=== PATIENT | male | born 1955 | race Caucasian/White ===

== ENCOUNTER → 2018-10-14 10:43 | Outpatient (CLI) | payer MEDICAID, SELFPAY ==
--- NOTE | 2018-10-14 10:51 | US_ITS ---
. US soft tissue head and neck Ordering Physician: Pascual Flores MD Patient Age: 63 years: Male HISTORY: ITS.REASON: neck mass TECHNIQUE: Ultrasound survey of the entire neck. (Negative Thyroid ultrasound was performed yesterday at [facility] but this additional mass at the left supraclavicular region was incidentally noted]) COMPARISON :None FINDINGS (Negative Thyroid ultrasound was performed yesterday at [facility] but this additional mass at the left supraclavicular region was incidentally noted]) Thus the patient returns today for ultrasound survey of the neck. These images reveal large mass at the left left supraclavicular region.. Overall it measures up to 4.9 cm sagittal to 4.8 cm transverse x 2.5 cm AP. Slightly heterogeneous echogenicity intense to be slightly more hyperechoic than hypoechoic and solid regions. It does demonstrate some scattered cystic areas throughout some of the larger cystic areas measuring up to 1.4 cm x 0.[address] neck with contrast to further evaluate in follow-up. Suggest CXR 2 view. Given the supraclavicular might consider CT chest as well particularly if the patient is smoker A since this was a ultrasound of the entire neck other regions were surveyed. The parotid glands appear fairly normal size bilaterally: Right parotid gland measuring 3 cm x 2.7 x 1.4 cm. Left parotid gland measuring up to 2.9 cm x 2.3 cm x 1.55 cm. There is a 1.1 cm x 0.6 cm cyst off the inferior margin of the left parotid gland incidentally noted Submandibular glands appear normal bilaterally. Right submandibular gland measuring 3.25 cm maximally x 3 cm x 1.2 cm AP. IMPRESSION: Left submandibular gland 3.3 cm length x 1 cm AP IMPRESSION......... 1. Large mass left supraclavicular region. This measures up to 4.9 x 4.8 x 2.5 cm. Somewhat heterogeneous echogenicity with some scattered cystic areas within it 2. Thyroid gland scan yesterday at the [facility], and was negative/per MW 3. The submandibular glands and parotid glands were surveyed today with no prominent additional findings. Only note a small cyst measuring 1.1 x 0.6 cm extending off the lower pole of the left parotid gland.
[2018-10-14 13:38] LABS: Free T4 (Free Thyroxine) 0.85 ng/dl (0.76-1.46); Thyroid Stimulating Hormone 1.91 uIU/ml (0.358-3.740)
[2018-10-15 18:11] LABS: Thyroid Peroxidase Antibodies 9 IU/mL (0-34)
[2018-10-17 10:52] LABS: Thyroid Stimulating Immunoglob <0.10 IU/L (0.00-0.55)
== END ==
PROVIDERS: PCP Family Medicine; Visit Provider Otolaryngology
DX: E01.0 Iodine-deficiency related diffuse (endemic) goiter (principal); R22.1 Localized swelling, mass and lump, neck
CPT/HCPCS: 36415; 76536; 84439; 84443; 84445; 86376

== ENCOUNTER → 2018-11-09 09:17 | Outpatient (CLI) | payer MEDICAID, SELFPAY ==
[2018-11-09 11:35] LABS: Alanine Aminotransferase 37 U/L (12-78); Albumin Level 3.7 gm/dL (3.4-5.0); Albumin/Globulin Ratio 1.3 (1.1-1.8); Alkaline Phosphatase 71 U/L (46-116); Anion Gap 16.4 mEq/L (5-15); Aspartate Amino Transferase 27 U/L (15-37); Bilirubin,Total 0.4 mg/dL (0.2-1.0); Blood Urea Nitrogen 18 mg/dL (7-18); Calcium 8.6 mg/dL (8.5-10.1); Carbon Dioxide 23 mmol/L (21.0-32.0); Chloride 105 mmol/L (98-107); Creatinine,Serum 0.88 mg/dL (0.70-1.30); Estimated Glomerular Filt Rate 88 ml/min (>60); GFR (African American) 106 ML/MIN (>60); Globulin 2.9 gm/dl (1.3-3.2); Glucose 103 mg/dL (74-106); Potassium 4.4 mmoL/L (3.5-5.1); Sodium 140 mmol/L (136-145); Total Protein,Serum 6.6 gm/dL (6.4-8.2)
== END ==
PROVIDERS: Visit Provider Otolaryngology
DX: R22.1 Localized swelling, mass and lump, neck (principal)
CPT/HCPCS: 36415; 80053

== ENCOUNTER → 2018-11-10 12:23 | Outpatient (CLI) | payer MEDICAID, SELFPAY ==
--- NOTE | 2018-11-10 12:26 | CT_ITS ---
CT soft tissue neck wo/w con INDICATION: ITS.REASON: neck mass ORDERING PHYSICIAN: Pascual Flores MD PATIENT AGE: 63 years COMPARISON: None TECHNIQUE: Axial images are obtained without contrast. Sagittal and coronal reformatted images are reviewed as well. All CT scans at the facility use one or more dose reduction, viz: automated exposure control, ma/kV adjustment per patient size (including targeted exams where dose is matched to indication, i.e. head), or iterative reconstruction technique. FINDINGS: There are scattered small nodes in the neck. The nasopharynx has an unremarkable appearance. Small nodes are present in the neck on both sides. There is an asymmetric soft tissue density in the left supraclavicular region medially measuring 3.2 x 1.6 cm. There is a 1.7 x 1.3 cm nodule along the inferior aspect of the left parotid gland and could be related to an exophytic parotid nodule or a periparotid lymph node. There is a small lymph node just medial to this region measuring 10 x 8 mm. No abscess. The submandibular glands have an unremarkable appearance. The thyroid gland has an unremarkable appearance. There are small nodes in the mediastinum measuring up to 1.4 cm. There is degenerative disc disease at C4-C5 and C5-C6. IMPRESSION: 1. Mild cervical adenopathy. The largest luis area is in the left supraclavicular region medially at 3 x 1.6 cm. 2. Exophytic parotid nodule versus inferior periparotid lymph node on the left
== END ==
PROVIDERS: PCP Family Medicine; Visit Provider Otolaryngology
DX: R22.1 Localized swelling, mass and lump, neck (principal)
CPT/HCPCS: 70492; Q9967

== ENCOUNTER → 2018-12-01 09:14 | Outpatient (CLI) | payer MEDICAID, SELFPAY ==
--- NOTE | 2018-12-01 09:17 | US_ITS ---
US FNA Other HISTORY: Left supraclavicular adenopathy ORDERING PHYSICIAN: Pascual Flores MD PATIENT AGE: 63 years COMPARISON: 11/10/2018, 10/14/2018 TECHNIQUE: Following obtaining informed consent, using aseptic technique and local anesthesia with buffered lidocaine, fine-needle aspiration was performed of the nodule of interest in the left supraclavicular region using sonographic guidance. 3 passes were made into the nodule with a 25-gauge needle. 2 passes were also made with a 21-gauge needle. Specimen was given to cytology. The patient tolerated the procedure well without evidence of immediate complications and left the ultrasound suite in stable condition. CYTOLOGY:Malignant IMPRESSION: Successful sonographic guided fine needle aspiration of left supraclavicular lymph nodes showing malignant cytology
== END ==
PROVIDERS: PCP Family Medicine; Visit Provider Otolaryngology
DX: R22.32 Localized swelling, mass and lump, left upper limb (principal)
CPT/HCPCS: 10005; 76942

== ENCOUNTER → 2018-12-08 15:50 | Outpatient (CLI) | payer MEDICAID, SELFPAY ==
[2018-12-08 16:08] LABS: Basophils % 0.5 % (0.1-2.0); Eosinophils # 0.1 K/mm3 (0.0-0.4); Eosinophils % 1.4 % (0.1-12.0); Hematocrit 33.9 % (42.0-52.0); Hemoglobin 11.9 g/dL (14.1-18.0); Lymphocytes # 1.4 K/mm3 (0.7-4.5); Mean Corpuscular HGB Conc 35.1 g/dL (31.8-35.4); Mean Corpuscular Hemoglobin 30.9 pg (27.0-31.2); Mean Corpuscular Volume 88.1 fl (80-94); Mean Platelet Volume 7.2 fl (7.4-10.4); Monocytes # 0.3 K/mm3 (0.1-1.0); Monocytes % 6.3 % (1.7-9.3); Neutrophils # 3.5 K/mm3 (1.8-7.8); Neutrophils % 65.8 % (37.0-80.0); Platelet Count 200 K/mm3 (142-424); Red Blood Count 3.84 M/mm3 (4.60-6.20); Red Cell Distribution Width 13.6 % (11.5-17.5); White Blood Count 5.4 K/mm3 (4.8-10.8)
[2018-12-08 16:58] LABS: Anion Gap 12.1 mEq/L (5-15); Blood Urea Nitrogen 15 mg/dL (7-18); Calcium 8.5 mg/dL (8.5-10.1); Carbon Dioxide 26 mmol/L (21.0-32.0); Chloride 106 mmol/L (98-107); Creatinine,Serum 0.83 mg/dL (0.70-1.30); Estimated Glomerular Filt Rate 94 ml/min (>60); GFR (African American) 114 ML/MIN (>60); Glucose 89 mg/dL (74-106); Potassium 4.1 mmoL/L (3.5-5.1); Sodium 140 mmol/L (136-145)
== END ==
PROVIDERS: Visit Provider Otolaryngology
DX: R22.1 Localized swelling, mass and lump, neck (principal)
CPT/HCPCS: 36415; 80048; 85025; 93005

== ENCOUNTER 2018-12-22 06:46 | Day surgery (SDC) | payer MEDICAID, SELFPAY ==
[2018-12-21 10:04] VITALS: BMI 27.1
[2018-12-22] VITALS (9 sets, daily range): BP systolic 126–141; BP diastolic 65–90; PULSE 67–88; RESP 16–20; TEMP 36.2–37.1; O2SAT 94–98
--- NOTE | 2018-12-22 07:37 | P.PN_ITS ---
[facility] Anesthesia Checklist - Patient Identification Patient Identification: Arm Band - Structural Data Admitted From: Home Planned Operative Procedure/s: cervical node biopsy left neck Consent for Planned Operative Procedure(s) Verified: Yes Verified Documents: Surgical Consent, History and Physical - NPO Status Verified Time NPO: 00:00 - Additional verifications Anesthesia Reactions: No - Airway Assessment C-Spine Mobility Assessed: Yes (mp2) TMJ Mobility Assessed: Yes Dentition: Good Dentition - Neurological Assessment Level of Consciousness: Awake, Alert - Anesthesia Plan Anesthesia Risk discussed: Yes Anesthesia Plan: Verified ASA Class: II Anesthesia Type: General [facility] History I have reviewed the patient's past medical history: Yes Medical History: Reports:: Gastroesophageal Reflux Disease(GERD) Denies:: Cancer, Diabetes Mellitus Type 1, Diabetes Mellitus Type 2, MRSA, Seizures *Have you ever received a pneumonia vaccine?: No *Have you received a flu vaccine this season?: No Other Medical History: Denies: Blood Transfusion Reaction Laterality Cases: Bilateral: Tonsillectomy Other Surgeries: Yes: Colonoscopy Amputation: No Fractures: No - *Social History Educational Level: Completed High School Smoking Status: Former smoker Tobacco Type: cigarettes Alcohol Intake: never Alcohol Intake Frequency:: a few times a month *Occupational Status:: employed Housing: house Household Members: spouse *Travel in the last 8 weeks: Inside the [place] - Psychiatric History Expresses thoughts of harming self/others: None Suicide Plan Description: No Plan Family Hx:: Cancer
--- NOTE | 2018-12-22 10:31 | P.PN_ITS ---
[facility] Anesthesia Record Part I Intake, IV Amount: 1,200 Estimated blood loss (mL): 10 Urine output (mL): 0 Blood Pressure: 140/79 SaO2: 97 Pulse Rate: 75 Respiratory Rate: 16 Temperature: 97.1 F Patient is:: Drowsy, Stable Stable to PACU at:: 10:25
--- NOTE | 2018-12-22 10:31 | P.PN_ITS ---
[facility] Anesthesia Record Part II Discharge Time: 10:55 Destination: [facility] PACU nurse assessment reviewed?: Yes Patient Condition:: Good Anesthesia Complications:: None Swallowing reflex intact?: Yes Cyanosis?: No
--- NOTE | 2018-12-22 10:31 | HMH.ANESII ---
[facility] Anesthesia Record Part II Discharge Time: 10:55 Destination: [facility] PAC[facility] nurse assessment reviewed?: Yes Patient Condition:: Good Anesthesia Complications:: None Swallowing reflex intact?: Yes Cyanosis?: No
--- NOTE | 2018-12-22 10:46 | PC.NURSE ---
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
--- NOTE | 2018-12-22 11:03 | PC.NURSE ---
1053-detailed report called to NIKI Domingo 1055-pt transported to post op via stretcher w/aleksey rails up and left in care of NIKI Domingo with bed locked in lowest position. VSS. PT stable.
--- NOTE | 2018-12-22 12:09 | P.OP_ITS ---
Date of procedure: 12/22/18 Pre-op Diagnosis:: Left deep cervical and posterior triangle level 2 lymphadenopathy Post-op Diagnosis:: same Procedure performed:: Excision of left deep cervical level 2 and posterior triangle cervical nodes Surgeon:: Pascual Flores MD HEALTHCARE CONSULTING MANAGER:: Anibal Arelalno Anesthesia: GETA Estimated blood loss (mL): 6 Operative findings:: same Operative note:: With the patient under general anesthesia, properly positioned, the left neck was prepped and draped. An upper cervical node incision was marked out over level 2 of the upper neck, and skin and subcutaneous tissue and platysma were incised. Flaps were elevated, the anterior border of the sternomastoid muscle was identified and then the sternomastoid muscle was fully mobilized in its superior position. The external jugular vein was doubly ligated and divided, the spinal accessory nerves were identified and preserved. Dissection was commenced anteriorly in the common carotid artery and the internal jugular vein were identified. There were multiple nodes in that area and all of those nodes were mobilized excised and submitted. As well there were nodes in the posterior triangle, level 2 and those nodes were mobilized and submitted. Leading for all the procedure was less than 10 cc and stopped with bipolar cautery. Surgicel snow was placed in the depth of the dissection anteriorly and posteriorly. And the neck was closed in the usual fashion with 2-0 Vicryl on the platysma and subcutaneous layer and Dermabond on the skin. No drains were inserted. Dr. Pascual Flores. Condition: stable Disposition: PACU Complications:: none
== END 2018-12-22 11:40 | disposition home or self-care (01) ==
PROVIDERS: PCP Family Medicine; Visit Provider Otolaryngology
PROC: (CPT 38510; principal; 2018-12-22 08:15)
DX: R59.1 Generalized enlarged lymph nodes (principal)
CPT/HCPCS: 38510; 96374; J2405; J2710

== ENCOUNTER → 2019-01-13 07:24 | Outpatient (CLI) | payer MEDICAID, SELFPAY ==
[2019-01-13 08:14] LABS: Blood Urea Nitrogen 22 mg/dL (7-18); Creatinine,Serum 0.89 mg/dL (0.70-1.30); Estimated Glomerular Filt Rate 87 ml/min (>60); GFR (African American) 105 ML/MIN (>60)
--- NOTE | 2019-01-13 14:15 | CT_ITS ---
CT chest w con HISTORY: ITS.REASON: LYMPHOMA ORDERING PHYSICIAN: Gricelda Cox MD PATIENT AGE: 63 years COMPARISON: None Technique: Contrast Used:75ml Optiray 350 Axial images were obtained. Sagittal, and coronal reformatted images are also generated and reviewed. All CT scans at the facility use one or more dose reduction, viz: automated exposure control, ma/kV adjustment per patient size (including targeted exams where dose is matched to indication, i.e. head), or iterative reconstruction technique. FINDINGS: The small cluster of nodes in the left supraclavicular region medially is once again noted measuring approximately 2.3 x 1.1 cm. Other smaller supraclavicular nodes are present. There are bilateral axillary nodes present. The larger of these nodes do contain prominent fatty central hilum. There are small nodes without fatty central azael measuring up to 1.6 x 1.4 cm in the right axilla. There are small mediastinal lymph nodes are also present. Right anterior paratracheal node is present measuring 1.4 cm not significantly changed. Right lateral paratracheal lymph node 1.6 x 1 cm unchanged. Small anterior aortopulmonic window on the left is present at 1.5 x 1 cm unchanged. No hilar adenopathy. There are some scattered fibrotic changes in the lungs. A calcified node is present in the right lung base posteriorly. Noncalcified fissural nodule present on the right superiorly 5 mm. There is noncalcified nodule in the left lung base at 6 millimeters. Calcified nodule left lower lobe posteriorly. No lobar consolidation or collapse no effusions. IMPRESSION: 1. No change in the supraclavicular nodes on the left. There are small bilateral axillary lymph nodes and small mediastinal nodes. These are described above. The mediastinal nodes are not significantly changed. The axillary nodes were not previously imaged. 2. 6 mm noncalcified nodule left lower lobe. Consider 6 month follow-up.
--- NOTE | 2019-01-13 14:15 | CT_ITS ---
CT abdomen pelvis w con CLINICAL INDICATION: ITS.REASON: LYMPHOMA ORDERING PHYSICIAN: Gricelda Cox MD PATIENT AGE: 63 years COMPARISON: None TECHNIQUE: Contrast Used:75ml Optiray 350 Oral Contrast: 450ml Redicat Axial images obtained with sagittal and coronal reformats. All CT scans at the facility use one or more dose reduction, viz: automated exposure control, ma/kV adjustment per patient size (including targeted exams where dose is matched to indication, i.e. head), or iterative reconstruction technique. FINDINGS: The liver, gallbladder, adrenal glands, and pancreas have an unremarkable appearance. There is mild splenomegaly at 13 x 9 x 13 cm. There are scattered small mesenteric and retroperitoneal lymph nodes. There is a chain of mildly prominent retroperitoneal lymph nodes in the left periaortic region. These measure up to 2 x 1.1 cm. No evidence of aortic aneurysm. There is mild prominence of the proximal left common iliac artery at 1.5 cm. There are some small lymph nodes present in the left external iliac chain. Small nodes are also present in the inguinal regions bilaterally measuring up to 1.2 x 1 cm. The prostate is mildly enlarged at 4.4 cm. Within the central aspect of the prostate there is a more dense area which measures 2.5 cm with some calcification. Along the posterior and right aspect of the urinary bladder there is a 3.8 x 2.7 cm soft tissue density. This is contiguous with the urinary bladder and could represent a bladder diverticulum. No intestinal structure free air. Unremarkable appendix. There is diverticulosis of the sigmoid colon with no evidence of diverticulitis. There are degenerative changes of the lumbar spine. IMPRESSION: 1. Scattered small peritoneal and retroperitoneal lymph nodes with small nodes also present in the inguinal region and left iliac area. 2. 3.8 cm soft tissue density in the right pelvic area which may represent a urinary bladder diverticulum. 3. Mildly enlarged prostate with a central zone of increased density. Correlation with physical exam and PSA suggested. 4. Colonic diverticulosis
== END ==
PROVIDERS: Visit Provider Internal Medicine Medical Oncology
DX: C82.01 Follicular lymphoma grade I, lymph nodes of head, face, and neck (principal)
CPT/HCPCS: 36415; 71260; 74177; 82565; 84520; Q9967

== ENCOUNTER → 2019-01-19 15:12 | Outpatient (CLI) | payer MEDICAID, SELFPAY ==
[2019-01-19 18:21] LABS: Prostate Specific Ag Screen 0.8 ng/mL (0.0-4.0)
== END ==
PROVIDERS: Visit Provider Internal Medicine Medical Oncology
DX: Z12.5 Encounter for screening for malignant neoplasm of prostate (principal); C82.01 Follicular lymphoma grade I, lymph nodes of head, face, and neck
CPT/HCPCS: 36415; G0103

== ENCOUNTER → 2019-02-23 11:12 | Outpatient (CLI) | payer MEDICAID, SELFPAY ==
[2019-02-23 11:48] LABS: Basophils % 0.2 % (0.1-2.0); Eosinophils # 0.1 K/mm3 (0.0-0.4); Eosinophils % 2.4 % (0.1-12.0); Hemoglobin 12.4 g/dL (14.1-18.0); Lymphocytes # 1.1 K/mm3 (0.7-4.5); Lymphocytes % 24.2 % (10-50); Mean Corpuscular HGB Conc 32.6 g/dL (31.8-35.4); Mean Corpuscular Hemoglobin 29.9 pg (27.0-31.2); Mean Corpuscular Volume 91.8 fl (80-94); Mean Platelet Volume 6.4 fl (7.4-10.4); Monocytes # 0.3 K/mm3 (0.1-1.0); Monocytes % 5.4 % (1.7-9.3); Neutrophils # 3.2 K/mm3 (1.8-7.8); Neutrophils % 67.7 % (37.0-80.0); Platelet Count 177 K/mm3 (142-424); Red Blood Count 4.13 M/mm3 (4.60-6.20); White Blood Count 4.7 K/mm3 (4.8-10.8)
[2019-02-23 12:44] LABS: Alanine Aminotransferase 29 U/L (12-78); Albumin Level 3.5 gm/dL (3.4-5.0); Albumin/Globulin Ratio 1.1 (1.1-1.8); Alkaline Phosphatase 80 U/L (46-116); Anion Gap 12.6 mEq/L (5-15); Aspartate Amino Transferase 18 U/L (15-37); Bilirubin,Total 0.5 mg/dL (0.2-1.0); Blood Urea Nitrogen 19 mg/dL (7-18); Calcium 8.8 mg/dL (8.5-10.1); Carbon Dioxide 27 mmol/L (21.0-32.0); Chloride 106 mmol/L (98-107); Creatinine,Serum 0.87 mg/dL (0.70-1.30); Estimated Glomerular Filt Rate 89 ml/min (>60); GFR (African American) 108 ML/MIN (>60); Globulin 3.2 gm/dl (1.3-3.2); Glucose 96 mg/dL (74-106); Potassium 4.6 mmoL/L (3.5-5.1); Sodium 141 mmol/L (136-145); Total Protein,Serum 6.7 gm/dL (6.4-8.2)
== END ==
PROVIDERS: Visit Provider Internal Medicine Hematology & Oncology
DX: C82.01 Follicular lymphoma grade I, lymph nodes of head, face, and neck
CPT/HCPCS: 36415; 80053; 85025

== ENCOUNTER 2019-03-07 08:44 | Outpatient (CLI) | payer MEDICAID, SELFPAY ==
[2019-03-07] VITALS (9 sets, daily range): BP systolic 109–130; BP diastolic 60–81; PULSE 64–84; RESP 20; TEMP 36.6; O2SAT 96–98
== END 2019-03-07 13:36 | disposition home or self-care (01) ==
LOC: INF 08:44
PROVIDERS: Visit Provider Internal Medicine Medical Oncology
DX: Z51.11 Encounter for antineoplastic chemotherapy (principal); C82.41 Follicular lymphoma grade IIIb, lymph nodes of head, face, and neck
CPT/HCPCS: 96413; 96415; J9312

== ENCOUNTER 2019-03-15 08:50 | Outpatient (CLI) | payer MEDICAID, SELFPAY ==
[2019-03-15] VITALS (7 sets, daily range): BP systolic 100–122; BP diastolic 64–76; PULSE 70–76; RESP 18; TEMP 36.6; O2SAT 97–98; BMI 25.9
[2019-03-15 09:20] LABS: Basophils % 0.5 % (0.1-2.0); Eosinophils # 0.1 K/mm3 (0.0-0.4); Eosinophils % 2.6 % (0.1-12.0); Hematocrit 40.2 % (42.0-52.0); Hemoglobin 13.4 g/dL (14.1-18.0); Lymphocytes # 0.9 K/mm3 (0.7-4.5); Lymphocytes % 16.7 % (10-50); Mean Corpuscular HGB Conc 33.3 g/dL (31.8-35.4); Mean Corpuscular Hemoglobin 29.8 pg (27.0-31.2); Mean Corpuscular Volume 89.5 fl (80-94); Mean Platelet Volume 6.4 fl (7.4-10.4); Monocytes # 0.4 K/mm3 (0.1-1.0); Monocytes % 6.7 % (1.7-9.3); Neutrophils # 4.1 K/mm3 (1.8-7.8); Neutrophils % 73.5 % (37.0-80.0); Platelet Count 217 K/mm3 (142-424); White Blood Count 5.6 K/mm3 (4.8-10.8)
[2019-03-15 09:32] LABS: Alanine Aminotransferase 31 U/L (12-78); Albumin Level 3.6 gm/dL (3.4-5.0); Albumin/Globulin Ratio 1.1 (1.1-1.8); Alkaline Phosphatase 82 U/L (46-116); Anion Gap 15.1 mEq/L (5-15); Aspartate Amino Transferase 21 U/L (15-37); Bilirubin,Total 0.6 mg/dL (0.2-1.0); Blood Urea Nitrogen 19 mg/dL (7-18); Calcium 9.2 mg/dL (8.5-10.1); Carbon Dioxide 24 mmol/L (21.0-32.0); Chloride 103 mmol/L (98-107); Creatinine Clearance Estimated 91 mL/min (50-200); Creatinine,Serum 0.95 mg/dL (0.70-1.30); Estimated Glomerular Filt Rate 80 ml/min (>60); GFR (African American) 97 ML/MIN (>60); Globulin 3.4 gm/dl (1.3-3.2); Glucose 137 mg/dL (74-106); Potassium 4.1 mmoL/L (3.5-5.1); Sodium 138 mmol/L (136-145)
== END 2019-03-15 12:55 | disposition home or self-care (01) ==
LOC: INF 08:50
PROVIDERS: Visit Provider Internal Medicine Medical Oncology
DX: Z51.11 Encounter for antineoplastic chemotherapy (principal); C82.01 Follicular lymphoma grade I, lymph nodes of head, face, and neck
CPT/HCPCS: 80053; 85025; 96413; 96415; J9312

== ENCOUNTER 2019-03-22 08:28 | Outpatient (CLI) | payer MEDICAID, SELFPAY ==
[2019-03-22 08:30] VITALS: BMI 25.9
[2019-03-22 09:01] LABS: Basophils % 0.2 % (0.1-2.0); Eosinophils # 0.1 K/mm3 (0.0-0.4); Eosinophils % 1.2 % (0.1-12.0); Hematocrit 39.2 % (42.0-52.0); Lymphocytes % 9.6 % (10-50); Mean Corpuscular HGB Conc 33.2 g/dL (31.8-35.4); Mean Corpuscular Hemoglobin 30.5 pg (27.0-31.2); Mean Corpuscular Volume 91.9 fl (80-94); Mean Platelet Volume 6.2 fl (7.4-10.4); Monocytes # 0.7 K/mm3 (0.1-1.0); Monocytes % 6.6 % (1.7-9.3); Neutrophils # 8.3 K/mm3 (1.8-7.8); Neutrophils % 82.5 % (37.0-80.0); Platelet Count 207 K/mm3 (142-424); Red Blood Count 4.26 M/mm3 (4.60-6.20); Red Cell Distribution Width 14.2 % (11.5-17.5); White Blood Count 10.1 K/mm3 (4.8-10.8)
[2019-03-22 09:10] LABS: Alanine Aminotransferase 25 U/L (12-78); Albumin Level 3.5 gm/dL (3.4-5.0); Albumin/Globulin Ratio 0.9 (1.1-1.8); Alkaline Phosphatase 75 U/L (46-116); Anion Gap 14.3 mEq/L (5-15); Aspartate Amino Transferase 18 U/L (15-37); Blood Urea Nitrogen 14 mg/dL (7-18); Calcium 8.7 mg/dL (8.5-10.1); Carbon Dioxide 26 mmol/L (21.0-32.0); Chloride 98 mmol/L (98-107); Creatinine Clearance Estimated 91 mL/min (50-200); Creatinine,Serum 0.86 mg/dL (0.70-1.30); Estimated Glomerular Filt Rate 90 ml/min (>60); GFR (African American) 109 ML/MIN (>60); Globulin 3.9 gm/dl (1.3-3.2); Glucose 122 mg/dL (74-106); Magnesium 1.9 mg/dL (1.4-2.2); Phosphorous 2.2 mg/dL (2.4-4.9); Potassium 4.3 mmoL/L (3.5-5.1); Sodium 134 mmol/L (136-145); Total Protein,Serum 7.4 gm/dL (6.4-8.2)
[2019-03-22 10:21] VITALS: BP 115/67; PULSE 86; RESP 18; TEMP 37.1; O2SAT 100
[2019-03-22 10:51] VITALS: BP 119/66; PULSE 92; RESP 18; O2SAT 99
[2019-03-22 11:21] VITALS: BP 108/63; PULSE 80; RESP 18; O2SAT 99
[2019-03-22 11:51] VITALS: BP 110/69; PULSE 80; RESP 18; O2SAT 98
[2019-03-22 12:20] VITALS: BP 127/70; PULSE 84; RESP 18; O2SAT 99
== END 2019-03-22 12:20 | disposition home or self-care (01) ==
LOC: INF 08:28
PROVIDERS: Visit Provider Internal Medicine Medical Oncology
DX: Z51.11 Encounter for antineoplastic chemotherapy (principal); C82.01 Follicular lymphoma grade I, lymph nodes of head, face, and neck
CPT/HCPCS: 80053; 83735; 84100; 85025; 96413; 96415; J9312

== ENCOUNTER 2019-03-30 09:14 | Outpatient (CLI) | payer MEDICAID, SELFPAY ==
[2019-03-30 09:18] VITALS: BMI 26.5
[2019-03-30 09:34] LABS: Basophils % 0.4 % (0.1-2.0); Eosinophils # 0.2 K/mm3 (0.0-0.4); Eosinophils % 2.4 % (0.1-12.0); Hematocrit 38.9 % (42.0-52.0); Hemoglobin 12.8 g/dL (14.1-18.0); Lymphocytes # 1.4 K/mm3 (0.7-4.5); Lymphocytes % 21.4 % (10-50); Mean Corpuscular HGB Conc 32.8 g/dL (31.8-35.4); Mean Corpuscular Hemoglobin 29.6 pg (27.0-31.2); Mean Corpuscular Volume 90.1 fl (80-94); Mean Platelet Volume 6.2 fl (7.4-10.4); Monocytes # 0.4 K/mm3 (0.1-1.0); Monocytes % 6.2 % (1.7-9.3); Neutrophils # 4.6 K/mm3 (1.8-7.8); Neutrophils % 69.6 % (37.0-80.0); Platelet Count 285 K/mm3 (142-424); Red Blood Count 4.32 M/mm3 (4.60-6.20); Red Cell Distribution Width 13.8 % (11.5-17.5); White Blood Count 6.6 K/mm3 (4.8-10.8)
[2019-03-30 09:46] LABS: Alanine Aminotransferase 18 U/L (12-78); Albumin Level 3.4 gm/dL (3.4-5.0); Alkaline Phosphatase 73 U/L (46-116); Anion Gap 14.2 mEq/L (5-15); Aspartate Amino Transferase 14 U/L (15-37); Bilirubin,Total 0.4 mg/dL (0.2-1.0); Blood Urea Nitrogen 19 mg/dL (7-18); Calcium 8.9 mg/dL (8.5-10.1); Carbon Dioxide 25 mmol/L (21.0-32.0); Chloride 101 mmol/L (98-107); Creatinine Clearance Estimated 94 mL/min (50-200); Creatinine,Serum 0.85 mg/dL (0.70-1.30); Estimated Glomerular Filt Rate 91 ml/min (>60); GFR (African American) 111 ML/MIN (>60); Globulin 3.3 gm/dl (1.3-3.2); Glucose 134 mg/dL (74-106); Potassium 4.2 mmoL/L (3.5-5.1); Sodium 136 mmol/L (136-145); Total Protein,Serum 6.7 gm/dL (6.4-8.2)
== END 2019-03-30 10:25 | disposition home or self-care (01) ==
LOC: INF 09:14
PROVIDERS: Visit Provider Internal Medicine Medical Oncology
DX: C82.01 Follicular lymphoma grade I, lymph nodes of head, face, and neck (principal)
CPT/HCPCS: 80053; 85025

== ENCOUNTER → 2019-04-10 10:32 | Outpatient (CLI) | payer MEDICAID, SELFPAY ==
[2019-04-10 14:54] LABS: Alanine Aminotransferase 24 U/L (12-78); Alkaline Phosphatase 74 U/L (46-116); Aspartate Amino Transferase 13 U/L (15-37); Bilirubin,Total 0.5 mg/dL (0.2-1.0); Blood Urea Nitrogen 20 mg/dL (7-18); Calcium 9.1 mg/dL (8.5-10.1); Chloride 104 mmol/L (98-107); Creatinine,Serum 0.82 mg/dL (0.70-1.30); Estimated Glomerular Filt Rate 95 ml/min (>60); GFR (African American) 115 ML/MIN (>60); Glucose 103 mg/dL (74-106); Potassium 4.5 mmoL/L (3.5-5.1); Sodium 140 mmol/L (136-145); Total Protein,Serum 6.5 gm/dL (6.4-8.2)
[2019-04-10 14:59] LABS: Albumin Level 3.6 gm/dL (3.4-5.0); Albumin/Globulin Ratio 1.2 (1.1-1.8); Anion Gap 17.5 mEq/L (5-15); Carbon Dioxide 23 mmol/L (21.0-32.0); Globulin 2.9 gm/dl (1.3-3.2)
== END ==
PROVIDERS: Visit Provider Internal Medicine Medical Oncology
DX: C82.01 Follicular lymphoma grade I, lymph nodes of head, face, and neck (principal)
CPT/HCPCS: 36415; 80053

== ENCOUNTER → 2019-04-11 08:43 | Outpatient (CLI) | payer MEDICAID, SELFPAY ==
--- NOTE | 2019-04-11 08:48 | CT_ITS ---
PROCEDURE: CT CHEST W CON CLINICAL HISTORY: FOLLICULAR LYMPHOMA COMPARISON: CHESTW CT chest w con from 01/13/2019 TECHNIQUE: 75 cc intravenous contrast. Axial images obtained with sagittal and coronal reformats. All CT scans at the facility use one or more dose reduction, viz: automated exposure control, ma/kV adjustment per patient size (including targeted exams where dose is matched to indication, i.e. head), or iterative reconstruction technique. FINDINGS: Airway structures are patent without pleural effusion or pneumothorax. There are benign calcified granulomas in the posterior lower lobes bilaterally. The remainder of the lung watters are clear. There are a few small noncalcified mediastinal lymph nodes and a pretracheal lymph node shows maximal short axis diameter of 6.6 millimeters. There are some stable benign subcarinal calcified lymph nodes. Mediastinal structures and hilar areas are unremarkable. There are some thoracic aortic stable calcified plaques. IMPRESSION: No significant change or acute process. Small nonspecific noncalcified mediastinal lymph nodes. Dictated by: Bam Rodriguez 04/11/2019 10:17 Electronically signed by Bam Rodriguez in [place] 04/11/2019 10:17
--- NOTE | 2019-04-11 08:48 | CT_ITS ---
PROCEDURE: CT ABDOMEN PELVIS W CON CLINICAL HISTORY: FOLLICULAR LYMPHOMA COMPARISON: [facility] CT abdomen pelvis w con from 01/13/2019 TECHNIQUE: 75 cc of intravenous contrast was Axial images obtained with sagittal and coronal reformats. All CT scans at the facility use one or more dose reduction, viz: automated exposure control, ma/kV adjustment per patient size (including targeted exams where dose is matched to indication, i.e. head), or iterative reconstruction technique. FINDINGS: Utilized. Liver, gallbladder and pancreas are normal. Spleen is normal with maximal length of 11.8 centimeters. Adrenal glands and kidneys are normal. There are aortic calcified plaques without dilatation. Short axis diameter of a left retroperitoneal lymph node is 6.5 millimeters and on the prior study was 7.3 millimeters. Also the small bilateral common iliac lymph nodes are even smaller on today's study and the inguinal lymph nodes bilaterally are somewhat smaller. There are sigmoid diverticula without inflammatory changes. There is a stable left posterior lateral urinary bladder diverticulum. The remainder of the pelvic structures are stable. There is incomplete fluid distention of the stomach for adequate evaluation. GI tract is otherwise unremarkable with normal appendix. There is no acute osseous process. There is moderate thecal sac attenuation at L3-4 and L4-5 related to facet hypertrophy. IMPRESSION: As discussed above smaller lymph nodes in the abdomen pelvis and inguinal area. Stable urinary bladder diverticulum. Uncomplicated sigmoid diverticulosis. L3-4 and L4-5 acquired moderate central canal stenosis. Dictated by: Bam Rodriguez 04/11/2019 10:25 Electronically signed by Bam Rodriguez in [place] 04/11/2019 10:25
== END ==
PROVIDERS: PCP Family Medicine; Visit Provider Internal Medicine Medical Oncology
DX: C82.11 Follicular lymphoma grade II, lymph nodes of head, face, and neck (principal); C82.41 Follicular lymphoma grade IIIb, lymph nodes of head, face, and neck; C85.10 Unspecified B-cell lymphoma, unspecified site
CPT/HCPCS: 71260; 74177; Q9967

== ENCOUNTER → 2019-07-27 10:00 | Outpatient (CLI) | payer OTHER, SELFPAY ==
--- NOTE | 2019-07-27 10:12 | CT_ITS ---
PROCEDURE: CT CHEST W CON CLINCAL INDICATION: LYMPHOMA COMPARISON: FNAOTHER US FNA Other from 12/01/2018 CT CHEST W CON from 04/11/2019 CT ABDOMEN PELVIS W CON from 07/27/2019 TECHNIQUE: IV Contrast: 75ml Optiray 350 Axial images obtained with sagittal and coronal reformats. All CT scans at the facility use one or more dose reduction, viz: automated exposure control, ma/kV adjustment per patient size (including targeted exams where dose is matched to indication, i.e. head), or iterative reconstruction technique. FINDINGS: There are scattered small axillary and mediastinal nodes as before not significantly changed. Calcified mediastinal and hilar nodes are also present. Normal heart size. There are scattered small nodular opacities in the right apex with some right apical pleural thickening with also some mild fibrotic change in the left apex. There is evidence of old granulomatous disease with scattered granulomas. Calcified granuloma is present in the right lower lobe. No suspicious pulmonary nodules are apparent. There is a stable 6 mm opacity in the extreme left lung base. No acute bony anomalies. IMPRESSION: Stable CT appearance of the chest. No change with no acute finding. Dictated by: Daniel Barillas MD 07/28/2019 08:33 Electronically signed by Daniel Barillas MD in [place] 07/28/2019 08:33
--- NOTE | 2019-07-27 10:12 | CT_ITS ---
PROCEDURE: CT ABDOMEN PELVIS W CON CLINICAL INDICATION: LYMPHOMA Follow-up lymphoma COMPARISON: [id number] CT soft tissue neck wo/w con from 11/10/2018 FNAOTHER US FNA Other from 12/01/[id number] abdomen pelvis w con from 01/13/2019 CT ABDOMEN PELVIS W CON from 04/11/2019 TECHNIQUE: IV Contrast: 75ML OPTIRAY 350 Oral Contrast 450ml Redicat Axial images obtained with sagittal and coronal reformats. All CT scans at the facility use one or more dose reduction, viz: automated exposure control, ma/kV adjustment per patient size (including targeted exams where dose is matched to indication, i.e. head), or iterative reconstruction technique. FINDINGS: LOWER THORAX: No acute finding ABDOMEN & PELVIS: The liver, spleen, pancreas, adrenal glands, and kidneys are unremarkable. No abdominal or pelvic mass or adenopathy. Unremarkable appendix. There is some minimal haziness of the peritoneal fat centrally nonspecific. There is diverticulosis of the sigmoid colon. No evidence of diverticulitis. The a diverticulum is present involving the posterior aspect of the urinary bladder on the right. There are mild degenerative changes in the lumbar spine. There are small retroperitoneal lymph nodes on the left which may be slightly smaller. Small inguinal lymph nodes are also noted unchanged. No enlarged nodes are evident. IMPRESSION: Overall stable CT appearance of the abdomen and pelvis. There are few small retroperitoneal and inguinal lymph nodes. The retroperitoneal nodes may be slightly smaller compared to the previous exam. No bulky adenopathy evident. Dictated by: Daniel Barillas MD 07/28/2019 08:42 Electronically signed by Daniel Barillas MD in [place] 07/28/2019 08:42
[2019-07-27 10:22] LABS: Blood Urea Nitrogen 19 mg/dL (7-18); Creatinine,Serum 1.02 mg/dL (0.70-1.30); Estimated Glomerular Filt Rate 74 ml/min (>60); GFR (African American) 90 ML/MIN (>60)
== END ==
PROVIDERS: PCP Family Medicine; Visit Provider Internal Medicine Medical Oncology
DX: C82.01 Follicular lymphoma grade I, lymph nodes of head, face, and neck (principal)
CPT/HCPCS: 36415; 71260; 74177; 82565; 84520; Q9967

== ENCOUNTER → 2020-01-06 16:29 | Outpatient (CLI) | payer OTHER, SELFPAY ==
[2020-01-09 09:42] LABS: Covid-19 Nasal PCR Sendout UK NOT DETECTED
== END ==
PROVIDERS: PCP Family Medicine; Visit Provider Family Medicine
DX: Z03.818 Encounter for observation for suspected exposure to other biological agents ruled out (principal)
CPT/HCPCS: U0003

== ENCOUNTER → 2020-01-22 08:30 | Outpatient (CLI) | payer OTHER, SELFPAY ==
[2020-01-22 09:25] LABS: Blood Urea Nitrogen 16 mg/dl (9-20); Estimated Glomerular Filt Rate 85 ml/min (>60); GFR (African American) 103 ML/MIN (>60)
== END ==
PROVIDERS: Visit Provider Internal Medicine Medical Oncology
DX: Z01.818 Encounter for other preprocedural examination (principal)
CPT/HCPCS: 36415; 82565; 84520

== ENCOUNTER → 2020-01-23 09:40 | Outpatient (CLI) | payer OTHER, SELFPAY ==
--- NOTE | 2020-01-23 | CT_ITS ---
PROCEDURE: CT ABDOMEN PELVIS W CON CLINICAL INDICATION: Follow-up lymphoma COMPARISON: CT ABDOMEN PELVIS W CON from 07/27/2019 TECHNIQUE: IV Contrast: 75ML OPTIRAY 350 Oral Contrast None Axial images obtained with sagittal and coronal reformats. All CT scans at the facility use one or more dose reduction, viz: automated exposure control, ma/kV adjustment per patient size (including targeted exams where dose is matched to indication, i.e. head), or iterative reconstruction technique. FINDINGS: The liver, gallbladder, spleen, adrenal glands, pancreas, have an unremarkable appearance. There is mild nonspecific thickening of the distal esophagus. Nonobstructing stone is present in the mid pole of the right kidney at 1-2 mm. No ureteral calculi. No hydronephrosis. Unremarkable appendix. Colonic diverticulosis without diverticulitis. There is a right posterior bladder diverticulum. Coarse calcification involves the prostate which is slightly enlarged at 4.2 cm. No peritoneal or retroperitoneal adenopathy. There are few scattered small retroperitoneal lymph nodes as before. No bulky adenopathy apparent. Small shotty inguinal lymph nodes also noted not significantly changed. There is mild haziness of the central mesenteric fat nonspecific. Mild degenerative changes are present in the spine and hips. Subchondral cystic changes are present at the symphysis pubis and in the hips. IMPRESSION: Overall stable CT appearance the abdomen and pelvis. No CT evidence of recurrence lymphoma Dictated by: Daniel Barillas MD 01/24/2020 08:45 Electronically signed by Daniel Barillas MD in [place] 01/24/2020 08:45
--- NOTE | 2020-01-23 | CT_ITS ---
PROCEDURE: CT CHEST W CON CLINCAL INDICATION: LYMPHOMA Follow-up lymphoma COMPARISON: CHESTW CT chest w con from 01/13/2019 CT CHEST W CON from 07/27/2019 CT ABDOMEN PELVIS W CON from 01/23/2020 TECHNIQUE: IV Contrast: 75ml Optiray 350 Axial images obtained with sagittal and coronal reformats. All CT scans at the facility use one or more dose reduction, viz: automated exposure control, ma/kV adjustment per patient size (including targeted exams where dose is matched to indication, i.e. head), or iterative reconstruction technique. FINDINGS: HEART AND MEDIASTINAL STRUCTURES: Unremarkable. LUNGS AND PLEURAL SPACES: Changes of COPD. There are fibronodular changes in the lung apices which appear stable. Stable 6 mm nodular opacity in left lung base. No new nodules. No effusions or infiltrates. BONY STRUCTURES: No acute finding. There is a sclerotic focus involving the left 6th rib laterally which is stable UPPER ABDOMEN: Unremarkable. ADDITIONAL FINDINGS: Scattered small mediastinal and axillary lymph nodes are present as before. No enlarged lymph nodes. Calcified nodes are present in the subcarinal region. IMPRESSION: Stable CT appearance of the chest. No CT evidence of recurrence lymphoma Dictated by: Daniel Barillas MD 01/24/2020 08:51 Electronically signed by Daniel Barillas MD in [place] 01/24/2020 08:51
== END ==
PROVIDERS: PCP Family Medicine; Visit Provider Internal Medicine Medical Oncology
DX: C77.9 Secondary and unspecified malignant neoplasm of lymph node, unspecified (principal)
CPT/HCPCS: 71260; 74177

== ENCOUNTER → 2020-02-05 11:16 | Outpatient (CLI) | payer OTHER, SELFPAY ==
--- NOTE | 2020-02-05 12:10 | CT_ITS ---
PROCEDURE: CT SOFT TISSUE NECK WO/W CON Standard protocol CT imaging of the soft tissue neck was performed without and with intravenous contrast. 75 mL Optiray 350 IV contrast was utilized. CLINICAL INDICATION: LYMPHOMA Follow-up on chemotherapy. COMPARISON: NECKWW CT soft tissue neck wo/w con from 11/10/2018 FINDINGS: Nasopharynx, oropharynx and hypopharynx: Appear normal. Larynx: The epiglottis and larynx appear normal. Retropharyngeal space: Unremarkable. Sub mandibular/parotid glands: Unremarkable. Thyroid: Not enlarged or demonstrate calcified nodules Lymph nodes: Small non pathological lymph nodes are again seen in the spaces of the neck, bilaterally. No cervical lymphadenopathy is demonstrated. No left supraclavicular worrisome pathology is evident. Trachea: In midline. Patent. Bulky subcarinal and left hilar calcified lymph nodes are seen from old granulomatous disease. Lungs: There is biapical pleural thickening/parenchymal scarring. Mild emphysematous changes of the lungs. Bones and joints: Straightening of normal cervical lordosis. Moderate degenerative disc/endplate disease changes are seen at C4-C5, C5-C6 and C6-C7 levels with disc space narrowing, endplate sclerosis and with anterior bridging osteophytes. IMPRESSION: No cervical lymphadenopathy or enhancing worrisome supraclavicular pathology demonstrated. Multilevel moderate degenerative cervical spondylosis, as described. Dictated by: Teagan Melgar 02/05/2020 13:17 Electronically signed by Teagan Melgar in [facility] 02/05/2020 13:17
[2020-02-05 12:14] LABS: Blood Urea Nitrogen 21 mg/dl (9-20); Estimated Glomerular Filt Rate 85 ml/min (>60); GFR (African American) 103 ML/MIN (>60)
== END ==
PROVIDERS: Visit Provider Internal Medicine Medical Oncology
DX: C82.11 Follicular lymphoma grade II, lymph nodes of head, face, and neck (principal)
CPT/HCPCS: 36415; 70492; 82565; 84520; Q9967

== ENCOUNTER → 2020-05-31 14:52 | Outpatient (CLI) | payer OTHER, SELFPAY ==
--- NOTE | 2020-05-31 15:11 | US_ITS ---
PROCEDURE: US CHEST CLINICAL INDICATION: R/O LYMPHOMA,LT POSTERIOR MASS COMPARISON: CT CT CHEST W CON from 07/27/[address] SOFT TISSUE NECK WO/W CON from 02/05/2020 FINDINGS: The left lateral back there is a palpable abnormality. Ultrasound performed of this region shows a homogeneous lentiform area I so echogenicity measuring 4 cm longitudinal, 4 cm transverse, and 1 cm in thickness. This may represent a lipoma and may be confirmed with CT. No fluid collections evident. IMPRESSION: Soft tissue mass in the left lateral back may represent a lipoma. CT may confirm. Dictated by: Daniel Barillas MD 05/31/2020 16:58 Daniel Barillas MD in [facility] 05/31/2020 16:58
== END ==
PROVIDERS: PCP Family Medicine; Visit Provider Internal Medicine Medical Oncology
DX: C81.01 Nodular lymphocyte predominant Hodgkin lymphoma, lymph nodes of head, face, and neck (principal)
CPT/HCPCS: 76604

== ENCOUNTER → 2020-06-11 08:47 | Outpatient (CLI) | payer OTHER, SELFPAY ==
[2020-06-11 09:27] LABS: Basophils % 0.4 % (0.1-2.0); Eosinophils # 0.2 K/mm3 (0.0-0.4); Eosinophils % 3.2 % (0.1-12.0); Hemoglobin 14.3 g/dL (14.1-18.0); Lymphocytes # 1.1 K/mm3 (0.7-4.5); Lymphocytes % 23.2 % (10-50); Mean Corpuscular Hemoglobin 31.9 pg (27.0-31.2); Mean Corpuscular Volume 93.8 fl (80-94); Mean Platelet Volume 7.7 fl (7.4-10.4); Monocytes # 0.4 K/mm3 (0.1-1.0); Monocytes % 7.1 % (1.7-9.3); Neutrophils # 3.2 K/mm3 (1.8-7.8); Neutrophils % 66.2 % (37.0-80.0); Platelet Count 178 K/mm3 (142-424); Red Blood Count 4.48 M/mm3 (4.60-6.20); Red Cell Distribution Width 13.5 % (11.5-17.5); White Blood Count 4.9 K/mm3 (4.8-10.8)
[2020-06-11 10:44] LABS: Chloride 105 mmol/L (98-107); Potassium 4.4 mmoL/L (3.5-5.1); Sodium 138 mmol/L (136-145)
[2020-06-11 10:46] LABS: Alanine Aminotransferase 21 U/L (12-78); Aspartate Amino Transferase 28 U/L (17-59); Blood Urea Nitrogen 18 mg/dl (9-20); Estimated Glomerular Filt Rate 85 ml/min (>60); GFR (African American) 103 ML/MIN (>60)
[2020-06-11 10:47] LABS: Albumin Level 3.9 g/dl (3.5-5.0); Albumin/Globulin Ratio 1.5 (1.1-1.8); Alkaline Phosphatase 70 U/L (38-126); Anion Gap 11.4 mEq/L (5-15); Bilirubin,Total 0.6 mg/dl (0.2-1.3); Calcium 8.9 mg/dl (8.4-10.2); Carbon Dioxide 26 mmol/L (22.0-30.0); Globulin 2.6 g/dL (1.3-3.2); Glucose 101 mg/dl (74-100); Total Protein,Serum 6.5 g/dl (6.3-8.2)
== END ==
PROVIDERS: Visit Provider Internal Medicine Medical Oncology
DX: C85.90 Non-Hodgkin lymphoma, unspecified, unspecified site (principal); C81.01 Nodular lymphocyte predominant Hodgkin lymphoma, lymph nodes of head, face, and neck
CPT/HCPCS: 36415; 80053; 85025

== ENCOUNTER → 2020-06-13 08:39 | Outpatient (CLI) | payer OTHER, SELFPAY ==
--- NOTE | 2020-06-13 08:42 | CT_ITS ---
PROCEDURE: CT ABDOMEN PELVIS W CON CLINICAL INDICATION: [place] COMPARISON: CT CT ABDOMEN PELVIS W CON from 01/23/2020 TECHNIQUE: IV Contrast: 75ML Isovue 370 Oral Contrast None Axial images obtained with sagittal and coronal reformats. All CT scans at the facility use one or more dose reduction, viz: automated exposure control, ma/kV adjustment per patient size (including targeted exams where dose is matched to indication, i.e. head), or iterative reconstruction technique. FINDINGS: The liver, gallbladder, spleen, adrenal glands, pancreas, have an unremarkable appearance. There is a nonobstructing 2 mm stone in the mid polar region of the right kidney. No obstructing ureteral calculi. Unremarkable appearing appendix. No intestinal obstruction or free air. There is mild haziness of the central mesenteric fat which is not significantly changed. Small left-sided retroperitoneal lymph nodes are present and are unchanged. No dominant adenopathy. There is a right bladder diverticulum and there is mild nonspecific thickening of the urinary bladder. The prostate is prominent at 4.5 cm with central calcification. There are few small inguinal lymph nodes. Degenerative changes are present in the lumbar spine. Mild osteoarthritis also noted of the hips. IMPRESSION: 1. Overall no significant change with no acute finding with no evidence of recurrence lymphoma. 2. Other nonacute findings as described above. Dictated by: Daniel Bairllas MD 06/15/2020 09:16 Daniel Barillas MD in [facility] 06/15/2020 09:16
--- NOTE | 2020-06-13 08:42 | CT_ITS ---
PROCEDURE: CT CHEST W CON CLINCAL INDICATION: Lymphoma f/u follow-up lymphoma COMPARISON: CT CT CHEST W CON from 01/23/[address] SOFT TISSUE NECK WO/W CON from 02/05/2020 TECHNIQUE: IV Contrast: 75ml Isovue 370 Axial images obtained with sagittal and coronal reformats. All CT scans at the facility use one or more dose reduction, viz: automated exposure control, ma/kV adjustment per patient size (including targeted exams where dose is matched to indication, i.e. head), or iterative reconstruction technique. FINDINGS: HEART AND MEDIASTINAL STRUCTURES: There are small mediastinal lymph nodes present the largest of which is in the precarinal region measuring approximately 1.9 by 1 cm not significantly changed. Calcified subcarinal nodes are noted. LUNGS AND PLEURAL SPACES: There are scattered subsegmental multiple areas of infiltrate which are mostly peripheral. These are present in both upper and lower lobes. The largest area of infiltrate is in the right lower lobe. These have developed since the previous exam. Some of these infiltrates have a somewhat ground-glass attenuation. Covid19 pneumonitis is considered. No suspicious pulmonary nodules are identified although nodule could be obscured by the multiple areas of infiltrate. No effusions. Bony structures: There is an area of bony sclerosis involving the left 6th rib laterally. This is not significantly changed. There are small axillary lymph nodes present which are not significantly changed. Mild gynecomastia noted. IMPRESSION: 1. Mildly prominent mediastinal lymph nodes which are not significantly changed. 2. Small axillary nodes not significantly changed. 3. Numerous subsegmental areas of infiltrate some of which have ground-glass attenuation. These findings may be seen with Covid19 pneumonitis. Please correlate with clinical findings. Dictated by: Daniel Barillas MD 06/15/2020 09:11 Daniel Barillas MD in [facility] 06/15/2020 09:11
== END ==
PROVIDERS: PCP Family Medicine; Visit Provider Internal Medicine Medical Oncology
DX: C81.01 Nodular lymphocyte predominant Hodgkin lymphoma, lymph nodes of head, face, and neck (principal)
CPT/HCPCS: 71260; 74177; Q9967

== ENCOUNTER → 2020-06-20 14:16 | Outpatient (CLI) | payer OTHER, SELFPAY ==
--- NOTE | 2020-06-20 14:54 | CT_ITS ---
PROCEDURE: REPEAT VIEW CT CLINICAL HISTORY: Repeat exam for possible lipoma COMPARISON: CT CT CHEST W CON from 01/23/[address] CHEST W CON from 06/13/2020 TECHNIQUE: Axial images obtained with sagittal and coronal reformats. All CT scans at the facility use one or more dose reduction, viz: automated exposure control, ma/kV adjustment per patient size (including targeted exams where dose is matched to indication, i.e. head), or iterative reconstruction technique. FINDINGS: The patient was asked to return as it was uncertain if the previous area of concern was covered on the exam. A BB was placed on the area of concern and the exam was performed without contrast. The palpable area of concern does represent a benign-appearing lipoma. This measures approximately 6 x 6 by 1.5 cm. There is persistent bilateral patchy areas of opacification. Some areas are slightly improved while other areas are slightly more prominent. There is a nonobstructing 2 mm stone in the mid polar region of the right kidney. Compared to the previous exam. IMPRESSION: 1. Palpable abnormality in the left posterior chest corresponds to a benign-appearing lipoma 2. Persistent peripheral patchy areas of pneumonia with mixed response Dictated by: Daniel Barillas MD 06/20/2020 15:11 Daniel Barillas MD in [facility] 06/20/2020 15:11
[2020-06-22 12:53] LABS: Covid-19 Nasal PCR Sendout Lex Positive
== END ==
PROVIDERS: PCP Family Medicine; Visit Provider Internal Medicine Medical Oncology
DX: Z20.828 Contact with and (suspected) exposure to other viral communicable diseases (principal); U07.1 COVID-19
CPT/HCPCS: U0004

== ENCOUNTER 2020-07-08 09:16 | Emergency (ER) | payer OTHER, SELFPAY ==
[2020-07-08 09:31] VITALS: BP 126/75; PULSE 90; RESP 16; TEMP 36.7; O2SAT 98; BMI 27.1
--- NOTE | 2020-07-08 09:41 | HMH.EDUTC ---
[facility] [place] Clinical Impression: COVID-19 Disposition: Home, Self-Care Condition on Discharge: Good Instructions: Preventing the Spread of Coronavirus Discharge Instructions Additional Instructions: Drink plenty of fluids. Take tylenol for pain or fever. Return if you begin to have difficulty breathing. Follow up with your regular doctor. GO TO THE ER FOR ANY WORSENING SYMPTOMS Referrals: Kenroy Chavez MD [Primary Care Provider] - Time of Disposition: 09:43 Medical Decision Making - Medical Records Medical records reviewed: No: I reviewed the patient's medical records. - Caleb Inquiry Pt receiving controlled substance: No Vital Signs: 07/08/20 09:31 07/08/20 09:55 Temperature 98.1 F 98.1 F Temperature Source Oral Pulse Rate 90 Pulse Rate [Left] 90 Respiratory Rate 16 16 Blood Pressure 126/75 Blood Pressure [Right Arm] 126/75 Blood Pressure Mean [Right Arm] 92 Blood Pressure Source [Right Arm] Automatic Cuff Blood Pressure Position [Right Arm] Sitting 02 Sat by Pulse Oximetry 98 Oxygen Delivery Method Room Air Orders (Tests/Meds): ORDERS Category Date Time Status Covid-19 Nasal PCR Sendout P&C Routine Lab 07/08/20 09:25 Received [facility] [place] HPI - General Stated complaint: covid re test Time Seen by Provider: 07/08/20 09:41 Mode of Arrival: Ambulatory Source of Information: Patient Limitations: No Limitations Description of Symptoms (Recalled from Triage Doc. by RN): Covid re-test. Positive after Thanksgiving HEENT Symptoms (Recalled from RN notes): No Resp Symptoms (Recalled from RN notes): No Skin Symptoms (Recalled from RN notes): No MS Symptoms (Recalled from RN notes): No Functional Status (Recalled from RN notes): wnl - History of Present Illness Provider Complaint: He states that he has had covid. He did have symptoms, but he has been better for the past 5 days or so. He denies any symptoms. He request a covid test. - Related Data Home Medications Medication Instructions Recorded Confirmed No Known Home Medications 07/08/20 07/08/20 Allergies Allergy/AdvReac Type Severity Reaction Status Date / Time No Known Allergies Allergy Verified 07/08/20 09:38 - Worker's Comp Is this a Worker's Comp case?: No Is this an [facility] Worker's Comp?: No Is this a Jimmy Worker's Comp?: No [facility] History - Hepatitis A Screen Drug use history?: No High risk sexual behaviors?: No History of sexually transmitted infection?: No Currently employed?: No Childcare worker?: No Do you have indoor plumbing?: Yes Do you have electricity?: Yes Attestation statement:: This patient has been screened for Hepatitis A risk factors. I have reviewed the patient's past medical history: Yes Medical History: Reports:: Cancer, Gastroesophageal Reflux Disease(GERD) Denies:: Diabetes Mellitus Type 1, Diabetes Mellitus Type 2, MRSA, Seizures Other Medical History: Denies: Blood Transfusion Reaction Comment: Follicular Lymphoma, 2019 Laterality Cases: Bilateral: Tonsillectomy Other Surgeries: Yes: No Previous Surgery, Colonoscopy, Other Amputation: No Fractures: No Comment: surgery on neck, cancer - Social History Smoking Status: Never smoker Tobacco Type: cigarettes # Packs/Day (cigarettes): 1 Alcohol Intake: never Alcohol Intake Frequency:: a few times a month Substance Use Type: denies use Occupational Status: other Housing: house Household Members: spouse Family Hx:: Cancer ROS Obtained: Yes All systems reviewed & no additional complaints - Constitutional Constitutional: Reports system reviewed and no additional complaints, except as docu - Eyes Eyes: Reports system reviewed and no additional complaints, except as docu - ENT Ears, Nose, Mouth, and Throat: Reports system reviewed and no additional complaints, except as docu - Cardiovascular Cardiovascular: Reports system reviewed and no additional complaints, except as docu - Respirat
[2020-07-08 09:55] VITALS: BP 126/75; PULSE 90; RESP 16; TEMP 36.7; O2SAT 98
[2020-07-09 09:17] LABS: Covid-19 Nasal PCR Sendout P&C POSITIVE
--- NOTE | 2020-07-09 09:57 | PC.NURSE ---
Attempted to call pt but no answer. Will try again later.
--- NOTE | 2020-07-09 10:56 | PC.NURSE ---
PT WAS NOTIFIED OF POSITIVE COVID RESULT
== END 2020-07-08 09:57 | disposition home or self-care (01) ==
PROVIDERS: Emergency Provider Nurse Practitioner Family; PCP Family Medicine
DX: U07.1 COVID-19 (principal); K21.9 Gastro-esophageal reflux disease without esophagitis
CPT/HCPCS: 99201; U0004

== ENCOUNTER → 2020-10-30 11:00 | Outpatient (CLI) | payer OTHER, SELFPAY ==
[2020-10-30 11:21] LABS: Basophils % 0.5 % (0.1-2.0); Eosinophils # 0.2 K/mm3 (0.0-0.4); Eosinophils % 3.1 % (0.1-12.0); Hematocrit 41.6 % (42.0-52.0); Lymphocytes # 1.4 K/mm3 (0.7-4.5); Lymphocytes % 20.6 % (10-50); Mean Corpuscular HGB Conc 33.8 g/dL (31.8-35.4); Mean Corpuscular Hemoglobin 31.8 pg (27.0-31.2); Mean Corpuscular Volume 94.1 fl (80-94); Mean Platelet Volume 7.1 fl (7.4-10.4); Monocytes # 0.3 K/mm3 (0.1-1.0); Monocytes % 4.7 % (1.7-9.3); Neutrophils # 4.9 K/mm3 (1.8-7.8); Neutrophils % 71.1 % (37.0-80.0); Platelet Count 210 K/mm3 (142-424); Red Blood Count 4.42 M/mm3 (4.60-6.20); Red Cell Distribution Width 13.6 % (11.5-17.5); White Blood Count 6.9 K/mm3 (4.8-10.8)
[2020-10-30 12:20] LABS: Alanine Aminotransferase 27 U/L (12-78); Albumin Level 4.3 g/dl (3.5-5.0); Albumin/Globulin Ratio 1.8 (1.1-1.8); Alkaline Phosphatase 83 U/L (38-126); Anion Gap 10.6 mEq/L (5-15); Aspartate Amino Transferase 31 U/L (17-59); Bilirubin,Total 0.4 mg/dl (0.2-1.3); Blood Urea Nitrogen 21 mg/dl (9-20); Calcium 9.5 mg/dl (8.4-10.2); Carbon Dioxide 27 mmol/L (22.0-30.0); Chloride 106 mmol/L (98-107); Estimated Glomerular Filt Rate 85 ml/min (>60); GFR (African American) 103 ML/MIN (>60); Globulin 2.4 g/dL (1.3-3.2); Glucose 116 mg/dl (74-100); Potassium 4.6 mmoL/L (3.5-5.1); Sodium 139 mmol/L (136-145); Total Protein,Serum 6.7 g/dl (6.3-8.2)
== END ==
PROVIDERS: Visit Provider Internal Medicine Medical Oncology
DX: Z85.72 Personal history of non-Hodgkin lymphomas (principal)
CPT/HCPCS: 36415; 80053; 85025

== ENCOUNTER → 2020-10-31 13:35 | Outpatient (CLI) | payer OTHER, SELFPAY ==
--- NOTE | 2020-10-31 | CT_ITS ---
PROCEDURE: CT CHEST W CON CLINCAL INDICATION: LYMPHOMA New swelling rt neck marked with BB Not on chemo at this time COMPARISON: CT CT CHEST W CON from 06/13/2020 TECHNIQUE: IV Contrast: 75ml Isovue 370 Axial images obtained with sagittal and coronal reformats. All CT scans at the facility use one or more dose reduction, viz: automated exposure control, ma/kV adjustment per patient size (including targeted exams where dose is matched to indication, i.e. head), or iterative reconstruction technique. FINDINGS: HEART AND MEDIASTINAL STRUCTURES: There are mildly prominent mediastinal lymph nodes once again noted but do not appear significantly changed. LUNGS AND PLEURAL SPACES: Scattered areas of scarring. Calcified granuloma right lower lobe posteriorly. No effusions or infiltrates. Calcified granuloma left lower lobe there are calcified subcarinal lymph nodes. Previously noted airspace disease in the lungs have improved. No evidence of pulmonary fibrosis. BONY STRUCTURES: No acute bony abnormalities apparent. UPPER ABDOMEN: There are few small epigastric nodes which are unchanged. There are few small nodes within the mesenteries ADDITIONAL FINDINGS: No other significant abnormalities. IMPRESSION: Interval resolution of the bilateral airspace disease with no acute finding. Stable small nodes in the mediastinum Dictated by: Daniel Barillas MD 11/01/2020 14:10 Daniel Barillas MD in [facility] 11/01/2020 14:10
--- NOTE | 2020-10-31 | CT_ITS ---
PROCEDURE: CT SOFT TISSUE NECK W CON CLINICAL HISTORY: Hx of lymphoma New swelling rt neck marked with BB No on chemo at this time COMPARISON: CT CT SOFT TISSUE NECK WO/W CON from 02/05/2020 TECHNIQUE: Oral Contrast: None IV Contrast: None Axial images obtained with sagittal and coronal reformats. All CT scans at the facility use one or more dose reduction, viz: automated exposure control, ma/kV adjustment per patient size (including targeted exams where dose is matched to indication, i.e. head), or iterative reconstruction technique. FINDINGS: A BB is used to gisele the area of palpable concern in the right side of the neck. Directly beneath this BB is a mildly prominent submandibular gland. No evidence of abscess. The right submandibular gland does appear to be slightly larger compared to the previous exam. No low-density changes however are evident. There appears to be an accessory limb of the parotid gland on the right anteriorly lateral to the masseter muscle. No parotid or submandibular mass is evident. There are scattered small nodes within the neck on both sides not significantly changed no abnormal fluid collections. Carotid calcification is noted bilaterally with approximately 30 percent narrowing of the left proximal carotid. Degenerative changes are present in the cervical spine. 4 mm anterolisthesis of C3 on C4 with degenerative disc disease C4-C5 C5-C6 and C6-C7 there is severe right foraminal narrowing at C4-C5 and C5-C6 and moderate foraminal narrowing on the left at the same levels. IMPRESSION: The right submandibular gland is slightly larger compared to the previous study and may be seen with underlying inflammatory changes. No cervical adenopathy. Other nonacute findings as described above. Dictated by: Daniel Barillas MD 11/01/2020 14:30 Daniel Barillas MD in [facility] 11/01/2020 14:30
== END ==
PROVIDERS: PCP Family Medicine; Visit Provider Internal Medicine Medical Oncology
DX: C82.10 Follicular lymphoma grade II, unspecified site (principal); C81.01 Nodular lymphocyte predominant Hodgkin lymphoma, lymph nodes of head, face, and neck
CPT/HCPCS: 70491; 71260; Q9967

== ENCOUNTER → 2020-11-25 09:26 | Outpatient (CLI) | payer OTHER, SELFPAY ==
--- NOTE | 2020-11-25 09:30 | XR_ITS ---
PROCEDURE: XR LUMBAR SPINE MIN 4V CLINICAL INDICATION: LOW BACK PAIN COMPARISON: No exams were available for comparison FINDINGS: Degenerative disc disease is present in the lower thoracic spine as well as the lumbar spine from L1-S1 most severe at L3-L4. There is normal alignment. No fracture or dislocation. No lytic or blastic change. There is mild thoracolumbar curvature convex left. Facet arthritic changes are also present. There is some sclerosis of the right SI joint inferiorly. There is generalized vascular calcification of the aorta IMPRESSION: Degenerative changes as detailed above Dictated by: Daniel Barillas MD 11/25/2020 09:50 Daniel Barillas MD in [facility] 11/25/2020 09:50
== END ==
PROVIDERS: PCP Family Medicine; Visit Provider Family Medicine
DX: M54.5 Low back pain (principal)
CPT/HCPCS: 72110

== ENCOUNTER 2021-02-10 08:59 | Emergency (ER) | payer OTHER, SELFPAY ==
[2021-02-10 09:00] VITALS: BP 149/86; PULSE 82; RESP 19; TEMP 36.8; O2SAT 99; BMI 27.8
--- NOTE | 2021-02-10 09:19 | XR_ITS ---
PROCEDURE: XR SHOULDER RT MIN 2V CLINICAL INDICATION: PAIN COMPARISON: CR SHOULDCMLT XR shoulder LT min 2V from 08/08/2018 FINDINGS: No fracture or dislocation. No lytic or blastic change. There is normal mineralization. Subacromial stenosis noted with slightly high-riding humeral head suggesting rotator cuff disease. Minimal periarticular calcification of the AC joint. Other findings:None. IMPRESSION: Degenerative changes, no acute fracture with subacromial stenosis Dictated by: Daniel Barillas MD 02/10/2021 09:40 Daniel Barillas MD in [facility] 02/10/2021 09:40
--- NOTE | 2021-02-10 09:29 | HMH.EDUTC ---
[facility] – [place] Clinical Impression: Shoulder strain Qualifiers: Encounter type: initial encounter Laterality: right Qualified Code(s): S46.911A - Strain of unspecified muscle, fascia and tendon at shoulder and upper arm level, right arm, initial encounter Disposition: Home, Self-Care Condition on Discharge: Good Instructions: Shoulder Sprain, DI for Shoulder Pain Additional Instructions: *Ibuprofen erum 6 hours with meal as needed for pain/inflammation if your Doctor has said that you can take it *Not additional anti-inflammatory like motrin, aleve, advil with the above amount of ibuprofen. You can still take Tylenol every 4 hours as needed if you need something else for pain *Ice 20 minutes every 2 hours for the first 48 hours after the initial injury followed by moist heat every 20 minutes 3-4 times a day to affected area *Keep this area active, no movement leads to more stiffness, However take it easy and avoid heavy lifting pushing or pulling *Follow up with you family doctor if no improvement for further treatment Call Dr Stern's office and make appointment to follow up with Orthopedics if no improvement or any worsening of symptoms Return if needed Referrals: Kenroy Chavez MD [Primary Care Provider] - As needed Sung Stern MD [Staff Physician] - (Call office for appointment) Time of Disposition: 09:45 Medical Decision Making - Caleb Inquiry Pt receiving controlled substance: No Caleb was queried for this patient: No Vital Signs: 02/10/21 09:00 02/10/21 09:41 Temperature 98.2 F 98.2 F Temperature Source Oral Pulse Rate 82 Pulse Rate [Left Brachial] 82 Respiratory Rate 19 19 Blood Pressure 149/86 H Blood Pressure [Left Arm] 149/86 H Blood Pressure Mean [Left Arm] 107 Blood Pressure Source [Left Arm] Automatic Cuff Blood Pressure Position [Left Arm] Sitting 02 Sat by Pulse Oximetry 99 Oxygen Delivery Method Room Air - Radiology Data #1 Image(s): Shoulder Image Reviewed: Yes I have reviewed radiologist's interpretation IMPRESSION: Degenerative changes, no acute fracture with subacromial stenosis [facility] [place] HPI - General Stated complaint: Shoulder pain Time Seen by Provider: 02/10/21 09:29 Mode of Arrival: Ambulatory Source of Information: Patient Limitations: No Limitations Description of Symptoms (Recalled from Triage Doc. by RN): PATIENT STATES HE WAS TRYING TO LIFE UP A TRAILER YESTERDAY AND STRAINED RIGHT SHOULDER HEENT Symptoms (Recalled from RN notes): No Resp Symptoms (Recalled from RN notes): No Skin Symptoms (Recalled from RN notes): No MS Symptoms (Recalled from RN notes): Yes Functional Status (Recalled from RN notes): WNL - History of Present Illness Provider Complaint: Pateint states that his haul trailor was stuck in the mud and he grabbed ahold of it and tried to lift it up States that when he did he felt something bryan his right shoulder area State that ever since he has been having pain in his right shoulder when he tries to move it or raise it up so he came in to get it checked - Related Data Home Medications Medication Instructions Recorded Confirmed Gabapentin [Neurontin 300mg 300 mg PO BID 02/10/21 02/10/21 capsule] Meloxicam [Mobic 7.5mg Tab] 7.5 mg PO BID 02/10/21 02/10/21 Omeprazole [Omeprazole 20mg 20 mg PO QODHS 02/10/21 02/10/21 Capsule] Allergies Allergy/AdvReac Type Severity Reaction Status Date / Time No Known Allergies Allergy Verified 10/17/20 13:13 - Worker's Comp Is this a Worker's Comp case?: No [facility] History - Hepatitis A Screen Drug use history?: No High risk sexual behaviors?: No History of sexually transmitted infection?: No Currently employed?: No Childcare worker?: No Do you have indoor plumbing?: Yes Do you have electricity?: Yes Attestation statement:: This patient has been screened for Hepatitis A risk factors. I have reviewed the patient's past medical history: Yes Med
[2021-02-10 09:41] VITALS: BP 149/86; PULSE 82; RESP 19; TEMP 36.8; O2SAT 99
== END 2021-02-10 10:00 | disposition home or self-care (01) ==
PROVIDERS: Emergency Provider Nurse Practitioner; PCP Family Medicine
DX: S46.911A Strain of unspecified muscle, fascia and tendon at shoulder and upper arm level, right arm, initial encounter (principal); X50.0XXA Overexertion from strenuous movement or load, initial encounter; Y92.89 Other specified places as the place of occurrence of the external cause
CPT/HCPCS: 73030; 99202; G0463

== ENCOUNTER → 2021-02-25 17:08 | Outpatient (CLI) | payer OTHER, SELFPAY ==
--- NOTE | 2021-02-25 17:08 | MR_ITS ---
PROCEDURE: MR SHOULDER RT WO CON CLINICAL INDICATION: rt shoulder pain; evaluate for rotator cuff tear Right shoulder pain, limited range of motion, subacromial stenosis COMPARISON: CR XR SHOULDER RT MIN 2V from 02/10/2021 TECHNIQUE: Routine multiplanar multi echo sequences are performed without gadolinium enhancement. FINDINGS: There is a high-riding humeral head with severe subacromial stenosis of less than 2 mm. Acromioclavicular arthropathy noted with hypertrophy. There is complete tear of the infraspinatus and supraspinatus tendons with retraction of the musculotendinous fibers.. The subscapularis and teres minor tendons are intact. No labral tear apparent. Bicipital tendon to the long head of the biceps is in place but is very thinned superiorly and could be due to partial tear. Small amount fluid is present in the bicipital tendon sheath. Fluid is present in the sub acromial region. There is a small shoulder joint effusion. IMPRESSION: 1. Complete tear is of the supraspinatus and infraspinatus tendons with retraction of the musculotendinous fibers with high-riding humeral head with acromioclavicular and glenohumeral arthropathy and small shoulder joint effusion. 2. Tenosynovitis of the bicipital tendon with suspected partial tear. Dictated by: Daniel Barillas MD 02/26/2021 06:28 Daniel Barillas MD in [place] 02/26/2021 06:28
== END ==
PROVIDERS: PCP Family Medicine; Visit Provider Orthopaedic Surgery
DX: S46.911A Strain of unspecified muscle, fascia and tendon at shoulder and upper arm level, right arm, initial encounter (principal)
CPT/HCPCS: 73221

== ENCOUNTER → 2022-01-05 09:26 | Outpatient (CLI) | payer MEDICARE, SELFPAY | PROVIDERS: PCP Family Medicine; Visit Provider Internal Medicine | DX: Z01.812 Encounter for preprocedural laboratory examination (principal); Z20.822 Contact with and (suspected) exposure to COVID-19; Z12.11 Encounter for screening for malignant neoplasm of colon | CPT/HCPCS: C9803; U0003; U0005 ==

== ENCOUNTER 2022-01-07 08:35 | Day surgery (SDC) | payer MEDICARE, OTHER, SELFPAY ==
[2022-01-05 11:43] VITALS: BMI 28.7
[2022-01-07] VITALS (7 sets, daily range): BP systolic 84–115; BP diastolic 55–65; PULSE 60–72; RESP 18; TEMP 36.2–36.6; O2SAT 92–98
--- NOTE | 2022-01-07 09:11 | HMH.ANESCL ---
[facility] Anesthesia Checklist - Patient Identification Patient Identification: Arm Band - Structural Data Admitted From: Home Planned Operative Procedure/s: Colonoscopy Consent for Planned Operative Procedure(s) Verified: Yes - NPO Status Verified Time NPO: 06:00 (Prep) - Additional verifications Anesthesia Reactions: No Hx Blood Transfusions: No Blood Transfusion Reaction: No - Airway Assessment C-Spine Mobility Assessed: Yes TMJ Mobility Assessed: Yes Dentition: Poor Dentition - Neurological Assessment Level of Consciousness: Awake Hx Seizures: No Numbness or tingling in extremities: No - Anesthesia Plan Anesthesia Risk discussed: Yes Anesthesia Plan: Verified ASA Class: III Anesthesia Type: MAC [facility] History I have reviewed the patient's past medical history: Yes Medical History: Reports:: Atrial Fibrillation, Cancer (LYMPH NODE LEFT SIDE OF NECK), Gastroesophageal Reflux Disease(GERD) Denies:: Diabetes Mellitus Type 1, Diabetes Mellitus Type 2, Internal Pacemaker, MRSA, Seizures *Have you ever received a pneumonia vaccine?: Yes *Have you received a flu vaccine this season?: No Other Medical History: Denies: Blood Transfusion Reaction Anesthesia experience/problems:: None Laterality Cases: Bilateral: Tonsillectomy Other Surgeries: Yes: No Previous Surgery, Colonoscopy, Other. No: Pacemaker Amputation: No Fractures: No - *Social History Last grade of school completed: High school graduate Smoking Status: Former smoker Tobacco Type: cigarettes # Packs/Day (cigarettes): 1 #Yrs smoked (if former smoker): 35 Smoking End Date: 14 YEARS AGO Alcohol Intake: current Alcohol Intake Frequency:: holidays/special occasions only Substance Use Type: denies use *Occupational Status:: retired Housing: house Household Members: spouse *Travel in the last 8 weeks: None Family Hx:: No significant family history
--- NOTE | 2022-01-07 10:45 | HMH.SCOPE ---
- Procedure: Date: 01/07/22 Patient Date of :: 1955 Procedure Performed:: Colonoscopy Indications:: Positive Cologuard test Performing Provider:: Fidel Tobias MD Referring Provider:: Colby Chavze MD Sedation:: See RN records Procedure:: After placing the patient in the left lateral decubitus position, the colonoscopy was gently inserted into the rectum and under direct visualization advanced to the cecum which was identified by transillumination in the right lower quadrant, identification of the ileocecal valve, appendiceal orifice, and cecal strap. Color, texture, mucosa, and anatomy of the colon were carefully examined with the scope. Findings:: Anal canal: normal Rectum: Internal hemorrhoids Sigmoid colon: Sessile polyp 5 mm in size. Removed with snare polypectomy. Diverticulosis Descending colon: Sessile polyp 3-4 mm in size. Removed with snare polypectomy Splenic flexure: normal Transverse colon: normal without polyps or inflammatory changes Hepatic flexure: normal Ascending colon: normal without polyps or inflammatory changes Cecum: normal Terminal ileum: not visualized Recommendations:: Await pathology results Higher fiber diet Repeat colonoscopy in 5 years Complications:: None Estimated blood obtained (mL): 0
== END 2022-01-07 11:25 | disposition home or self-care (01) ==
LOC: OUTP 08:36
PROVIDERS: PCP Family Medicine; Visit Provider Internal Medicine
PROC: 0DJD8ZZ Inspection of Lower Intestinal Tract, Via Natural or Artificial Opening Endoscopic (ICD-10-PCS; CPT 45378; principal; 2022-01-07 10:00)
DX: Z12.11 Encounter for screening for malignant neoplasm of colon (principal); K63.5 Polyp of colon; K21.9 Gastro-esophageal reflux disease without esophagitis; I48.91 Unspecified atrial fibrillation
CPT/HCPCS: 45385; 88305; J2704

== ENCOUNTER → 2022-03-02 10:37 | Outpatient (CLI) | payer MEDICARE, OTHER, SELFPAY ==
[2022-03-02 11:03] LABS: Basophils # 0.1 K/mm3 (0-0.2); Basophils % 1.1 % (0.1-2.0); Eosinophils # 0.2 K/mm3 (0.0-0.4); Eosinophils % 2.5 % (0.1-12.0); Hematocrit 39.7 % (42.0-52.0); Hemoglobin 12.6 g/dL (14.1-18.0); Lymphocytes % 15.3 % (10-50); Mean Corpuscular HGB Conc 31.7 g/dL (31.8-35.4); Mean Corpuscular Hemoglobin 32.4 pg (27.0-31.2); Mean Corpuscular Volume 102.1 fl (80-94); Mean Platelet Volume 8.8 fl (7.4-10.4); Monocytes # 0.4 K/mm3 (0.1-1.0); Monocytes % 6.8 % (1.7-9.3); Neutrophils # 4.7 K/mm3 (1.8-7.8); Neutrophils % 74.4 % (37.0-80.0); Platelet Count 193 K/mm3 (142-424); Red Blood Count 3.89 M/mm3 (4.60-6.20); Red Cell Distribution Width 13.6 % (11.5-17.5); White Blood Count 6.3 K/mm3 (4.8-10.8)
[2022-03-02 12:00] LABS: Alanine Aminotransferase 24 U/L (12-78); Albumin Level 3.7 g/dl (3.5-5.0); Albumin/Globulin Ratio 1.5 (1.1-1.8); Alkaline Phosphatase 75 U/L (38-126); Anion Gap 8.7 mEq/L (5-15); Aspartate Amino Transferase 27 U/L (17-59); Bilirubin,Total 0.2 mg/dl (0.2-1.3); Blood Urea Nitrogen 16 mg/dl (9-20); Calcium 8.6 mg/dl (8.4-10.2); Carbon Dioxide 27 mmol/L (22.0-30.0); Chloride 106 mmol/L (98-107); Estimated Glomerular Filt Rate 97 ml/min (>60); GFR (African American) 117 ML/MIN (>60); Globulin 2.4 g/dL (1.3-3.2); Glucose 83 mg/dl (74-100); Lactate Dehydrogenase 229 U/L (313-618); Potassium 4.7 mmoL/L (3.5-5.1); Sodium 137 mmol/L (136-145); Total Protein,Serum 6.1 g/dl (6.3-8.2)
== END ==
PROVIDERS: PCP Family Medicine; Visit Provider Internal Medicine Medical Oncology
DX: C85.90 Non-Hodgkin lymphoma, unspecified, unspecified site (principal)
CPT/HCPCS: 36415; 80053; 83615; 85025

== ENCOUNTER → 2022-03-09 12:32 | Outpatient (CLI) | payer MEDICARE, OTHER, SELFPAY ==
--- NOTE | 2022-03-09 12:44 | CT_ITS ---
FINAL REPORT TECHNIQUE: Thin section axial CT images were obtained through the neck after intravenous contrast administration. Coronal and sagittal reformats were also obtained. This study was performed with techniques to keep radiation doses as low as reasonably achievable (ALARA). Individualized dose reduction techniques using automated exposure control or adjustment of mA and/or kV according to the patient''s size were employed. CLINICAL HISTORY: LYMPHOMA COMPARISON: October 31, 2020 FINDINGS: The nasopharynx, oropharynx, hypopharynx and larynx are unremarkable. There are several enlarged lymph nodes that are worse as compared to the prior exam. Largest lymph node at the base of the left side of the neck measures up to 2.5 cm and previously measured 1.6 cm. The thyroid gland is unremarkable. The visualized sinuses are clear. There is no acute osseous abnormality. IMPRESSION: Worsening adenopathy. Reviewed, Interpreted and Dictated by Miguel Cornell III, MD Transcribed by Gerard Quinn Authenticated and [facility]
--- NOTE | 2022-03-09 12:44 | CT_ITS ---
FINAL REPORT CLINICAL HISTORY: LYMPHOMA COMPARISON: October 31, 2020 FINDINGS: Axial CT images of the chest were obtained with contrast. Coronal reformatted images were also obtained. This study was performed with techniques to keep radiation doses as low as reasonably achievable, (ALARA). Individualized dose reduction techniques using automated exposure control or adjustment of mA and/or KV according to the patient's size were employed. There are multiple enlarged mediastinal lymph nodes measuring up to 17 mm. There are bilateral axillary lymph nodes with the largest on the left measuring up to 17 mm. There are several enlarged right periesophageal lymph nodes. On lung window images, calcified granulomas are seen in the left lower lobe and right lower lobe. There is mild scarring. No localized pulmonary inflammatory process is identified. Limited images of the upper abdomen reveal nonspecific gallbladder wall thickening. A 9 mm low-attenuation focus in the posterior spleen is nonspecific and previously measured 6 mm. IMPRESSION: Worsening mediastinal and bilateral axillary adenopathy. Low-attenuation mass in the posterior spleen is nonspecific and could represent a cyst versus neoplasm. Reviewed, Interpreted and Dictated by Miguel Cornell III, MD Transcribed by Gerard Quinn Authenticated and [facility]
== END ==
PROVIDERS: PCP Family Medicine; Visit Provider Internal Medicine Medical Oncology
DX: C85.90 Non-Hodgkin lymphoma, unspecified, unspecified site (principal)
CPT/HCPCS: 70491; 71260; Q9967

== ENCOUNTER → 2022-05-01 09:52 | Outpatient (CLI) | payer MEDICARE, OTHER, SELFPAY ==
[2022-05-01 10:30] LABS: Eosinophils # 0.2 K/mm3 (0.0-0.4); Eosinophils % 4.6 % (0.1-12.0); Hematocrit 36.5 % (42.0-52.0); Hemoglobin 12.6 g/dL (14.1-18.0); Lymphocytes # 1.1 K/mm3 (0.7-4.5); Lymphocytes % 23.8 % (10-50); Mean Corpuscular HGB Conc 34.5 g/dL (31.8-35.4); Mean Corpuscular Hemoglobin 32.8 pg (27.0-31.2); Mean Corpuscular Volume 95.3 fl (80-94); Mean Platelet Volume 7.6 fl (7.4-10.4); Monocytes # 0.3 K/mm3 (0.1-1.0); Monocytes % 6.5 % (1.7-9.3); Neutrophils % 64.2 % (37.0-80.0); Platelet Count 185 K/mm3 (142-424); Red Blood Count 3.83 M/mm3 (4.60-6.20); Red Cell Distribution Width 13.6 % (11.5-17.5); White Blood Count 4.6 K/mm3 (4.8-10.8)
[2022-05-01 11:15] LABS: Chloride 103 mmol/L (98-107); Sodium 138 mmol/L (136-145)
[2022-05-01 11:16] LABS: Potassium 4.3 mmoL/L (3.5-5.1)
[2022-05-01 11:18] LABS: Alanine Aminotransferase 22 U/L (12-78); Albumin Level 3.8 g/dl (3.5-5.0); Alkaline Phosphatase 68 U/L (38-126); Anion Gap 12.3 mEq/L (5-15); Aspartate Amino Transferase 30 U/L (17-59); Bilirubin,Total 0.3 mg/dl (0.2-1.3); Blood Urea Nitrogen 13 mg/dl (9-20); Carbon Dioxide 27 mmol/L (22.0-30.0); Estimated Glomerular Filt Rate 97 ml/min (>60); GFR (African American) 117 ML/MIN (>60)
[2022-05-01 11:19] LABS: Albumin/Globulin Ratio 1.6 (1.1-1.8); Calcium 8.6 mg/dl (8.4-10.2); Globulin 2.4 g/dL (1.3-3.2); Glucose 103 mg/dl (74-100); Total Protein,Serum 6.2 g/dl (6.3-8.2)
== END ==
PROVIDERS: PCP Family Medicine; Visit Provider Internal Medicine Medical Oncology
DX: C85.90 Non-Hodgkin lymphoma, unspecified, unspecified site (principal)
CPT/HCPCS: 36415; 80053; 85025

== ENCOUNTER → 2022-05-12 11:21 | Outpatient (CLI) | payer MEDICARE, OTHER, SELFPAY ==
--- NOTE | 2022-05-12 11:26 | XR_ITS ---
FINAL REPORT TECHNIQUE: Chest PA & Lateral CLINICAL HISTORY: coughing x 3 weeks COMPARISON: CTA chest dated February 2022 FINDINGS: 2 views of the chest were performed. The heart size is normal. There is widening of the mediastinum, stable. There is no acute cardiopulmonary process. There are no pleural effusions. There is no pneumothorax. The bony thorax appears intact. IMPRESSION: No acute cardiopulmonary process. Reviewed, Interpreted and Dictated by Miguel Cornell III, MD Transcribed by Gerard Quinn Authenticated and [facility]
== END ==
PROVIDERS: PCP Family Medicine; Visit Provider Family Medicine
DX: R05.8 Other specified cough (principal)
CPT/HCPCS: 71046

== ENCOUNTER → 2022-06-29 12:12 | Outpatient (CLI) | payer MEDICARE, OTHER, SELFPAY ==
--- NOTE | 2022-06-29 12:17 | XR_ITS ---
FINAL REPORT CLINICAL HISTORY: left shoulder pain, patient states heard it pop when he lifted a bag of trash COMPARISON: August 08, 2018 FINDINGS: LEFT SHOULDER Three views demonstrate no acute fracture or dislocation. There are mild degenerative changes of the acromioclavicular and glenohumeral joints. The visualized bony structures are well aligned. No soft tissue abnormality is seen. IMPRESSION: Mild degenerative changes with no acute bony abnormality. Reviewed, Interpreted and Dictated by Miguel Cornell III, MD Transcribed by Melita Rush Authenticated and [facility]
== END ==
PROVIDERS: PCP Family Medicine; Visit Provider Family Medicine
DX: M25.512 Pain in left shoulder (principal)
CPT/HCPCS: 73030

== ENCOUNTER → 2022-07-08 12:46 | Outpatient (CLI) | payer MEDICARE, OTHER, SELFPAY ==
--- NOTE | 2022-07-08 12:46 | MR_ITS ---
FINAL REPORT CLINICAL HISTORY: limited range of motion with pain. LIMITED ROM X1WK. SHOULDER PAIN. NO INJURY OR TRAUMA. WEAKNESS IN SHOULDER. FINDINGS: Multiplanar MR imaging of the left shoulder was performed without contrast. There are complete tears of the distal supraspinatus and infraspinatus tendons with retraction to the glenoid. There is moderate supraspinatus and mild infraspinatus muscle atrophy. There is a partial thickness articular surface tear of the subscapularis tendon involving less than 50% of tendon thickness. There is moderate AC joint degenerative change. A moderate amount of fluid is seen in the joint and the subacromial/subdeltoid bursa. The glenoid labrum is intact. There is thinning of the long head of the biceps tendon consistent with a partial tear. There is superior subluxation of the humerus. There are multiple subchondral cysts in the superior glenoid. There is no evidence of fracture or dislocation. The musculature is intact. There is no evidence of soft tissue mass. IMPRESSION: Complete tears of the supraspinatus and infraspinatus tendons with retraction and associated muscle atrophy. Partial thickness subscapularis tendon tear, less than 50%. Partial tear of the long head of the biceps tendon. Superior subluxation of the humerus. Reviewed, Interpreted and Dictated by Miguel Cornell III, MD Transcribed by Gerard Quinn Authenticated and [facility]
== END ==
PROVIDERS: PCP Family Medicine; Visit Provider Family Medicine
DX: M25.512 Pain in left shoulder (principal); M25.619 Stiffness of unspecified shoulder, not elsewhere classified
CPT/HCPCS: 73221

== ENCOUNTER → 2022-07-21 10:18 | Outpatient (CLI) | payer MEDICARE, SELFPAY ==
[2022-07-21 11:24] LABS: Basophils # 0.1 K/mm3 (0-0.2); Basophils % 0.8 % (0.1-2.0); Eosinophils # 0.2 K/mm3 (0.0-0.4); Eosinophils % 2.4 % (0.1-12.0); Hematocrit 39.9 % (42.0-52.0); Hemoglobin 12.9 g/dL (14.1-18.0); Lymphocytes # 1.2 K/mm3 (0.7-4.5); Lymphocytes % 18.1 % (10-50); Mean Corpuscular HGB Conc 32.2 g/dL (31.8-35.4); Mean Corpuscular Hemoglobin 31.2 pg (27.0-31.2); Monocytes # 0.5 K/mm3 (0.1-1.0); Neutrophils # 4.5 K/mm3 (1.8-7.8); Neutrophils % 70.6 % (37.0-80.0); Platelet Count 205 K/mm3 (142-424); Red Blood Count 4.11 M/mm3 (4.60-6.20); Red Cell Distribution Width 13.5 % (11.5-17.5); White Blood Count 6.4 K/mm3 (4.8-10.8)
[2022-07-21 12:48] LABS: Chloride 104 mmol/L (98-107); Potassium 4.4 mmoL/L (3.5-5.1); Sodium 137 mmol/L (136-145)
[2022-07-21 12:50] LABS: Alanine Aminotransferase 29 U/L (12-78); Aspartate Amino Transferase 31 U/L (17-59); Blood Urea Nitrogen 22 mg/dl (9-20); Estimated Glomerular Filt Rate 97 ml/min (>60); GFR (African American) 117 ML/MIN (>60)
[2022-07-21 12:51] LABS: Albumin Level 4.1 g/dl (3.5-5.0); Albumin/Globulin Ratio 1.6 (1.1-1.8); Alkaline Phosphatase 72 U/L (38-126); Anion Gap 11.4 mEq/L (5-15); Bilirubin,Total 0.5 mg/dl (0.2-1.3); Calcium 8.8 mg/dl (8.4-10.2); Carbon Dioxide 26 mmol/L (22.0-30.0); Globulin 2.6 g/dL (1.3-3.2); Glucose 93 mg/dl (74-100); Total Protein,Serum 6.7 g/dl (6.3-8.2)
== END ==
PROVIDERS: PCP Family Medicine; Visit Provider Internal Medicine Medical Oncology
DX: C85.90 Non-Hodgkin lymphoma, unspecified, unspecified site (principal)
CPT/HCPCS: 36415; 80053; 85025

== ENCOUNTER → 2022-07-22 12:33 | Outpatient (CLI) | payer MEDICARE, OTHER, SELFPAY ==
--- NOTE | 2022-07-22 12:33 | CT_ITS ---
FINAL REPORT CLINICAL HISTORY: right sided chest mass, h/o follicular lymphoma COMPARISON: March 09, 2022 FINDINGS: Axial CT images of the chest were obtained with contrast. Coronal reformatted images were also obtained. This study was performed with techniques to keep radiation doses as low as reasonably achievable, (ALARA). Individualized dose reduction techniques using automated exposure control or adjustment of mA and/or KV according to the patient's size were employed. There are multiple enlarged mediastinal lymph nodes with the largest paratracheal lymph node measuring 19 mm, stable. There are multiple enlarged axillary lymph nodes which are overall slightly larger in size since the prior exam. There is a new mass in the anteromedial right upper thorax measuring 6.7 x 4.5 cm which surrounds the right 2nd costochondral junction. On lung window images there is mild bibasilar atelectasis. No localized pulmonary inflammatory process is identified. Limited images of the upper abdomen reveal a small probable cyst in the posterior spleen which is stable. The gallbladder is partially collapsed. IMPRESSION: New mass in the anteromedial right upper thorax consistent with worsening neoplastic involvement. Worsening axillary adenopathy also consistent with worsening neoplastic involvement. Mediastinal adenopathy is stable. Reviewed, Interpreted and Dictated by Miguel Cornell III, MD Transcribed by Melita Rush Authenticated and [facility]
== END ==
PROVIDERS: PCP Family Medicine; Visit Provider Family Medicine
DX: R22.2 Localized swelling, mass and lump, trunk (principal)
CPT/HCPCS: 71260; Q9967

== ENCOUNTER → 2022-08-03 09:04 | Outpatient (CLI) | payer MEDICARE, OTHER, SELFPAY ==
[2022-08-03 09:37] LABS: Basophils # 0.1 K/mm3 (0-0.2); Basophils % 1.4 % (0.1-2.0); Eosinophils # 0.2 K/mm3 (0.0-0.4); Hemoglobin 13.3 g/dL (14.1-18.0); Lymphocytes % 18.9 % (10-50); Mean Corpuscular HGB Conc 34.1 g/dL (31.8-35.4); Mean Corpuscular Hemoglobin 32.5 pg (27.0-31.2); Mean Corpuscular Volume 95.3 fl (80-94); Mean Platelet Volume 7.5 fl (7.4-10.4); Monocytes # 0.4 K/mm3 (0.1-1.0); Monocytes % 6.3 % (1.7-9.3); Neutrophils # 3.9 K/mm3 (1.8-7.8); Neutrophils % 70.5 % (37.0-80.0); Platelet Count 222 K/mm3 (142-424); Red Blood Count 4.09 M/mm3 (4.60-6.20); Red Cell Distribution Width 13.9 % (11.5-17.5); White Blood Count 5.5 K/mm3 (4.8-10.8)
[2022-08-03 09:50] LABS: Activated Partial Thrombo Time 26.2 seconds (22.8-30.6); INR 1.06 (0.9-1.1); Prothrombin Time 11.4 seconds (10.1-12.5)
== END ==
PROVIDERS: PCP Family Medicine; Visit Provider Surgery
DX: C82.90 Follicular lymphoma, unspecified, unspecified site (principal); I48.91 Unspecified atrial fibrillation
CPT/HCPCS: 36415; 85025; 85610; 85730

== ENCOUNTER → 2022-08-05 06:58 | Outpatient (CLI) | payer MEDICARE, OTHER, SELFPAY ==
--- NOTE | 2022-08-05 07:19 | CT_ITS ---
FINAL REPORT CLINICAL HISTORY: . ct guided costochondral junction bx FINDINGS: CT GUIDE CHEST WALL MASS BIOPSY. HISTORY: Chest wall mass ATTENDING PHYSICIAN: Dr. Jack PHYSICIAN WATCHSTANDER: Lester Rockwell PA-C PROCEDURE: After informed consent was obtained and a timeout was performed, the patient was prepped and draped in usual sterile fashion over the left upper anterior chest. Utilizing local anesthesia and sterile technique with a coaxial system, access to lesion was obtained. 5 18-gauge core biopsy passes were made. Adequate material was confirmed by the pathologist.The patient received mild procedural sedation. The patient tolerated the procedure well and left the department in good condition. IMPRESSION: Status post CT-guided biopsy of a chest wall mass. PROCEDURAL SEDATION: 5 mg of IV Versed and 200 mcg of Fentanyl were administered. Continuous vital sign monitoring was used. An RN was present during the sedation process. Overall sedation time was 30 minutes. Films reviewed , interpreted and dictated by Dr. Jack. Transcribed by Lester Rockwell PA-C. Reviewed, Interpreted and Dictated by Carmen Jack MD Transcribed by SATURNINO York Authenticated and [facility]
[2022-08-05 07:31] VITALS: BMI 28.8
[2022-08-05 07:32] VITALS: BP 103/62; PULSE 78; RESP 18; TEMP 36.2; O2SAT 98
[2022-08-05 08:47] VITALS: BP 102/56; PULSE 76; RESP 17; TEMP 36.2; O2SAT 96
--- NOTE | 2022-08-05 08:59 | P.PN_ITS ---
[facility] Disclaimer: The information contained in this section may have been updated after the patient was seen, as this information can be updated by other users. Medical History (Updated 08/05/22 @ 07:37 by Abbi De La Fuente RN) Afib Allergies Anemia Bronchitis Cancer CHF (congestive heart failure) COVID-19 DDD (degenerative disc disease) GERD (gastroesophageal reflux disease) History of back pain Hyperlipidemia Hypertension Left shoulder strain Lymphoma Neuropathy Shoulder strain Sleep apnea Surgical History H/O colonoscopy H/O lymph node biopsy Hx of tonsillectomy Family History Sister Cancer Brain cancer Social History (Updated 08/05/22 @ 07:37 by Abbi De La Fuente RN) Smoking Status: Former smoker pack-years: 35 years smoked: 40 smoking status stop date: 14 YEARS AGO second hand exposure: Yes alcohol intake: current substance use type: denies use current occupational status: retired Travel in the last 8 weeks: None adopted: No caregiver/support person: No foster care: No household members: spouse housing: house lives independently: Yes marital status: number of children: 1 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 current occupational exposures/hazards: No caffeine: Yes [facility] Anesthesia Checklist Patient Identification Patient Identification: Arm Band and Family Structural Data Admitted From: Home Planned Operative Procedure/s: Costrochondtral CT with Biopsy, with history of Lymphoma Consent for Planned Operative Procedure(s) Verified: Yes Verified Documents: Surgical Consent NPO Status Verified Time NPO: 00:00 Additional verifications Patient : No Anesthesia Reactions: No Hx Blood Transfusions: No Blood Transfusion Reaction: No Cephalosporin Allergy: No Previous Colonoscopy: No Airway Assessment C-Spine Mobility Assessed: Yes TMJ Mobility Assessed: Yes Dentition: Poor Dentition Neurological Assessment Level of Consciousness: Awake, Alert, Appropriate and Follows Commands Hx Seizures: No Numbness or tingling in extremities: No Anesthesia Plan Anesthesia Risk discussed: Yes ASA Class: II Anesthesia Type: MAC Preoperative Comments Pre-Operative Comments: History of Lymphoma.
[2022-08-05 09:02] VITALS: BP 103/71; PULSE 72; RESP 17; O2SAT 98
[2022-08-05 09:17] VITALS: BP 98/68; PULSE 72; RESP 18; O2SAT 96
== END | disposition home or self-care (01) ==
PROVIDERS: PCP Family Medicine; Visit Provider Surgery
DX: R22.2 Localized swelling, mass and lump, trunk (principal)
CPT/HCPCS: 21550; 77012; 88305; 88342; 88360; 88365

== ENCOUNTER 2022-08-14 11:09 | Outpatient (CLI) | payer MEDICARE, OTHER, SELFPAY ==
[2022-08-14 11:19] VITALS: BMI 28.8
[2022-08-14 11:50] LABS: Basophils # 0.1 K/mm3 (0-0.2); Eosinophils # 0.2 K/mm3 (0.0-0.4); Eosinophils % 2.5 % (0.1-12.0); Hematocrit 39.1 % (42.0-52.0); Hemoglobin 12.8 g/dL (14.1-18.0); Mean Corpuscular HGB Conc 32.8 g/dL (31.8-35.4); Mean Corpuscular Hemoglobin 31.4 pg (27.0-31.2); Mean Corpuscular Volume 95.7 fl (80-94); Mean Platelet Volume 7.4 fl (7.4-10.4); Monocytes # 0.4 K/mm3 (0.1-1.0); Monocytes % 6.6 % (1.7-9.3); Neutrophils # 4.6 K/mm3 (1.8-7.8); Platelet Count 214 K/mm3 (142-424); Red Blood Count 4.08 M/mm3 (4.60-6.20); Red Cell Distribution Width 13.8 % (11.5-17.5); White Blood Count 6.2 K/mm3 (4.8-10.8)
[2022-08-14 11:55] LABS: Anion Gap 7.6 mEq/L (5-15); Blood Urea Nitrogen 15 mg/dl (9-20); Carbon Dioxide 29 mmol/L (22.0-30.0); Chloride 105 mmol/L (98-107); Creatinine Clearance Estimated 98 mL/min (50-200); Estimated Glomerular Filt Rate 85 ml/min (>60); Potassium 4.6 mmoL/L (3.5-5.1); Sodium 137 mmol/L (136-145)
[2022-08-14 11:56] LABS: Alanine Aminotransferase 25 U/L (12-78); Albumin Level 4.2 g/dl (3.5-5.0); Albumin/Globulin Ratio 1.7 (1.1-1.8); Alkaline Phosphatase 71 U/L (38-126); Aspartate Amino Transferase 33 U/L (17-59); Bilirubin,Total 0.5 mg/dl (0.2-1.3); Calcium 9.1 mg/dl (8.4-10.2); GFR (African American) 102 ML/MIN (>60); Globulin 2.5 g/dL (1.3-3.2); Glucose 95 mg/dl (74-100); Lactate Dehydrogenase 351 U/L (313-618); Total Protein,Serum 6.7 g/dl (6.3-8.2); Uric Acid 5.5 mg/dl (3.5-8.5)
--- NOTE | 2022-08-14 12:01 | PC.NURSE ---
1125 - BLOOD DRAWN FROM LEFT AC USING BUTTERFLY NEEDLE TO CHECK LABS AT THIS TIME.
== END 2022-08-14 11:35 | disposition home or self-care (01) ==
LOC: LAB 11:10 → INF 11:24
PROVIDERS: PCP Family Medicine; Visit Provider Internal Medicine Medical Oncology
DX: C82.41 Follicular lymphoma grade IIIb, lymph nodes of head, face, and neck (principal)
CPT/HCPCS: 36415; 80053; 83615; 84550; 85025

== ENCOUNTER 2022-08-17 09:11 | Outpatient (CLI) | payer MEDICARE, OTHER, SELFPAY ==
[2022-08-17 09:47] VITALS: BMI 28.7
--- NOTE | 2022-08-17 09:48 | XR_ITS ---
FINAL REPORT CLINICAL HISTORY: PICC line placement COMPARISON: May 12, 2022 FINDINGS: The left-sided PICC line is seen in the left internal jugular vein with the tip out of the field of view. The heart size is normal. The mediastinum is within normal limits. There is scarring or atelectasis in the right upper lobe. There is no pleural effusion. There is no pneumothorax. The bony thorax is intact. IMPRESSION: Mild positioned left PICC line. Reviewed, Interpreted and Dictated by Yousif Marie MD Transcribed by Gerard Quinn Authenticated and [facility]
--- NOTE | 2022-08-17 10:16 | XR_ITS ---
FINAL REPORT CLINICAL HISTORY: PICC line placement COMPARISON: 20 minutes prior FINDINGS: The left PICC line has been repositioned and now terminates at the junction of the SVC and right atrium. The heart size is normal. The mediastinum is within normal limits. There is scarring or atelectasis in the right upper lobe. There is no pleural effusion. There is no pneumothorax. The bony thorax is intact. IMPRESSION: Left-sided PICC line terminating at the SVC/right atrium junction. Reviewed, Interpreted and Dictated by Yousif Marie MD Transcribed by Gerard Quinn Authenticated and [facility]
[2022-08-21 21:24] LABS: Hep A Ab, IgM NEGATIVE; Hepatitis B Core Antibody IgM NEGATIVE; Hepatitis B Surface Antigen NEGATIVE; Hepatitis C Antibody <0.1
== END 2022-08-17 12:45 | disposition home or self-care (01) ==
LOC: INF 09:12
PROVIDERS: PCP Family Medicine; Visit Provider Internal Medicine Medical Oncology
DX: Z45.2 Encounter for adjustment and management of vascular access device (principal); R53.1 Weakness; C83.31 Diffuse large B-cell lymphoma, lymph nodes of head, face, and neck
CPT/HCPCS: 36569; 71045; 80074; C1751

== ENCOUNTER 2022-08-20 07:51 | Outpatient (CLI) | payer MEDICARE, OTHER, SELFPAY ==
[2022-08-20] VITALS (23 sets, daily range): BP systolic 109–143; BP diastolic 61–85; PULSE 62–86; RESP 16–18; TEMP 35.9; O2SAT 98
== END 2022-08-20 15:00 | disposition home or self-care (01) ==
LOC: INF 07:52
PROVIDERS: PCP Family Medicine; Visit Provider Internal Medicine Medical Oncology
DX: Z51.11 Encounter for antineoplastic chemotherapy (principal); C83.31 Diffuse large B-cell lymphoma, lymph nodes of head, face, and neck
CPT/HCPCS: 96411; 96413; 96415; 96417; J2469; J9000; J9070; J9370; Q0166; Q5119

== ENCOUNTER 2022-08-24 10:59 | Outpatient (CLI) | payer MEDICARE, OTHER, SELFPAY ==
[2022-08-24 11:04] VITALS: BMI 28.8
[2022-08-24 11:24] LABS: Basophils % 0.2 % (0.1-2.0); Eosinophils # 0.1 K/mm3 (0.0-0.4); Eosinophils % 1.9 % (0.1-12.0); Hemoglobin 13.1 g/dL (14.1-18.0); Lymphocytes # 0.8 K/mm3 (0.7-4.5); Lymphocytes % 11.7 % (10-50); Mean Corpuscular HGB Conc 33.6 g/dL (31.8-35.4); Mean Corpuscular Hemoglobin 31.8 pg (27.0-31.2); Mean Corpuscular Volume 94.6 fl (80-94); Mean Platelet Volume 8.2 fl (7.4-10.4); Monocytes # 0.1 K/mm3 (0.1-1.0); Monocytes % 1.1 % (1.7-9.3); Neutrophils # 6.1 K/mm3 (1.8-7.8); Neutrophils % 85.1 % (37.0-80.0); Platelet Count 196 K/mm3 (142-424); Red Blood Count 4.12 M/mm3 (4.60-6.20); Red Cell Distribution Width 13.9 % (11.5-17.5); White Blood Count 7.2 K/mm3 (4.8-10.8)
[2022-08-24 11:29] LABS: MANUAL DIFFERENTIAL MANUAL DIFFERENTIAL (MANUAL DIFF)
[2022-08-24 11:31] LABS: Alanine Aminotransferase 20 U/L (12-78); Albumin Level 3.6 g/dl (3.5-5.0); Albumin/Globulin Ratio 1.5 (1.1-1.8); Alkaline Phosphatase 58 U/L (38-126); Anion Gap 6.2 mEq/L (5-15); Aspartate Amino Transferase 22 U/L (17-59); Bilirubin,Total 0.7 mg/dl (0.2-1.3); Blood Urea Nitrogen 20 mg/dl (9-20); Calcium 8.6 mg/dl (8.4-10.2); Carbon Dioxide 30 mmol/L (22.0-30.0); Chloride 102 mmol/L (98-107); Creatinine Clearance Estimated 89 mL/min (50-200); Estimated Glomerular Filt Rate 67 ml/min (>60); GFR (African American) 81 ML/MIN (>60); Globulin 2.4 g/dL (1.3-3.2); Glucose 105 mg/dl (74-100); Lactate Dehydrogenase 201 U/L (313-618); Phosphorous 4.1 mg/dl (2.5-4.5); Potassium 4.2 mmoL/L (3.5-5.1); Sodium 134 mmol/L (136-145); Uric Acid 4.5 mg/dl (3.5-8.5)
[2022-08-24 12:31] LABS: Eosinophils % 3 % (0-3); Lymphocytes % 30 % (10-50); Neutrophils % 67 % (42-76); Platelet Estimate Normal; RBC Morphology Normal; Total Cells Counted 100
== END 2022-08-24 11:30 | disposition home or self-care (01) ==
LOC: INF 11:01
PROVIDERS: PCP Family Medicine; Visit Provider Internal Medicine Medical Oncology
DX: C83.30 Diffuse large B-cell lymphoma, unspecified site (principal); Z45.2 Encounter for adjustment and management of vascular access device
CPT/HCPCS: 36592; 80053; 83615; 83735; 84100; 84550; 85007; 85025; 96523

== ENCOUNTER 2022-08-27 10:51 | Outpatient (CLI) | payer MEDICARE, OTHER, SELFPAY ==
[2022-08-27 10:55] VITALS: BMI 28.8
[2022-08-27 11:11] LABS: Basophils % 0.6 % (0.1-2.0); Eosinophils # 0.1 K/mm3 (0.0-0.4); Eosinophils % 1.6 % (0.1-12.0); Hematocrit 36.5 % (42.0-52.0); Hemoglobin 12.8 g/dL (14.1-18.0); Lymphocytes # 0.9 K/mm3 (0.7-4.5); Lymphocytes % 19.5 % (10-50); Mean Corpuscular HGB Conc 35.1 g/dL (31.8-35.4); Mean Corpuscular Hemoglobin 32.9 pg (27.0-31.2); Mean Corpuscular Volume 93.6 fl (80-94); Mean Platelet Volume 7.9 fl (7.4-10.4); Monocytes % 0.7 % (1.7-9.3); Neutrophils # 3.7 K/mm3 (1.8-7.8); Neutrophils % 77.6 % (37.0-80.0); Platelet Count 178 K/mm3 (142-424); Red Cell Distribution Width 13.5 % (11.5-17.5); White Blood Count 4.7 K/mm3 (4.8-10.8)
[2022-08-27 11:19] LABS: Chloride 102 mmol/L (98-107); Potassium 4.6 mmoL/L (3.5-5.1); Sodium 133 mmol/L (136-145)
[2022-08-27 11:22] LABS: Alanine Aminotransferase 22 U/L (12-78); Albumin Level 3.9 g/dl (3.5-5.0); Albumin/Globulin Ratio 1.6 (1.1-1.8); Alkaline Phosphatase 65 U/L (38-126); Anion Gap 8.6 mEq/L (5-15); Aspartate Amino Transferase 25 U/L (17-59); Bilirubin,Total 0.5 mg/dl (0.2-1.3); Blood Urea Nitrogen 17 mg/dl (9-20); Carbon Dioxide 27 mmol/L (22.0-30.0); Creatinine Clearance Estimated 98 mL/min (50-200); Estimated Glomerular Filt Rate 97 ml/min (>60); GFR (African American) 117 ML/MIN (>60); Globulin 2.5 g/dL (1.3-3.2); Phosphorous 3.9 mg/dl (2.5-4.5); Total Protein,Serum 6.4 g/dl (6.3-8.2)
[2022-08-27 11:23] LABS: Calcium 8.4 mg/dl (8.4-10.2); Glucose 111 mg/dl (74-100)
[2022-08-27 11:52] LABS: Lactate Dehydrogenase 209 U/L (313-618); Uric Acid 3.6 mg/dl (3.5-8.5)
== END 2022-08-27 11:08 | disposition home or self-care (01) ==
LOC: INF 10:53
PROVIDERS: PCP Family Medicine; Visit Provider Internal Medicine Medical Oncology
DX: C83.30 Diffuse large B-cell lymphoma, unspecified site (principal)
CPT/HCPCS: 36415; 80053; 83615; 83735; 84100; 84550; 85025

== ENCOUNTER 2022-08-31 10:40 | Outpatient (CLI) | payer MEDICARE, OTHER, SELFPAY ==
[2022-08-31 10:47] VITALS: BMI 29.4
== END 2022-08-31 11:05 | disposition home or self-care (01) ==
LOC: INF 10:42
PROVIDERS: PCP Family Medicine; Visit Provider Internal Medicine Medical Oncology
DX: Z45.2 Encounter for adjustment and management of vascular access device (principal); C83.30 Diffuse large B-cell lymphoma, unspecified site
CPT/HCPCS: 96523

== ENCOUNTER 2022-09-07 10:38 | Outpatient (CLI) | payer MEDICARE, OTHER, SELFPAY | END 2022-09-07 11:18 | disposition home or self-care (01) | LOC: INF 10:40 | PROVIDERS: PCP Family Medicine; Visit Provider Internal Medicine Medical Oncology | DX: Z45.2 Encounter for adjustment and management of vascular access device (principal) | CPT/HCPCS: 96523 ==

== ENCOUNTER 2022-09-10 08:23 | Outpatient (CLI) | payer MEDICARE, OTHER, SELFPAY ==
[2022-09-10] VITALS (20 sets, daily range): BP systolic 98–130; BP diastolic 57–76; PULSE 65–75; RESP 16–18; TEMP 36.7; O2SAT 97; BMI 28.3
--- NOTE | 2022-09-10 08:25 | PC.NURSE ---
0825-left upper arm picc line flushed with ns;obtained blood return;collected labs;flushed with ns;pt to oncology appointment and to return for treatment
[2022-09-10 08:48] LABS: Basophils # 0.1 K/mm3 (0-0.2); Basophils % 1.5 % (0.1-2.0); Eosinophils # 0.1 K/mm3 (0.0-0.4); Hematocrit 35.5 % (42.0-52.0); Hemoglobin 11.6 g/dL (14.1-18.0); Lymphocytes # 1.3 K/mm3 (0.7-4.5); Lymphocytes % 22.2 % (10-50); Mean Corpuscular HGB Conc 32.8 g/dL (31.8-35.4); Mean Corpuscular Hemoglobin 31.5 pg (27.0-31.2); Mean Corpuscular Volume 96.2 fl (80-94); Mean Platelet Volume 7.8 fl (7.4-10.4); Monocytes # 0.7 K/mm3 (0.1-1.0); Monocytes % 12.3 % (1.7-9.3); Neutrophils # 3.8 K/mm3 (1.8-7.8); Platelet Count 346 K/mm3 (142-424); Red Blood Count 3.69 M/mm3 (4.60-6.20); Red Cell Distribution Width 15.1 % (11.5-17.5); White Blood Count 6.1 K/mm3 (4.8-10.8)
[2022-09-10 09:03] LABS: Alanine Aminotransferase 27 U/L (12-78); Albumin/Globulin Ratio 1.5 (1.1-1.8); Alkaline Phosphatase 69 U/L (38-126); Anion Gap 8.4 mEq/L (5-15); Aspartate Amino Transferase 31 U/L (17-59); Bilirubin,Total 0.5 mg/dl (0.2-1.3); Blood Urea Nitrogen 17 mg/dl (9-20); Calcium 8.8 mg/dl (8.4-10.2); Carbon Dioxide 28 mmol/L (22.0-30.0); Chloride 103 mmol/L (98-107); Creatinine Clearance Estimated 96 mL/min (50-200); Estimated Glomerular Filt Rate 113 ml/min (>60); GFR (African American) 137 ML/MIN (>60); Globulin 2.6 g/dL (1.3-3.2); Glucose 118 mg/dl (74-100); Lactate Dehydrogenase 242 U/L (313-618); Potassium 4.4 mmoL/L (3.5-5.1); Sodium 135 mmol/L (136-145); Total Protein,Serum 6.6 g/dl (6.3-8.2); Uric Acid 3.4 mg/dl (3.5-8.5)
== END 2022-09-10 15:10 | disposition home or self-care (01) ==
LOC: INF 08:24
PROVIDERS: PCP Family Medicine; Visit Provider Internal Medicine Medical Oncology
DX: C83.30 Diffuse large B-cell lymphoma, unspecified site (principal)
CPT/HCPCS: 80053; 83615; 84550; 85025; 96411; 96413; 96415; J2469; J9000; J9070; J9370; Q0166; Q5119

== ENCOUNTER 2022-09-14 10:43 | Outpatient (CLI) | payer MEDICARE, OTHER, SELFPAY | END 2022-09-14 10:58 | disposition home or self-care (01) | LOC: INF 10:43 | PROVIDERS: PCP Family Medicine; Visit Provider Internal Medicine Medical Oncology | DX: C83.31 Diffuse large B-cell lymphoma, lymph nodes of head, face, and neck (principal); Z45.2 Encounter for adjustment and management of vascular access device | CPT/HCPCS: 96523 ==

== ENCOUNTER 2022-09-21 10:41 | Outpatient (CLI) | payer MEDICARE, OTHER, SELFPAY | END 2022-09-21 11:06 | disposition home or self-care (01) | LOC: INF 10:42 | PROVIDERS: PCP Family Medicine; Visit Provider Internal Medicine Medical Oncology | DX: Z45.2 Encounter for adjustment and management of vascular access device (principal) | CPT/HCPCS: 96523 ==

== ENCOUNTER 2022-09-28 10:46 | Outpatient (CLI) | payer MEDICARE, OTHER, SELFPAY ==
[2022-09-28 10:52] VITALS: BMI 28.4
[2022-09-28 11:14] LABS: Basophils % 0.8 % (0.1-2.0); Eosinophils % 0.3 % (0.1-12.0); Hematocrit 30.6 % (42.0-52.0); Hemoglobin 10.8 g/dL (14.1-18.0); Lymphocytes # 0.9 K/mm3 (0.7-4.5); Lymphocytes % 24.7 % (10-50); Mean Corpuscular HGB Conc 35.3 g/dL (31.8-35.4); Mean Corpuscular Volume 93.4 fl (80-94); Mean Platelet Volume 8.5 fl (7.4-10.4); Monocytes # 0.7 K/mm3 (0.1-1.0); Monocytes % 20.4 % (1.7-9.3); Neutrophils % 53.8 % (37.0-80.0); Platelet Count 298 K/mm3 (142-424); Red Blood Count 3.27 M/mm3 (4.60-6.20); Red Cell Distribution Width 16.1 % (11.5-17.5); White Blood Count 3.7 K/mm3 (4.8-10.8)
[2022-09-28 11:18] LABS: Chloride 101 mmol/L (98-107); Sodium 135 mmol/L (136-145)
[2022-09-28 11:20] LABS: Blood Urea Nitrogen 16 mg/dl (9-20); Creatinine Clearance Estimated 96 mL/min (50-200); Estimated Glomerular Filt Rate 97 ml/min (>60); GFR (African American) 117 ML/MIN (>60)
[2022-09-28 11:21] LABS: Alanine Aminotransferase 21 U/L (12-78); Albumin Level 3.9 g/dl (3.5-5.0); Albumin/Globulin Ratio 1.6 (1.1-1.8); Alkaline Phosphatase 61 U/L (38-126); Aspartate Amino Transferase 24 U/L (17-59); Bilirubin,Total 0.6 mg/dl (0.2-1.3); Calcium 8.6 mg/dl (8.4-10.2); Carbon Dioxide 28 mmol/L (22.0-30.0); Globulin 2.4 g/dL (1.3-3.2); Glucose 105 mg/dl (74-100); Total Protein,Serum 6.3 g/dl (6.3-8.2)
[2022-09-28 11:24] LABS: Lactate Dehydrogenase 201 U/L (313-618); Uric Acid 3.5 mg/dl (3.5-8.5)
[2022-09-28 11:27] LABS: MANUAL DIFFERENTIAL MANUAL DIFFERENTIAL (MANUAL DIFF)
[2022-09-28 11:52] LABS: Lymphocytes % 26 % (10-50); Monocytes % 22 % (2-9); Neutrophils % 52 % (42-76); Platelet Estimate Normal; RBC Morphology Normal; Total Cells Counted 100
== END 2022-09-28 11:12 | disposition home or self-care (01) ==
LOC: INF 10:47
PROVIDERS: PCP Family Medicine; Visit Provider Internal Medicine Medical Oncology
DX: Z45.2 Encounter for adjustment and management of vascular access device (principal); C83.30 Diffuse large B-cell lymphoma, unspecified site
CPT/HCPCS: 36592; 80053; 83615; 84550; 85007; 85025

== ENCOUNTER 2022-10-02 08:29 | Outpatient (CLI) | payer MEDICARE, OTHER, SELFPAY ==
[2022-10-02] VITALS (11 sets, daily range): BP systolic 98–109; BP diastolic 50–63; PULSE 70–77; RESP 18; TEMP 36.6; O2SAT 97–98
== END 2022-10-02 14:40 | disposition home or self-care (01) ==
LOC: INF 08:31
PROVIDERS: PCP Family Medicine; Visit Provider Internal Medicine Medical Oncology
DX: C83.01 Small cell B-cell lymphoma, lymph nodes of head, face, and neck (principal)
CPT/HCPCS: 96411; 96413; 96415; 96417; J2469; J8501; J9000; J9070; J9370; Q0166; Q5119

== ENCOUNTER → 2022-10-05 14:30 | Outpatient (CLI) | payer MEDICARE, OTHER, SELFPAY ==
--- NOTE | 2022-10-05 15:10 | CA_ITS ---
APPROVED REPORT EXAM: Comprehensive 2D, Doppler, and color-flow Echocardiogram Clinical Research Tech: Yakelin Phillips RDCS Ht: 5 ft 11 in Wt: 210lbs BSA: 2.15 BP: 110/65 mmHg Indications: EVAL EF POST CHEMO, EF PER PATIENT APPROX 9 WEEKS AGO WAS 40-50%, H/O AF 2D Dimensions LVOT 2.16 cm (M/F) 1.5-2.5 M-Mode Dimensions RVDd 3.17 cm (0.9-2.6) LA Diam 3.03 cm (1.9-4.0) LVDd 5.54 cm (3.5-5.7) Ao Diam 3.87 cm (2.0-3.7) LVDs 3.81 cm (3.5-5.7) IVSd 0.68 cm (0.6-1.1) PWd 0.84 cm (0.6-1.1) EF (Teich) 58.40% FS 31.20% EDV (Teich) 149.90 mL TAPSE 2.13 (<1.7) ESV (Teich) 62.30 mL LV Diastology E Decel Time 143.00 (160-240 msec) E/A Ratio 0.7 MED E' 6.50 (< 7 cm/sec) E'/MED E' Ratio 8.97 (>14) LAT E' 7.10 (<10 cm/sec) E/LAT E' Ratio 8.21 (>14) Mitral Valve MV E Max Sincere. 58.00 (40-130 cm/s) MV A Velocity 78.00 (40-130 cm/s) E/A Ratio 0.75 MV Decel. Time 143.00 (160-240 ms) MV PHT 42.00 ms Left Ventricle Left atrium is mildly enlarged, left ventricle is normal size mild concentric left ventricular hypertrophy, estimated ejection fraction 50% with no regional wall motion abnormality, grade 1 diastolic dysfunction seen without tissue Doppler evidence of raise left atrial pressure. Right Ventricle Right atrium and right ventricular mildly enlarged with normal contractility. Aortic Valve Aortic valve is minimally thickened and fibrosed there is no aortic stenosis or aortic insufficiency. Mitral Valve Mitral valve grossly normal, there is trace mitral regurgitation. Tricuspid Valve Tricuspid valve grossly normal, there is trace tricuspid regurgitation, tricuspid regurgitation jet velocity is inadequate for calculation of the right ventricular systolic pressure. Pulmonic Valve Pulmonic valve is poorly visualized. Great Vessels Aortic root is normal size. Inferior vena cava is normal size with normal inspiratory collapse. Pericardium No significant pericardial effusion noted. Conclusion 1. Mild biatrial normal, normal left ventricular size, estimated ejection fraction 50% with no regional wall motion abnormality, grade 1 diastolic dysfunction seen without tissue Doppler evidence of late left atrial pressure. 2. Mildly enlarged right ventricle with normal contractility. 3. Trace mitral and tricuspid regurgitation. 4. No significant pericardial effusion noted. 5. Inferior vena cava is normal size with normal inspiratory collapse. Electronically signed by : Uday Noble MD 10/06/2022 06:55:44
== END ==
PROVIDERS: PCP Family Medicine; Visit Provider Internal Medicine Medical Oncology
DX: Z51.11 Encounter for antineoplastic chemotherapy (principal); C83.31 Diffuse large B-cell lymphoma, lymph nodes of head, face, and neck
CPT/HCPCS: 93306; 96523

== ENCOUNTER 2022-10-12 10:49 | Outpatient (CLI) | payer MEDICARE, OTHER, SELFPAY | END 2022-10-12 11:05 | disposition home or self-care (01) | LOC: INF 10:50 | PROVIDERS: PCP Family Medicine; Visit Provider Internal Medicine Medical Oncology | DX: Z45.2 Encounter for adjustment and management of vascular access device (principal); C83.31 Diffuse large B-cell lymphoma, lymph nodes of head, face, and neck | CPT/HCPCS: 96523 ==

== ENCOUNTER 2022-10-19 10:32 | Outpatient (CLI) | payer MEDICARE, OTHER, SELFPAY | END 2022-10-19 10:45 | disposition home or self-care (01) | LOC: INF 10:33 | PROVIDERS: PCP Family Medicine; Visit Provider Internal Medicine Medical Oncology | DX: Z45.2 Encounter for adjustment and management of vascular access device (principal); C83.30 Diffuse large B-cell lymphoma, unspecified site | CPT/HCPCS: 96523 ==

== ENCOUNTER 2022-10-22 09:35 | Outpatient (CLI) | payer MEDICARE, OTHER, SELFPAY ==
[2022-10-22] VITALS (12 sets, daily range): BP systolic 111–123; BP diastolic 60–69; PULSE 67–82; RESP 18; O2SAT 97; BMI 28.8
[2022-10-22 10:18] LABS: Basophils % 0.5 % (0.1-2.0); Eosinophils % 0.5 % (0.1-12.0); Hematocrit 29.4 % (42.0-52.0); Lymphocytes # 0.5 K/mm3 (0.7-4.5); Lymphocytes % 10.4 % (10-50); Mean Corpuscular HGB Conc 34.1 g/dL (31.8-35.4); Mean Corpuscular Hemoglobin 32.6 pg (27.0-31.2); Mean Corpuscular Volume 95.4 fl (80-94); Mean Platelet Volume 7.9 fl (7.4-10.4); Monocytes # 0.5 K/mm3 (0.1-1.0); Neutrophils # 3.6 K/mm3 (1.8-7.8); Neutrophils % 77.5 % (37.0-80.0); Platelet Count 269 K/mm3 (142-424); Red Blood Count 3.09 M/mm3 (4.60-6.20); Red Cell Distribution Width 17.2 % (11.5-17.5); White Blood Count 4.6 K/mm3 (4.8-10.8)
[2022-10-22 10:19] LABS: Chloride 103 mmol/L (98-107); Potassium 4.4 mmoL/L (3.5-5.1); Sodium 138 mmol/L (136-145)
[2022-10-22 10:21] LABS: Blood Urea Nitrogen 14 mg/dl (9-20); Creatinine Clearance Estimated 97 mL/min (50-200); Estimated Glomerular Filt Rate 97 ml/min (>60); GFR (African American) 117 ML/MIN (>60)
[2022-10-22 10:22] LABS: Alanine Aminotransferase 28 U/L (12-78); Albumin Level 3.9 g/dl (3.5-5.0); Albumin/Globulin Ratio 1.5 (1.1-1.8); Alkaline Phosphatase 61 U/L (38-126); Anion Gap 13.4 mEq/L (5-15); Aspartate Amino Transferase 34 U/L (17-59); Bilirubin,Total 0.5 mg/dl (0.2-1.3); Calcium 8.9 mg/dl (8.4-10.2); Carbon Dioxide 26 mmol/L (22.0-30.0); Globulin 2.6 g/dL (1.3-3.2); Glucose 93 mg/dl (74-100); Total Protein,Serum 6.5 g/dl (6.3-8.2)
== END 2022-10-22 15:41 | disposition home or self-care (01) ==
LOC: INF 09:37
PROVIDERS: PCP Family Medicine; Visit Provider Internal Medicine Medical Oncology
DX: Z51.11 Encounter for antineoplastic chemotherapy (principal); C83.31 Diffuse large B-cell lymphoma, lymph nodes of head, face, and neck
CPT/HCPCS: 80053; 85025; 96411; 96413; 96415; 96417; J2469; J8501; J9000; J9070; J9370; Q0166; Q5119

== ENCOUNTER 2022-10-26 10:59 | Outpatient (CLI) | payer MEDICARE, OTHER, SELFPAY | END 2022-10-26 11:15 | disposition home or self-care (01) | LOC: INF 11:00 | PROVIDERS: PCP Family Medicine; Visit Provider Internal Medicine Medical Oncology | DX: Z45.2 Encounter for adjustment and management of vascular access device (principal); C83.31 Diffuse large B-cell lymphoma, lymph nodes of head, face, and neck | CPT/HCPCS: 96523 ==

== ENCOUNTER 2022-11-02 10:54 | Outpatient (CLI) | payer MEDICARE, OTHER, SELFPAY ==
[2022-11-02 11:20] VITALS: BMI 27.3
[2022-11-02 11:38] LABS: Basophils % 0.4 % (0.1-2.0); Eosinophils % 1.3 % (0.1-12.0); Hemoglobin 8.6 g/dL (14.1-18.0); Lymphocytes # 0.1 K/mm3 (0.7-4.5); Lymphocytes % 45.6 % (10-50); Mean Corpuscular HGB Conc 34.6 g/dL (31.8-35.4); Mean Corpuscular Hemoglobin 32.5 pg (27.0-31.2); Mean Corpuscular Volume 93.9 fl (80-94); Mean Platelet Volume 8.2 fl (7.4-10.4); Monocytes # 0.1 K/mm3 (0.1-1.0); Monocytes % 35.3 % (1.7-9.3); Neutrophils # 0.1 K/mm3 (1.8-7.8); Neutrophils % 17.4 % (37.0-80.0); Platelet Count 113 K/mm3 (142-424); Red Blood Count 2.66 M/mm3 (4.60-6.20); Red Cell Distribution Width 17.4 % (11.5-17.5)
[2022-11-02 11:40] VITALS: BP 93/49; PULSE 106; RESP 18; TEMP 36.6; O2SAT 98
[2022-11-02 11:40] LABS: White Blood Count 0.3 K/mm3 (4.8-10.8)
[2022-11-02 11:42] LABS: MANUAL DIFFERENTIAL MANUAL DIFFERENTIAL (MANUAL DIFF)
[2022-11-02 11:51] LABS: Chloride 99 mmol/L (98-107); Potassium 3.9 mmoL/L (3.5-5.1); Sodium 129 mmol/L (136-145)
[2022-11-02 11:53] LABS: Alanine Aminotransferase 27 U/L (12-78); Alkaline Phosphatase 49 U/L (38-126); Aspartate Amino Transferase 28 U/L (17-59); Blood Urea Nitrogen 15 mg/dl (9-20); Creatinine Clearance Estimated 91 mL/min (50-200); Estimated Glomerular Filt Rate 84 ml/min (>60); GFR (African American) 102 ML/MIN (>60)
[2022-11-02 11:54] LABS: Albumin Level 3.5 g/dl (3.5-5.0); Albumin/Globulin Ratio 1.3 (1.1-1.8); Anion Gap 9.9 mEq/L (5-15); Calcium 8.3 mg/dl (8.4-10.2); Carbon Dioxide 24 mmol/L (22.0-30.0); Globulin 2.6 g/dL (1.3-3.2); Glucose 131 mg/dl (74-100); Total Protein,Serum 6.1 g/dl (6.3-8.2)
[2022-11-02 11:57] LABS: Anisocytosis 1+; Lymphocytes % 40 % (10-50); Macrocytosis 1+; Monocytes % 60 % (2-9); Ovalocytes 1+; Platelet Estimate Moderate Decrease; Total Cells Counted 10
--- NOTE | 2022-11-02 12:09 | PC.NURSE ---
11/02/22 1140 Venessa Munoz called RN to report wbc-0.3. RN repeated and verified pt name, and lab value. Results called to Dr. Cox, no new orders noted.
[2022-11-02 12:10] VITALS: BP 90/45; PULSE 100; RESP 18; O2SAT 98
[2022-11-02 12:53] VITALS: BP 91/45; PULSE 95; RESP 18; O2SAT 97
== END 2022-11-02 13:00 | disposition home or self-care (01) ==
LOC: INF 10:55
PROVIDERS: PCP Family Medicine; Visit Provider Internal Medicine Medical Oncology
DX: C82.91 Follicular lymphoma, unspecified, lymph nodes of head, face, and neck (principal); Z45.2 Encounter for adjustment and management of vascular access device
CPT/HCPCS: 80053; 85007; 85025; 96360; 96375; J2405

== ENCOUNTER 2022-11-09 10:55 | Outpatient (CLI) | payer MEDICARE, OTHER, SELFPAY ==
[2022-11-09 11:15] VITALS: BMI 29.0
[2022-11-09 11:27] LABS: Basophils % 0.3 % (0.1-2.0); Eosinophils % 0.1 % (0.1-12.0); Hematocrit 27.3 % (42.0-52.0); Hemoglobin 9.1 g/dL (14.1-18.0); Lymphocytes # 0.4 K/mm3 (0.7-4.5); Lymphocytes % 7.3 % (10-50); Mean Corpuscular HGB Conc 33.4 g/dL (31.8-35.4); Mean Corpuscular Hemoglobin 31.4 pg (27.0-31.2); Mean Platelet Volume 8.3 fl (7.4-10.4); Monocytes # 0.3 K/mm3 (0.1-1.0); Neutrophils # 4.8 K/mm3 (1.8-7.8); Neutrophils % 86.3 % (37.0-80.0); Platelet Count 269 K/mm3 (142-424); Red Cell Distribution Width 18.4 % (11.5-17.5); White Blood Count 5.6 K/mm3 (4.8-10.8)
[2022-11-09 11:31] LABS: Chloride 99 mmol/L (98-107); Potassium 3.6 mmoL/L (3.5-5.1); Sodium 135 mmol/L (136-145)
[2022-11-09 11:33] LABS: Blood Urea Nitrogen 12 mg/dl (9-20); Creatinine Clearance Estimated 94 mL/min (50-200); Estimated Glomerular Filt Rate 97 ml/min (>60); GFR (African American) 117 ML/MIN (>60)
[2022-11-09 11:34] LABS: Alanine Aminotransferase 39 U/L (12-78); Albumin Level 3.7 g/dl (3.5-5.0); Albumin/Globulin Ratio 1.4 (1.1-1.8); Alkaline Phosphatase 55 U/L (38-126); Anion Gap 11.6 mEq/L (5-15); Aspartate Amino Transferase 32 U/L (17-59); Bilirubin,Total 0.6 mg/dl (0.2-1.3); Calcium 9.1 mg/dl (8.4-10.2); Carbon Dioxide 28 mmol/L (22.0-30.0); Globulin 2.6 g/dL (1.3-3.2); Glucose 167 mg/dl (74-100); Total Protein,Serum 6.3 g/dl (6.3-8.2)
[2022-11-09 12:20] LABS: MANUAL DIFFERENTIAL MANUAL DIFFERENTIAL (MANUAL DIFF)
[2022-11-09 12:47] LABS: Lymphocytes % 10 % (10-50); Monocytes % 5 % (2-9); Neutrophils % 85 % (42-76); Platelet Estimate Normal; RBC Morphology Normal; Total Cells Counted 100
== END 2022-11-09 11:45 | disposition home or self-care (01) ==
LOC: INF 10:56
PROVIDERS: PCP Family Medicine; Visit Provider Internal Medicine Medical Oncology
DX: C83.31 Diffuse large B-cell lymphoma, lymph nodes of head, face, and neck (principal); Z45.2 Encounter for adjustment and management of vascular access device
CPT/HCPCS: 36592; 80053; 85007; 85025

== ENCOUNTER 2022-11-12 09:37 | Outpatient (CLI) | payer MEDICARE, OTHER, SELFPAY ==
[2022-11-12] VITALS (10 sets, daily range): BP systolic 87–98; BP diastolic 51–70; PULSE 67–81; RESP 18; TEMP 36.2; O2SAT 97–98
== END 2022-11-12 14:54 | disposition home or self-care (01) ==
LOC: INF 09:37
PROVIDERS: PCP Family Medicine; Visit Provider Internal Medicine Medical Oncology
DX: Z51.11 Encounter for antineoplastic chemotherapy (principal); C83.31 Diffuse large B-cell lymphoma, lymph nodes of head, face, and neck
CPT/HCPCS: 96411; 96413; 96415; 96417; J2469; J9000; J9070; J9312; J9370; Q0166

== ENCOUNTER 2022-11-16 10:00 | Outpatient (CLI) | payer MEDICARE, OTHER, SELFPAY | END 2022-11-16 10:30 | disposition home or self-care (01) | LOC: INF 10:00 | PROVIDERS: PCP Family Medicine; Visit Provider Internal Medicine Medical Oncology | DX: Z45.2 Encounter for adjustment and management of vascular access device (principal); C83.31 Diffuse large B-cell lymphoma, lymph nodes of head, face, and neck | CPT/HCPCS: 96523 ==

== ENCOUNTER 2022-11-23 10:49 | Outpatient (CLI) | payer MEDICARE, OTHER, SELFPAY ==
[2022-11-23 10:53] VITALS: BMI 27.4
[2022-11-23 11:10] LABS: Basophils % 1.6 % (0.1-2.0); Eosinophils % 0.5 % (0.1-12.0); Hemoglobin 7.9 g/dL (14.1-18.0); Lymphocytes # 0.1 K/mm3 (0.7-4.5); Lymphocytes % 47.8 % (10-50); Mean Corpuscular HGB Conc 35.9 g/dL (31.8-35.4); Mean Corpuscular Volume 89.2 fl (80-94); Mean Platelet Volume 9.1 fl (7.4-10.4); Monocytes # 0.1 K/mm3 (0.1-1.0); Monocytes % 28.7 % (1.7-9.3); Neutrophils # 0.1 K/mm3 (1.8-7.8); Neutrophils % 21.3 % (37.0-80.0); Platelet Count 94 K/mm3 (142-424); Red Blood Count 2.46 M/mm3 (4.60-6.20); Red Cell Distribution Width 18.2 % (11.5-17.5)
[2022-11-23 11:14] LABS: Alanine Aminotransferase 93 U/L (12-78); Albumin Level 3.5 g/dl (3.5-5.0); Albumin/Globulin Ratio 1.2 (1.1-1.8); Alkaline Phosphatase 68 U/L (38-126); Anion Gap 25.2 mEq/L (5-15); Aspartate Amino Transferase 98 U/L (17-59); Bilirubin,Total 1.1 mg/dl (0.2-1.3); Blood Urea Nitrogen 17 mg/dl (9-20); Calcium 8.5 mg/dl (8.4-10.2); Carbon Dioxide 15 mmol/L (22.0-30.0); Chloride 91 mmol/L (98-107); Creatinine Clearance Estimated 61 mL/min (50-200); Estimated Glomerular Filt Rate 47 ml/min (>60); GFR (African American) 57 ML/MIN (>60); Globulin 2.9 g/dL (1.3-3.2); Glucose 202 mg/dl (74-100); Potassium 4.2 mmoL/L (3.5-5.1); Sodium 127 mmol/L (136-145); Total Protein,Serum 6.4 g/dl (6.3-8.2)
--- NOTE | 2022-11-23 11:30 | PC.NURSE ---
11/23/22 1055 pt presents to unit today to have picc care provided. pt was pushed in wc by spouse, pt appears visibly pale and weak. pt reports weakness, dizziness, fatigue, chills, nausea and diarrhea, pt reports symptoms started late last week and has persisted over the weekend. pt's reports that pt denied coming to be evaluated in the ER over the weekend-pt reported wanting to wait to come in today. v/s taken, oral temp noted at 100.0-pt visibly shaken from chills (warm blanket and warm air provided), b/p 95/47, hr slightly irregular at 112, o2 sat 95-96% on RA. aleksey breath sounds clear throughout all lobes, bs + x 4 quads- no edema noted, pt alert and oriented x 3. Reported symptoms to MD, labs ordered and drawn from picc, specimen sent to lab for analysis. Will await results and inform md to determine poc.
[2022-11-23 11:36] LABS: White Blood Count 0.2 K/mm3 (4.8-10.8)
[2022-11-23 11:37] LABS: MANUAL DIFFERENTIAL MANUAL DIFFERENTIAL (MANUAL DIFF)
[2022-11-23 12:04] LABS: Lymphocytes % 50 % (10-50); Monocytes % 30 % (2-9); Neutrophils % 20 % (42-76); Total Cells Counted 10
[2022-11-23 12:05] LABS: Platelet Estimate Slight Decrease; RBC Morphology Normal
[2022-11-23 12:08] VITALS: BP 95/47; PULSE 112; RESP 20; TEMP 37.8; O2SAT 94
--- NOTE | 2022-11-23 12:39 | PC.NURSE ---
Merle Chavez called RN at 1136 to report wbc-0.2. RN repeated and verified pt name, , and lab value. Result called to Dr. Cox. Updated MD on other lab results and new orders noted. Pt ordered to have 1 liter ns iv and zofran 8 mg iv.
[2022-11-23 13:15] VITALS: BP 105/51; PULSE 98; RESP 20; O2SAT 95
== END 2022-11-23 13:15 | disposition home or self-care (01) ==
LOC: INF 10:50
PROVIDERS: PCP Family Medicine; Visit Provider Internal Medicine Medical Oncology
DX: C82.90 Follicular lymphoma, unspecified, unspecified site (principal)
CPT/HCPCS: 80053; 85007; 85025; 96360; 96375; J2405

== ENCOUNTER 2022-11-24 12:27 | Inpatient (IN) | payer MEDICARE, OTHER, SELFPAY ==
[2022-11-24] VITALS (27 sets, daily range): BP systolic 71–162; BP diastolic 42–92; PULSE 63–119; RESP 16–33; TEMP 37.2–40.1; O2SAT 69–100; BMI 29.9; BMI 29.8; BMI 29.7
--- NOTE | 2022-11-24 12:24 | ECG_ITS ---
APPROVED REPORT Exam: Resting ECG HR:118 bpm ECG Measurements Heart Rate 118 AXES MD 174 P 52 QRSd 90 QRS 27 QT 321 T 43 QTc 391 Conclusion SINUS TACHYCARDIA ABNORMAL RHYTHM ECG UNCONFIRMED REPORT Electronically signed by : Cash Stephens MD 11/24/2022 20:08:31
--- NOTE | 2022-11-24 12:37 | PC.NURSE ---
Family at BS
--- NOTE | 2022-11-24 12:50 | XR_ITS ---
FINAL REPORT CLINICAL HISTORY: soa COMPARISON: 08/17/2022 FINDINGS: A single portable view of the chest was obtained. A left PICC line remains in place with the tip in the lower SVC. The heart size and pulmonary vascularity are within normal limits. The mediastinum is within normal limits. Worsening bibasilar pulmonary opacities are consistent with worsening atelectasis or pneumonia. The bony thorax is intact. IMPRESSION: Worsening atelectasis or pneumonia as compared to the prior exam. Reviewed, Interpreted and Dictated by Miguel Cornell III, MD Transcribed by Abeba aWshington Authenticated and [facility]
[2022-11-24 12:52] LABS: Eosinophils % 0.2 % (0.1-12.0); Lymphocytes # 0.1 K/mm3 (0.7-4.5); Mean Corpuscular Volume 91.2 fl (80-94); Mean Platelet Volume 9.8 fl (7.4-10.4); Monocytes # 0.1 K/mm3 (0.1-1.0); Monocytes % 13.3 % (1.7-9.3); Neutrophils # 0.3 K/mm3 (1.8-7.8); Neutrophils % 66.4 % (37.0-80.0); Platelet Count 72 K/mm3 (142-424); Red Blood Count 1.94 M/mm3 (4.60-6.20); Red Cell Distribution Width 18.5 % (11.5-17.5)
[2022-11-24 12:53] LABS: Chloride 93 mmol/L (98-107); Potassium 3.6 mmoL/L (3.5-5.1); Sodium 127 mmol/L (136-145)
[2022-11-24 12:56] LABS: Alanine Aminotransferase 279 U/L (12-78); Albumin/Globulin Ratio 1.1 (1.1-1.8); Alkaline Phosphatase 53 U/L (38-126); Anion Gap 17.6 mEq/L (5-15); Aspartate Amino Transferase 450 U/L (17-59); Bilirubin,Total 0.9 mg/dl (0.2-1.3); Blood Urea Nitrogen 34 mg/dl (9-20); Carbon Dioxide 20 mmol/L (22.0-30.0); Creatinine Clearance Estimated 25 mL/min (50-200); Estimated Glomerular Filt Rate 17 ml/min (>60); GFR (African American) 20 ML/MIN (>60); Globulin 2.7 g/dL (1.3-3.2); Total Protein,Serum 5.7 g/dl (6.3-8.2)
[2022-11-24 12:57] LABS: Calcium 7.8 mg/dl (8.4-10.2); Glucose 164 mg/dl (74-100)
[2022-11-24 13:00] LABS: Lactic Acid 2.9 mmol/L (0.7-2.1)
[2022-11-24 13:02] LABS: Activated Partial Thrombo Time 45.1 seconds (22.8-30.6); Prothrombin Time 23.7 seconds (10.1-12.5)
--- NOTE | 2022-11-24 13:02 | PC.NURSE ---
Attending notified of sepsis risk. No new orders for broad spectrum abx. Attending now at bedside
--- NOTE | 2022-11-24 13:06 | PC.NURSE ---
ANASTACIA REYNOLDS speaking with Dr. Gaona (hospitalist)
--- NOTE | 2022-11-24 13:11 | PC.NURSE ---
notified ER of critical wbc, hgb and hct.
[2022-11-24 13:12] LABS: MANUAL DIFFERENTIAL MANUAL DIFFERENTIAL (MANUAL DIFF)
--- NOTE | 2022-11-24 13:12 | CT_ITS ---
FINAL REPORT CLINICAL HISTORY: altered mental status, advanced lymphoma FINDINGS: Axial images of the head were obtained without contrast. Coronal reformatted images were also obtained.This study was performed with techniques to keep radiation doses as low as reasonably achievable (ALARA). Individualized dose reduction techniques using automated exposure control or adjustment of mA and/or kV according to the patient''s size were employed. There is no evidence of intracranial hemorrhage or mass. The ventricular size is within normal limits. There is no evidence of shift of the midline structures. No abnormal extra axial fluid collection is identified. No skull abnormality is seen on the bone window images. IMPRESSION: No acute intracranial abnormality. Reviewed, Interpreted and Dictated by Miguel Cornell III, MD Transcribed by Abeba Washington Authenticated and [facility]
[2022-11-24 13:13] LABS: White Blood Count 0.5 K/mm3 (4.8-10.8)
--- NOTE | 2022-11-24 13:13 | PC.NURSE ---
xray at bedside for chest xray
[2022-11-24 13:14] LABS: Hemoglobin 6.2 g/dL (14.1-18.0)
[2022-11-24 13:15] LABS: Hematocrit 17.5 % (42.0-52.0)
[2022-11-24 13:31] LABS: Microscopic, Urine URINE MICROSCOPIC (MICROSCOPIC)
[2022-11-24 13:33] LABS: Appearance,Urine CLEAR (Clear); Bilirubin,Urine Negative (Negative); Blood, Urine 2+ (Negative); Color,Urine YELLOW (Yellow); Glucose,Urine (UA) Negative (Negative); Ketones,Urine Negative (Negative); Leukocyte Esterase,Urine Negative (Negative); Nitrate,Urine Negative (Negative); PH,Urine 5.5 (5.0-8.5); Protein,Urine 2+ (Negative); Specific Gravity, Urine >= 1.030 (1.005-1.030); Urobilinogen,Urine 0.2 EU/dl (0.2)
[2022-11-24 13:45] LABS: Amorphous Sediment,Urine 3+ /lpf; Bacteria,Urine 2+ /lpf
--- NOTE | 2022-11-24 13:49 | PC.NURSE ---
Family clarified that patient did not have chemo yesterday. He had IV fluids and Zofran.
[2022-11-24 13:57] LABS: Lymphocytes % 20 % (10-50); Monocytes % 13 % (2-9); Neutrophils % 67 % (42-76); Platelet Estimate Moderate Decrease; RBC Morphology Normal; Total Cells Counted 15
--- NOTE | 2022-11-24 14:00 | PC.NURSE ---
Dr. Cavanaugh at
--- NOTE | 2022-11-24 14:03 | PC.NURSE ---
Spoke with Nael in pharmacy for Ofirmev, Vanc, and Cefepime dosing.
--- NOTE | 2022-11-24 14:13 | HMH.EDGENADL ---
Discharge Plan Disposition Chief Complaint: Altered Mental Status Prescriptions Prescriptions: No Action Eliquis 5 mg tablet 5 mg PO BID nitroglycerin 0.4 mg tablet, sublingual 0.4 mg SL ONCE PRN (Reason: Chest Pain) metoprolol succinate 200 mg tablet extended release 24 hr 100 mg PO BID guaifenesin [Mucinex Fast-Max Chest-Congest] 100 mg/5 mL liquid 200 mg PO Q4H PRN (Reason: Congestion) Ensure Liquid 1 ea PO DAILY chlorpheniramine maleate 12 mg tablet extended release 12 mg PO Q12H PRN (Reason: allergy symptoms) Qty: 60 2RF benzonatate 200 mg capsule 200 mg PO TID PRN (Reason: cough) 10 Days Qty: 60 2RF ondansetron 8 mg tablet,disintegrating 8 mg PO TID PRN (Reason: nausea/vomiting) Label Comments: DISSOLVE 1 TABLET IN MOUTH THREE TIMES DAILY NEEDED FOR NAUSEA AND VOMITING prochlorperazine maleate 10 mg tablet 10 mg PO Q6H omeprazole 20 mg capsule,delayed release(DR/EC) 20 mg PO DIRECTED PRN (Reason: GERD) Entresto 24-26 mg Tablet 1 tab PO BID prednisone 20 mg Tablet 100 mg PO DAILY allopurinol 300 mg Tablet 300 mg PO DAILY fluticasone propionate [Flonase Allergy Relief] 50 mcg/actuation spray,suspension 2 spray intranasal DAILY Rx Instructions: administer 2 sprays into each nostril simvastatin 20 MG tablet 20 mg PO HS cholecalciferol (vitamin D3) 1,000 UNIT capsule 1,000 unit PO DAILY multivit with min-folic acid 200 MCG tablet,chewable 200 mcg PO DAILY Referrals Follow up/Referrals: Rosemarie Gonzalez DO [Primary Care Provider] - See instructions Instructions Patient Instructions: DI for Altered Mental Status Discharge ED Provider: Ellie Lao Adult HPI General Chief complaint: Altered Mental Status Stated complaint: AMS Time Seen by Provider: 11/24/22 13:15 Mode of Arrival: EMS Source of Information: EMS Limitations: Altered Mental Status Description of Symptoms (Recalled from ER Triage Doc. by RN): 67 M presents via EMS from home after family called out for acute AMS. Family reports patient is currently on chemo treatments for Lymphoma. His last treatment was yesterday and he had a larger dose than normal. Patient is acutely confused on arrival, hypotensive, and tachycardic. Patient was 86% on RA per EMS, so placed on NC. 20g to RAC placed per EMS and given 500 mL NS bolus. Related Data Home Medications Medication Instructions Recorded Confirmed cholecalciferol (vitamin D3) 25 1,000 unit PO DAILY Supplement 01/07/22 11/24/22 mcg (1,000 unit) capsule multivitamin with minerals-folic 200 mcg PO DAILY Supplement 01/07/22 11/24/22 acid 200 mcg chewable tablet simvastatin 20 mg tablet 20 mg PO HS Cholesterol 01/07/22 11/24/22 apixaban 5 mg tablet (Eliquis) 5 mg PO BID Blood thinner 03/02/22 11/24/22 nitroglycerin 0.4 mg sublingual 0.4 mg sublingual ONCE PRN Chest 03/02/22 11/24/22 tablet Pain omeprazole 20 mg capsule,delayed 20 mg PO DIRECTED PRN GERD 07/16/22 11/24/22 release allopurinol 300 mg tablet 300 mg PO DAILY PREVENTATIVE 08/20/22 11/24/22 prednisone 20 mg tablet 100 mg PO DAILY CANCER 08/20/22 11/24/22 sacubitril 24 mg-valsartan 26 mg 1 tab PO BID Heart disease 08/20/22 11/24/22 tablet (Entresto) ondansetron 8 mg disintegrating 8 mg PO TID PRN nausea/vomiting 10/02/22 11/24/22 tablet prochlorperazine maleate 10 mg 10 mg PO Q6H Anxiety 10/22/22 11/24/22 tablet food supplemt, lactose-reduced 1 ea PO DAILY Supplement 11/04/22 11/24/22 (Ensure oral liquid) guaifenesin 100 mg/5 mL oral 200 mg PO Q4H PRN Congestion 11/04/22 11/24/22 liquid (Mucinex Fast-Max Chest Congestion) metoprolol succinate 200 mg 100 mg PO BID AFIB 11/04/22 11/24/22 tablet,extended release 24 hr fluticasone propionate 50 2 spray intranasal DAILY allergies 11/12/22 11/24/22 mcg/actuation nasal spray,suspension (Flonase Allergy Relief) Previo
[2022-11-24 14:15] LABS: Coronavirus 19, PCR Not Detected (NotDetected); Influenza A, PCR Not Detected (NotDetected); Influenza B, PCR Not Detected (NotDetected)
--- NOTE | 2022-11-24 14:19 | PC.NURSE ---
Mekhi at BS to draw ammonia; DR Cavanaugh at BS
--- NOTE | 2022-11-24 14:25 | PC.NURSE ---
2750 mL sepsis bolus complete
--- NOTE | 2022-11-24 14:26 | PC.NURSE ---
CARE MANAGEMENT NOTIFIED OF ADMISSION
[2022-11-24 14:35] LABS: Ammonia < 9 umol/L (9-30)
--- NOTE | 2022-11-24 14:42 | PC.NURSE ---
checked on pt nothing needed at this time, tap virk at bedside
--- NOTE | 2022-11-24 14:49 | EXP.HP ---
History of Present Illness *Admission Date: 11/24/22 *Reason for visit:: confused, diarrhea *History of present illness: 67-year-old gentleman with history of DLBCL who received his fifth round of R-CHOP on 11/12. Presented to the ER today with confusion that began overnight and 3 to 4 days of diarrhea. Patient was doing well yesterday per family when he came in for an IV fluid infusion. They deny any fevers or shortness of breath at that time. State when he woke up today he was more confused, very weak, may have been febrile at home. Brought him to the ER where he was noted to have fever on presentation. Initial labs including CBC, CMP positive for marked electrolyte disturbances, kidney injury, transaminitis, neutropenia, worsening anemia from yesterday with drop in hemoglobin from 7.9-6.2, and thrombocytopenia. Creatinine significantly worsened in 24 hours from 1.5 to 3.7. Patient also hypotensive, tachycardic, meeting criteria for septic shock and neutropenic fever. Patient was initially given IV fluids with good response and improvement in blood pressure and mentation. ER consulted medicine for admission and further management. On evaluation in the ER, patient's belly is distended with hypoactive bowel sounds but is nontender. CT abdomen pelvis obtained. Blood and platelets have been ordered for patient but are currently being processed appropriately for irradiation/CMV negative. Before arriving to the floor, patient's blood pressure began to trend down again. Was initiated on norepinephrine for hypotension with maps consistently below 60. Stable on 2 to 3 L nasal cannula oxygen. Goals of care/code discussion with family, they wish to make patient full code at this time. Initial concern for differential diagnosis and no specific order as follows: Septic shock secondary to pneumonia, typhlitis, enteritis, HUS, bacteremia, UTI. [facility] Disclaimer: The information contained in this section may have been updated after the patient was seen, as this information can be updated by other users. Medical History Afib Allergies Anemia Bronchitis Cancer CHF (congestive heart failure) COVID-19 DDD (degenerative disc disease) GERD (gastroesophageal reflux disease) History of back pain Hyperlipidemia Hypertension Left shoulder strain Lymphoma Neuropathy Shoulder strain Sleep apnea Surgical History H/O colonoscopy H/O lymph node biopsy Hx of tonsillectomy Family History Sister Cancer Brain cancer Social History (Updated 11/24/22 @ 17:15 by Sarah Deal RN) Smoking Status: Former smoker pack-years: 35 years smoked: 40 smoking status stop date: 14 YEARS AGO second hand exposure: Yes alcohol intake: current substance use type: denies use current occupational status: retired Travel in the last 8 weeks: None adopted: No caregiver/support person: No foster care: No household members: spouse housing: house lives independently: Yes marital status: number of children: 1 education level: high school 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 current occupational exposures/hazards: No caffeine: Yes Review of Systems Review of Systems Review of systems (narrative): 14 point review of systems performed, pertinent positives and negatives as per [facility] Meds Home Medications and Allergies Home Medications Medication Instructions Recorded Confirmed Type cholecalciferol (vitamin D3) 25 1,000 unit PO DAILY Supplement 01/07/22 11/24/22 History mcg (1,000 unit) capsule multivitamin with minerals-folic 200 mcg PO DAILY Supplement 01/07/22 11/24/22 History acid 200 mcg chewable tablet simvastatin 20 mg tablet 20 mg PO HS Cholesterol 01/07/22 11/24/22 History apixaban 5 mg tablet (Eliquis) 5 mg PO BID Blood thinner 03/02/22 05
--- NOTE | 2022-11-24 14:58 | PC.NURSE ---
Report to NIKI Smith
--- NOTE | 2022-11-24 15:11 | CT_ITS ---
FINAL REPORT TECHNIQUE: Axial CT images were performed from the lung bases through the pubic symphysis. Coronal reformats were submitted and reviewed. This study was performed with techniques to keep radiation doses as low as reasonably achievable (ALARA). Individualized dose reduction techniques using automated exposure control or adjustment of mA and/or kV according to the patient's size were employed. CLINICAL HISTORY: fever of unknown origin COMPARISON: June 2020 FINDINGS: Abdomen: There is mild bibasilar atelectasis. The gallbladder is present. The liver, spleen and pancreas are unremarkable. There are no adrenal masses. There is a less than 3 mm nonobstructing right renal stone. There is no hydronephrosis. There is moderate vascular calcification. There are fluid-filled loops of large and small bowel that are nonspecific. Pelvis: There is diverticulosis of the sigmoid colon. The appendix is unremarkable. There are no distal ureteral stones. There is a Bonner catheter in the urinary bladder. There is urinary bladder wall thickening. There is right posterior bladder diverticulum. IMPRESSION: Nonspecific fluid filled large and small bowel loops may represent ileus or enteritis. Nonobstructing right renal stone. Diverticulosis without evidence of diverticulitis. Reviewed, Interpreted and Dictated by Miguel Cornell III, MD Transcribed by Gerard Quinn Authenticated and [facility]
--- NOTE | 2022-11-24 16:20 | PC.NURSE ---
family states that pt does not typically need any assistance with adl's but today he is total care
[2022-11-24 16:26] LABS: Adenovirus,PCR Not Detected (NotDetected); Bordetella Pertussis Not Detected (NotDetected); Chlamydophila Pneumoniae, PCR Not Detected (NotDetected); Coronavirus 19, PCR Not Detected (NotDetected); Coronavirus 229E Not Detected (NotDetected); Coronavirus NL63 Not Detected (NotDetected); Coronavirus OC43 Not Detected (NotDetected); Coronovirus HKU1,PCR Not Detected (NotDetected); Human Metapneumovirus Not Detected (NotDetected); Influenza A, PCR Not Detected (NotDetected); Influenza AH1, 2009 Not Detected (NotDetected); Influenza AH1, PCR Not Detected (NotDetected); Influenza AH3,PCR Not Detected (NotDetected); Influenza B, PCR Not Detected (NotDetected); Mycoplasma Pneumoniae, PCR Not Detected (NotDetected); Parainfluenza 1, PCR Not Detected (NotDetected); Parainfluenza 2, PCR Not Detected (NotDetected); Parainfluenza 3, PCR Not Detected (NotDetected); Parainfluenza 4, PCR Not Detected (NotDetected); Respiratory Syncytial Virus Not Detected (NotDetected); Rhinovirus/Enterovirus Not Detected (NotDetected)
[2022-11-24 16:46] LABS: Reflex Lactic Add Lactic Reflex
[2022-11-24 17:34] LABS: Lactic Acid Follow Up (RFLX 1) 1.4 mmol/L (0.7-2.1)
--- NOTE | 2022-11-24 18:13 | PC.NURSE ---
late entry: 1540 levophed drip started at 0.5mcg/min 1600 levophed drip increased to 2mcg/min 85/51 (62) 1615 levophed drip increased to 6mcg/min 81/54 (63) 1630 levophed drip [id number] to 10mcg/min 71/44 (53)
--- NOTE | 2022-11-24 18:14 | EXP.SEPSISRE ---
[facility] Tissue Perfusion Eval Sepsis Re-Evaluation Performed: Yes Date Performed: 11/24/22 Time Performed: 16:35
[2022-11-24 19:12] LABS: Chloride 96 mmol/L (98-107); Potassium 3.4 mmoL/L (3.5-5.1); Sodium 130 mmol/L (136-145)
[2022-11-24 19:15] LABS: Alanine Aminotransferase 296 U/L (12-78); Albumin/Globulin Ratio 1.1 (1.1-1.8); Alkaline Phosphatase 57 U/L (38-126); Anion Gap 19.4 mEq/L (5-15); Aspartate Amino Transferase 496 U/L (17-59); Bilirubin,Total 1.5 mg/dl (0.2-1.3); Blood Urea Nitrogen 34 mg/dl (9-20); Calcium 7.5 mg/dl (8.4-10.2); Carbon Dioxide 18 mmol/L (22.0-30.0); Creatinine Clearance Estimated 24 mL/min (50-200); Estimated Glomerular Filt Rate 16 ml/min (>60); GFR (African American) 19 ML/MIN (>60); Globulin 2.8 g/dL (1.3-3.2); Glucose 152 mg/dl (74-100); Total Protein,Serum 5.8 g/dl (6.3-8.2)
[2022-11-24 19:19] LABS: Lactate Dehydrogenase 737 U/L (313-618)
[2022-11-24 19:20] LABS: Campylobacter Not Detected (NotDetected); Clostridium Difficile A/B, PCR Not Detected (NotDetected); Enteroaggregative E coli Not Detected (NotDetected); Enteropathogenic E coli Not Detected (NotDetected); Enterotoxigenic E coli Not Detected (NotDetected); Plesimonas Shigalloides, PCR Not Detected (NotDetected); Salmonella, PCR Not Detected (NotDetected); Shiga-like toxin E coli Not Detected (NotDetected); Vibrio Cholerae Not Detected (NotDetected); Vibrio, PCR Not Detected (NotDetected); Yersinia Entercolitica, PCR Not Detected (NotDetected)
[2022-11-24 19:22] LABS: Adenovirus F 40/41, stool Not Detected (NotDetected); Astrovirus Not Detected (NotDetected); Cryptosporidium Not Detected (NotDetected); Cyclospora Cayetanesis Not Detected (NotDetected); Entamoeba histolytica Not Detected (NotDetected); Giardia lamblia Not Detected (NotDetected); Norovirus Not Detected (NotDetected); Rotavirus A Not Detected (NotDetected); Sapovirus Not Detected (NotDetected); Shigella Enterovasive E coli Not Detected (NotDetected)
--- NOTE | 2022-11-24 20:04 | PC.NURSE ---
upon start of shift levophed drip at 10mcg/min, bp increased and decreased levophed drip decreased to 8mcg/min; blood consent obtained and first unit prbc started, family at bedside, clifford Malone spoke with family and family decided to have pt transferred to higher level of care, call light within reach
--- NOTE | 2022-11-24 20:20 | PC.NURSE ---
pt shivering and requested extra blankets, placed warm blankets on pt and turned heat up in pt's room
--- NOTE | 2022-11-24 20:32 | PC.NURSE ---
1740 spoke with Edyta in [facility] pharmacy. vancomycin consult. 2000mg vanc x 1 now to be redosed with [facility] pharm in am. notified face to face at 1800
--- NOTE | 2022-11-24 22:07 | EXP.DC.SUM ---
General Admission date:: 11/24/22 Discharge date: 11/24/22 HPI HPI HPI: 67-year-old gentleman with history of DLBCL who received his fifth round of R-CHOP on 11/12. Presented to the ER today with confusion that began overnight and 3 to 4 days of diarrhea. Patient was doing well yesterday per family when he came in for an IV fluid infusion. They deny any fevers or shortness of breath at that time. State when he woke up today he was more confused, very weak, may have been febrile at home. Brought him to the ER where he was noted to have fever on presentation. Initial labs including CBC, CMP positive for marked electrolyte disturbances, kidney injury, transaminitis, neutropenia, worsening anemia from yesterday with drop in hemoglobin from 7.9-6.2, and thrombocytopenia. Creatinine significantly worsened in 24 hours from 1.5 to 3.7. Patient also hypotensive, tachycardic, meeting criteria for septic shock and neutropenic fever. Patient was initially given IV fluids with good response and improvement in blood pressure and mentation. ER consulted medicine for admission and further management. On evaluation in the ER, patient's belly is distended with hypoactive bowel sounds but is nontender. CT abdomen pelvis obtained. Blood and platelets have been ordered for patient but are currently being processed appropriately for irradiation/CMV negative. Before arriving to the floor, patient's blood pressure began to trend down again. Was initiated on norepinephrine for hypotension with maps consistently below 60. Stable on 2 to 3 L nasal cannula oxygen. Goals of care/code discussion with family, they wish to make patient full code at this time. Initial concern for differential diagnosis and no specific order as follows: Septic shock secondary to pneumonia, typhlitis, enteritis, HUS, bacteremia, UTI. Hospital Course Hospital Course Hospital Course: Mr. Euceda was admitted to [facility] on 11/24/2022 with initial impression: Septic Shock, Neutropenic Fevers, Coagulopathies, STEPHANIE. He received 1 unit FFP and 1 unit PRBC. He was placed on Levophed for Hypotension, placed on broad spectrum antibiotics of Vancomycin and Cefepime for Sepsis. His LDH was elevated at 737. He had peripheral smear ordered and Haptoglobin, but these are send out at the facility. Decision was made to transfer to higher level of care due to concern for possible DIC or Hemolytic uremic syndrome with coagulopathies in setting of sepsis and malignancy. Family requested [facility]. Called and spoke with Dr. King who accepted the patient for transfer. Spent 40 minutes in discharge counseling and direct care with patient. Exam Data for Last 24 hours Vital signs and Labs for Last 24 Hours: Temp Pulse Resp BP Pulse Ox 101.1 F H 92 H 17 114/50 L 100 11/24/22 21:55 11/24/22 21:55 11/24/22 21:55 11/24/22 21:55 11/24/22 21:55 Laboratory Results - last 24 hr 11/24/22 12:40: WBC 0.5 L* D, RBC 1.94 L*, Hgb 6.2 L*, Hct 17.5 L*, MCV 91.2, MCH 32.0 H, MCHC 35.0, RDW 18.5 H, Plt Count 72 L, MPV 9.8, Neut % (Auto) 66.4, Lymph % (Auto) 19.0, [place] % (Auto) 13.3 H, Eos % (Auto) 0.2, Baso % (Auto) 1.0, Neut # (Auto) 0.3 L*, Lymph # (Auto) 0.1 L, [place] # (Auto) 0.1, Eos # (Auto) 0.0, Baso # (Auto) 0.0, Total Counted 15, Neutrophils % (Manual) 67, Lymphocytes % (Manual) 20, Monocytes % (Manual) 13 H, Platelet Estimate Moderate decrease, RBC Morphology Normal 11/24/22 12:40: PT 23.7 H, INR 2.30 H, APTT 45.1 H 11/24/22 12:40: Lactate 2.9 H 11/24/22 12:40: Sodium 127 L, Potassium 3.6, Chloride 93 L, Carbon Dioxide 20 L, Anion Gap 17.6 H, BUN 34 H D, Creatinine 3.70 H D, Estimated Creat Clear 25, Estimated GFR 17 L*, Est GFR ( Amer) 20 L D, Glucose 164 H, Calcium 7.8 L, Total Bilirubin 0.9, AST 450 H* D, ALT 279 H D, Alkaline Phosphatase 53, Total Protein 5.7 L, Albumin 3.0 L D, Globulin 2.7, Albumin/Globulin Ratio 1.1 11/24/22 13:13: Urine Color Yellow, Urine A
--- NOTE | 2022-11-24 22:20 | PC.NURSE ---
called report to Stefanie PRINCE at [facility], nahid Jenkins pt going to room 17 in the ICU
--- NOTE | 2022-11-24 22:51 | PC.NURSE ---
PT LEFT WITH AIR VAC AT THIS TIME
--- NOTE | 2022-11-25 07:25 | P.EN_ITS ---
Hold for blood return positive for E. coli. Contacted [facility] in [place] and spoke to patient's nurse and ICU. Informed her that all 4 cultures obtained peripherally were positive at 12 hours.
[2022-11-26 12:18] LABS: Haptoglobin 369 mg/dL (32-363)
[2022-11-26 18:56] LABS: Peripheral Smear Review Scanned Result
== END 2022-11-24 22:51 | disposition short-term general hospital (02) | DRG 871 ==
LOC: ER 13:01 → 2ND 14:43
PROVIDERS: Emergency Medicine; Admitting Provider Internal Medicine Adolescent Medicine; Emergency Provider Emergency Medicine; PCP Family Medicine; Visit Provider Internal Medicine Adolescent Medicine
DX: A41.9 Sepsis, unspecified organism (principal); J18.9 Pneumonia, unspecified organism; R65.21 Severe sepsis with septic shock; C83.30 Diffuse large B-cell lymphoma, unspecified site; N17.9 Acute kidney failure, unspecified; D68.9 Coagulation defect, unspecified; D70.9 Neutropenia, unspecified; R50.81 Fever presenting with conditions classified elsewhere; G62.9 Polyneuropathy, unspecified; D63.0 Anemia in neoplastic disease; D69.6 Thrombocytopenia, unspecified
CPT/HCPCS: 36415; 70450; 71045; 74176; 80053; 81001; 82140; 83010; 83605; 83615; 85007; 85025; 85610; 85730; 86850; 87040; 87077; 87086; 87186; 87507; 87581; 87632; 87635; 87636; 87798; 93005; 96360; 96375; 99285; C9803; J0131; J0692; J2405; J3370; P9016; U0003; U0005

== ENCOUNTER 2022-12-05 09:26 | Outpatient (CLI) | payer MEDICARE, OTHER, SELFPAY ==
[2022-12-05 09:46] VITALS: BP 115/74; PULSE 94; RESP 18; TEMP 36.7; O2SAT 98
== END 2022-12-05 10:30 | disposition home or self-care (01) ==
PROVIDERS: PCP Family Medicine
DX: J18.9 Pneumonia, unspecified organism (principal); D70.9 Neutropenia, unspecified; C83.30 Diffuse large B-cell lymphoma, unspecified site
CPT/HCPCS: 96365; J0696

== ENCOUNTER 2022-12-06 09:53 | Outpatient (CLI) | payer MEDICARE, OTHER, SELFPAY ==
[2022-12-06 10:02] VITALS: BP 110/62; PULSE 94; RESP 18; TEMP 36.4; O2SAT 96
[2022-12-06 10:40] VITALS: BP 107/62; PULSE 95; RESP 18; O2SAT 99
== END 2022-12-06 10:40 | disposition home or self-care (01) ==
LOC: INF 09:54
PROVIDERS: PCP Family Medicine
DX: J18.9 Pneumonia, unspecified organism (principal); C83.31 Diffuse large B-cell lymphoma, lymph nodes of head, face, and neck; D70.9 Neutropenia, unspecified
CPT/HCPCS: 96365; J0696

== ENCOUNTER 2022-12-07 09:29 | Outpatient (CLI) | payer MEDICARE, OTHER, SELFPAY ==
[2022-12-07 10:02] LABS: Basophils % 0.4 % (0.1-2.0); Eosinophils % 0.4 % (0.1-12.0); Hematocrit 27.4 % (42.0-52.0); Hemoglobin 8.8 g/dL (14.1-18.0); Lymphocytes # 0.5 K/mm3 (0.7-4.5); Lymphocytes % 12.7 % (10-50); Mean Corpuscular Hemoglobin 29.7 pg (27.0-31.2); Mean Corpuscular Volume 92.9 fl (80-94); Mean Platelet Volume 8.9 fl (7.4-10.4); Monocytes # 0.4 K/mm3 (0.1-1.0); Monocytes % 9.4 % (1.7-9.3); Neutrophils # 3.1 K/mm3 (1.8-7.8); Neutrophils % 77.2 % (37.0-80.0); Platelet Count 160 K/mm3 (142-424); Red Blood Count 2.95 M/mm3 (4.60-6.20); Red Cell Distribution Width 17.5 % (11.5-17.5); White Blood Count 4.1 K/mm3 (4.8-10.8)
[2022-12-07 10:08] LABS: Chloride 101 mmol/L (98-107); Sodium 138 mmol/L (136-145)
[2022-12-07 10:09] LABS: Potassium 3.7 mmoL/L (3.5-5.1)
[2022-12-07 10:11] LABS: Alanine Aminotransferase 68 U/L (12-78); Alkaline Phosphatase 109 U/L (38-126); Aspartate Amino Transferase 46 U/L (17-59); Bilirubin,Total 0.5 mg/dl (0.2-1.3); Blood Urea Nitrogen 13 mg/dl (9-20); Estimated Glomerular Filt Rate 75 ml/min (>60); GFR (African American) 90 ML/MIN (>60)
[2022-12-07 10:12] LABS: Albumin Level 3.2 g/dl (3.5-5.0); Albumin/Globulin Ratio 1.3 (1.1-1.8); Anion Gap 10.7 mEq/L (5-15); Calcium 8.9 mg/dl (8.4-10.2); Carbon Dioxide 30 mmol/L (22.0-30.0); Globulin 2.5 g/dL (1.3-3.2); Glucose 99 mg/dl (74-100); Total Protein,Serum 5.7 g/dl (6.3-8.2)
[2022-12-07 10:15] VITALS: BP 118/73; PULSE 93; RESP 16; TEMP 36.7; O2SAT 97
== END 2022-12-07 10:20 | disposition home or self-care (01) ==
LOC: INF 09:30
PROVIDERS: PCP Family Medicine; Visit Provider Physician Assistant
DX: R78.81 Bacteremia (principal)
CPT/HCPCS: 80053; 85025; 96365; J0696

== ENCOUNTER 2022-12-08 09:41 | Outpatient (CLI) | payer MEDICARE, OTHER, SELFPAY ==
[2022-12-08 09:57] VITALS: BMI 26.7
[2022-12-08 10:15] VITALS: BP 108/69; PULSE 82; RESP 16; TEMP 36.6; O2SAT 97
[2022-12-08 10:22] LABS: Basophils % 0.3 % (0.1-2.0); Eosinophils % 0.4 % (0.1-12.0); Hematocrit 26.5 % (42.0-52.0); Hemoglobin 8.7 g/dL (14.1-18.0); Lymphocytes # 0.5 K/mm3 (0.7-4.5); Lymphocytes % 12.2 % (10-50); Mean Corpuscular HGB Conc 32.9 g/dL (31.8-35.4); Mean Corpuscular Hemoglobin 30.3 pg (27.0-31.2); Mean Corpuscular Volume 92.2 fl (80-94); Mean Platelet Volume 8.6 fl (7.4-10.4); Monocytes # 0.5 K/mm3 (0.1-1.0); Monocytes % 11.7 % (1.7-9.3); Neutrophils # 3.1 K/mm3 (1.8-7.8); Neutrophils % 75.4 % (37.0-80.0); Platelet Count 156 K/mm3 (142-424); Red Blood Count 2.88 M/mm3 (4.60-6.20); Red Cell Distribution Width 17.5 % (11.5-17.5); White Blood Count 4.1 K/mm3 (4.8-10.8)
[2022-12-08 10:30] LABS: Chloride 100 mmol/L (98-107); Sodium 137 mmol/L (136-145)
[2022-12-08 10:31] LABS: Potassium 3.9 mmoL/L (3.5-5.1)
[2022-12-08 10:33] LABS: Alanine Aminotransferase 55 U/L (12-78); Albumin Level 3.2 g/dl (3.5-5.0); Albumin/Globulin Ratio 1.3 (1.1-1.8); Alkaline Phosphatase 103 U/L (38-126); Anion Gap 10.9 mEq/L (5-15); Aspartate Amino Transferase 41 U/L (17-59); Bilirubin,Total 0.5 mg/dl (0.2-1.3); Blood Urea Nitrogen 12 mg/dl (9-20); Carbon Dioxide 30 mmol/L (22.0-30.0); Creatinine Clearance Estimated 90 mL/min (50-200); Estimated Glomerular Filt Rate 75 ml/min (>60); GFR (African American) 90 ML/MIN (>60); Globulin 2.4 g/dL (1.3-3.2); Total Protein,Serum 5.6 g/dl (6.3-8.2)
[2022-12-08 10:34] LABS: Calcium 8.8 mg/dl (8.4-10.2); Glucose 102 mg/dl (74-100)
[2022-12-08 11:00] VITALS: BP 124/71; PULSE 82; RESP 14; TEMP 36.6; O2SAT 97
== END 2022-12-08 11:05 | disposition home or self-care (01) ==
LOC: INF 09:42
PROVIDERS: PCP Family Medicine; Visit Provider Physician Assistant
DX: J18.9 Pneumonia, unspecified organism (principal); R78.81 Bacteremia; C83.31 Diffuse large B-cell lymphoma, lymph nodes of head, face, and neck
CPT/HCPCS: 80053; 85025; 96365; J0696

== ENCOUNTER 2022-12-09 10:03 | Outpatient (CLI) | payer MEDICARE, OTHER, SELFPAY ==
[2022-12-09 10:48] VITALS: BP 98/58; PULSE 91; RESP 18; TEMP 36.4; O2SAT 98
[2022-12-09 11:35] VITALS: BP 102/61; PULSE 94; RESP 18; O2SAT 98
== END 2022-12-09 11:35 | disposition home or self-care (01) ==
LOC: INF 10:04
PROVIDERS: PCP Family Medicine
DX: R78.81 Bacteremia (principal); Z45.2 Encounter for adjustment and management of vascular access device
CPT/HCPCS: 96365; J0696

== ENCOUNTER 2022-12-10 09:45 | Outpatient (CLI) | payer MEDICARE, OTHER, SELFPAY ==
[2022-12-10 10:10] VITALS: BP 102/65; PULSE 102; RESP 16; O2SAT 98
[2022-12-10 10:40] VITALS: BP 103/63; PULSE 76; RESP 16; O2SAT 98
== END 2022-12-10 10:55 | disposition home or self-care (01) ==
LOC: INF 09:46
PROVIDERS: PCP Nurse Practitioner Family; Visit Provider Internal Medicine Medical Oncology
DX: R78.81 Bacteremia (principal)
CPT/HCPCS: 96365; J0696

== ENCOUNTER 2022-12-11 09:32 | Outpatient (CLI) | payer MEDICARE, OTHER, SELFPAY ==
[2022-12-11 09:43] VITALS: BP 110/66; PULSE 88; RESP 18; TEMP 36.8; O2SAT 88
[2022-12-11 10:25] VITALS: BP 120/81; PULSE 87; RESP 18; O2SAT 98
== END 2022-12-11 10:25 | disposition home or self-care (01) ==
PROVIDERS: PCP Nurse Practitioner Family; Visit Provider Internal Medicine Medical Oncology
DX: R78.81 Bacteremia (principal)
CPT/HCPCS: 96365; J0696

== ENCOUNTER 2022-12-14 10:53 | Outpatient (CLI) | payer MEDICARE, OTHER, SELFPAY ==
[2022-12-14 10:59] VITALS: BMI 26.6
--- NOTE | 2022-12-14 11:00 | PC.NURSE ---
pt presents today prior to md appt with oncology to have picc accessed and blood drawn for labs as ordered. picc accessed, blood drawn per Meliza Levi RN, specimen sent to lab for analysis.
[2022-12-14 11:14] LABS: Chloride 99 mmol/L (98-107); Potassium 3.9 mmoL/L (3.5-5.1); Sodium 136 mmol/L (136-145)
[2022-12-14 11:16] LABS: Alanine Aminotransferase 38 U/L (12-78); Aspartate Amino Transferase 38 U/L (17-59); Blood Urea Nitrogen 13 mg/dl (9-20); Creatinine Clearance Estimated 89 mL/min (50-200); Estimated Glomerular Filt Rate 75 ml/min (>60); GFR (African American) 90 ML/MIN (>60)
[2022-12-14 11:17] LABS: Albumin Level 3.7 g/dl (3.5-5.0); Albumin/Globulin Ratio 1.4 (1.1-1.8); Alkaline Phosphatase 92 U/L (38-126); Anion Gap 11.9 mEq/L (5-15); Bilirubin,Total 0.5 mg/dl (0.2-1.3); Calcium 9.4 mg/dl (8.4-10.2); Carbon Dioxide 29 mmol/L (22.0-30.0); Globulin 2.6 g/dL (1.3-3.2); Glucose 99 mg/dl (74-100); Total Protein,Serum 6.3 g/dl (6.3-8.2)
[2022-12-14 11:32] LABS: Basophils % 0.3 % (0.1-2.0); Eosinophils # 0.1 K/mm3 (0.0-0.4); Eosinophils % 3.1 % (0.1-12.0); Hematocrit 28.1 % (42.0-52.0); Hemoglobin 9.4 g/dL (14.1-18.0); Lymphocytes # 0.8 K/mm3 (0.7-4.5); Mean Corpuscular HGB Conc 33.4 g/dL (31.8-35.4); Mean Corpuscular Hemoglobin 30.7 pg (27.0-31.2); Mean Corpuscular Volume 91.8 fl (80-94); Mean Platelet Volume 8.2 fl (7.4-10.4); Monocytes # 0.6 K/mm3 (0.1-1.0); Monocytes % 14.5 % (1.7-9.3); Neutrophils # 2.7 K/mm3 (1.8-7.8); Neutrophils % 63.2 % (37.0-80.0); Platelet Count 235 K/mm3 (142-424); Red Blood Count 3.06 M/mm3 (4.60-6.20); Red Cell Distribution Width 18.3 % (11.5-17.5); White Blood Count 4.3 K/mm3 (4.8-10.8)
== END 2022-12-14 11:17 | disposition home or self-care (01) ==
LOC: INF 10:55
PROVIDERS: PCP Nurse Practitioner Family; Visit Provider Internal Medicine Medical Oncology
DX: C83.31 Diffuse large B-cell lymphoma, lymph nodes of head, face, and neck (principal); Z45.2 Encounter for adjustment and management of vascular access device
CPT/HCPCS: 36592; 80053; 85025; G0463

== ENCOUNTER 2022-12-30 14:30 | Outpatient (RCR) | payer MEDICARE, OTHER, SELFPAY ==
--- NOTE | 2022-12-17 14:54 | HMH.PTOPWND ---
Rehab Outpt Wound Evaluation Rehab OP Wound Evaluation Start: 12/17/22 13:53 Freq: Status: Active Protocol: Document 12/17/22 14:38 PHOERICK (Rec: 12/17/22 14:54 PHORMONTY [id number]) E-signed By Senthil Mejia, PT Subjective/History History History This is the initial PT eval for Jose Euceda, 67 yowm who presents with pressure injury to his perineum x ~ 1 mo with insidious onset of symptoms. He was recently hospiatlized due to e-coli sepsis requiring IV abx and the wound was discovered at that time apparently. He reports moderate amount of tenderness in the wound area, but no pain at rest. He has hx of neck lymphoma ~ 4 yrs ago and more recently R chest DLBCL non- hodgkin's lymphoma and he underwent 15 wks of chemo just prior to this wounds presentation. They have been dressing the wound with santyl and gauze until now. Subjective Subjective 2/4 jeannine-wound TTP noted. Wound is immediately inferior to the anus resulting in significant diffculty with dressing changes and bowel movements. Wound Eval Wound Perianal Wound Type Pressure Ulcer Is This a Chronic Wound Yes Wound Staging Stage III Query Text:Stage I - Unbroken, red skin, no blanching. Stage II - Skin broken, superficial skin loss involving epidermis alone or also dermis. Partial loss of skin layers. Stage III - Pressure area involves epidermis, dermis and subcutaneous tissue, full thickness skin loss. Stage IV - Pressure area involves epidermis, subcutaneous tissue, bone and other supportive tissue. Full thickness skin loss with extensive destruction of underlying tissue and structures. Wound Length (cm) 3.1 Wound Width (cm) 1.6 Wound Depth (cm) 2.8 Wound Bed Appearance Beefy Red Percentage Granulated (%) 100 Wound Margins Description Well Defined Undermining Position
== END 2022-12-30 14:35 | disposition home or self-care (01) ==
LOC: PT 14:30
PROVIDERS: PCP Nurse Practitioner Family; Visit Provider Nurse Practitioner Family
DX: L89.893 Pressure ulcer of other site, stage 3 (principal)
CPT/HCPCS: 97163; 97597

== ENCOUNTER → 2023-01-08 12:39 | Outpatient (CLI) | payer MEDICARE, OTHER, SELFPAY ==
[2023-01-08 14:17] LABS: Anion Gap 17.1 mEq/L (5-15); Blood Urea Nitrogen 11 mg/dl (9-20); Calcium 8.8 mg/dl (8.4-10.2); Carbon Dioxide 25 mmol/L (22.0-30.0); Chloride 98 mmol/L (98-107); Estimated Glomerular Filt Rate 84 ml/min (>60); GFR (African American) 102 ML/MIN (>60); Glucose 159 mg/dl (74-100); Potassium 4.1 mmoL/L (3.5-5.1); Sodium 136 mmol/L (136-145)
[2023-01-08 14:48] LABS: Thyroid Stimulating Hormone 3.61 uIU/mL (0.465-4.68)
[2023-01-08 15:24] LABS: Vitamin B12 630 pg/mL (239-931)
== END ==
PROVIDERS: PCP Nurse Practitioner Family; Visit Provider Nurse Practitioner Family
DX: C83.30 Diffuse large B-cell lymphoma, unspecified site (principal); D64.9 Anemia, unspecified; N17.9 Acute kidney failure, unspecified; G20 Parkinson's disease; R41.9 Unspecified symptoms and signs involving cognitive functions and awareness
CPT/HCPCS: 36415; 80048; 82607; 82746; 84443

== ENCOUNTER → 2023-01-15 10:09 | Outpatient (CLI) | payer MEDICARE, OTHER, SELFPAY ==
--- NOTE | 2023-01-15 10:10 | MR_ITS ---
FINAL REPORT CLINICAL HISTORY: Eval for metastasis, CVA, atrophy, ischemic change 17 ML PROHANCE GIVEN FINDINGS: Multiplanar MR imaging of the brain was performed without and with contrast. Several small foci of increased T2 signal are seen in the cerebral white matter that have a nonspecific appearance but favor mild chronic ischemic/gliotic changes over demyelination or vasculitis. There is no evidence of intracranial hemorrhage or mass. No abnormal ventricular dilatation is identified. There is no evidence of shift of the midline structures. No abnormal extra-axial fluid collection is seen. No area of abnormal restricted diffusion is identified. The posterior fossa and brainstem have an unremarkable appearance. No abnormal contrast enhancement is seen. Normal major vessel vascular flow voids are seen. IMPRESSION: Increased signal in the cerebral white matter, favor mild chronic ischemic/gliotic changes over demyelination or vasculitis. Reviewed, Interpreted and Dictated by Miguel Cornell III, MD Transcribed by Lamar Dixon Authenticated and [facility]
[2023-01-15 12:13] LABS: Hemoglobin A1C 4.8 % (4.0-6.0)
== END ==
PROVIDERS: PCP Nurse Practitioner Family; Visit Provider Nurse Practitioner Family
DX: C83.30 Diffuse large B-cell lymphoma, unspecified site (principal); G20 Parkinson's disease; R73.9 Hyperglycemia, unspecified
CPT/HCPCS: 36415; 70553; 83036; 94762; A9576

== ENCOUNTER → 2023-02-23 11:17 | Outpatient (CLI) | payer MEDICARE, OTHER, SELFPAY ==
--- NOTE | 2023-02-23 11:23 | CT_ITS ---
FINAL REPORT CLINICAL HISTORY: LYMPHOMA COMPARISON: 07/22/2022 FINDINGS: Axial CT images of the chest were obtained with contrast. Coronal and sagittal reformatted images were also obtained. This study was performed with techniques to keep radiation doses as low as reasonably achievable, (ALARA). Individualized dose reduction techniques using automated exposure control or adjustment of mA and/or KV according to the patient's size were employed. There is marked improvement in the mediastinal and axillary adenopathy since the prior CT of July 2022. Diffuse small mediastinal and axillary nodes persist, significantly smaller. There has been interval resolution in the upper chest of the chest wall mass in the upper medial anterior thorax since the prior CT. A few small calcified granulomas are once again identified. There is mild scarring in the lung watters bilaterally. No localized pulmonary inflammatory process is identified. Limited images of the upper abdomen reveal no mass or localized inflammatory process. IMPRESSION: Marked improvement in the mediastinal and axillary adenopathy since the prior CT of July 22, few small nodes persist. Interval resolution of the upper chest wall anterior mass since the prior CT. No new masses, infiltrates, or adenopathy are identified. Reviewed, Interpreted and Dictated by Miguel Cornell III, MD Transcribed by Marielos Canseco Authenticated and [facility]
--- NOTE | 2023-02-23 11:23 | CT_ITS ---
FINAL REPORT CLINICAL HISTORY: LYMPHOMA COMPARISON: 11/24/2022 FINDINGS: CT OF THE ABDOMEN AND PELVIS WITH CONTRAST Axial CT images of the abdomen and pelvis were obtained after the administration of IV and oral contrast. Coronal and sagittal reformatted images were also obtained and reviewed. This study was performed with techniques to keep radiation doses as low as reasonably achievable (ALARA). Individualized dose reduction techniques using automated exposure control or adjustment of mA and/or kV according to the patient's size were employed. Abdomen: The lung bases are clear. The heart is normal in size. The liver has an unremarkable appearance, without evidence of mass or biliary ductal dilatation. The spleen is unremarkable. No adrenal mass is present. The pancreas has an unremarkable appearance. The kidneys are normal, without evidence of mass or hydronephrosis. The aorta is normal in caliber. There is no free fluid or adenopathy. No mass or abnormal fluid collection is seen. Pelvis: The appendix normal in appearance. The urinary bladder is remarkable for a posterior bladder diverticulum unchanged since the prior CT. Diverticulosis of the sigmoid colon is noted without evidence of acute inflammatory change. No inflammatory process is seen. There is no evidence of mass or adenopathy. There is no evidence of bowel obstruction. IMPRESSION: No evidence of acute intra-abdominal process. No significant mass or adenopathy are identified. Reviewed, Interpreted and Dictated by Miguel Cornell III, MD Transcribed by Marielos Canseco Authenticated and [facility]
[2023-02-23 12:29] LABS: Blood Urea Nitrogen 11 mg/dl (9-20); Estimated Glomerular Filt Rate 75 ml/min (>60); GFR (African American) 90 ML/MIN (>60)
== END ==
PROVIDERS: PCP Nurse Practitioner Family; Visit Provider Internal Medicine Medical Oncology
DX: C83.31 Diffuse large B-cell lymphoma, lymph nodes of head, face, and neck (principal)
CPT/HCPCS: 36415; 71260; 74177; 82565; 84520; Q9967

== ENCOUNTER 2023-02-24 15:00 | Outpatient (RCR) | payer MEDICARE, OTHER, SELFPAY ==
--- NOTE | 2022-12-22 15:05 | HMH.PTOPEV ---
PT Outpatient Evaluation Rehab PT Outpatient Evaluation Start: 12/22/22 14:24 Freq: Status: Active Protocol: Document 12/22/22 14:43 ABBIE (Rec: 12/22/22 15:04 ABBIE [id number]) E-signed By Senthil Mejia, PT Outpatient Therapy Subjective History Subjective History This is the initial PT eval for Jose Euceda, 67 yowm who presents with feelings of generalized weakness and decreased gait ability due to prolonged illness. He has hx of follicular lymphoma of the neck, dx'd 2019 and undergoing neck disection with chemo. Recurrence of his cancer ~6 mos ago and noted to be transformed to diffuse large B cell lymphoma (DLBCL) requiring further treatment. ~ 1 mo ago he was hospitalized due to sepsis (e-coli) and pna . He reports he has felt significantly weaker since his hospitalization and has difficulty with ambulation and ADLs. He also has a pressure injury to his jeannine-anal area present since his recent hospital admission. Chief Complaint Weakness Symptoms Relieved By Rest/Positioning Symptoms Aggravated By Physical Activity,Walking Prior Functional Limitations None Current Functional Limitations Housework,Standing,Recreation Activity,Walking,Stairs, Balance Symptom Description Activity Dependent Level of pain today (0-10) 0 Balance Eval Gait/Posture Asssessment General Gait Observation Wide Based Gait,Decrease Stride Lngth (R),Decrease Stride Lngth (L) Assistive Devices Straight Cane Ankle/Foot Observation in Gait Stance Decreased Heel Strike Dynamic Gait Index Test Protocol Gait Level Surface Mild Impairment Query Text: Instructions: Walk at your normal speed from here to the next gisele (20'). Grading: Gisele the lowest category that applies. Change in Gait Speed Normal Query Text: Instructions: Begin walking at your normal pace (for 5'), when I tell you go , walk as fast as you can (for 5'). When I tell you slow , walk as slowly as you can (
--- NOTE | 2023-01-21 13:52 | HMH.RHREAS ---
Rehab Reassessment Rehab OP Re-assessment Start: 12/22/22 14:24 Freq: Status: Active Protocol: Document 01/21/23 13:40 PHOERICK (Rec: 01/21/23 13:52 PHORMONTY [id number]) E-signed By Senthil Mejia, PT Rehab Re-assessment Subjective Subjective Pt reports he feels stronger with therapy and is walking better, no c/o pain at this time. Objective Objective Notes MMT: B LE hips grossly 4+/5 throughout, B knee flex/ext 5/ 5. Dynamic Gait INdex (DGI): Gait: No longer requires an AD . Improved stride length and step height on B LE. Assessment Progress Assessment Progressing as Expected Assessment Notes Pt has shown significant improvements in overall strength, balance, and gait. He continues to have some decreased endurance, especially with standing activity. He continues to have difficulty with ADLs that require dynamic standing balance. He continues to need skilled intervention to return to prior level of function. Patient goals met ST,2,3,4,5 Goals Not Met LT,2,3,4,5,6,7 Revised Goals none Plan Plan Continue per initial POC. Frequency of Therapy 2 x/wk Duration of therapy 4 wks Time and Billing Re-Eval Time 17 Re-Eval Billing Units 1 PHYSICIAN CERTIFICATION: I certify the specified therapy services for Jose Euceda are required, authorized, and reviewed every 30 days.
== END 2023-02-24 15:05 | disposition home or self-care (01) ==
LOC: PT 15:00
PROVIDERS: PCP Nurse Practitioner Family; Visit Provider Internal Medicine Medical Oncology
DX: R53.1 Weakness (principal); R26.9 Unspecified abnormalities of gait and mobility
CPT/HCPCS: 97110; 97112; 97163; 97164; 97530

== ENCOUNTER → 2023-05-27 13:06 | Outpatient (CLI) | payer MEDICARE, OTHER, SELFPAY ==
[2023-05-27 12:13] LABS: Adenovirus,PCR Not Detected (NotDetected); Coronavirus 229E Not Detected (NotDetected); Coronavirus NL63 Not Detected (NotDetected); Coronavirus OC43 Not Detected (NotDetected); Coronovirus HKU1,PCR Not Detected (NotDetected); Human Metapneumovirus Not Detected (NotDetected); Influenza A, PCR Not Detected (NotDetected); Influenza AH1, 2009 Not Detected (NotDetected); Influenza AH1, PCR Not Detected (NotDetected); Influenza AH3,PCR Not Detected (NotDetected); Influenza B, PCR Not Detected (NotDetected); Parainfluenza 1, PCR Not Detected (NotDetected); Parainfluenza 2, PCR Not Detected (NotDetected); Parainfluenza 3, PCR Not Detected (NotDetected); Parainfluenza 4, PCR Not Detected (NotDetected); Respiratory Syncytial Virus Not Detected (NotDetected); Rhinovirus/Enterovirus Not Detected (NotDetected)
[2023-05-27 16:47] LABS: Coronavirus 19, PCR Detected (NotDetected)
== END ==
LOC: LAB.DROPOF 13:07
PROVIDERS: PCP Nurse Practitioner Family; Visit Provider Nurse Practitioner Family
DX: Z20.828 Contact with and (suspected) exposure to other viral communicable diseases; R09.89 Other specified symptoms and signs involving the circulatory and respiratory systems; R06.09 Other forms of dyspnea; R05.8 Other specified cough; J02.9 Acute pharyngitis, unspecified; U07.1 COVID-19; L89.899 Pressure ulcer of other site, unspecified stage
CPT/HCPCS: 87632; 87635

== ENCOUNTER 2023-06-23 08:20 | Outpatient (CLI) | payer MEDICARE, OTHER, SELFPAY | END 2023-06-23 08:25 | disposition home or self-care (01) | LOC: INF 08:22 | PROVIDERS: PCP Nurse Practitioner Family; Visit Provider Internal Medicine Medical Oncology | DX: C82.90 Follicular lymphoma, unspecified, unspecified site (principal) | CPT/HCPCS: 36415 ==

== ENCOUNTER → 2023-06-23 08:21 | Outpatient (CLI) | payer MEDICARE, OTHER, SELFPAY ==
[2023-06-23 08:12] VITALS: BMI 28.8
--- NOTE | 2023-06-23 08:24 | CT_ITS ---
FINAL REPORT CLINICAL HISTORY: LYMPHOMA COMPARISON: 02/23/2023 FINDINGS: The lung bases are clear. The liver is normal in size and attenuation. The spleen is unremarkable. The adrenals are normal. The pancreas is unremarkable. The kidneys enhance appropriately. Precontrast images demonstrate no nephrolithiasis. There is mild contraction of the gallbladder present. The appendix is normal in appearance. There is a bladder diverticulum arising from the right posterolateral wall of the bladder, stable since the prior exam. No focal adenopathy is noted in the abdomen or pelvis. IMPRESSION: No acute process Reviewed, Interpreted and Dictated by Yousif Marie MD Transcribed by Marielos Canseco Authenticated and [facility]
--- NOTE | 2023-06-23 08:24 | CT_ITS ---
FINAL REPORT TECHNIQUE: Before and after the administration of intravenous contrast, axial images through the chest were performed by computed tomography. This study was performed with techniques to keep radiation doses as low as reasonably achievable, (ALARA). Individualized dose reduction techniques using automated exposure control or adjustment of mA and/or kV according to the patient's size were employed. CLINICAL HISTORY: LYMPHOMA COMPARISON: 02/23/2023 FINDINGS: CT CHEST WITH AND WITHOUT CONTRAST: The patient has a clinical history of lymphoma. No significant mediastinal or hilar adenopathy is present. A few small scattered axillary nodes are present, nonspecific. No evidence of pleural or pericardial effusion is noted. No evidence of focal mass or infiltrate is identified. Mild scarring is present bilaterally. IMPRESSION: No significant adenopathy is identified. No new infiltrates or nodules are identified. Reviewed, Interpreted and Dictated by Yousif Marie MD Transcribed by Marielos Canseco Authenticated and [facility]
[2023-06-23 08:34] LABS: Chloride 104 mmol/L (98-107); Sodium 135 mmol/L (136-145)
[2023-06-23 08:35] LABS: Basophils % 0.5 % (0.1-2.0); Eosinophils # 0.1 K/mm3 (0.0-0.4); Eosinophils % 3.9 % (0.1-12.0); Hematocrit 33.8 % (42.0-52.0); Hemoglobin 11.5 g/dL (14.1-18.0); Lymphocytes # 0.6 K/mm3 (0.7-4.5); Lymphocytes % 14.9 % (10-50); Mean Corpuscular Hemoglobin 35.2 pg (27.0-31.2); Mean Corpuscular Volume 103.7 fl (80-94); Mean Platelet Volume 8.6 fl (7.4-10.4); Monocytes # 0.4 K/mm3 (0.1-1.0); Monocytes % 11.9 % (1.7-9.3); Neutrophils # 2.5 K/mm3 (1.8-7.8); Neutrophils % 68.7 % (37.0-80.0); Platelet Count 190 K/mm3 (142-424); Red Blood Count 3.26 M/mm3 (4.60-6.20); Red Cell Distribution Width 15.3 % (11.5-17.5); White Blood Count 3.7 K/mm3 (4.8-10.8)
[2023-06-23 08:37] LABS: Alanine Aminotransferase 40 U/L (12-78); Albumin Level 4.3 g/dl (3.5-5.0); Albumin/Globulin Ratio 1.9 (1.1-1.8); Alkaline Phosphatase 59 U/L (38-126); Aspartate Amino Transferase 39 U/L (17-59); Bilirubin,Total 0.5 mg/dl (0.2-1.3); Blood Urea Nitrogen 13 mg/dl (9-20); Calcium 8.8 mg/dl (8.4-10.2); Carbon Dioxide 27 mmol/L (22.0-30.0); Creatinine Clearance Estimated 97 mL/min (50-200); Estimated Glomerular Filt Rate 75 ml/min (>60); GFR (African American) 90 ML/MIN (>60); Globulin 2.3 g/dL (1.3-3.2); Glucose 133 mg/dl (74-100); Total Protein,Serum 6.6 g/dl (6.3-8.2)
== END ==
PROVIDERS: Internal Medicine Medical Oncology; PCP Nurse Practitioner Family; Visit Provider Internal Medicine Medical Oncology
DX: C82.90 Follicular lymphoma, unspecified, unspecified site (principal)
CPT/HCPCS: 36415; 71270; 74178; 80053; 85025; Q9967

== ENCOUNTER 2023-06-25 09:07 | Emergency (ER) | payer MEDICARE, OTHER, SELFPAY ==
[2023-06-25 09:15] VITALS: BP 144/86; PULSE 78; RESP 18; TEMP 36.8; O2SAT 96; BMI 28.8
--- NOTE | 2023-06-25 09:27 | EXP.UTC ---
Discharge Plan Disposition Patient Disposition: Home, Self-Care Condition: Good Prescriptions Prescriptions: New amoxicillin-pot clavulanate 875-125 mg Tablet 1 tab PO Q12H Qty: 20 0RF No Action Eliquis 5 mg tablet 5 mg PO BID metoprolol tartrate 25 mg tablet 12.5 mg PO BID balsam olivia-castor oil [Venelex] Ointment 1 applic topical TID Qty: 60 3RF Centrum 9 mg iron/15 mL liquid 15 ml PO DAILY omeprazole 20 mg capsule,delayed release(DR/EC) 20 mg PO DIRECTED PRN (Reason: GERD) amiodarone 200 mg Tablet 200 mg PO DAILY simvastatin 20 mg Tablet 20 mg PO HS Entresto 24-26 mg Tablet 1 tab PO BID cholecalciferol (vitamin D3) 1,000 UNIT capsule 1,000 unit PO DAILY Referrals Follow up/Referrals: Magui Benjamin APRN [Primary Care Provider] - See instructions Activity Restrictions/Add. Instructions Additional Instructions/Restrictions: Take antibiotic as prescribed Follow up with your Family Doctor if no improvement or any worsening of symptoms Return if needed Straight to ER if any life threatening symptoms Clinical Impressions Clinical Impression: Sinusitis Qualifiers: Sinusitis location: unspecified location Chronicity: unspecified Qualified Code(s): J32.9 - Chronic sinusitis, unspecified Instructions Patient Instructions: Sinusitis, DI for Sinusitis Discharge ED Provider: Jelly Hairston [facility] [place] General Stated complaint: congestion Mode of Arrival: Ambulatory Source of Information: Patient Limitations: No Limitations Time Seen by Provider: 06/25/23 09:27 Description of Symptoms (Recalled from Triage Doc. by RN): nasal congestion HEENT Symptoms (Recalled from RN notes): Yes Resp Symptoms (Recalled from RN notes): No Skin Symptoms (Recalled from RN notes): No MS Symptoms (Recalled from RN notes): No Functional Status (Recalled from RN notes): n/a History of Present Illness Provider Complaint: Patient states that he has been having sinus pain and pressure, drainage in the back of his throat States that he feels like he is getting a bad sinus infection and trying to move into his chest States that he wanted to come in and get checked before he got too bad Related Data Home Medications Medication Instructions Recorded Confirmed cholecalciferol (vitamin D3) 25 1,000 unit PO DAILY Supplement 01/07/22 06/25/23 mcg (1,000 unit) capsule apixaban 5 mg tablet (Eliquis) 5 mg PO BID Blood thinner 03/02/22 06/25/23 omeprazole 20 mg capsule,delayed 20 mg PO DIRECTED PRN GERD 07/16/22 06/25/23 release amiodarone 200 mg tablet 200 mg PO DAILY Heart rhythm 12/08/22 06/25/23 metoprolol tartrate 25 mg tablet 12.5 mg PO BID High blood pressure 12/08/22 06/25/23 sacubitril 24 mg-valsartan 26 mg 1 tab PO BID heart 12/08/22 06/25/23 tablet (Entresto) simvastatin 20 mg tablet 20 mg PO HS Cholesterol 12/08/22 06/25/23 multivit and minerals-ferrous 15 ml PO DAILY 01/05/23 06/25/23 gluconate 9 mg iron/15 mL oral liquid (Centrum) Previous Rx's Medication Instructions Recorded bal olivia-castor oil topical 1 applic topical TID #60 grams 05/27/23 ointment (Venelex topical ointment) amoxicillin 875 mg-potassium 1 tab PO Q12H #20 tabs 06/25/23 clavulanate 125 mg tablet Allergies Allergy/AdvReac Type Severity Reaction Status Date / Time No Known Allergies Allergy Verified 06/25/23 09:25 Worker's Comp Is this a Worker's Comp case?: No [facility] Disclaimer: The information contained in this section may have been updated after the patient was seen, as this information can be updated by other users. Medical History (Updated 06/25/23 @ 09:55 by Jelly Hairston APRN) Acute renal failure Afib STEPHANIE (acute kidney injury) Allergies Anemia Bronchitis Cancer CHF (congestive heart failure) Cough COVID-19 DDD (degenerative disc disease) GERD (gastroesophageal reflux disease) History of back pain History of nuclear stress test H
[2023-06-25 10:24] VITALS: BP 144/86; PULSE 78; RESP 18; TEMP 36.8; O2SAT 96
== END 2023-06-25 10:24 | disposition home or self-care (01) ==
PROVIDERS: Emergency Provider Nurse Practitioner; PCP Nurse Practitioner Family
DX: J01.90 Acute sinusitis, unspecified (principal); R09.89 Other specified symptoms and signs involving the circulatory and respiratory systems; R09.81 Nasal congestion; R09.82 Postnasal drip; I11.0 Hypertensive heart disease with heart failure; I50.9 Heart failure, unspecified; K21.9 Gastro-esophageal reflux disease without esophagitis; E78.5 Hyperlipidemia, unspecified; I48.0 Paroxysmal atrial fibrillation; Z79.01 Long term (current) use of anticoagulants
CPT/HCPCS: 96372; 99212; 99214; G0463

== ENCOUNTER 2023-07-27 10:06 | Outpatient (CLI) | payer MEDICARE, SELFPAY ==
[2023-07-27 10:55] LABS: Alanine Aminotransferase 35 U/L (12-78); Albumin Level 4.2 g/dl (3.5-5.0); Alkaline Phosphatase 55 U/L (38-126); Aspartate Amino Transferase 35 U/L (17-59); Bilirubin,Indirect 0.6 mg/dL (0.0-0.9); Bilirubin,Total 0.6 mg/dl (0.2-1.3); Bilirubin,Unconjugated 0.5 mg/dL (0.0-1.1); Chol/HDL Ratio 3.7 (1-3.5); Cholesterol 191 mg/dl (140-200); HDL Cholesterol 51 mg/dl (40-60); Total Protein,Serum 6.3 g/dl (6.3-8.2); Triglycerides 239 mg/dl (30-150); VLDL Cholesterol 48 mg/dL (0-40)
[2023-07-27 11:06] LABS: Direct LDL Cholesterol 96.36 mg/dL (100-129)
[2023-07-27 11:49] LABS: Free T4 (Free Thyroxine) 1.07 ng/dl (0.78-2.19)
[2023-07-27 14:26] LABS: Thyroid Stimulating Hormone 3.17 uIU/mL (0.465-4.68)
== END 2023-07-27 23:59 ==
LOC: LAB 10:08
PROVIDERS: PCP Nurse Practitioner Family; Visit Provider Nurse Practitioner Family
DX: E78.5 Hyperlipidemia, unspecified (principal); G47.33 Obstructive sleep apnea (adult) (pediatric); I25.10 Atherosclerotic heart disease of native coronary artery without angina pectoris; I48.91 Unspecified atrial fibrillation; I50.20 Unspecified systolic (congestive) heart failure; Z87.891 Personal history of nicotine dependence
CPT/HCPCS: 36415; 80061; 80076; 84439; 84443

== ENCOUNTER 2023-08-03 09:08 | Outpatient (CLI) | payer MEDICARE, SELFPAY ==
--- NOTE | 2023-08-03 09:13 | CA_ITS ---
APPROVED REPORT EXAM: Comprehensive 2D, Doppler, and color-flow Echocardiogram Hack Saw Operator: Monica Green CRT Ht: 5 ft 11 in Wt: 210lbs BSA: 2.15 BP: 99/60 mmHg Indications: Atrial Fibrillation, Hyperlipidemia, Hypertension/HDD. post chemo, hx covid, cad, lymphoma, ef >50% 10/05/22. 2D Dimensions Left Atrium 3.21 cm M: 3.0 - 4.0 LA Volume 37.70 mL LVOT 2.01 cm (M/F) 1.5-2.5 LA Volume Index 17.53 mL/m2 (M/F) 16-34 GL Strain -15.2 % M-Mode Dimensions RVDd 3.07 cm (0.9-2.6) LVDd 4.32 cm (3.5-5.7) Ao Diam 4.07 cm (2.0-3.7) LVDs 2.93 cm (3.5-5.7) IVSd 1.32 cm (0.6-1.1) PWd 0.82 cm (0.6-1.1) EF (Teich) 60.70% FS 32.20% EDV (Teich) 84.00 mL TAPSE 1.43 (<1.7) ESV (Teich) 33.00 mL LV Diastology E Decel Time 186 (160-240 msec) E/A Ratio 0.6 MED E' 11.0 (>= 7 cm/sec) MED A' 9.70 cm/s E'/MED E' Ratio 3.57 (<= 14) LAT E' 4.1 (>= 10 cm/sec) LAT A' 9.00 cm/s E/LAT E' Ratio 9.59 (<= 14) Aortic Valve AoV Peak Sincere. 106.0 (50-130 cm/s) AI PHT 536.00 ms AO Peak GR. 4.50 mmHg Mitral Valve MV E Max Sincere. 39.0 (40-130 cm/s) MV A Velocity 63.0 (40-130 cm/s) E/A Ratio 0.62 MV Decel. Time 186 (160-240 ms) Tricuspid Valve TR P. Velocity 229.00 cm/s RAP Estimate 10.00 mmHg RVSP 31.00 mmHg Left Ventricle The left ventricle is normal size. The left ventricular systolic function is normal. The left ventricular ejection fraction is within the normal range. There is normal left ventricular wall thickness. There is normal LV segmental wall motion. The left ventricular diastolic function is normal. LVEF is 55%. Right Ventricle The right ventricle is normal size. Right ventricle is mildly hypokinetic. Atria The left atrium size is normal. The right atrium size is normal. There is no Doppler evidence of interatrial shunt. Aortic Valve The aortic valve is normal in structure. There is no aortic valvular stenosis. Mild aortic regurgitation. Mitral Valve The mitral valve is normal in structure. No evidence of mitral valve stenosis. Trace mitral regurgitation. Tricuspid Valve The tricuspid valve leaflets are thin and pliable. Mild tricuspid regurgitation. RVSP is 20-25 mmHg. Pulmonic Valve The pulmonary valve is normal in structure. Mild pulmonic regurgitation. Great Vessels The aortic root is normal in size. The ascending aorta is not well-visualized. IVC is normal in size and collapses >50% with inspiration. Pericardium There is no pericardial effusion. Other Information Study Quality: Fair Conclusion Normal LV systolic function. Normal RV size with mild reduction in RV function. Mild AI. Mild TR. Electronically signed by : Hailey García MD 08/04/2023 11:47:46
== END 2023-08-03 23:59 ==
LOC: RT 09:10
PROVIDERS: PCP Nurse Practitioner Family; Visit Provider Nurse Practitioner Family
DX: E78.5 Hyperlipidemia, unspecified (principal); G47.33 Obstructive sleep apnea (adult) (pediatric); I25.10 Atherosclerotic heart disease of native coronary artery without angina pectoris; I48.91 Unspecified atrial fibrillation; I50.9 Heart failure, unspecified; Z87.891 Personal history of nicotine dependence
CPT/HCPCS: 93306

== ENCOUNTER → 2023-08-18 10:02 | Outpatient (CLI) | payer MEDICARE, SELFPAY | LOC: SL 10:03 | PROVIDERS: PCP Nurse Practitioner Family; Visit Provider Nurse Practitioner Family | DX: G47.33 Obstructive sleep apnea (adult) (pediatric) (principal); I25.10 Atherosclerotic heart disease of native coronary artery without angina pectoris; I50.20 Unspecified systolic (congestive) heart failure | CPT/HCPCS: 94762 ==

== ENCOUNTER 2023-09-29 08:49 | Outpatient (CLI) | payer MEDICARE, SELFPAY ==
[2023-09-29 08:51] VITALS: BMI 28.0
--- NOTE | 2023-09-29 08:54 | PC.NURSE ---
0854-collected labs via venipuncture stick in right ac with butterfly needle. pt to oncology appointment
[2023-09-29 09:08] LABS: Basophils % 0.7 % (0.1-2.0); Eosinophils # 0.1 K/mm3 (0.0-0.4); Eosinophils % 2.4 % (0.1-12.0); Hematocrit 37.8 % (42.0-52.0); Hemoglobin 12.2 g/dL (14.1-18.0); Lymphocytes # 0.8 K/mm3 (0.7-4.5); Lymphocytes % 15.2 % (10-50); Mean Corpuscular HGB Conc 32.3 g/dL (31.8-35.4); Mean Corpuscular Hemoglobin 34.8 pg (27.0-31.2); Mean Platelet Volume 7.9 fl (7.4-10.4); Monocytes # 0.3 K/mm3 (0.1-1.0); Monocytes % 6.5 % (1.7-9.3); Neutrophils # 3.9 K/mm3 (1.8-7.8); Neutrophils % 75.2 % (37.0-80.0); Platelet Count 204 K/mm3 (142-424); Red Cell Distribution Width 14.6 % (11.5-17.5); White Blood Count 5.1 K/mm3 (4.8-10.8)
[2023-09-29 09:18] LABS: Alanine Aminotransferase 36 U/L (12-78); Albumin Level 4.1 g/dl (3.5-5.0); Albumin/Globulin Ratio 1.7 (1.1-1.8); Alkaline Phosphatase 60 U/L (38-126); Aspartate Amino Transferase 32 U/L (17-59); Bilirubin,Total 0.5 mg/dl (0.2-1.3); Blood Urea Nitrogen 15 mg/dl (9-20); Calcium 9.1 mg/dl (8.4-10.2); Carbon Dioxide 27 mmol/L (22.0-30.0); Chloride 104 mmol/L (98-107); Creatinine Clearance Estimated 94 mL/min (50-200); Estimated Glomerular Filt Rate 75 ml/min (>60); GFR (African American) 90 ML/MIN (>60); Globulin 2.4 g/dL (1.3-3.2); Glucose 106 mg/dl (74-100); Lactate Dehydrogenase 185 U/L (313-618); Sodium 137 mmol/L (136-145); Total Protein,Serum 6.5 g/dl (6.3-8.2)
== END 2023-09-29 08:55 | disposition home or self-care (01) ==
LOC: INF 08:51
PROVIDERS: Visit Provider Internal Medicine Medical Oncology
DX: C82.90 Follicular lymphoma, unspecified, unspecified site (principal)
CPT/HCPCS: 36415; 80053; 83615; 85025

== ENCOUNTER 2023-09-29 11:03 | Outpatient (CLI) | payer MEDICARE, SELFPAY ==
--- NOTE | 2023-09-29 11:14 | CT_ITS ---
FINAL REPORT TECHNIQUE: Thin section axial CT images were obtained through the neck after intravenous contrast administration. Coronal and sagittal reformats were also obtained. This study was performed with techniques to keep radiation doses as low as reasonably achievable (ALARA). Individualized dose reduction techniques using automated exposure control or adjustment of mA and/or kV according to the patient''s size were employed. CLINICAL HISTORY: LYMPHOMA,QUESTIONABLE NEW LYMPHNODE COMPARISON: 03/09/2022 FINDINGS: The nasopharynx, oropharynx, hypopharynx and larynx are unremarkable. Since the prior CT of 2021 there has been interval improvement in left supraclavicular adenopathy. The supraclavicular node now measures 14 mm, was 28 mm. No new masses or nodes are identified. Moderate bilateral carotid calcifications are noted without evidence of significant stenosis. The thyroid gland is unremarkable. The visualized sinuses are clear. There is no acute osseous abnormality. IMPRESSION: Interval improvement in adenopathy in the left supraclavicular region since the prior CT of 2021. No new masses or nodules are identified. Moderate bilateral carotid artery calcifications without significant stenosis. Reviewed, Interpreted and Dictated by Miguel Cornell III, MD Transcribed by Marielos Canseco Authenticated and [facility]
[2023-09-29] MEDS: IOPAMIDOL-370 (76%);100ML BOTTLE 75 ML IV (11:42)
[2023-09-29] MEDS: SODIUM CHLORIDE 0.9% 10ML SYR (RAD ONLY) 10 ML IV (11:42)
== END 2023-09-29 23:59 ==
LOC: RAD 11:04
PROVIDERS: PCP Nurse Practitioner Family; Visit Provider Internal Medicine Medical Oncology
DX: R22.1 Localized swelling, mass and lump, neck (principal)
CPT/HCPCS: 36415; 70491; 80053; 83615; 85025; Q9967

== ENCOUNTER 2023-12-23 12:45 | Outpatient (CLI) | payer MEDICARE, SELFPAY ==
[2023-12-23 12:57] VITALS: BMI 29.8
--- NOTE | 2023-12-23 13:05 | PC.NURSE ---
Pt came to infusion dept to have blood drawn for labs as ordered per md prior to ct scan in the morning. Venipuncture performed to pt's lt ac x 1 stick using a butterfly access needle and blood drawn. Needle withdrawn and site secured with 2x2 gauze and coban.
[2023-12-23 13:19] LABS: Blood Urea Nitrogen 18 mg/dl (9-20); Creatinine Clearance Estimated 98 mL/min (50-200); Estimated Glomerular Filt Rate 75 ml/min (>60); GFR (African American) 90 ML/MIN (>60)
== END 2023-12-23 23:59 | disposition home or self-care (01) ==
LOC: LAB 12:46
PROVIDERS: PCP Nurse Practitioner Family; Visit Provider Internal Medicine Medical Oncology
DX: C83.30 Diffuse large B-cell lymphoma, unspecified site (principal)
CPT/HCPCS: 36415; 82565; 84520

== ENCOUNTER 2023-12-24 07:33 | Outpatient (CLI) | payer MEDICARE, SELFPAY ==
--- NOTE | 2023-12-24 07:38 | CT_ITS ---
FINAL REPORT CLINICAL HISTORY: LYMPHOMA COMPARISON: 06/23/2023 FINDINGS: Axial CT images of the chest were obtained with contrast. Coronal reformatted images were also obtained. This study was performed with techniques to keep radiation doses as low as reasonably achievable, (ALARA). Individualized dose reduction techniques using automated exposure control or adjustment of mA and/or KV according to the patient's size were employed. Mild gynecomastia is noted. There is no evidence of mediastinal or hilar mass or adenopathy.No axillary mass or adenopathy is identified. On lung window images, no pulmonary mass or dominant pulmonary nodule is identified. No localized pulmonary inflammatory process is identified. There is mild scarring. IMPRESSION: No mass or localized inflammatory process. Reviewed, Interpreted and Dictated by Miguel Cornell III, MD Transcribed by Kathy Easley Authenticated and [facility]
--- NOTE | 2023-12-24 07:38 | CT_ITS ---
FINAL REPORT CLINICAL HISTORY: LYMPHOMA COMPARISON: 06/23/2023 FINDINGS: CT OF THE ABDOMEN AND PELVIS WITH CONTRAST Axial CT images of the abdomen and pelvis were obtained after the administration of oral and iv contrast. Coronal reformatted images were also obtained and reviewed.This study was performed with techniques to keep radiation doses as low as reasonably achievable (ALARA). Individualized dose reduction techniques using automated exposure control or adjustment of mA and/or kV according to the patient's size were employed. Abdomen: The liver has an unremarkable appearance, without evidence of mass or biliary ductal dilatation. The spleen is unremarkable. No adrenal mass is present. The pancreas has an unremarkable appearance. The kidneys are normal, without evidence of mass or hydronephrosis. The aorta is normal in caliber. There are moderate vascular calcifications. There is no free fluid or adenopathy. No mass or abnormal fluid collection is seen. Pelvis: The appendix normal. There are several sigmoid diverticula. There is a right posterior bladder diverticulum which is stable. No inflammatory process is seen. There is no evidence of mass or adenopathy. There is no evidence of bowel obstruction. IMPRESSION: No evidence of acute intra-abdominal process. Reviewed, Interpreted and Dictated by Miguel Cornell III, MD Transcribed by Kathy Easley Authenticated and [facility]
[2023-12-24] MEDS: SODIUM CHLORIDE 0.9% 10ML SYR (RAD ONLY) 10 ML IV (08:11)
[2023-12-24] MEDS: IOPAMIDOL-370 (76%);100ML BOTTLE 75 ML IV (08:11)
== END 2023-12-24 23:59 | disposition home or self-care (01) ==
LOC: RAD 07:34
PROVIDERS: PCP Nurse Practitioner Family; Visit Provider Internal Medicine Medical Oncology
DX: C83.31 Diffuse large B-cell lymphoma, lymph nodes of head, face, and neck (principal)
CPT/HCPCS: 71260; 74177; Q9967

== ENCOUNTER 2024-01-25 13:36 | Outpatient (CLI) | payer MEDICARE, SELFPAY ==
[2024-01-25 14:05] LABS: Basophils % 0.3 % (0.1-2.0); Eosinophils # 0.1 K/mm3 (0.0-0.4); Eosinophils % 2.4 % (0.1-12.0); Hemoglobin 11.5 g/dL (14.1-18.0); Lymphocytes # 0.8 K/mm3 (0.7-4.5); Lymphocytes % 14.9 % (10-50); Mean Corpuscular HGB Conc 32.9 g/dL (31.8-35.4); Mean Corpuscular Hemoglobin 34.5 pg (27.0-31.2); Mean Corpuscular Volume 104.6 fl (80-94); Mean Platelet Volume 7.6 fl (7.4-10.4); Monocytes # 0.4 K/mm3 (0.1-1.0); Monocytes % 6.9 % (1.7-9.3); Neutrophils % 75.5 % (37.0-80.0); Platelet Count 196 K/mm3 (142-424); Red Blood Count 3.34 M/mm3 (4.60-6.20); Red Cell Distribution Width 14.9 % (11.5-17.5); White Blood Count 5.4 K/mm3 (4.8-10.8)
[2024-01-25 14:19] LABS: Alanine Aminotransferase 35 U/L (12-78); Albumin Level 3.7 g/dl (3.5-5.0); Alkaline Phosphatase 61 U/L (38-126); Anion Gap 10.5 mEq/L (5-15); Aspartate Amino Transferase 30 U/L (17-59); Bilirubin,Indirect 0.6 mg/dL (0.0-0.9); Bilirubin,Total 0.6 mg/dl (0.2-1.3); Bilirubin,Unconjugated 0.6 mg/dL (0.0-1.1); Blood Urea Nitrogen 17 mg/dl (9-20); Calcium 9.3 mg/dl (8.4-10.2); Carbon Dioxide 26 mmol/L (22.0-30.0); Chloride 105 mmol/L (98-107); Chol/HDL Ratio 2.8 (1-3.5); Cholesterol 168 mg/dl (140-200); Estimated Glomerular Filt Rate 84 ml/min (>60); GFR (African American) 102 ML/MIN (>60); Glucose 94 mg/dl (74-100); HDL Cholesterol 59 mg/dl (40-60); Potassium 4.5 mmoL/L (3.5-5.1); Sodium 137 mmol/L (136-145); Total Protein,Serum 5.9 g/dl (6.3-8.2); Triglycerides 195 mg/dl (30-150); VLDL Cholesterol 39 mg/dL (0-40)
[2024-01-25 14:30] LABS: Direct LDL Cholesterol 69.32 mg/dL (100-129)
[2024-01-25 14:36] LABS: Free T4 (Free Thyroxine) 1.06 ng/dl (0.78-2.19)
[2024-01-25 14:50] LABS: Thyroid Stimulating Hormone 3.15 uIU/mL (0.465-4.68)
== END 2024-01-25 23:59 | disposition home or self-care (01) ==
LOC: LAB 13:37
PROVIDERS: PCP Nurse Practitioner Family; Visit Provider Nurse Practitioner Family
DX: I50.20 Unspecified systolic (congestive) heart failure (principal); E78.2 Mixed hyperlipidemia; I48.91 Unspecified atrial fibrillation; C83.30 Diffuse large B-cell lymphoma, unspecified site; I25.10 Atherosclerotic heart disease of native coronary artery without angina pectoris; G47.33 Obstructive sleep apnea (adult) (pediatric); Z79.899 Other long term (current) drug therapy
CPT/HCPCS: 36415; 80048; 80061; 80076; 83735; 84439; 84443; 85025

== ENCOUNTER 2024-04-06 10:25 | Outpatient (CLI) | payer MEDICARE, SELFPAY ==
[2024-04-06 10:33] VITALS: BMI 30.5
[2024-04-06 11:01] LABS: Basophils % 0.2 % (0.1-2.0); Eosinophils # 0.1 K/mm3 (0.0-0.4); Eosinophils % 1.6 % (0.1-12.0); Hematocrit 37.1 % (42.0-52.0); Hemoglobin 12.2 g/dL (14.1-18.0); Lymphocytes # 0.7 K/mm3 (0.7-4.5); Lymphocytes % 13.4 % (10-50); Mean Corpuscular Hemoglobin 34.4 pg (27.0-31.2); Mean Corpuscular Volume 104.3 fl (80-94); Mean Platelet Volume 8.4 fl (7.4-10.4); Monocytes # 0.4 K/mm3 (0.1-1.0); Monocytes % 6.9 % (1.7-9.3); Neutrophils # 4.2 K/mm3 (1.8-7.8); Neutrophils % 77.8 % (37.0-80.0); Platelet Count 225 K/mm3 (142-424); Red Blood Count 3.56 M/mm3 (4.60-6.20); Red Cell Distribution Width 15.1 % (11.5-17.5); White Blood Count 5.5 K/mm3 (4.8-10.8)
[2024-04-06 11:05] LABS: Albumin Level 4.2 g/dl (3.5-5.0); Chloride 106 mmol/L (98-107); Potassium 4.4 mmoL/L (3.5-5.1); Sodium 135 mmol/L (136-145)
[2024-04-06 11:08] LABS: Alanine Aminotransferase 37 U/L (12-78); Albumin/Globulin Ratio 1.8 (1.1-1.8); Alkaline Phosphatase 60 U/L (38-126); Anion Gap 10.4 mEq/L (5-15); Aspartate Amino Transferase 34 U/L (17-59); Bilirubin,Total 0.7 mg/dl (0.2-1.3); Blood Urea Nitrogen 16 mg/dl (9-20); Calcium 9.5 mg/dl (8.4-10.2); Carbon Dioxide 23 mmol/L (22.0-30.0); Creatinine Clearance Estimated 101 mL/min (50-200); Estimated Glomerular Filt Rate 84 ml/min (>60); GFR (African American) 102 ML/MIN (>60); Globulin 2.4 g/dL (1.3-3.2); Glucose 104 mg/dl (74-100); Total Protein,Serum 6.6 g/dl (6.3-8.2)
[2024-04-06 11:32] LABS: Lactate Dehydrogenase 206 U/L (313-618)
--- NOTE | 2024-04-06 12:38 | PC.NURSE ---
1045-BLOOD DRAWN USING BUTTERFLY NEEDLE TO CHECK LABS PER DR PENA.
== END 2024-04-06 10:50 | disposition home or self-care (01) ==
LOC: LAB 10:26 → INF 10:28
PROVIDERS: PCP Nurse Practitioner Family; Visit Provider Internal Medicine Medical Oncology
DX: C82.90 Follicular lymphoma, unspecified, unspecified site (principal)
CPT/HCPCS: 36415; 80053; 83615; 85025

== ENCOUNTER 2024-05-11 09:59 | Outpatient (CLI) | payer MEDICARE, SELFPAY ==
[2024-05-11 10:21] LABS: Basophils % 0.4 % (0.1-2.0); Eosinophils # 0.1 K/mm3 (0.0-0.4); Eosinophils % 1.8 % (0.1-12.0); Hematocrit 34.9 % (42.0-52.0); Hemoglobin 12.2 g/dL (14.1-18.0); Lymphocytes # 0.8 K/mm3 (0.7-4.5); Mean Corpuscular HGB Conc 34.8 g/dL (31.8-35.4); Mean Corpuscular Hemoglobin 34.5 pg (27.0-31.2); Monocytes # 0.4 K/mm3 (0.1-1.0); Monocytes % 7.9 % (1.7-9.3); Neutrophils # 4.2 K/mm3 (1.8-7.8); Platelet Count 188 K/mm3 (142-424); Red Blood Count 3.53 M/mm3 (4.60-6.20); Red Cell Distribution Width 14.8 % (11.5-17.5); White Blood Count 5.5 K/mm3 (4.8-10.8)
[2024-05-11 10:25] LABS: Albumin Level 4.1 g/dl (3.5-5.0); Chloride 107 mmol/L (98-107); Sodium 138 mmol/L (136-145)
[2024-05-11 10:26] LABS: Potassium 4.2 mmoL/L (3.5-5.1)
[2024-05-11 10:28] LABS: Alanine Aminotransferase 30 U/L (12-78); Albumin/Globulin Ratio 1.8 (1.1-1.8); Alkaline Phosphatase 59 U/L (38-126); Anion Gap 13.2 mEq/L (5-15); Aspartate Amino Transferase 30 U/L (17-59); Bilirubin,Total 0.7 mg/dl (0.2-1.3); Blood Urea Nitrogen 14 mg/dl (9-20); Carbon Dioxide 22 mmol/L (22.0-30.0); Estimated Glomerular Filt Rate 84 ml/min (>60); GFR (African American) 102 ML/MIN (>60); Globulin 2.3 g/dL (1.3-3.2); Total Protein,Serum 6.4 g/dl (6.3-8.2)
[2024-05-11 10:29] LABS: Calcium 8.9 mg/dl (8.4-10.2); Glucose 115 mg/dl (74-100)
--- NOTE | 2024-05-11 10:37 | PC.NURSE ---
1004 - BLOOD DRAWN FROM LEFT AC USING BUTTERFLY NEEDLE TO CHECK LABS PER DR PENA.
[2024-05-11 11:55] LABS: Lactate Dehydrogenase 221 U/L (313-618)
== END 2024-05-11 10:13 | disposition home or self-care (01) ==
LOC: LAB 10:01
PROVIDERS: PCP Nurse Practitioner Family; Visit Provider Internal Medicine Medical Oncology
DX: C85.90 Non-Hodgkin lymphoma, unspecified, unspecified site (principal)
CPT/HCPCS: 36415; 80053; 83615; 85025

== ENCOUNTER 2024-05-17 10:54 | Outpatient (CLI) | payer MEDICARE, SELFPAY ==
--- NOTE | 2024-05-17 10:54 | CT_ITS ---
FINAL REPORT CLINICAL HISTORY: LYMPHOMA COMPARISON: 12/23/2013 FINDINGS: Axial CT images of the chest were obtained with contrast. Coronal reformatted images were also obtained. This study was performed with techniques to keep radiation doses as low as reasonably achievable, (ALARA). Individualized dose reduction techniques using automated exposure control or adjustment of mA and/or KV according to the patient's size were employed. Again noted is bilateral gynecomastia. There is no evidence of mediastinal or hilar mass or adenopathy.No axillary mass or adenopathy is identified. On lung window images, no pulmonary mass or dominant pulmonary nodule is identified. No localized pulmonary inflammatory process is identified. Mild scarring is noted. Calcified granulomas are seen bilaterally. IMPRESSION: Stable exam without mass or localized inflammatory process. Reviewed, Interpreted and Dictated by Miguel Cornell III, MD Transcribed by Kathy Easley Authenticated and [facility]
--- NOTE | 2024-05-17 10:54 | CT_ITS ---
FINAL REPORT TECHNIQUE: Thin section axial CT images were obtained through the neck after intravenous contrast administration. Coronal and sagittal reformats were also obtained. This study was performed with techniques to keep radiation doses as low as reasonably achievable (ALARA). Individualized dose reduction techniques using automated exposure control or adjustment of mA and/or kV according to the patient''s size were employed. CLINICAL HISTORY: LYMPHOMA COMPARISON: 09/29/2023 FINDINGS: The nasopharynx, oropharynx, hypopharynx and larynx are unremarkable. There are multiple new enlarged nodes at the left base of the neck. The largest is a left supraclavicular node measuring 27 mm, previously measured 14 mm. The thyroid gland is unremarkable. The visualized sinuses are clear. Moderate carotid artery calcifications are noted. There are degenerative changes of the cervical spine. There is no acute osseous abnormality. IMPRESSION: Worsening left base of neck adenopathy consistent with worsening neoplastic involvement. Reviewed, Interpreted and Dictated by Miguel Cornell III, MD Transcribed by Kathy Easley Authenticated and [facility]
--- NOTE | 2024-05-17 10:54 | CT_ITS ---
FINAL REPORT CLINICAL HISTORY: LYMPHOMA COMPARISON: 12/24/2023 FINDINGS: CT OF THE ABDOMEN AND PELVIS WITH CONTRAST Axial CT images of the abdomen and pelvis were obtained after the administration of oral and iv contrast. Coronal reformatted images were also obtained and reviewed.This study was performed with techniques to keep radiation doses as low as reasonably achievable (ALARA). Individualized dose reduction techniques using automated exposure control or adjustment of mA and/or kV according to the patient's size were employed. Abdomen: The liver has an unremarkable appearance, without evidence of mass or biliary ductal dilatation. A small cyst in the posterior spleen is stable. No adrenal mass is present. The pancreas has an unremarkable appearance. The kidneys are normal, without evidence of mass or hydronephrosis. The aorta is normal in caliber. Multiple enlarged retroperitoneal nodes are new or larger since the previous exam. A periaortic node at the L2 level measures 24 mm and was 16 mm. An anterior interaortocaval node at the L1-L2 level measures 15 mm and was 8 mm. There are multiple other larger retroperitoneal nodes since a previous exam. Pelvis: The appendix is normal. Right pelvic bladder diverticulum is again seen. There are vascular calcifications. No inflammatory process is seen. A medial left external iliac node measures 19 mm and previously measured 8 mm. There are several enlarged left inguinal nodes which are worse since the prior study. There is no evidence of bowel obstruction. IMPRESSION: Worsening adenopathy in the abdomen and pelvis consistent with worsening neoplastic involvement. Reviewed, Interpreted and Dictated by Miguel Cornell III, MD Transcribed by Kathy Easley Authenticated and [facility]
[2024-05-17] MEDS: IOPAMIDOL-370 (76%);100ML BOTTLE 100 ML IV (11:18)
[2024-05-17] MEDS: BARIUM SULFATE(READI-CAT2);450ML BOTTLE 450 ML PO (11:18)
[2024-05-17] MEDS: SODIUM CHLORIDE 0.9% 10ML SYR (RAD ONLY) 10 ML IV (11:18)
[2024-05-17] MEDS: IOPAMIDOL-370 (76%);100ML BOTTLE 25 ML IV (11:18)
== END 2024-05-17 23:59 | disposition home or self-care (01) ==
LOC: RAD 10:54
PROVIDERS: PCP Nurse Practitioner Family; Visit Provider Internal Medicine Medical Oncology
DX: C83.30 Diffuse large B-cell lymphoma, unspecified site (principal)
CPT/HCPCS: 70491; 71260; 74177; Q9967

== ENCOUNTER 2024-05-24 07:53 | Outpatient (CLI) | payer MEDICARE, SELFPAY ==
--- NOTE | 2024-05-24 07:54 | US_ITS ---
FINAL REPORT CLINICAL HISTORY: ENLARGED LT NODE -- LT LYMPH NODE BX -- HILLARY MATAMOROS FINDINGS: ULTRASOUND GUIDED LEFT SUPRACLAVICULAR LYMPH NODE BIOPSY HISTORY: Left supraclavicular lymph node, history of lymphoma. TECHNIQUE: Informed consent was obtained from the patient. Timeout procedure was performed prior to beginning. Limited sonographic evaluation of left neck was performed to localize the lymph node of interest. The neck was prepped in a routine sterile fashion and locally anesthetized with 1% lidocaine. FNA was performed with a 25-gauge needle under direct sonographic visualization. 5 passes were made. Core biopsies could not be safely obtained due to the location of the lymph node. Cytology is pending. Procedure was well tolerated. CONCLUSION: 1. Technically successful left supraclavicular lymph node fine needle aspiration. Reviewed, Interpreted and Dictated by Miguel Cornell III, MD Transcribed by Lee Ann Galeano PA-C Authenticated and [facility]
== END 2024-05-24 23:59 | disposition home or self-care (01) ==
LOC: RAD 07:53
PROVIDERS: PCP Nurse Practitioner Family; Visit Provider Internal Medicine Medical Oncology
DX: C83.31 Diffuse large B-cell lymphoma, lymph nodes of head, face, and neck (principal)
CPT/HCPCS: 10005

== ENCOUNTER 2024-06-05 07:51 | Outpatient (CLI) | payer MEDICARE, SELFPAY ==
[2024-06-05] VITALS (15 sets, daily range): BP systolic 95–137; BP diastolic 57–79; PULSE 18–72; RESP 18–98; TEMP 36.1; O2SAT 95–100; BMI 30.7
[2024-06-05 08:16] LABS: Basophils % 0.4 % (0.1-2.0); Eosinophils # 0.1 K/mm3 (0.0-0.4); Eosinophils % 2.2 % (0.1-12.0); Hematocrit 37.9 % (42.0-52.0); Hemoglobin 13.1 g/dL (14.1-18.0); Lymphocytes # 0.9 K/mm3 (0.7-4.5); Lymphocytes % 17.5 % (10-50); Mean Corpuscular HGB Conc 34.6 g/dL (31.8-35.4); Mean Corpuscular Hemoglobin 34.1 pg (27.0-31.2); Mean Corpuscular Volume 98.5 fl (80-94); Mean Platelet Volume 7.1 fl (7.4-10.4); Monocytes # 0.5 K/mm3 (0.1-1.0); Monocytes % 8.7 % (1.7-9.3); Neutrophils # 3.8 K/mm3 (1.8-7.8); Neutrophils % 71.2 % (37.0-80.0); Platelet Count 175 K/mm3 (142-424); Red Blood Count 3.85 M/mm3 (4.60-6.20); Red Cell Distribution Width 14.7 % (11.5-17.5); White Blood Count 5.3 K/mm3 (4.8-10.8)
[2024-06-05 08:19] LABS: Blood Urea Nitrogen 18 mg/dl (9-20); Estimated Glomerular Filt Rate 67 ml/min (>60); GFR (African American) 81 ML/MIN (>60)
[2024-06-05 08:22] LABS: Activated Partial Thrombo Time 26.5 seconds (22.8-30.6); INR 1.04 (0.9-1.1); Prothrombin Time 11.6 seconds (10.1-12.5)
--- NOTE | 2024-06-05 08:30 | CT_ITS ---
FINAL REPORT CLINICAL HISTORY: .LYMPHOMA FINDINGS: CT GUIDED BONE MARROW ASPIRATION AND CORE BIOPSY. HISTORY: . Lymphoma. ATTENDING PHYSICIAN: Dr. Rizzo PHYSICIAN HAND SAMPLE MAKER: Reji Girard PA-C PROCEDURE: After informed consent was obtained and a timeout was performed, the patient was prepped and draped in usual sterile fashion over the left pelvis. Utilizing local anesthesia and sterile technique with a coaxial drill system, access to left iliac bone was obtained under direct CT guidance. Aspirate was obtained. In addition, a large core of marrow was obtained. The patient received moderate procedural sedation. The patient tolerated the procedure well and left the department in good condition. PROCEDURAL SEDATION: 2 mg of IV Versed and 50 mcg of Fentanyl were administered. Continuous vital sign monitoring was used. An RN was present during the sedation process. Overall sedation time was 30 minutes. IMPRESSION: Status post CT guided bone marrow aspiration and core biopsy as above. Films reviewed , interpreted and dictated by Dr. Odalis Rizzo. Transcribed by Reji Girard PA-C. Reviewed, Interpreted and Dictated by Odalis Rizzo MD Transcribed by SATURNINO Paulino Authenticated and [facility][1]
[2024-06-05] MEDS: HEPARIN SODIUM 5,000 UNIT/ML VIAL 5000 UNIT (09:35)
[2024-06-05] MEDS: LIDOCAINE 1% 20ML MDV 20 ML (09:35)
== END 2024-06-05 11:55 | disposition home or self-care (01) ==
PROVIDERS: PCP Nurse Practitioner Family; Visit Provider Internal Medicine Medical Oncology
DX: C83.30 Diffuse large B-cell lymphoma, unspecified site (principal); Z79.01 Long term (current) use of anticoagulants
CPT/HCPCS: 36415; 38221; 77012; 82565; 84520; 85025; 85610; 85730; J1644; J2250; J3010

== ENCOUNTER 2024-07-27 13:37 | Outpatient (CLI) | payer MEDICARE, SELFPAY ==
[2024-07-27 14:24] LABS: Basophils % 0.5 % (0.1-2.0); Eosinophils # 0.1 K/mm3 (0.0-0.4); Eosinophils % 1.4 % (0.1-12.0); Hematocrit 36.7 % (42.0-52.0); Hemoglobin 12.3 g/dL (14.1-18.0); Lymphocytes # 0.9 K/mm3 (0.7-4.5); Lymphocytes % 14.2 % (10-50); Mean Corpuscular HGB Conc 33.5 g/dL (31.8-35.4); Mean Corpuscular Hemoglobin 32.8 pg (27.0-31.2); Mean Corpuscular Volume 97.9 fl (80-94); Mean Platelet Volume 8.6 fl (7.4-10.4); Monocytes # 0.8 K/mm3 (0.1-1.0); Monocytes % 11.5 % (1.7-9.3); Neutrophils # 4.7 K/mm3 (1.8-7.8); Neutrophils % 72.2 % (37.0-80.0); Platelet Count 158 K/mm3 (142-424); Red Blood Count 3.75 M/mm3 (4.60-6.20); Red Cell Distribution Width 14.3 % (11.5-17.5); White Blood Count 6.6 K/mm3 (4.8-10.8)
[2024-07-27 15:11] LABS: Albumin Level 4.2 g/dl (3.5-5.0); Chloride 103 mmol/L (98-107); Potassium 4.5 mmoL/L (3.5-5.1); Sodium 135 mmol/L (136-145)
[2024-07-27 15:13] LABS: Bilirubin,Unconjugated 0.5 mg/dL (0.0-1.1); Blood Urea Nitrogen 15 mg/dl (9-20); Estimated Glomerular Filt Rate 84 ml/min (>60); GFR (African American) 102 ML/MIN (>60)
[2024-07-27 15:14] LABS: Alanine Aminotransferase 32 U/L (12-78); Alkaline Phosphatase 70 U/L (38-126); Anion Gap 11.5 mEq/L (5-15); Aspartate Amino Transferase 32 U/L (17-59); Bilirubin,Direct 0.2 mg/dl (0.0-0.4); Bilirubin,Indirect 0.4 mg/dL (0.0-0.9); Bilirubin,Total 0.6 mg/dl (0.2-1.3); Calcium 9.4 mg/dl (8.4-10.2); Carbon Dioxide 25 mmol/L (22.0-30.0); Chol/HDL Ratio 3.1 (1-3.5); Cholesterol 123 mg/dl (140-200); Glucose 82 mg/dl (74-100); HDL Cholesterol 40 mg/dl (40-60); Total Protein,Serum 6.1 g/dl (6.3-8.2); Triglycerides 158 mg/dl (30-150); VLDL Cholesterol 32 mg/dL (0-40)
[2024-07-27 15:31] LABS: Free T4 (Free Thyroxine) 1.27 ng/dl (0.78-2.19)
[2024-07-27 15:45] LABS: Thyroid Stimulating Hormone 3.28 uIU/mL (0.465-4.68)
== END 2024-07-27 23:59 | disposition home or self-care (01) ==
LOC: LAB 13:37
PROVIDERS: PCP Nurse Practitioner Family; Visit Provider Nurse Practitioner Family
DX: E78.2 Mixed hyperlipidemia (principal); I50.20 Unspecified systolic (congestive) heart failure; I25.10 Atherosclerotic heart disease of native coronary artery without angina pectoris; C83.30 Diffuse large B-cell lymphoma, unspecified site; I48.0 Paroxysmal atrial fibrillation; Z79.899 Other long term (current) drug therapy
CPT/HCPCS: 36415; 80048; 80061; 80076; 84439; 84443; 85025

== ENCOUNTER 2024-09-11 09:23 | Outpatient (CLI) | payer MEDICARE, SELFPAY ==
--- NOTE | 2024-09-11 09:25 | CT_ITS ---
FINAL REPORT TECHNIQUE: After the administration of intravenous contrast, axial images through the chest were performed by computed tomography.This study was performed with techniques to keep radiation doses as low as reasonably achievable, (ALARA). Individualized dose reduction techniques using automated exposure control or adjustment of mA and/or kV according to the patient''s size were employed. CLINICAL HISTORY: lymphoma COMPARISON: 05/17/2024 FINDINGS: There is a stable, calcified right subcarinal lymph node. There are normal-sized left axillary lymph nodes which have enlarged from prior exam measuring up to 12 x 9 mm, previously measured 8 x 6 mm. Right axillary lymph nodes have decreased in size. Adenopathy is noted at the left neck base measuring 26 x 20 mm, previously measured 22 x 14 mm. The heart size is normal. There is no pericardial or pleural effusion. Limited images of the upper abdomen are unremarkable. No suspicious infiltrate or nodule identified. IMPRESSION: No intrathoracic adenopathy. Although not enlarged by imaging criteria. Axillary lymph nodes have increased in size and number likely related to disease progression. Enlarged lymph node at the left neck base which has increased in size. Reviewed, Interpreted and Dictated by Carmen Jack MD Transcribed by Romy Shelley Authenticated and [facility]
--- NOTE | 2024-09-11 09:25 | CT_ITS ---
FINAL REPORT TECHNIQUE: After the administration of intravenous contrast, axial images were obtained through the abdomen and pelvis by computed tomography. This study was performed with technique to keep radiation doses as low as reasonably achievable, (ALARA). Individualized dose reduction techniques using automated exposure control or adjustment of the MA and/or KV according to the patient's size were employed. CLINICAL HISTORY: lymphoma COMPARISON: 05/17/2024 FINDINGS: Abdomen: The lung bases are clear. The liver is normal in size and attenuation. Gallbladder is present. There is a small cyst in the posterior spleen which is stable. The adrenals are normal. The pancreas is unremarkable. The kidneys enhance appropriately. The aorta is normal in caliber. There are multiple enlarged retroperitoneal lymph nodes. The largest, a left periaortic lymph node below the left renal vein measures 31 x 29 mm, previously measured 24 x 20 mm. This is best seen on image #53. There is an aortocaval lymph node on image 51 measuring up to 18 mm, previously measured 13 mm. Other lymph nodes demonstrate similar enlargement. Mesenteric lymph nodes have increased. Largest on image 62 measures 14 mm, previously measured 8 mm. Pelvis: The appendix is not identified. There is bilateral common and external iliac adenopathy. A left external iliac lymph node seen on image 95 measures 21 x 12 mm, previously measured 18 x 9 mm. There are normal-sized lymph nodes in the left inguinal region. Although, these are mildly increased in size. There is a diverticulum noted arising from the right posterior urinary bladder. Prostate is unremarkable. IMPRESSION: Mild progression of widespread retroperitoneal, mesenteric and pelvic adenopathy. Reviewed, Interpreted and Dictated by Carmen Jack MD Transcribed by Romy Shelley Authenticated and [facility]
[2024-09-11 09:43] LABS: Albumin Level 4.1 g/dl (3.5-5.0); Chloride 104 mmol/L (98-107)
[2024-09-11 09:44] LABS: Potassium 4.3 mmoL/L (3.5-5.1); Sodium 139 mmol/L (136-145)
[2024-09-11 09:46] LABS: Alanine Aminotransferase 33 U/L (12-78); Alkaline Phosphatase 66 U/L (38-126); Anion Gap 9.3 mEq/L (5-15); Aspartate Amino Transferase 32 U/L (17-59); Bilirubin,Total 0.5 mg/dl (0.2-1.3); Blood Urea Nitrogen 14 mg/dl (9-20); Carbon Dioxide 30 mmol/L (22.0-30.0); Estimated Glomerular Filt Rate 75 ml/min (>60); GFR (African American) 90 ML/MIN (>60)
[2024-09-11 09:47] LABS: Albumin/Globulin Ratio 1.7 (1.1-1.8); Basophils % 0.5 % (0.1-2.0); Calcium 8.8 mg/dl (8.4-10.2); Eosinophils # 0.1 K/mm3 (0.0-0.4); Eosinophils % 2.3 % (0.1-12.0); Globulin 2.4 g/dL (1.3-3.2); Glucose 112 mg/dl (74-100); Hematocrit 36.7 % (42.0-52.0); Hemoglobin 12.1 g/dL (14.1-18.0); Lactate Dehydrogenase 205 U/L (313-618); Lymphocytes # 0.8 K/mm3 (0.7-4.5); Lymphocytes % 19.4 % (10-50); Mean Platelet Volume 8.3 fl (7.4-10.4); Monocytes # 0.5 K/mm3 (0.1-1.0); Monocytes % 10.4 % (1.7-9.3); Neutrophils # 2.9 K/mm3 (1.8-7.8); Neutrophils % 67.2 % (37.0-80.0); Platelet Count 118 K/mm3 (142-424); Red Blood Count 3.67 M/mm3 (4.60-6.20); Red Cell Distribution Width 14.2 % (11.5-17.5); Total Protein,Serum 6.5 g/dl (6.3-8.2); White Blood Count 4.3 K/mm3 (4.8-10.8)
[2024-09-11] MEDS: SODIUM CHLORIDE 0.9% 10ML SYR (RAD ONLY) 10 ML IV (10:20)
[2024-09-11] MEDS: IOPAMIDOL-370 (76%);100ML BOTTLE 75 ML IV (10:20)
[2024-09-11] MEDS: BARIUM SULFATE(READI-CAT2);450ML BOTTLE 450 ML PO (10:20)
== END 2024-09-11 23:59 | disposition home or self-care (01) ==
LOC: RAD 09:25
PROVIDERS: PCP Nurse Practitioner Family; Visit Provider Internal Medicine Medical Oncology
DX: C83.30 Diffuse large B-cell lymphoma, unspecified site (principal)
CPT/HCPCS: 36415; 71260; 74177; 80053; 83615; 85025; Q9967

== ENCOUNTER 2024-09-19 07:19 | Outpatient (CLI) | payer MEDICARE, SELFPAY ==
--- NOTE | 2024-09-19 07:20 | CT_ITS ---
FINAL REPORT CLINICAL HISTORY: .BONE MARROW BIOPSY FINDINGS: CT GUIDED BONE MARROW BIOPSY. HISTORY: . Abnormal laboratory values. ATTENDING PHYSICIAN: Dr. Marie PHYSICIAN STACKER STRAIGHTENER: Lester Rockwell PA-C PROCEDURE: After informed consent was obtained and a timeout was performed, the patient was prepped and draped in usual sterile fashion over the left posterior iliac crest. Utilizing local anesthesia and sterile technique with a bone marrow biopsy system, access to the marrow was obtained. And marrow aspirate and core samples were obtained. The patient received mild procedural sedation. The patient tolerated the procedure well and left the department in good condition. IMPRESSION: Status post CT guided biopsy of the bone marrow without immediate complication. PROCEDURAL SEDATION: 2 mg of IV Versed and 50 mcg of Fentanyl were administered. Continuous vital sign monitoring was used. An RN was present during the sedation process. Overall sedation time was minutes. Films reviewed , interpreted and dictated by Dr. Marie. Transcribed by Lester Rockwell PA-C. Reviewed, Interpreted and Dictated by Yousif Marie MD Transcribed by SATURNINO York Authenticated and . [facility]
[2024-09-19 07:48] VITALS: BMI 30.9
[2024-09-19 07:50] VITALS: BP 141/75; PULSE 69; RESP 18; TEMP 36.8; O2SAT 97
[2024-09-19 08:17] LABS: Basophils % 0.4 % (0.1-2.0); Eosinophils # 0.1 K/mm3 (0.0-0.4); Eosinophils % 2.7 % (0.1-12.0); Hematocrit 38.1 % (42.0-52.0); Hemoglobin 12.5 g/dL (14.1-18.0); Lymphocytes % 21.9 % (10-50); Mean Corpuscular HGB Conc 32.8 g/dL (31.8-35.4); Mean Corpuscular Hemoglobin 32.2 pg (27.0-31.2); Mean Corpuscular Volume 98.2 fl (80-94); Mean Platelet Volume 8.5 fl (7.4-10.4); Monocytes # 0.5 K/mm3 (0.1-1.0); Monocytes % 11.6 % (1.7-9.3); Neutrophils # 2.8 K/mm3 (1.8-7.8); Neutrophils % 63.2 % (37.0-80.0); Platelet Count 149 K/mm3 (142-424); Red Blood Count 3.88 M/mm3 (4.60-6.20); Red Cell Distribution Width 14.2 % (11.5-17.5); White Blood Count 4.5 K/mm3 (4.8-10.8)
[2024-09-19 08:24] LABS: INR 1.04 (0.9-1.1); Prothrombin Time 11.4 seconds (9.2-12.1)
[2024-09-19 08:30] LABS: Anion Gap 8.4 mEq/L (5-15); Blood Urea Nitrogen 17 mg/dl (9-20); Calcium 9.1 mg/dl (8.4-10.2); Carbon Dioxide 29 mmol/L (22.0-30.0); Chloride 105 mmol/L (98-107); Creatinine Clearance Estimated 102 mL/min (50-200); Estimated Glomerular Filt Rate 75 ml/min (>60); GFR (African American) 90 ML/MIN (>60); Glucose 103 mg/dl (74-100); Potassium 4.4 mmoL/L (3.5-5.1); Sodium 138 mmol/L (136-145)
[2024-09-19] MEDS: LIDOCAINE 1% 20ML MDV 20 ML (09:05)
[2024-09-19] MEDS: HEPARIN SODIUM 5,000 UNIT/ML VIAL 5000 UNIT (09:05)
== END 2024-09-19 23:59 | disposition home or self-care (01) ==
PROVIDERS: PCP Nurse Practitioner Family; Visit Provider Internal Medicine Medical Oncology
DX: C83.30 Diffuse large B-cell lymphoma, unspecified site (principal)
CPT/HCPCS: 38221; 77012; 80048; 85025; 85610; 88184; 88185; 88305; 88311; 88341; 88342; 88360; J1644; J2250; J3010

== ENCOUNTER 2024-10-10 08:22 | Outpatient (CLI) | payer MEDICARE, SELFPAY ==
[2024-10-10] VITALS (19 sets, daily range): BP systolic 105–144; BP diastolic 58–82; PULSE 57–77; RESP 18; TEMP 36.6; O2SAT 96–97
[2024-10-10 08:45] LABS: Basophils % 0.4 % (0.1-2.0); Eosinophils # 0.1 K/mm3 (0.0-0.4); Eosinophils % 2.5 % (0.1-12.0); Hemoglobin 12.5 g/dL (14.1-18.0); Lymphocytes # 0.9 K/mm3 (0.7-4.5); Lymphocytes % 19.5 % (10-50); Mean Corpuscular HGB Conc 33.8 g/dL (31.8-35.4); Mean Corpuscular Hemoglobin 32.6 pg (27.0-31.2); Mean Corpuscular Volume 96.6 fl (80-94); Mean Platelet Volume 8.3 fl (7.4-10.4); Monocytes # 0.5 K/mm3 (0.1-1.0); Monocytes % 10.6 % (1.7-9.3); Neutrophils # 3.2 K/mm3 (1.8-7.8); Neutrophils % 66.8 % (37.0-80.0); Platelet Count 149 K/mm3 (142-424); Red Blood Count 3.83 M/mm3 (4.60-6.20); Red Cell Distribution Width 14.3 % (11.5-17.5); White Blood Count 4.7 K/mm3 (4.8-10.8)
[2024-10-10 08:49] LABS: Albumin Level 4.4 g/dl (3.5-5.0); Chloride 104 mmol/L (98-107); Potassium 4.8 mmoL/L (3.5-5.1); Sodium 136 mmol/L (136-145)
[2024-10-10 08:52] LABS: Alanine Aminotransferase 28 U/L (12-78); Alkaline Phosphatase 60 U/L (38-126); Anion Gap 12.8 mEq/L (5-15); Aspartate Amino Transferase 37 U/L (17-59); Bilirubin,Total 0.8 mg/dl (0.2-1.3); Blood Urea Nitrogen 14 mg/dl (9-20); Carbon Dioxide 24 mmol/L (22.0-30.0); Estimated Glomerular Filt Rate 84 ml/min (>60); GFR (African American) 102 ML/MIN (>60); Globulin 2.2 g/dL (1.3-3.2); Total Protein,Serum 6.6 g/dl (6.3-8.2)
[2024-10-10 08:53] LABS: Calcium 8.9 mg/dl (8.4-10.2); Glucose 101 mg/dl (74-100)
[2024-10-10] MEDS: DEXAMETHASONE 4MG TABLET 12 MG (09:35)
[2024-10-10] MEDS: ACETAMINOPHEN 325MG TAB 650 MG (09:35)
[2024-10-10] MEDS: ONDANSETRON 4MG ODT 16 MG (09:35)
[2024-10-10] MEDS: 0.9 % SODIUM CHLORIDE 100 ML IV (09:36)
[2024-10-10] MEDS: diphenhydrAMINE 50MG CAPSULE 50 MG PO (09:36)
[2024-10-10] MEDS: SODIUM CHLORIDE 0.9% IV ×2 (10:18→14:19)
[2024-10-10] MEDS: RITUXIMAB PVVR IV (10:18)
[2024-10-10] MEDS: BENDAMUSTINE HCL IV (14:19)
== END 2024-10-10 14:48 | disposition home or self-care (01) ==
LOC: INF 08:23
PROVIDERS: PCP Nurse Practitioner Family; Visit Provider Internal Medicine Medical Oncology
DX: Z51.11 Encounter for antineoplastic chemotherapy (principal); C83.30 Diffuse large B-cell lymphoma, unspecified site
CPT/HCPCS: 80053; 85025; 96411; 96413; 96415; J7040; J8540; J9034; Q0162; Q5119

== ENCOUNTER 2024-10-11 09:55 | Outpatient (CLI) | payer MEDICARE, SELFPAY ==
[2024-10-11] MEDS: DEXAMETHASONE 4MG TABLET 12 MG PO (10:02)
[2024-10-11] MEDS: ACETAMINOPHEN 325MG TAB 650 MG PO (10:02)
[2024-10-11] MEDS: ONDANSETRON 4MG ODT 16 MG SL (10:02)
[2024-10-11] MEDS: diphenhydrAMINE 50MG CAPSULE 50 MG PO (10:02)
[2024-10-11] MEDS: BENDAMUSTINE HCL IV (10:28)
[2024-10-11] MEDS: SODIUM CHLORIDE 0.9% IV (10:28)
[2024-10-11] MEDS: 0.9 % SODIUM CHLORIDE 50 ML 100 ML IV (10:28)
[2024-10-11 10:32] VITALS: BP 111/69; PULSE 58; RESP 18; O2SAT 100
[2024-10-11 10:53] VITALS: BP 112/69; PULSE 59; RESP 18; O2SAT 100
== END 2024-10-11 10:53 | disposition home or self-care (01) ==
LOC: INF 09:55
PROVIDERS: PCP Nurse Practitioner Family; Visit Provider Internal Medicine Medical Oncology
DX: Z51.11 Encounter for antineoplastic chemotherapy (principal); C83.30 Diffuse large B-cell lymphoma, unspecified site
CPT/HCPCS: 96409; J8540; J9034; Q0162

== ENCOUNTER 2024-11-07 08:27 | Outpatient (CLI) | payer MEDICARE, SELFPAY ==
[2024-11-07] VITALS (9 sets, daily range): BP systolic 99–114; BP diastolic 51–74; PULSE 65–78; RESP 18–20; TEMP 36.6; O2SAT 97–98
[2024-11-07 08:50] LABS: Basophils % 0.4 % (0.1-2.0); Eosinophils # 0.4 Kmm3 (0.0-0.4); Eosinophils % 6.8 % (0.1-12.0); Hematocrit 32.5 % (42.0-52.0); Hemoglobin 11.1 g/dL (14.1-18.0); Lymphocytes # 0.3 K/mm3 (0.7-4.5); Lymphocytes % 5.3 % (10-50); Mean Corpuscular HGB Conc 34.2 g/dL (31.8-35.4); Mean Corpuscular Hemoglobin 32.8 pg (27.0-31.2); Mean Corpuscular Volume 96.2 fl (80-94); Mean Platelet Volume 8.6 fl (7.4-10.4); Monocytes # 0.5 K/mm3 (0.1-1.0); Monocytes % 9.5 % (1.7-9.3); Neutrophils # 4.1 K/mm3 (1.8-7.8); Neutrophils % 77.8 % (37.0-80.0); Nucleated Red Blood Cells # 0 10^3/uL; Nucleated Red Blood Cells % 0 %; Platelet Count 104 K/mm3 (142-424); Red Blood Count 3.38 M/mm3 (4.60-6.20); Red Cell Distribution Width 15.9 % (11.5-17.5); Red Cell Distribution Width-SD 55.8 fL; White Blood Count 5.3 K/mm3 (4.8-10.8)
[2024-11-07 08:55] LABS: MANUAL DIFFERENTIAL MANUAL DIFFERENTIAL (MANUAL DIFF)
[2024-11-07 09:05] LABS: Alanine Aminotransferase 33 U/L (12-78); Albumin Level 3.8 g/dl (3.5-5.0); Albumin/Globulin Ratio 1.5 (1.1-1.8); Alkaline Phosphatase 76 U/L (38-126); Anion Gap 10.4 mEq/L (5-15); Aspartate Amino Transferase 29 U/L (17-59); Bilirubin,Total 0.9 mg/dl (0.2-1.3); Blood Urea Nitrogen 12 mg/dl (9-20); Calcium 9.1 mg/dl (8.4-10.2); Carbon Dioxide 24 mmol/L (22.0-30.0); Chloride 107 mmol/L (98-107); Estimated Glomerular Filt Rate 74 ml/min (>60); GFR (African American) 90 ML/MIN (>60); Globulin 2.6 g/dL (1.3-3.2); Glucose 119 mg/dl (74-100); Lactate Dehydrogenase 216 U/L (313-618); Potassium 4.4 mmoL/L (3.5-5.1); Sodium 137 mmol/L (136-145); Total Protein,Serum 6.4 g/dl (6.3-8.2)
[2024-11-07 09:17] LABS: Eosinophils % 4 % (0-3); Lymphocytes % 4 % (10-50); Monocytes % 4 % (2-9); Neutrophils % 88 % (42-76); Platelet Estimate Slight Decrease; Total Cells Counted 100
[2024-11-07] MEDS: DEXAMETHASONE 4MG TABLET 12 MG PO (09:34)
[2024-11-07] MEDS: ONDANSETRON 4MG ODT 16 MG SL (09:35)
[2024-11-07] MEDS: ACETAMINOPHEN 325MG TAB 650 MG PO (09:35)
[2024-11-07] MEDS: diphenhydrAMINE 50MG CAPSULE 50 MG PO (09:35)
[2024-11-07] MEDS: SODIUM CHLORIDE 0.9% 100ML BAG 100 ML IV (09:36)
[2024-11-07] MEDS: BENDAMUSTINE HCL IV (10:05)
[2024-11-07] MEDS: SODIUM CHLORIDE 0.9% IV ×2 (10:05→10:29)
[2024-11-07] MEDS: RITUXIMAB PVVR IV (10:29)
== END 2024-11-07 13:30 | disposition home or self-care (01) ==
LOC: INF 08:28
PROVIDERS: PCP Nurse Practitioner Family; Visit Provider Internal Medicine Medical Oncology
DX: Z51.11 Encounter for antineoplastic chemotherapy (principal); C83.30 Diffuse large B-cell lymphoma, unspecified site
CPT/HCPCS: 80053; 83615; 85007; 85025; 96409; 96413; 96415; 96417; J7040; J8540; J9034; Q0162; Q5119

== ENCOUNTER 2024-11-08 10:52 | Outpatient (CLI) | payer MEDICARE, SELFPAY ==
[2024-11-08] MEDS: ONDANSETRON 4MG ODT 16 MG (10:56)
[2024-11-08] MEDS: diphenhydrAMINE 50MG CAPSULE 50 MG PO (10:57)
[2024-11-08] MEDS: ACETAMINOPHEN 325MG TAB 650 MG (10:57)
[2024-11-08] MEDS: DEXAMETHASONE 4MG TABLET 12 MG (10:57)
[2024-11-08] MEDS: BENDAMUSTINE HCL IV (11:31)
[2024-11-08] MEDS: SODIUM CHLORIDE 0.9% IV (11:31)
[2024-11-08 11:35] VITALS: BP 103/51; PULSE 91; RESP 18; O2SAT 96
[2024-11-08 12:13] VITALS: BP 104/50; PULSE 90; RESP 18; O2SAT 96
== END 2024-11-08 12:13 | disposition home or self-care (01) ==
LOC: INF 10:52
PROVIDERS: PCP Nurse Practitioner Family; Visit Provider Internal Medicine Medical Oncology
DX: Z51.11 Encounter for antineoplastic chemotherapy (principal); C83.30 Diffuse large B-cell lymphoma, unspecified site
CPT/HCPCS: 96413; J8540; J9034; Q0162

== ENCOUNTER 2024-12-05 09:15 | Outpatient (CLI) | payer MEDICARE, SELFPAY ==
[2024-12-05 09:23] VITALS: BMI 31.2
[2024-12-05 09:47] LABS: Basophils % 0.5 % (0.1-2.0); Eosinophils # 0.3 Kmm3 (0.0-0.4); Eosinophils % 7.5 % (0.1-12.0); Hematocrit 26.3 % (42.0-52.0); Hemoglobin 8.9 g/dL (14.1-18.0); Immature Granulocytes # 0.01 10^3uL; Immature Granulocytes % 0.3 %; Lymphocytes # 0.3 K/mm3 (0.7-4.5); Lymphocytes % 7.2 % (10-50); Mean Corpuscular HGB Conc 33.8 g/dL (31.8-35.4); Mean Corpuscular Hemoglobin 33.7 pg (27.0-31.2); Mean Corpuscular Volume 99.6 fl (80-94); Mean Platelet Volume 8.9 fl (7.4-10.4); Monocytes # 0.7 K/mm3 (0.1-1.0); Monocytes % 17.9 % (1.7-9.3); Neutrophils # 2.5 K/mm3 (1.8-7.8); Neutrophils % 66.6 % (37.0-80.0); Nucleated Red Blood Cells # 0 10^3/uL; Nucleated Red Blood Cells % 0 %; Platelet Count 114 K/mm3 (142-424); Red Blood Count 2.64 M/mm3 (4.60-6.20); Red Cell Distribution Width 16.8 % (11.5-17.5); White Blood Count 3.8 K/mm3 (4.8-10.8)
[2024-12-05 09:54] LABS: Albumin Level 3.8 g/dl (3.5-5.0); Chloride 106 mmol/L (98-107); Sodium 135 mmol/L (136-145)
[2024-12-05 09:57] LABS: Alanine Aminotransferase 24 U/L (12-78); Albumin/Globulin Ratio 1.7 (1.1-1.8); Alkaline Phosphatase 70 U/L (38-126); Aspartate Amino Transferase 26 U/L (17-59); Bilirubin,Total 0.7 mg/dl (0.2-1.3); Blood Urea Nitrogen 13 mg/dl (9-20); Calcium 8.8 mg/dl (8.4-10.2); Carbon Dioxide 25 mmol/L (22.0-30.0); Creatinine Clearance Estimated 102 mL/min (50-200); Estimated Glomerular Filt Rate 84 ml/min (>60); GFR (African American) 102 ML/MIN (>60); Globulin 2.2 g/dL (1.3-3.2); Glucose 105 mg/dl (74-100)
[2024-12-05 10:06] LABS: MANUAL DIFFERENTIAL MANUAL DIFFERENTIAL (MANUAL DIFF)
[2024-12-05 10:57] LABS: Eosinophils % 5 % (0-3); Lymphocytes % 8 % (10-50); Monocytes % 10 % (2-9); Neutrophils % 77 % (42-76); Total Cells Counted 100
[2024-12-05 10:58] LABS: Platelet Estimate Normal; RBC Morphology Normal
[2024-12-05 11:31] VITALS: BP 108/61; PULSE 61; RESP 18; TEMP 36.9; O2SAT 98
[2024-12-05] MEDS: 0.9 % SODIUM CHLORIDE 50 ML 25 ML IV (11:31)
[2024-12-05] MEDS: ONDANSETRON 4MG ODT 16 MG (11:31)
[2024-12-05] MEDS: ACETAMINOPHEN 325MG TAB 650 MG (11:31)
[2024-12-05] MEDS: DEXAMETHASONE 4MG TABLET 12 MG (11:31)
[2024-12-05] MEDS: diphenhydrAMINE 50MG CAPSULE 50 MG PO (11:31)
[2024-12-05 11:56] VITALS: BP 109/58; PULSE 61; RESP 18; O2SAT 99
[2024-12-05] MEDS: BENDAMUSTINE HCL IV (11:56)
[2024-12-05] MEDS: SODIUM CHLORIDE 0.9% IV (11:56)
[2024-12-05] MEDS: SODIUM CHLORIDE 0.9% 10ML FLUSH SYRINGE 10 ML IV (12:02)
[2024-12-05 12:25] VITALS: BP 117/60; PULSE 62; RESP 18; O2SAT 99
== END 2024-12-05 12:25 | disposition home or self-care (01) ==
LOC: INF 09:17
PROVIDERS: PCP Nurse Practitioner Family; Visit Provider Internal Medicine Medical Oncology
DX: Z51.11 Encounter for antineoplastic chemotherapy (principal); C85.90 Non-Hodgkin lymphoma, unspecified, unspecified site
CPT/HCPCS: 80053; 85007; 85025; 96413; J8540; J9034; Q0162

== ENCOUNTER 2024-12-06 09:43 | Outpatient (CLI) | payer MEDICARE, SELFPAY ==
[2024-12-06] MEDS: ONDANSETRON 4MG ODT 16 MG (09:47)
[2024-12-06] MEDS: ACETAMINOPHEN 325MG TAB 650 MG (09:48)
[2024-12-06] MEDS: DEXAMETHASONE 4MG TABLET 12 MG (09:48)
[2024-12-06] MEDS: 0.9 % SODIUM CHLORIDE 50 ML 25 ML IV (09:48)
[2024-12-06] MEDS: diphenhydrAMINE 50MG CAPSULE 50 MG PO (09:48)
[2024-12-06] MEDS: SODIUM CHLORIDE 0.9% IV (10:14)
[2024-12-06] MEDS: BENDAMUSTINE HCL IV (10:14)
[2024-12-06 10:26] VITALS: BP 93/52; PULSE 77; RESP 18; TEMP 36.6; O2SAT 96
[2024-12-06 10:40] VITALS: BP 95/51; PULSE 78; RESP 18; O2SAT 96
== END 2024-12-06 10:59 | disposition home or self-care (01) ==
LOC: INF 09:44
PROVIDERS: PCP Nurse Practitioner Family; Visit Provider Internal Medicine Medical Oncology
DX: Z51.11 Encounter for antineoplastic chemotherapy (principal); C83.30 Diffuse large B-cell lymphoma, unspecified site
CPT/HCPCS: 96409; J8540; J9034; Q0162

== ENCOUNTER 2024-12-19 07:40 | Outpatient (CLI) | payer MEDICARE, SELFPAY ==
--- OUTSIDE RECORDS SUMMARY | 2024-12-19 07:44 | XMS_ITS | Encounter Summary ---
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 Name Role Phone Unavailable Primary Care Provider Unavailabl e Encounter Details Date Type Department Care Team (Late st Contact Info) Description 05/16/2021 Transcribed Document [facility] [place] Family Medicine Formerly [facility] [place] [address] ProviderAiden MD [facility]ly [facility] [place] [address] Social History Tobacco Use Types Packs/Day Years Used Date Smoking Tobacco: Never Assessed Sex and Gender Information Value Date Recorded Sex Assigned at Male 01/06/2022 6:36 PM CDT Legal Sex Male 6:36 PM CDT Gender Identity Male 01/06/2022 6:36 PM CDT Sexual Orientation Not on file documented as of this encounter Miscellaneous Notes * Cerner Conversion Note - Historical ProviderMD - 05/16/2021 8:58 AM CDT Pre Procedure Adult Entered On: 05/16/2021 9:00 EDT Performed On: 05/16/2021 8:58 EDT by REMY BOSS RN Height and Weight, Clinical Dosing Height Source : Stated Height Entry Format : [place] Height, Feet : 5 ft(Converted to: 152 cm, 60 Inch) Height, Inches : 11 Inch(Converted to: 0 ft 11 Inch, 27.94 cm) Clinical Height : 180.34 cm Weight Source : Standing scale Weight Entry Format : [place] Clinical Dosing Weight : 88.64 kg Weight, Pounds : 195 lb Body Surface Area (BSA) : 2.09 m2 Body Mass Index : 27.3 kg/m2 (HI) [place] Body Weight : 74 kg REMY BOSS RN - 05/16/2021 8:58 EDT Health Histories Smoking Status : Former smoker, quit more than 30 days ago Smokeless Tobacco Status : Never REMY BOSS RN - 05/16/2021 8:58 EDT Social History (As Of: 05/16/2021 09:10:10 EDT) Tobacco: Former smoker, quit more than 30 days ago Smoking Status. Never Smokeless Tobacco Status. Years of Use: 35. Packs/Tins Daily: 2. Last Used: quit 2007. (Last Updated: 05/16/2021 08:59:17 EDT by REMY BOSS, RN) Alcohol: Alcohol Use History Yes. Alcohol Use Frequency Rarely. (Last Updated: 05/16/2021 09:04:05 EDT by REMY BOSS, RN) Substance Abuse: Drug Use Hx: No. (Last Updated: 05/16/2021 09:04:10 EDT by REMY BOSS, NIKI) Infectious Disease History Does patient have symptoms of COVID-19? : No Has the Patient Been Tested for COVID-19 in the last 14 days? : PreProcedure/NON-PUI COVID-19 Testing Where and When was COVID19 testing completed? : [facility] 05/14/21 results negative Does the Patient state known exposure to a COVID-19 positive case in the last 14 days? : No Patient Vaccinated for COVID-19 : Fully vaccinated REMY BOSS RN - 05/16/2021 9:03 EDT Infectious Disease Risk Screening Grid Cough < 2 wks of unknown origin : NO Cough > 2 weeks : NO Blood in Sputum : NO Fever or self-reported Fever : NO Rash of unknown origin : NO Headache : NO Stiff neck : NO Night Sweats : NO Unexplained Weight Loss : NO Diarrhea (3 episode per day) : NO REMY BOSS RN - 05/16/2021 9:03 EDT Patient Masked? : Yes When Mask Placed on Patient? : arrived with mask Physical contact outside [place] in the last 30 days : No Hospitalized in Foreign Country : No Infectious Disease History : Chicken pox/Shingles, Influenza, Measles, Other: COVID 05/2020 INF Disease TB Screening Calc : 0 INF Disease Recent Travel Calc : 0 REMY BOSS RN - 05/16/2021 9:03 EDT COVID19 PreProcedure Screening Is this an Emergent or Add on Procedure? : No Date PreProcedure COVID-19 test known? : Yes Date of PreProcedure COVID-19 : 05/14/2021 EDT Has patient been isolated since the test : Yes Exposed to COVID19 symptoms since test? : No REMY BOSS RN - 05/16/2021 9:03 EDT Anesthesia/Transfusion History Family History of Anesthesia Reaction : No prior transfusion(s) Blood Transfusion Acceptable to Patient : Yes Transfusion History : Prior anesthesia without reaction Family History of Anesthesia Reaction : None REMY BOSS RN - 05/16/2021 9:03 EDT Functional Assessment Living Situation : Home Patient Lives With : Spouse Persons Assisting Patient at Home : Spouse Current Daily Living Assistance : None Mobility Assistance Prior to Admission : Independent Current Home Treatments : None REMY BOSS RN - 05/16/2021 9:03 EDT [place] Suicide Severity Rating Scale (C-SSRS) CSSRS Past Month Wish to be : No CSSRS Past Month Suicidal Thoughts : No CSSRS Lifetime Suicide Behavior : No Suicide Severity Rating Score : 0 Suicide Severity Rating : No Additional Care Required at this time REMY BOSS RN - 05/16/2021 9:03 EDT Psychosocial History Does Someone Depend on You for Care? : No Currently in Unsafe Situation : No REMY BOSS RN - 05/16/2021 9:03 EDT Advance Directive Patient has Advance Directive *Q : Yes, Advance Directive not with the patient Advance Directive Type : Living will Copy Advance Directive Verified/on Chart : REMY Saldaña RN - 05/16/2021 9:03 EDT Spiritual/Cultural Needs Significant Loss/Crisis in Past 3 Years : No Any Spiritual/Cultural Needs or Requests : No REMY BOSS RN - 05/16/2021 9:03 EDT Teaching/Learning Assessment Barriers To Learning : None evident Individuals Taught : Patient Readiness to Learn : Cooperative REMY BOSS RN - 05/16/2021 9:03 EDT Education Topics, Periop Preadmission Perioperative Education Grid IV's : Verbalizes understanding NPO Status/Directions : Verbalizes understanding Responsible Adult : Verbalizes understanding REMY OBSS RN - 05/16/2021 9:03 EDT General Info Arrived From : Home Mode of Arrival on Unit : Ambulatory Legal Guardian : Spouse Want Family/Rep/Phys Notified of Admit : No Emergency Contact #1 : Meg Emergency Contact #1 Emergency Contact #1 Relationship : spouse Emergency Contact #2 : Fito Emergency Contact #2 Emergency Contact #2 Relationship : son Chief Complaint : Here for cardiac cath Information Obtained From : Patient Primary Language : German Preferred Communication Mode : Verbal Communication Barrier : None Weed Inspector Needed : No Objects to Sharing Info w Family : No REMY BOSS RN - 05/16/2021 9:03 EDT Vital Measurements Temperature Source : Temporal artery scanning Temperature Mode : Fahrenheit Temperature, Fahrenheit : 97.6 Deg F Clinical Temperature, C : 36.4 Deg C Pulse Method : Non-Invasive BP Device Peripheral Pulse Rate : 80 bpm Respiratory Rate : 16 Breaths/Min Blood Pressure Location : Arm, right upper Blood Pressure Source : Non-Invasive BP Device Systolic Blood Pressure : 127 mmHg Diastolic Blood Pressure : 80 mmHg Oxygen Saturation : 99 % Oxygen Therapy Mode : Room air REMY BOSS RN - 05/16/2021 9:03 EDT Sleep Apnea Risk Assmt Hx of Obstructive Sleep Apnea Diagnosis : No Snore Loudly : No Tired, Fatigued, or Sleepy During Day : No Observed Stopping Breathing During Sleep : No Have/Are Being Treated for Hypertension : No BMI Greater Than 35 kg/m2 : No Age over 50 Years Old : Yes Neck Circumference Greater Than 40 cm : Yes Gender Male : Yes STOP-BANG Sleep Apnea Risk Level Score : 3 REMY BOSS RN - 05/16/2021 9:03 EDT Mazin Scale Mazin Sensory Perception : No impairment Mazin Moisture : Rarely moist Mazin Activity : Walks frequently Mazin Mobility : Slightly limited Mazin Nutrition : Adequate Mazin Friction and Shear : Potential problem Mazin Score : 20 REMY BOSS RN - 05/16/2021 9:03 EDT Oxygen Therapy Oxygen Therapy Mode : Room air REMY BOSS RN - 05/16/2021 9:03 EDT Pain Assessment Pain Assessment : Initial assessment Pain Scale Used : 0-10 Scale REMY BOSS RN - 05/16/2021 9:03 EDT Fall Risk Scales ABCs Fall Injury Risk Identification : Coagulation ABC Fall Injury Risk : Moderate to high injury risk [place] Hx Falls Immediate/Within 3 Months : No [place] Secondary Diagnosis : No [place]RA Use of Ambulatory Aid : None [place] IV Therapy or IV Access : Yes [place] Gait/Transferring : Normal, bedrest, immobile [place] Mental Status : Oriented to own ability [place] Fall Risk Score : 20 [place] Fall Scale Risk Level : 0-24 Low Risk [place] Fall Interventions : Adequate lighting, Hourly comfort/safety rounds, Upper side-rails up, Wheels locked, Wires/Cords secured REMY BOSS RN - 05/16/2021 9:03 EDT Valuables and Belongings Valuables and Belongings : Clothing, Personal devices, Personal items, Medications, No jewelry, No assistive devices, No respiratory devices Clothing : Common streetwear Clothing Disposition : Bedside Personal Device Disposition : Bedside Personal Devices : Glasses Personal Items : [place], Cell phone, Credit cards, Wallet Personal Items Disposition : With patient Medication Disposition : Bedside Medication Brought With Patient : Yes REMY BOSS RN - 05/16/2021 9:03 EDT Pain Scale Intensity : 0 REMY BOSS RN - 05/16/2021 9:03 EDT Image 4 - Images currently included in the form version of this document have not been included in the text rendition version of the form. documented in this encounter Plan of Treatment Not on file documented as of this encounter Visit Diagnoses Not on filedocumented in this encounter
--- OUTSIDE RECORDS SUMMARY | 2024-12-19 07:44 | XMS_ITS | Encounter Summary ---
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 Name Role Phone Unavailable Primary Care Provider Unavailabl e Encounter Details Date Type Department Care Team (Late st Contact Info) Description 05/16/2021 Transcribed Document [facility] Family Medicine [address] [place] [address] ProviderAiden MD [address] [place] [address] Social History Tobacco Use Types Packs/Day Years Used Date Smoking Tobacco: Never Assessed Sex and Gender Information Value Date Recorded Sex Assigned at Male 01/06/2022 6:36 PM CDT Legal Sex Male 6:36 PM CDT Gender Identity Male 01/06/2022 6:36 PM CDT Sexual Orientation Not on file documented as of this encounter Miscellaneous Notes * Cerner Conversion Note - Aiden Alex MD - 05/16/2021 4:04 PM CDT [facility] [address] JOSE MENSAH :1955 Visit Time:05/16/2021 Your Visit Summary Your Care Team Admitting Physician - LUCIEN TONG MD Attending Physician - LUCIEN TONG MD Primary Care Physician - FAMILY EUGENIA (REF)MD Referring Physician - LUCIEN TONG MD Your Diagnosis Abnormal result of other cardiovascular function study, Abnormal result of other cardiovascular function study These Are Your Goals No qualifying data available. Discharge Vitals Heart Rate (Monitored) 94 Respiratory Rate 20 Blood Pressure 113/67 What to do next Instructions From Your Care Team Do not drive for 24 hours after the procedure Resume your diet as tolerated Restart your Eliquis tonight per Dr. Tong. continue your other medications as prescribed. Do not lift over one pound with your right arm for the next 2 days or any pushing or pulling with the right arm Remove the dressing from your right arm and then you may shower daily starting tomorrow. When you shower, gently clean the area with soap and water daily. Do not scrub the site. No soaking the area under water until the incision site has fully healed. If bleeding, apply pressure as shown and contact a doctor promptly. Follow post radial site instructions.....see attached sheet. Follow-Up Appointments Follow Up with JOVANY MADERA When 06/09/2021 03:29 PM EST Comments Keep your appointment with Dr. Madera as scheduled. Where: [address] [place], [place] [id number]- Business (1) Medications What How Much When Instructions Next Dose apixaban (Eliquis 5 mg oral tablet) 1 Tablet(s) Oral Two Times A Day cholecalciferol (Vitamin D3) 2,000 International Units Oral Every Day metoprolol (Metoprolol Succinate ER 25 mg oral tablet, extended release) 1 Tablet(s) Oral Every Day multivitamin 1 Tablet(s) Oral Every Day naproxen (Aleve 220 mg oral capsule) 2 Capsule(s) Oral Every Day as needed for as needed for pain omeprazole 20 Milligram(s) Oral Every Day as needed for GERD potassium gluconate (potassium gluconate 595 mg (99 mg elemental potassium) oral tablet) 1 Tablet(s) Oral Every Day sacubitril-valsartan (Entresto 24 mg-26 mg oral tablet) 1 Tablet(s) Oral Two Times A Day Take your medications faithfully. Do NOT skip medication. Do NOT stop taking medications without the direction of a physician. Carry a list of your medications with you at all times, and take this medication list with you to your first follow up visit. Report any side effects. Avoid herbal remedies unless discussed with your physician. As part of your treatment plan, your physician may have prescribed a limited course of a controlled substance. This medication may be given to help people with moderate or severe pain or for other medical conditions, but there are risks involved with treatment. Common side effects may include nausea, constipation, drowsiness, sweating, itching, dry mouth, and rash. More serious side effects may include cognitive and motor impairment, like problems with thinking, concentrating, alertness, and movement (e.g. slowed reflexes), and driving and operating heavy machinery can be dangerous. It is important for you to talk to your physician if you have these side effects or questions. These controlled substances can produce physical dependence and be habit-forming if taken for an extended period of time, which means that the body has gotten used to them and may experience withdrawal symptoms if they are abruptly stopped. Withdrawal symptoms can include runny nose, sweating, goose bumps, diarrhea, abdominal cramping, rapid heartbeat, difficulty sleeping, and nervousness. Please dispose of unused and medications per your retail pharmacy guidance. Allergies No Known Allergies Immunizations This Visit No Immunizations Found Education Materials Moderate Conscious Sedation, Adult, Care After This sheet gives you information about how to care for yourself after your procedure. Your health care provider may also give you more specific instructions. If you have problems or questions, contact your health care provider. What can I expect after the procedure? After the procedure, it is common to have: ??? Sleepiness for several hours. ??? Impaired judgment for several hours. ??? Difficulty with balance. ??? Vomiting if you eat too soon. Follow these instructions at home: For at least 24 hours after the procedure: ??? Rest. ??? Do not: ? Participate in activities where you could fall or become injured. ? Drive. ? Use machinery. ? Drink alcohol. ? Take sleeping pills or medicines that cause drowsiness. ? Make important decisions or sign legal documents. ? Take care of children on your own. Eating and drinking ??? Follow the diet recommended by your health care provider. ??? Drink enough fluid to keep your urine pale yellow. ??? If you vomit: ? Drink water, juice, or soup when you can drink without vomiting. ? Make sure you have little or no nausea before eating solid foods. General instructions ??? Have a responsible adult stay with you until you are awake and alert. ??? Take gwwr-hfr-nozdxni and prescription medicines only as told by your health care provider. ??? Do not smoke. ??? Keep all follow-up visits as told by your health care provider. This is important. Contact a health care provider if: ??? You are still sleepy or having trouble with balance after 24 hours. ??? You feel light-headed. ??? You keep feeling nauseous or you keep vomiting. ??? You develop a rash. ??? You have a fever. ??? You have redness or swelling around the IV site. Get help right away if: ??? You have trouble breathing. ??? You have new-onset confusion at home. Summary ??? After the procedure, it is common to feel sleepy, have impaired judgment, or feel nauseous if you eat too soon. ??? Rest after you get home. Know the things you should not do for at least 24 hours after the procedure. ??? Follow the diet recommended by your health care provider and drink enough fluid to keep your urine pale yellow. ??? Get help right away if you have trouble breathing or new-onset confusion at home. This information is not intended to replace advice given to you by your health care provider. Make sure you discuss any questions you have with your health care provider. Document Revised: 05/23/2020 Document Reviewed: 05/23/2020 [employer] Patient Education ?? 2020 [employer]. Radial Site Care This sheet gives you information about how to care for yourself after your procedure. Your health care provider may also give you more specific instructions. If you have problems or questions, contact your health care provider. What can I expect after the procedure? After the procedure, it is common to have: ??? Bruising and tenderness at the catheter insertion area. Follow these instructions at home: Medicines ??? Take esom-bqy-dflzpwu and prescription medicines only as told by your health care provider. Insertion site care ??? Follow instructions from your health care provider about how to take care of your insertion site. Make sure you: ? Wash your hands with soap and water before you change your bandage (dressing). If soap and water are not available, use hand banquet prep cook. ? Change your dressing as told by your health care provider. ? Leave stitches (sutures), skin glue, or adhesive strips in place. These skin closures may need to stay in place for 2 weeks or longer. If adhesive strip edges start to loosen and curl up, you may trim the loose edges. Do not remove adhesive strips completely unless your health care provider tells you to do that. ??? Check your insertion site every day for signs of infection. Check for: ? Redness, swelling, or pain. ? Fluid or blood. ? Pus or a bad smell. ? Warmth. ??? Do not take baths, swim, or use a hot tub until your health care provider approves. ??? You may shower 24???48 hours after the procedure, or as directed by your health care provider. ? Remove the dressing and gently wash the site with plain soap and water. ? Pat the area dry with a clean towel. ? Do not rub the site. That could cause bleeding. ??? Do not apply powder or lotion to the site. Activity ??? For 24 hours after the procedure, or as directed by your health care provider: ? Do not flex or bend the affected arm. ? Do not push or pull heavy objects with the affected arm. ? Do not drive yourself home from the hospital or clinic. You may drive 24 hours after the procedure unless your health care provider tells you not to. ? Do not operate machinery or power tools. ??? Do not lift anything that is heavier than 10 lb (4.5 kg), or the limit that you are told, until your health care provider says that it is safe. ??? Ask your health care provider when it is okay to: ? Return to work or school. ? Resume usual physical activities or sports. ? Resume sexual activity. General instructions ??? If the catheter site starts to bleed, raise your arm and put firm pressure on the site. If the bleeding does not stop, get help right away. This is a medical emergency. ??? If you went home on the same day as your procedure, a responsible adult should be with you for the first 24 hours after you arrive home. ??? Keep all follow-up visits as told by your health care provider. This is important. Contact a health care provider if: ??? You have a fever. ??? You have redness, swelling, or yellow drainage around your insertion site. Get help right away if: ??? You have unusual pain at the radial site. ??? The catheter insertion area swells very fast. ??? The insertion area is bleeding, and the bleeding does not stop when you hold steady pressure on the area. ??? Your arm or hand becomes pale, cool, tingly, or numb. These symptoms may represent a serious problem that is an emergency. Do not wait to see if the symptoms will go away. Get medical help right away. Call your local emergency services (911 in the [place] Do not drive yourself to the hospital. Summary ??? After the procedure, it is common to have bruising and tenderness at the site. ??? Follow instructions from your health care provider about how to take care of your radial site wound. Check the wound every day for signs of infection. ??? Do not lift anything that is heavier than 10 lb (4.5 kg), or the limit that you are told, until your health care provider says that it is safe. This information is not intended to replace advice given to you by your health care provider. Make sure you discuss any questions you have with your health care provider. Document Revised: 08/03/2018 Document Reviewed: 08/03/2018 [employer] Patient Education ?? 2020 [employer]. Angiogram, Care After This sheet gives you information about how to care for yourself after your procedure. Your health care provider may also give you more specific instructions. If you have problems or questions, contact your health care provider. What can I expect after the procedure? After the procedure, it is common to have: ??? Bruising and tenderness at the catheter insertion area. ??? A collection of blood (hematoma) at the insertion area. This may feel like a small lump under the skin at the insertion site. Follow these instructions at home: Insertion site care ??? Follow instructions from your health care provider about how to take care of your insertion site. Make sure you: ? Wash your hands with soap and water before and after you change your bandage (dressing). If soap and water are not available, use hand banquet prep cook. ? Change your dressing as told by your health care provider. ??? Do not take baths, swim, or use a hot tub until your health care provider approves. ??? You may shower 24???48 hours after the procedure, or as told by your health care provider. To clean the insertion site: ? Gently wash the area with plain soap and water. ? Pat the area dry with a clean towel. ? Do not rub the site. This may cause bleeding. ??? Check your insertion site every day for signs of infection. Check for: ? Redness, swelling, or pain. ? Fluid or blood. ? Warmth. ? Pus or a bad smell. ??? Do not apply powder or lotion to the site. Keep the site clean and dry. Activity ??? Do not drive for 24 hours if you were given a sedative during your procedure. ??? Rest as told by your health care provider, usually for 1???2 days. ??? Do not lift anything that is heavier than 10 lb (4.5 kg), or the limit that you are told, until your health care provider says that it is safe. ??? If the insertion site was in your leg, try to avoid stairs for a few days. ??? Return to your normal activities as told by your health care provider, usually in about a week. Ask your health care provider what activities are safe for you. General instructions ??? If your insertion site starts bleeding, lie flat and put pressure on the site. If the bleeding does not stop, get help right away. This is a medical emergency. ??? Take jimm-hko-ggjgrir and prescription medicines only as told by your health care provider. ??? Drink enough fluid to keep your urine pale yellow. This helps flush the contrast dye from your body. ??? Keep all follow-up visits as told by your health care provider. This is important. Contact a health care provider if: ??? You have a fever or chills. ??? You have redness, swelling, or pain around your insertion site. ??? You have fluid or blood coming from your insertion site. ??? Your insertion site feels warm to the touch. ??? You have pus or a bad smell coming from your insertion site. ??? You have more bruising around the insertion site. Get help right away if you have: ??? A problem with the insertion area, such as: ? The area swells fast or bleeds even after you apply pressure. ? The area becomes pale, cool, tingly, or numb. ??? Chest pain. ??? Trouble breathing. ??? A rash. ??? Any symptoms of a stroke. BE FAST is an easy way to remember the main warning signs of a stroke: ? B - Balance. Signs are dizziness, sudden trouble walking, or loss of balance. ? E - Eyes. Signs are trouble seeing or a sudden change in vision. ? F - Face. Signs are sudden weakness or loss of feeling of the face, or the face or eyelid drooping on one side. ? A - Arms. Signs are weakness or loss of feeling in an arm. This happens suddenly and usually on one side of the body. ? S - Speech. Signs are sudden trouble speaking, slurred speech, or trouble understanding what people say. ? T - Time. Time to call emergency services. Write down what time symptoms started. ??? You have other signs of a stroke, such as: ? A sudden, severe headache with no known cause. ? Nausea or vomiting. ? Seizure. These symptoms may represent a serious problem that is an emergency. Do not wait to see if the symptoms will go away. Get medical help right away. Call your local emergency services (911 in the [place] Do not drive yourself to the hospital. Summary ??? It is common to have bruising and tenderness at the catheter insertion area. ??? Do not take baths, swim, or use a hot tub until your health care provider approves. You may shower 24???48 hours after the procedure or as told. ??? It is important to rest and drink plenty of fluids. ??? If the insertion site bleeds, lie flat and put pressure on the site. If the bleeding continues, get help right away. This is a medical emergency. This information is not intended to replace advice given to you by your health care provider. Make sure you discuss any questions you have with your health care provider. Document Revised: 05/01/2020 Document Reviewed: 05/01/2020 Elsevier Patient Education ?? 2020 [employer] Emergency Awareness and Preventative Care STROKE is an EMERGENCY Every Minute Counts Act FAST and Check for these signs: FACE Does the face look uneven? ARM Does one arm drift down? SPEECH Does their speech sound strange? TIME Call at any sign of stroke Stroke Risk Factors Atrial Fibrillation (irregular heartbeat) Diabetes Family history of stroke Heart Disease Heavy alcohol use High Blood Pressure High Cholesterol Physical inactivity and obesity Smoking Cigarette Smoking The facts are clear, cigarette smoking will shorten your life. Smoking can cause many illnesses along the way. As a healthcare provider, we recommend that you stop smoking. Assistance with quitting is available by contacting 3-562-GOQXNOW. This is a free resource providing counseling, support, and referral. Or you may contact your personal physician. [place] Suicide [facility]: The National Suicide Prevention Lifeline is a national network of local crisis centers that provides free and confidential emotional support to people in suicidal crisis or emotional distress 24 hours a day, 7 days a week. Don't Wait! Stop a Heart Attack Before it Starts What is a heart attack? A heart attack is damage or to a part of the heart from severely decreased or lack of blood flow to the heart. Over time, arteries can become narrow from the buildup of fat and cholesterol, which is called plaque. The plaque can rupture causing a blood clot to form. When the blood clot forms, the artery can become severely narrowed or completely blocked, causing a heart attack. Heart attack is the leading cause of in the [place]. 85% of muscle damage occurs within the first 2 hours. Delay in the recognition of heart attack symptoms increases the chances of . Know the early symptoms of a heart attack: Nausea Feeling of fullness in chest Jaw Pain Pain that travels down one or both arms Fatigue/being tired Anxiety Back Pain Chest pressure, squeezing, or discomfort Shortness of breath Sweating, or a cold sweat Feeling of impending doom There are unusual signs of a heart attack, too! Women, the elderly, and diabetics may present with atypical symptoms: Fainting/dizziness Weakness Confusion Risk Factors for a Heart Attack Some heart disease risk factors, such as age and family history, cannot be changed. Others, like smoking and lack of exercise, can be changed. Smoking High Cholesterol High Blood Pressure Family History Obesity Age Gender (Males are at higher risk) Lack of Exercise Diabetes Diet Stress Excessive Alcohol Intake If you or someone you know is experiencing the signs and symptoms of a heart attack, DON???T DELAY. Call immediately and seek help. If someone collapses, perform CPR! Do not attempt to drive if you are having symptoms of heart attack. Hands-Only CPR Why Hands-Only CPR? Hands-Only CPR has been shown to be as effective as conventional CPR for cardiac arrests that occur outside of a hospital. Survival depends on immediately receiving CPR from someone nearby. How do you perform Hands-Only CPR? There are two easy steps: Call 9-1-1 if you see a teen or adult collapse Push hard and fast in the center of the chest at a beat of 100 beats per minute. Save a life! 4 WAYS TO GET AHEAD OF SEPSIS SEPSIS is a MEDICAL EMERGENCY. Time matters! Infections put you and your family at risk for a life-threatening condition called sepsis. Sepsis is the body's extreme response to an infection. It is life-threatening, and without timely treatment, sepsis can rapidly lead to tissue damage, organ failure, and . Sepsis happens when an infection you already have-in your skin, lungs, urinary tract or somewhere else-triggers a chain reaction throughout your body. 1 PREVENT INFECTIONS Take good care of chronic conditions. Talk to your doctor about getting the recommended vaccines. 2 PRACTICE GOOD HYGIENE Wash your hands frequently. Keep cuts or open sores clean and covered until they are healed. 3 KNOW THE SYMPTOMS Confusion or disorientation Shortness of breath High heart rate Fever, shivering, or feeling very cold Extreme pain or discomfort Clammy or sweaty skin 4 ACT FAST Get medical care IMMEDIATELY if you suspect sepsis or if you have an infection that is not getting better or is getting worse. To learn more about sepsis and how to prevent infections, visit www.cdc.gov/sepsis. Test Results Laboratory or Other Results This Visit (last charted value for your 05/16/2021 visit) Hematology 05/16/2021 8:40 AM Platelet Count: 189 K/uL -- Normal range between ( 163 and 369 ) Microbiology 05/14/2021 10:30 AM SARS-CoV-2 (COVID19 PCR): Negative General Chemistry 05/16/2021 9:02 AM Potassium Level: 5.1 mmol/L -- Normal range between ( 3.5 and 5.1 ) Patient Name:MAKENNA JOSE L I have received and understand this information and was given the opportunity to ask questions. Patient/Satellite Instruction Facilitator Name: Patient/Satellite Instruction Facilitator Signature: Relationship to Patient: Clinician/Hospital Satellite Instruction Facilitator Signature: Date: documented in this encounter Plan of Treatment Not on file documented as of this encounter Visit Diagnoses Not on filedocumented in this encounter
--- OUTSIDE RECORDS SUMMARY | 2024-12-19 07:44 | XMS_ITS | Encounter Summary ---
Author Organization [employer] Address [address] [place] [address] Care Team Providers Care Solutions Consultant Name Role Phone Unavailable Primary Care Provider Unavailabl e Encounter Details Date Type Department Care Team (Late st Contact Info) Description 05/16/2021 Transcribed Document [facility] [place] Family Medicine [facility] [place] [address] ProviderAiden MD [facility] [place] [address] Social History Tobacco Use Types [...] Note - Aiden Alex MD - 05/16/2021 8:30 AM CDT Patient: JOSE MENSAH Age: 65 years Sex: Male : 1955 Associated Diagnoses: None Author: LUCIEN TONG MD Basic Information PCP: Kenroy Chvaez MD Primary Top Lift Compresser: Edyta Guerra MD Chief Complaint Newly decreased LVEF 30% and Abnormal Stress History of Present Illness 65 year old male with history of permanent atrial fibrillation on chronic Eliquis and Metoprolol recently had ECHO done for worsening shortness of breath. This revealed a decreased EF of 30% so he was started on Entresto. He underwent a stress test on 05/06/21 which had some mild reversible inferior ischemia and global hypokinesis. He presents today for elective LHC for newly diagnosed HFrEF. *Patient is former smoker; quit in 2007 after 30 years of 2 PPD. Review of Systems Constitutional: Negative except as documented in history of present illness. Eye: Negative except as documented in history of present illness. Ear/Nose/Mouth/Throat: Negative except as documented in history of present illness. Respiratory: Negative except as documented in history of present illness. Cardiovascular: Negative except as documented in history of present illness. Gastrointestinal: Negative except as documented in history of present illness. Genitourinary: Negative except as documented in history of present illness. Hematology/Lymphatics: Negative except as documented in history of present illness. Endocrine: Negative except as documented in history of present illness. Immunologic: Negative except as documented in history of present illness. Musculoskeletal: Negative except as documented in history of present illness. Integumentary: Negative except as documented in history of present illness. Neurologic: Alert and oriented X4. Psychiatric: Negative except as documented in history of present illness. Health Status Allergies (1) Active Reaction No Known Allergies None Documented No qualifying data available Current medications: No qualifying data available Problem list: No problem items selected or recorded. Histories No education data available. Social & Psychosocial Habits No Data Available Past Medical History: Active Atrial fibrillation (17919409) Cardiomyopathy (444150344) Family History: Brain tumor Sister () Procedure history: Skin Cancer removed from neck. Physical Examination VS/Measurements No qualifying data available General: Alert and oriented, No acute distress. Eye: Pupils are equal, round and reactive to light, Vision unchanged. HENT: Normocephalic, Oral mucosa is moist. Neck: Supple, Non-tender, No carotid bruit, No jugular venous distention. Respiratory: Lungs are clear to auscultation, Respirations are non-labored, Symmetrical chest wall expansion. Cardiovascular: Normal rate, Regular rhythm, No murmur, Good pulses equal in all extremities. Gastrointestinal: Soft, Non-distended, Normal bowel sounds. Musculoskeletal: Normal range of motion, Normal strength. Integumentary: Warm, Dry, [place]. Neurologic: Alert, Oriented. Psychiatric: Cooperative, Appropriate mood & affect. Review / Management Results review: No qualifying data available. Impression and Plan IMPRESSION: Dyspnea Newly decreased LVEF 30% Abnormal Stress mild reversible inferior ischemia and global hypokinesis Recently placed on Entresto Chronic A-fib Chronic Eliquis and Metoprolol PLAN; Left Heart Catheterization via right radial artery. Risks and Benefits discussed. Patient wishes to proceed. documented in this encounter Plan of Treatment Not on file documented as of this encounter Visit Diagnoses Not on filedocumented in this encounter
--- OUTSIDE RECORDS SUMMARY | 2024-12-19 07:44 | XMS_ITS | Clinical Summary ---
Author Organization [facility] Address [address] [place] [address] Phone Care Team Providers Care Groundhand Name Role Phone Gricelda Cox MD Unavailable [phone] Allergies No known active allergies Medications apixaban (ELIQUIS) 5 mg Oral Tablet Take by mouth 2 times daily. Active nitroGLYCERIN (NITROSTAT) 0.4 mg SL Tablet, Sublingual Place under the tongue as needed for Chest pain. Active guaiFENesin (ROBITUSSIN) 100 mg/5 mL Oral Liquid Take 200 mg by mouth every 4 hours as needed for Congestion. Active CHLORPHENIRAMIN E MALEATE ORAL Take 12 mg by mouth every 12 hours as needed. Active benzonatate (TESSALON) 200 mg Oral CapsuleIndicati ons:cough Take 200 mg by mouth 3 times daily as needed for Cough. Indications: cough Active ondansetron (ZOFRAN-ODT) 8 mg Oral Tablet, Rapid Dissolve Take by mouth 3 times daily as needed for Nausea. Active prochlorperazin e (COMPAZINE) 10 mg Oral Tablet Take 10 mg by mouth every 6 hours. Active omeprazole (PRILOSEC) 20 mg Oral Capsule, Delayed Release(E.C.) Take 20 mg by mouth as needed. Active sacubitriL-vals rachna (ENTRESTO) 24-26 mg Oral Tablet Take 1 Tablet by mouth 2 times daily. Active allopurinoL (ZYLOPRIM) 300 mg Oral Tablet Take 300 mg by mouth daily. Active fluticasone propionate (FLONASE) 50 mcg/actuation Nasl [place], Suspension 2 Sprays by Nasal route daily. Administer 2 sprays into each nostril daily Active simvastatin (ZOCOR) 20 mg Oral Tablet Take 20 mg by mouth nightly. Active food supplement (ENSURE) Oral Take 1 Bottle by mouth daily. Active Active Problems Problem Noted Date Diagnosed Date Bacteremia 11/27/2022 Paroxysmal atrial fibrillation 11/27/2022 Lymphoma 11/25/2022 Neutropenia 11/25/2022 STEPHANIE (acute kidney injury) 11/25/2022 Hyponatremia 11/25/2022 Pancytopenia 11/25/2022 Heart failure 11/25/2022 Diarrhea 11/25/2022 E coli bacteremia 11/25/2022 Irregular heartbeat 11/25/2022 Acute encephalopathy 11/25/2022 Septic shock 11/24/2022 Surgical History Surgery Date Site/Laterality Comments TONSILLECTOMY THYROID SURGERY 07/12/2019 - 07/11/2020 Left thyroid tumor/lymphoma removed BEDSIDE PICC INSERTION (PICC TEAM RN) 12/02/2022 Medical History Medical History Date Comments Cardiac dysrhythmia Heartburn Hyperlipidemia Hypertension Bladder problem Urinary incontinence Anemia Cancer (HCC) Sleep apnea Social History Tobacco Use Types Packs/Day Years Used Date Smoking Tobacco: Never Smokeless Tobacco: Never Tobacco Cessation:Counseling Given: Not Answered Alcohol Use Standard Drinks/Week Comments Not Currently 0 (1 standard drink = 0.6 oz pur e alcohol) Overall Financial Resource Strain (CARDIA) Answe r Date Recorded How hard is it for you to pa y for the very basics like food, housing, medical care, and heating? Not hard at all 11/25/2022 PHQ-2 Answer Date Recorded PHQ-2 Total Score 0 11/25/2022 Exercise Vital Sign Answer Date Recorde d On average, how many days pe r week do you engage in moderate to strenuous exercise (like a brisk walk)? 0 days 11/25/2022 On average, how many minutes do you engage in exercise at this level? 0 min 11/25/2022 Hunger Vital Sign Answer Date Recorded Within the past 12 months, y ou worried that your food would run out before you got the money to buy more. Never true 11/26/19 23 Within the past 12 months, t he food you bought just didn't last and you didn't have money to get more. Never true 11/25/2022 PRAPARE - Transportation Answer Date Re corded In the past 12 months, has l ack of transportation kept you from medical appointments or from getting medications? No 11/09 In the past 12 months, has l ack of transportation kept you from meetings, work, or from getting things needed for daily living? No 11/25/2022 Sex and Gender Information Value Date Recorded Sex Assigned at Not on file Legal Sex Male 9:23 PM EDT Gender Identity Not on file Sexual Orientation Not on file Obstetrics History Last Filed Vital Signs Vital Sign Reading Time Taken Comments Blood Pressure 123/82 12/04/2022 7:55 AM EDT Pulse 88 12/04/2022 7:55 AM EDT Temperature 36.6 C (97.8 F) 12/04/2022 7:55 AM EDT Respiratory Rate 17 12/04/2022 7:55 AM EDT Oxygen Saturation 97% 12/04/2022 7:55 AM EDT Inhaled Oxygen Concentration - - Weight 87.3 kg (192 lb 8 oz) 12/04/2022 5:25 AM EDT Height 180.3 cm (5' 11 ) 11/25/2022 12:12 AM EDT Body Mass Index 26.85 11/25/2022 12:12 AM EDT Plan of Treatment Health Maintenance Due Date Last Done Comments Wellness Exam Medicare 10/11/1958 Hepatitis C Screening 1974 Pneumococcal Vaccine 50+ (1 of 2 - PCV) 10/11/1975 Zoster (1 of 2) 10/11/1975 DTaP/TDaP/Td (1 - Tdap) 09/14/1996 09/13/1996 Cologuard 2001 Colon Cancer Screening 2001 Colonoscopy 2001 FIT 2001 Sigmoidoscopy 2001 Virtual Colonography 2001 RSV or 60+ (1 - Ris k 60-74 years 1-dose series) 2016 COVID-19 Vaccine (#1) 06/21/2021 Influenza Vaccine (Season Ended) 2025 Hepatitis B Vaccine Aged Out No longe r eligible based on patient's age to complete this topic Meningococcal B Vaccine Aged Out No l onger eligible based on patient's age to complete this topic Insurance [facility] [place] [address] [facility] MEDICARE PPO [place] [id number] [employer] MEDICARE PPO MR [employer]ET[place] [facility] [place] [address] MEDICARE PPO MR [facility] [address] Advance Directives For more information, please contact: [phone] * Full Code (Latest Code Status on File) Date Activated Date Inactivated Comments 12/02/2022 11:11 AM 12/04/2022 7:53 PM * Full Code Date Activated Date Inactivated Comments 11/24/2022 11:52 PM 12/01/2022 2:40 AM Care Teams Groundhand Relationship Specialty Start Date End Date Gricelda Cox MD [address] [facility] [place] [address] Medical Oncologist Internal Medicine-Medical Oncology 11/26/22
--- OUTSIDE RECORDS SUMMARY | 2024-12-19 07:44 | XMS_ITS | Encounter Summary ---
Author Organization [employer] Address [address] [place] [address] Care Team Providers Care Bevel Mill Operator Name Role Phone Unavailable Primary Care Provider Unavailabl e Encounter Details Date Type Department Care Team (Late st Contact Info) Description 05/16/2021 Transcribed Document [facility] [place] Family Medicine [facility] [place] [address] ProviderAiden MD [address] [place] [address] Social History Tobacco Use Types [...] Conversion Note - Historical ProviderMD - 05/16/2021 9:22 AM CDT Event Note Entered On: 05/16/2021 9:23 EDT Performed On: 05/16/2021 9:22 EDT by REMY BOSS RN Event Note Event Date/Time : 05/16/2021 9:20 EDT REMY BOSS RN - 05/16/2021 9:22 EDT Description of Event : 0920: Spoke with Radha Clark. To give NS at 30 ml per hour pre cath due to EF 30%. NOrmal saline begun at 30 ml per hour. REMY BOSS RN - 05/16/2021 9:37 EDT documented in this encounter Plan of Treatment Not on file documented as of this encounter Visit Diagnoses Not on filedocumented in this encounter
--- OUTSIDE RECORDS SUMMARY | 2024-12-19 07:44 | XMS_ITS | Clinical Summary ---
Author Organization [employer] Address [address] [place] [address] Care Team Providers Care Radiology Nurse Name Role Phone Unavailable Primary Care Provider Unavailabl e Social History Tobacco Use Types Packs/Day Years Used Date Smoking Tobacco: Never Assessed Interpersonal Safety Answer Date Record ed Family or friends hurt you Not on file 07/30 Family or friends insult you Not on file Family or friends threaten you Not on file 0 07/30/2023 Family or friends scream or curse at you Not on file 07/30/2023 Housing Stability Answer Date Recorded Living situation today Not on file Living situation problems Not on file 2023 Food Insecurity Answer Date Recorded Food run out past 12 months Not on file 07/12 Food did not last past 12 months Not on file 07/30/2023 Employment Answer Date Recorded Help finding and keeping a job Not on file 0 07/30/2023 Family and Community Support Answer Dario e Recorded Help with Day to Day Activities Not on file 07/30/2023 Feeling Lonely or Isolated Not on file 07/30 Educational Attainment Answer Date Carrillo rded Speak language other than Rwandan at home Not on file 07/30/2023 Want help with school or training Not on file 07/30/2023 Depression Answer Date Recorded PHQ-2 Risk Not on file 07/30/2023 Disabilities Answer Date Recorded Difficulty concentrating Not on file 024 Difficulty doing errands alone Not on file 0 07/30/2023 Substance Use Answer Date Recorded Used prescription meds for non-medical reasons N ot on file 07/30/2023 Used illegal drugs past 12 months Not on file 07/30/2023 Sex and Gender Information Value Date Recorded Sex Assigned at Male 01/06/2022 6:36 PM CDT Legal Sex Male 6:36 PM CDT Gender Identity Male 01/06/2022 6:36 PM CDT Sexual Orientation Not on file Plan of Treatment Health Maintenance Due Date Last Done Comments CT Colonography 1955 Colonoscopy 1955 Colorectal Cancer Screening 1955 FOBT/FIT 1955 Fit-DNA (Cologuard) 1955 Sigmoidoscopy 1955 Depression Screening (12+) 1968 Tobacco Cessation Counseling and Screening (12+) 1968 Hepatitis C Screening 1974 Pneumococcal 50+ years (1 of 2 - PCV) 10/11/1975 Shingles Vaccine (Zoster) (1 of 2) 10/11/1975 DTAP/TDAP/TD VACCINES (2 - Td or Tdap) 09/13/2006 COVID-19 VACCINE ( season) 2024, 11/30/2020 Falls Risk Screening 07/12/2024 Influenza Vaccine (Season Ended) 2025 Respiratory Syncytial Virus (RSV) Adult or (1 - 1-dose 75+ series) 10/11/2031
--- OUTSIDE RECORDS SUMMARY | 2024-12-19 07:44 | XMS_ITS | Encounter Summary ---
Author Organization [employer] Address [address] [place] [address] Care Team Providers Care Transport Truck Driver Name Role Phone Unavailable Primary Care Provider Unavailabl e Encounter Details Date Type Department Care Team (Late st Contact Info) Description 05/16/2021 Transcribed Document [facility] [place] [facility] [place] [address] ProviderAiden MD [address] [place] [address] Social History Tobacco Use Types [...] Alex MD - 05/16/2021 4:04 PM CDT Patient Education Materials Follows: Radial Site Care This sheet gives you [...] these instructions at home: Medicines ??? Take nklk-hgf-pdapklb and prescription medicines only as told by your health care provider. Insertion site care ??? Follow instructions from your health care provider about how to take care of your insertion site. Make sure you: ? Wash your hands with soap and water before you change your bandage (dressing). If soap and water are not available, use hand centralized traffic control operator. ? Change your dressing as told by [...] care provider approves. ??? You may shower 24?48 hours after the procedure, or as directed [...] provider. Document Revised: 08/03/2018 Document Reviewed: 08/03/2018 [employer] Patient Education ? 2020 [employer] Pharmacology Moderate Conscious Sedation, Adult, Care After This [...] you are awake and alert. ??? Take zgfi-urx-yfutsvv and prescription medicines only as told by [...] provider. Document Revised: 05/23/2020 Document Reviewed: 05/23/2020 [employer] Patient Education ? 2020 [employer] Radiology Angiogram, Care After This sheet gives you [...] and water are not available, use hand centralized traffic control operator. ? Change your dressing as told by your health care provider. ??? Do not take baths, swim, or use a hot tub until your health care provider approves. ??? You may shower 24?48 hours after the procedure, or as told [...] by your health care provider, usually for 1?2 days. ??? Do not lift anything that [...] This is a medical emergency. ??? Take sqyx-wpx-xztijsn and prescription medicines only as told by [...] health care provider approves. You may shower 24?48 hours after the procedure or as told. [...] provider. Document Revised: 05/01/2020 Document Reviewed: 05/01/2020 [employer] Patient Education ? 2020 [employer]. documented in this encounter Plan of Treatment Not on file documented as of this encounter Visit Diagnoses Not on filedocumented in this encounter
--- OUTSIDE RECORDS SUMMARY | 2024-12-19 07:45 | XMS_ITS | Encounter Summary ---
Author Organization Healthcare Address [address] [id number] Care Team Providers Care Wax Room Supervisor Name Role Phone Magui Benjamin APRN Primary Care Provider [phone] Encounter Details Date Type Department Care Team (Late st Contact Info) Description 07/03/2024 Lab Requisition [facility] [address] [place] [address] Mayela Moore MD [address] [facility] [address] [place] [phone] Malignant neoplasm of head, face and neck (CMS/HCC) Social History Tobacco Use Types Packs/Day Years Used Date Smoking Tobacco: Former Cigarettes Smokeless Tobacco: Never Alcohol Use Standard Drinks/Week Comments Never 0 (1 standard drink = 0.6 oz pur e alcohol) PHQ-2 Answer Date Recorded Patient Health Questionnaire-2 Score 0 07/06/2024 Sex and Gender Information Value Date Recorded Sex Assigned at Not on file Legal Sex Male 8:25 PM EDT Gender Identity Not on file Sexual Orientation Not on file documented as of this encounter Functional Status * Over the past 2 weeks, how often have you been bothered by any of the following problems? Question Answer Date of Assessment Author Little interest or pleasure in doing things Not at all 07/06/2024 9:42 AM Myriam Mojica Feeling down, depressed, or hopeless Not at all 07/06/2024 9:42 AM Myriam Mojica Patient Health Questionnaire -2 Score 0 07/06/2024 9:42 AM EST [place], Myriam L documented as of this encounter Plan of Treatment Not on file documented as of this encounter Procedures Procedure Name Priority Date/Time Associated Diagnosis Comments SURGICAL PATHOLOGY CONSULT Routine 07/03/2024 2:19 PM EST Malignant neoplasm of head, face and neck (CMS/HCC) documented in this encounter Results * Surgical Pathology Consult (07/03/2024 2:19 PM EST) Case Report Sugical Pathology Consult Case: [id number] Authorizing Provider: Mayela Moore MD Collected: 07/03/2024 1419 Ordering Location: [facility] Received: 07/03/2024 1420 Pathologist: Isra Aviles MD Specimens: A) - Neck, [id number] B) - Lymph Node, [id number] 07/05/2024 6:14 PM EST [facility] Final Diagnosis OUTSIDE ; COLLECTED 12/22/2018 A. LYMPH NODE, LEFT NECK, DEEP JUGULAR, BIOPSY: - CLASSIC FOLLICULAR LYMPHOMA, SEE COMMENT. OUTSIDE ; COLLECTED 08/05/2022 A. 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 07/05/2024 6:14 PM EST [facility] at 1813 EST Comment OUTSIDE ; COLLECTED 12/22/2018 Sections of the left neck deep jugular lymph node show involvement of lymph node by an atypical lymphoid proliferation comprised of small lymphocytes. Per accompanying pathology report, the concurrent flow cytometric analysis revealed a clonal B-cell neoplasm (45% of the total events) expressing CD19, CD20, CD10, CD23 (subset), HLA-DR, CD38 and showed kappa light chain restriction and lack of CD5 and FMC7. The provided immunostains are reviewed. The neoplastic B-cells are positive for CD20 and coexpress CD10, BCL6 and BCL2. Staining for CD3 and CD5 highlight small T-cells in a similar distribution. CD23 highlights expanded dendritic meshwork. Per report, cyclin D1 is negative (cyclin D1 stain is not received for review). The overall findings are consistent with involvement by a classic follicular lymphoma (WHO 5th ed.) / low-grade follicular lymphoma (ICC 2021). OUTSIDE ; COLLECTED 08/05/2022 Sections of the costochondral angle biopsy demonstrate involvement by a diffuse lymphocytic proliferation comprised of large lymphocytes showing vesicular chromatin, irregular nuclear contours and small conspicuous nucleoli. There are frequent apoptotic bodies. According to the report, flow cytometric analysis revealed a CD10 positive clonal B-cell population with increased cell size. The monoclonal B-cell population constitute 9.2% of total events and show expression of CD19 (moderate), CD20 (dim), CD10, HLA-DR and surface kappa light chain and was negative for CD5, CD23, CD38, CD43 and FMC 7 reportedly. The provided immunostains are reviewed. The neoplastic cells are diffusely positive for PAX5, CD20, BCL6, MUM1 and BCL2. They are positive for c-Myc and show negative expression of CD30 and Cyclin D1. CD21 highlights scant residual dendritic meshwork. CD3 highlights background small T cells. A Ki-67 immunostain shows a high proliferation index of approximately 80%. DIANE is negative. Per accompanying pathology report, FISH analysis detected rearrangement of BCL2, but was negative for BCL6 and myc rearrangements. 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 07/05/2024 6:14 PM [facility] Clinical Information C76.0 - Malignant neoplasm of head, face and neck [ICD-10-CM] 07/05/2024 6:14 PM [facility] Gross Description A. [id number] Received along with a corresponding pathology report from [facility] are 24 slides labeled outside case: [id number] collected on 12/22/2018. B. [id number] Received along with a corresponding pathology report from [facility] are 19 slides labeled outside case: [id number] collected on 08/05/2022. 07/05/2024 6:14 PM [facility] Note: A resident was involved in the service. I attest I examined the relevant preparations for the specimens and confirmed the diagnosis or interpretation. 07/05/2024 6:14 PM [facility] Tissue Lymph node specimen / Unknown 07/03/2024 2:19 PM EST 07/03/2024 2:20 PM EST Tissue specimen (specimen) Lymph node specimen / Unknown 07/03/2024 2:19 PM EST 07/03/2024 2:20 PM EST us Mayela Moore MD LAB PATHOLOGY ORDERABLES Final R esult [facility] [address] [place] [address] documented in this encounter Visit Diagnoses Diagnosis Malignant neoplasm of head, face and neck (CMS/HCC) Malignant neoplasm of head, face, and neck documented in this encounter Additional Health Concerns Assessment Noted Time A fall risk assessment has been complete d for the patient 06/23/2024 12:28 PM EST documented as of this encounter Care Teams Wax Room Supervisor Relationship Specialty Start Date End Date Magui Benjamin, ULISES [address] [place] [address] PCP - General 06/23/24 documented as of this encounter
--- OUTSIDE RECORDS SUMMARY | 2024-12-19 07:45 | XMS_ITS ---
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 Past Treatment and Therapy Plans No past plan information found. Lifetime Dose Tracking * Chemical Lifetime Dose Automatic Entry Manual Entr y Radiation (DLP) Retired 906 mGy-cm. 906 mGy-cm. 0 mG y-cm. CTDIvol 113 mGy 113 mGy 0 mGy
--- OUTSIDE RECORDS SUMMARY | 2024-12-19 07:45 | XMS_ITS | Clinical Summary ---
Author Organization [facility] Address [address] [place] [address] Care Team Providers Care Gravure Printing Machinist Name Role Phone Sourav Magui Davalos APRN Primary Care Provider [phone] Allergies No known active allergies Medications atorvastatin (Lipitor) 40 MG tablet 4 Active amiodarone (Pacerone) 200 MG tablet Take 1 tablet (200 mg) by mouth 1 (one) time each day. 4 Active Eliquis 5 MG tablet Take 1 tablet (5 mg) by mouth 2 (two) times a day. 3 Active metoprolol tartrate (Lopressor) 25 MG tablet Take 0.5 tablets (12.5 mg) by mouth twice a day. 4 Active nitroglycerin (Nitrostat) 0.[address] under the tongue. Active omeprazole (PriLOSEC) [address] capsule Take 1 capsule (20 mg) by mouth. Active ondansetron ODT (Zofran-ODT) 8 MG disintegrating tablet Take by mouth. Active sacubitril-valsarta n (Entresto) 49-51 MG tablet Take 1 tablet by mouth 2 (two) times a day. Active Multiple Vitamin (multivitamin) capsule Take 1 capsule by mouth 1 (one) time each day. Active cholecalciferol (Vitamin D3) 25 MCG (1000 UT) tablet Take 1 tablet (1,000 Units) by mouth 1 (one) time each day. Active Active Problems Problem Noted Date Diagnosed Date Atrial fibrillation 2024 Follicular lymphoma of lymph nodes of multiple r egions 2024 Encounters Date Type Department Care Team Description 10/03/2024 2:00 PM EDT Office Visit [facility] Cellular Therapy [facility] [address] [place] [address] [place] [address] Mayela Moore MD Follicular lymphoma of lymph nodes of multiple regions, unspecified follicular lymphoma type (CMS/HCC) (Primary Dx); Lymphoma, unspecified body region, unspecified lymphoma type (CMS/HCC); Atrial fibrillation, unspecified type (CMS/HCC) 10/03/2024 Travel 09/27/2024 Travel from Last 3 Months Social History Tobacco Use Types Packs/Day Years Used Date Smoking Tobacco: Former Cigarettes Smokeless Tobacco: Never Tobacco Cessation:Counseling Given: Not Answered Alcohol Use Standard Drinks/Week Comments Never 0 (1 standard drink = 0.6 oz pur e alcohol) PHQ-2 Answer Date Recorded Patient Health Questionnaire-2 Score 0 07/06/2024 Sex and Gender Information Value Date Recorded Sex Assigned at Not on file Legal Sex Male 8:25 PM EDT Gender Identity Not on file Sexual Orientation Not on file Last Filed Vital Signs Vital Sign Reading Time Taken Comments Blood Pressure 114/77 07/11/2024 12:15 PM EST Pulse 68 07/11/2024 12:15 PM EST Temperature 36.2 C (97.2 F) 07/11/2024 12:00 PM EST Respiratory Rate 20 07/11/2024 12:15 PM EST Oxygen Saturation 95% 07/11/2024 12:15 PM EST Inhaled Oxygen Concentration - - Weight 100 kg (220 lb 7.4 oz) 07/11/2024 9:16 AM EST Height 180.3 cm (5' 11 ) 07/11/2024 9:16 AM EST Body Mass Index 30.75 07/11/2024 9:16 AM EST Plan of Treatment Health Maintenance Due Date Last Done Comments [facility]-Medicare Annual Wellness (AWV) 1955 [facility]-Infant/Child/Adol SDOH Screenings 1955 [facility]- SDOH Screenings 1974 [facility]-Adult SDOH Screenings 1974 [facility]-Pneumococcal Vaccine: 50 + Years (1 of 2 - PCV) 10/11/1975 [facility]-Zoster Vaccines (1 of 2) 10/11/1975 [facility]-DTaP,Tdap,and Td Vaccine s (1 - Tdap) 09/14/1996 09/13/1996 CT Colonography 2001 Colonoscopy 2001 FIT-DNA 2001 FIT 2001 FOBT 2001 Sigmoidoscopy 2001 [facility]-Colorectal Cancer Screening 2001 [facility]-RSV Vaccine: 60+ Years o r (1 - Risk 60-74 years 1-dose series) 2016 [facility]-Abdominal Aortic Aneurys m (AAA) Screening 2021 [facility]VG-FVIEW-36 Vaccine ( season) 2024 05/24/2021, 11/30/2020 [facility]-Influenza Vaccine (Seaso n Ended) 2025 [facility]-Depression Screening 07/06/2025 07/06/2024 [facility]-Hepatitis C Screening Completed 06/23/2024 [facility]-Obesity Intervention Completed 024, 07/11/2024, 07/06/2024 HPV Vaccines Aged Out No longer eligi ble based on patient's age to complete this topic [facility]-HIB Vaccines Aged Out No longer e ligible based on patient's age to complete this topic [facility]-Hepatitis A Vaccines Aged Out No longer eligible based on patient's age to complete this topic [facility]-IPV Vaccines Aged Out No longer e ligible based on patient's age to complete this topic [facility]-Rotavirus Vaccines Aged Out No lo nger eligible based on patient's age to complete this topic Procedures Procedure Name Priority Date/Time Associated Diagnosis Comments HEPATITIS C ANTIBODY W/REFLEX TO HCV QUANT PCR Routine 06/23/2024 11:48 AM EST Lymphoma, unspecified body region, unspecified lymphoma type (CMS/HCC) from Last 3 Months or Most Recently Relevant to Health Maintenance Results * Hepatitis C Antibody w/Reflex to HCV Quant PCR (06/23/2024 11:48 AM EST) Hepatitis C Antibody Negative Negative 06/23/2024 1:15 PM EST [facility] Blood Venous blood specimen / Unknown Venipuncture / Unknown 06/23/2024 11:48 AM EST 06/23/2024 12:26 PM EST us Mayela Moore MD LAB BLOOD ORDERABLES Final Resul t [facility] [address] [place] [address] from Last 3 Months or Most Recently Relevant to Health Maintenance Insurance MEDICARE Care Teams Gravure Printing Machinist Relationship Specialty Start Date End Date Magui Benjamin APRN [address] [place] [address] PCP - General 06/23/24
--- OUTSIDE RECORDS SUMMARY | 2024-12-19 07:45 | XMS_ITS | Encounter Summary ---
Author Organization [facility] Address [address] [id number] Care Team Providers Care Septic Tank Setter Name Role Phone Magui Benjamin APRN Primary Care Provider [phone] Encounter Details Date Type Department Care Team (Late st Contact Info) Description 07/03/2024 Lab Requisition [facility] [address] [place] [address] Mayela Moore MD [address] [facility] [address] [place] [phone] Enlarged lymph nodes, unspecified Social History Tobacco Use Types Packs/Day Years [...] Questionnaire -2 Score 0 07/06/2024 9:42 AM Myriam Mojica documented as of this encounter Plan of Treatment Not on file documented as of this encounter Procedures Procedure Name Priority Date/Time Associated Diagnosis Comments CYTOLOGY CONSULT Routine 07/03/2024 2:04 PM EST Enlarged lymph nodes, unspecified documented in this encounter Results * Cytology Consult (07/03/2024 2:04 PM EST) Case Report Cytology Case: [id number] Authorizing Provider: Mayela Moore MD Collected: 07/03/20241403 Ordering Location: [facility] Lab Received: 07/03/2024 1404 Pathologist: Isra Aviles MD Specimen: Lymph Node, [id number] 07/05/2024 6:55 PM EST [facility] Final Diagnosis A. LYMPH NODE, LEFT, FINE NEEDLE ASPIRATION (OUTSIDE ; COLLECTED ON 05/24/2024): - ATYPICAL LYMPHOID STROMA, SEE COMMENT. 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 The cell block and smears show population of variably sized lymphocytes. Per accompanying pathology report, the concurrent flow cytometric analysis revealed a CD10 positive clonal B-cell population that accounts for 45% of total events and showed predominantly small cell size by forward/scatter analysis. This population is reported positive for CD19, CD20, CD10, CD38 and surface kappa light chain and is negative for CD5 and CD123 reportedly. The overall findings are consistent with involvement by a CD10 positive atypical B-cell proliferation. Exact evaluation of cell size cannot be performed on the cytology specimen. If exact classification is required, solid tissue sampling would be recommended. 07/05/2024 6:55 PM EST [facility] Clinical Information History of follicular lymphoma and diffuse large B-cell lymphoma 07/05/2024 6:55 PM EST [facility] Gross Description A. [id number] Received along with a corresponding pathology report from [facility]ology Laboratory are 2 slides labeled outside case: [id number] collected on 05/24/2024. 07/05/2024 6:55 PM EST [facility] Fine Needle Aspirate Lymph node specimen / Unknown 07/03/2024 2:04 PM EST 07/03/2024 2:04 PM EST us Mayela Moore MD LAB PATHOLOGY ORDERABLES Final R esult [facility] [address] [place] [address] documented in this encounter Visit Diagnoses Diagnosis Enlarged lymph nodes, unspecified documented in this encounter Additional Health Concerns Assessment Noted Time A fall risk assessment has been complete d for the patient 06/23/2024 12:28 PM EST documented as of this encounter Care Teams Septic Tank Setter Relationship Specialty Start Date End Date Magui Benjamin, MOBILE GAME ENGINEER [address] [place] [address] PCP - General 06/23/24 documented as of this encounter
--- OUTSIDE RECORDS SUMMARY | 2024-12-19 07:45 | XMS_ITS | Encounter Summary ---
Author Organization [facility] Address [address] [id number] Care Team Providers Care Health Facilities Surveyor Name Role Phone Magui Benjamin APRN Primary Care Provider [phone] Encounter Details Date Type Department Care Team (Late st Contact Info) Description 07/03/2024 Lab Requisition [facility] [address] [place] [address] Mayela Moore MD 800 [facility] [address] [place] [phone] Hodgkin lymphoma, unspecified, unspecified site (CMS/HCC) Social History Tobacco Use Types Packs/Day [...] Procedure Name Priority Date/Time Associated Diagnosis Comments BONE MARROW EXAM CONSULT Routine 07/03/2024 2:11 PM EST Hodgkin lymphoma, unspecified, unspecified site (CMS/HCC) documented in this encounter Results * Bone marrow exam consult (07/03/2024 2:11 PM EST) Case Report Bone Marrow Case: [id number] Authorizing Provider: Mayela Moore MD Collected: 07/03/2024 1411 Ordering Location: [facility] Lab Received: 07/03/2024 1411 Pathologist: Isra Aviles MD Specimen: Bone Marrow Aspirate, [id number] 07/10/2024 2:24 PM EST [facility] Final Diagnosis PERIPHERAL BLOOD AND BONE MARROW, PERIPHERAL SMEAR, ASPIRATE SMEAR, CLOT SECTION AND CORE BIOPSY (OUTSIDE ; COLLECTED ON 06/05/2024): - NORMOCELLULAR BONE MARROW WITH MATURING TRILINEAGE HEMATOPOIESIS, SEE COMMENT. - FLOW CYTOMETRY DETECTED 1% B-CELL POPULATION WITH ELEVATED KAPPA TO LAMBDA RATIO OF 8.2 REPORTEDLY. 07/10/2024 2:24 PM [facility] at 1424 EST Comment Patient's history of follicular lymphoma (2018) and subsequent diffuse large B-cell lymphoma (2022) is noted ([id number]). According to the report, the concurrent flow cytometric analysis detected 1% population of B-cells with an increased kappa to lambda ratio of 8.2. The findings are those of a normocellular bone marrow with maturing trilineage hematopoiesis and no morphologic evidence of an atypical lymphoid proliferation. It should be noted however, that the staining quality of the aspirate smears is suboptimal for morphologic assessment. Examination of the core biopsy and the provided immunostains for CD3 and CD20 also do not show evidence of involvement by a B-cell lymphoma. Clinical correlation is essential. 07/10/2024 2:24 PM EST [facility] Clinical Information History of B-cell lymphoma 07/10/2024 2:24 PM [facility] CBC and Differential Review of the peripheral smear shows mild macrocytic anemia. White blood cells and platelets appear adequate and show normal morphology. 07/10/2024 2:24 PM [facility] Bone Marrow Differential BONE MARROW DIFFERENTIAL: 200 cells Normal Patient Neutrophils 15-50 33 Metamyelocytes 4-19 7 Myelocytes 1-18 12 Promyelocytes 1-8 0 Blasts 0-2 0 Monocytes 0-5 2 Erythroid 16-38 31 Lymphocytes 3-24 6 Eosinophils 0-6 7 Basophils 0-2 0 Plasma cells 0-4 2 Other 07/10/2024 2:24 PM [facility] Aspirate Smear Staining quality of the bone marrow aspirate smears is suboptimal for morphologic assessment. There is maturing trilineage hematopoiesis. Erythroid and myeloid precursors show full spectrum of maturation. Blasts are not increased. Overt dysplastic features are not identified. The myeloid to erythroid ratio is 1.9 (Normal:1.5-4). Megakaryocytes are present and demonstrate normal morphology. 07/10/2024 2:24 PM [facility] Core Biopsy CELLULARITY: Slightly hypocellular bone marrow. The cellularity is approximately 20-30%. M:E RATIO: The M:E ratio is normal. MYELOID SERIES: Granulopoiesis is maturing. ERYTHROID SERIES: Erythropoiesis is normoblastic. MEGAKARYOCYTES: The megakaryocytes are present and show normal morphology. PLASMA CELLS: There are few scattered plasma cells. LYMPHOID CELLS: Multiple small lymphoid aggregates are noted that show predominance of T-cells by the provided immunostains for CD3 and CD20. B cells constitute minority of lymphocytes in the lymphoid aggregate as expected in reactive lymphoid aggregates. OTHER CELLS: Extrinsic cells are not identified. TRABECULAR BONE: Keyla trabeculae are normal. 07/10/2024 2:24 PM [facility] Clot Section Clot sections show predominantly blood with small fragments of a normocellular bone marrow with maturing trilineage hematopoiesis. The provided immunostains for CD20 and CD3 show no atypical lymphoid aggregates. 07/10/2024 2:24 PM [facility] Flow Cytometry Interpretation According to the report, the concurrent flow cytometry performed at the outside institution revealed a 1% B-cell population with an increased kappa:lambda ratio of 8.2 and granulocytes with partial, non-specific CD56 expression. 07/10/2024 2:24 PM [facility] CYTOGENETICS/MOLE CULAR INTERPRETATION Per accompanying pathology report, cytogenetics showed a normal male karyotype. 07/10/2024 2:24 PM EST [facility] Gross Description A. [id number] Received along with a corresponding pathology report from [facility] are 19 slides labeled outside case: [id number] collected on 06/05/2024. 07/10/2024 2:24 PM EST [facility] Note: A resident was involved in the service. I attest I examined the relevant preparations for the specimens and confirmed the diagnosis or interpretation. 07/10/2024 2:24 PM EST [facility] Bone Marrow Specimen from bone marrow obtained by aspiration / Unknown 07/03/2024 2:11 PM EST 07/03/2024 2:11 PM EST us Mayela Moore MD LAB PATHOLOGY ORDERABLES Final R esult [facility] [address] [place] [address] documented in this encounter Visit Diagnoses Diagnosis Hodgkin lymphoma, unspecified, unspecified site (CMS/HCC) documented in this encounter Additional Health Concerns Assessment Noted Time A fall risk assessment has been complete d for the patient 06/23/2024 12:28 PM EST documented as of this encounter Care Teams Health Facilities Surveyor Relationship Specialty Start Date End Date Magui Benjamin, ULISES [address] [place] [address] PCP - General 06/23/24 documented as of this encounter
--- OUTSIDE RECORDS SUMMARY | 2024-12-19 07:45 | XMS_ITS | Encounter Summary ---
Author Organization [facility] Address [address] [place] [address] Care Team Providers Care Shop Manager Name Role Phone Magui Benjamin APRN Primary Care Provider Encounter Details Date Type Department Care Team (Late st Contact Info) Description 06/01/2024 Orders Only External Location [address] [place] [address] Provider, External Social History Tobacco Use Types Packs/Day Years Used Date Smoking Tobacco: Never Assessed Sex and Gender Information Value Date Recorded Sex Assigned at Not on file Legal Sex Male 8:25 PM EDT Gender Identity Not on file Sexual Orientation Not on file documented as of this encounter Plan of Treatment Not on file documented as of this encounter Procedures Procedure Name Priority Date/Time Associated Diagnosis Comments CT NEURO OUTSIDE IMAGES 06/01/2024 12:04 PM EST documented in this encounter Results * CT NEURO OUTSIDE IMAGES (06/01/2024 12:04 PM EST) Anatomical Region Laterality Modality Computed Tomogra phy 06/01/2024 12:0 4 PM EST us External Provider IMG CT PROCEDURES Final Result documented in this encounter Visit Diagnoses Not on filedocumented in this encounter Care Teams Shop Manager Relationship Specialty Start Date End Date Magui Benjamin APRN [address] [id number] PCP - General 06/23/24 documented as of this encounter
--- OUTSIDE RECORDS SUMMARY | 2024-12-19 07:45 | XMS_ITS | Referral Summary ---
Author Organization [employer] Address [address] [place] [address] Care Team Providers Care Ethanol Operator Name Role Phone Unavailable Primary Care [...] Date Carrillo rded Speak language other than Malian at home Not on file 07/30/2023 Want [...] Orientation Not on file Plan of Treatment Not on file
--- OUTSIDE RECORDS SUMMARY | 2024-12-19 07:45 | XMS_ITS | Encounter Summary ---
Author Organization [employer] [facility] Address [address] [place] [address] Care Team Providers Care Dietary Service Aide Name Role Phone Unavailable Primary Care Provider Unavailabl e Encounter Details Date Type Department Care Team (Late st Contact Info) Description 05/16/2021 Transcribed Document [facility] [place] Family Medicine [address] [place] [address] ProviderAiden MD [address] [place] [address] Social History Tobacco Use Types [...] Conversion Note - Historical ProviderMD - 05/16/2021 4:40 PM CDT Nursing Discharge Summary Entered On: 05/16/2021 16:41 EDT Performed On: 05/16/2021 16:40 EDT by REMY BOSS RN Discharge Documentation Discharge Date/Time : 05/16/2021 16:40 EDT Patient Disposition, General : Discharge Discharge To : Home with ambulatory/outpatient follow-up Mode Of Departure, General Discharge : Wheelchair Accompanied By, Discharge : Spouse IV Discontinued : Yes Personal Belongings With Patient : Yes Prescriptions Given to Patient : No Discharge Instructions Reviewed With, Opportunity For Questions Given : Patient, Spouse Patient Education Completed : Yes Teaching Method : Explanation Teaching Evaluation : Returns demonstration, Verbalizes understanding REMY BOSS RN - 05/16/2021 16:40 EDT Electronically signed by [facility] Conversion Heel Builder Cerner at 10/27/2022 10:30 PM CDT documented in this encounter Plan of Treatment Not on file documented as of this encounter Visit Diagnoses Not on filedocumented in this encounter
--- NOTE | 2024-12-19 08:00 | CT_ITS ---
FINAL REPORT TECHNIQUE: Routine axial images were obtained from the lung apices to below the diaphragm following IV contrast administration. Individualized dose reduction techniques using automated exposure control or adjustment of the mA and/or kV according to the patient size were employed. CLINICAL HISTORY: Lymphoma COMPARISON: 09/11/2022 FINDINGS: There is no evidence of mediastinal mass or adenopathy. The previously identified axillary lymph nodes have significantly decreased in size. Lymph nodes are no longer significantly enlarged. The previously identified and large node at the base of the left neck has significantly decreased in size now measuring 1.3 x 0.7 cm. No pleural or pericardial effusion is seen. The lungs are clear. IMPRESSION: Significant decrease in size of the previously identified axillary lymph nodes and enlarged node at the left base. Recommend follow-up as indicated. Reviewed, Interpreted and Dictated by Yousif Marie MD Transcribed by Lamar Dixon Authenticated and [facility]
--- NOTE | 2024-12-19 08:00 | CT_ITS ---
FINAL REPORT TECHNIQUE: After the administration of oral and intravenous contrast, axial images were obtained through the abdomen and pelvis by computed tomography. The study was performed with techniques to keep radiation dose as low as reasonably achievable, (ALARA). Individual dose reduction techniques using automated exposure control or adjustment of mA and/or kV according to the patient's size were employed. CLINICAL HISTORY: LYMPHOMA COMPARISON: 09/11/2024 FINDINGS: Abdomen: The liver parenchyma is homogeneous. The gallbladder is present. There is a benign-appearing cyst in the posterior spleen measuring 1.3 cm. The pancreas, adrenals and kidneys appear unremarkable. The aorta is normal in caliber. There is no free fluid. Pelvis: The appendix is normal. There is a right urinary bladder diverticulum. No pelvic mass or inflammation is identified. The previously identified extensive retroperitoneal, iliac, and inguinal adenopathy has resolved. There is advanced changes of degenerative disc disease at L4-5 and L5-S1. IMPRESSION: Interval resolution of previously described adenopathy. Reviewed, Interpreted and Dictated by Yousif Marie MD Transcribed by Lamar Dixon Authenticated and [facility]
[2024-12-19] MEDS: SODIUM CHLORIDE 0.9% 10ML SYR (RAD ONLY) 10 ML IV (08:18)
[2024-12-19] MEDS: IOPAMIDOL-370 (76%);100ML BOTTLE 75 ML IV (08:18)
== END 2024-12-19 23:59 | disposition home or self-care (01) ==
LOC: RAD 07:41
PROVIDERS: PCP Nurse Practitioner Family; Visit Provider Internal Medicine Medical Oncology
DX: D73.4 Cyst of spleen (principal); N32.3 Diverticulum of bladder; M51.379 Other intervertebral disc degeneration, lumbosacral region without mention of lumbar back pain or lower extremity pain; R59.9 Enlarged lymph nodes, unspecified
CPT/HCPCS: 71260; 74177; Q9967

== ENCOUNTER 2025-01-02 08:17 | Outpatient (CLI) | payer MEDICARE, SELFPAY ==
[2025-01-02 08:19] VITALS: BMI 29.4
--- OUTSIDE RECORDS SUMMARY | 2025-01-02 08:21 | XMS_ITS | Encounter Summary ---
Author Organization [employer] Address [address] [place] [address] Care Team Providers Care Loading Manager Name Role Phone Unavailable Primary Care Provider Unavailabl e Encounter Details Date Type Department Care Team (Late st Contact Info) Description 05/16/2021 Transcribed Document [facility] Family Medicine [facility] [place] [address] ProviderAiden [place] [address] Social History Tobacco Use Types [...] Source : Stated Height Entry Format : [place] Height, Feet : 5 ft(Converted to: 152 cm, 60 Inch) Height, Inches : 11 Inch(Converted to: 0 ft 11 Inch, 27.94 cm) Clinical Height : 180.34 cm Weight Source : Standing scale Weight Entry Format : [place] Clinical Dosing Weight : 88.64 kg Weight, Pounds : 195 lb Body Surface Area (BSA) : 2.09 m2 Body Mass Index : 27.3 kg/m2 (HI) [place] Body Weight : 74 kg REMY BOSS [...] REMY BOSS RN - 05/16/2021 9:03 EDT [place] Suicide Severity Rating Scale (C-SSRS) CSSRS Past [...] understanding Responsible Adult : Verbalizes understanding REMY BOSS RN - 05/16/2021 9:03 EDT General Info [...] Obtained From : Patient Primary Language : Syriac Preferred Communication Mode : Verbal Communication Barrier : None Acquisitions Assistant Needed : No Objects to Sharing Info [...] Scale Risk Level : 0-24 Low Risk [place] Fall Interventions : Adequate lighting, Hourly comfort/safety [...]
--- OUTSIDE RECORDS SUMMARY | 2025-01-02 08:21 | XMS_ITS | Encounter Summary ---
Author Organization [employer] Address [address] [place] [address] Care Team Providers Care Vacuum Extractor Operator Name Role Phone Unavailable Primary Care Provider Unavailabl e Encounter Details Date Type Department Care Team (Late st Contact Info) Description 05/16/2021 Transcribed Document [facility] [facility] [place] [address] ProviderAiden MD [address] [place] [address] Social History Tobacco Use Types [...]
--- OUTSIDE RECORDS SUMMARY | 2025-01-02 08:21 | XMS_ITS | Encounter Summary ---
Author Organization [employer] Address [address] [place] [address] Care Team Providers Care Bottom Stainer Name Role Phone Unavailable Primary Care Provider Unavailabl e Encounter Details Date Type Department Care Team (Late st Contact Info) Description 05/16/2021 Transcribed Document [facility] [place] Family Medicine [facility] [place] [place] [address] ProviderAiden MD [facility] [place] [address] Social History Tobacco Use Types Packs/Day Years Used Date Smoking Tobacco: Never Assessed Sex and Gender Information Value Date Recorded Sex Assigned at Male 01/06/2022 6:36 PM CDT Legal Sex Male 6:36 PM CDT Gender Identity Male 01/06/2022 6:36 PM CDT Sexual Orientation Not on file documented as of this encounter Miscellaneous Notes * Cerner Conversion Note - Aiden ProviderMD - 05/16/2021 8:30 AM CDT Patient: JOSE MENSAH Age: 65 years Sex: Male : 1955 Associated Diagnoses: None Author: LUCIEN TONG MD Basic Information PCP: Kenroy Chavez MD Primary Watch Inspector: Edyta Guerra MD Chief Complaint Newly decreased [...] Available Past Medical History: Active Atrial fibrillation ([id number]) Cardiomyopathy ([id number]) Family History: Brain tumor Sister () Procedure [...] of motion, Normal strength. Integumentary: Warm, Dry, [place]. Neurologic: Alert, Oriented. Psychiatric: Cooperative, Appropriate mood [...]
--- OUTSIDE RECORDS SUMMARY | 2025-01-02 08:21 | XMS_ITS | Clinical Summary ---
Author Organization [employer] Address [address] [place] [address] Care Team Providers Care Tool And Gauge Inspector Name Role Phone Unavailable Primary Care Provider [...] Date Carrillo rded Speak language other than Eritrean at home Not on file 07/30/2023 Want [...]
--- OUTSIDE RECORDS SUMMARY | 2025-01-02 08:21 | XMS_ITS | Encounter Summary ---
Author Organization [employer] Address [address] [place] [address] Care Team Providers Care Associate Professor Of Archaeology Name Role Phone Unavailable Primary Care Provider Unavailabl e Encounter Details Date Type Department Care Team (Late st Contact Info) Description 05/16/2021 Transcribed Document [facility] [place] [address] [place] [address] ProviderAiden MD [address] [place] [address] Social History Tobacco Use Types [...] Alex MD - 05/16/2021 4:04 PM CDT [facility] [place] [address] JOSE MENSAH :1955 Visit Time:05/16/2021 Your [...] appointment with Dr. Madera as scheduled. Where: [address] [place], [place] [id number]- Business (1) Medications What How Much When [...] you are awake and alert. ??? Take geeo-yci-vbimizm and prescription medicines only as told by [...] provider. Document Revised: 05/23/2020 Document Reviewed: 05/23/2020 foodpanda / hellofood Patient Education ?? 2020 Optify. Radial Site Care This sheet gives you [...] these instructions at home: Medicines ??? Take ghkz-cde-ccdbpzz and prescription medicines only as told by your health care provider. Insertion site care ??? Follow instructions from your health care provider about how to take care of your insertion site. Make sure you: ? Wash your hands with soap and water before you change your bandage (dressing). If soap and water are not available, use hand public health nurse. ? Change your dressing as told by [...] provider. Document Revised: 08/03/2018 Document Reviewed: 08/03/2018 foodpanda / hellofood Patient Education ?? 2020 Optify. Angiogram, Care After This sheet gives you [...] and water are not available, use hand public health nurse. ? Change your dressing as told by [...] This is a medical emergency. ??? Take yybc-zgx-eyfbqjh and prescription medicines only as told by [...] Reviewed: 05/01/2020 Elsevier Patient Education ?? 2020 [employer]Corindus Inc. Emergency Awareness and Preventative Care STROKE [...] Assistance with quitting is available by contacting 4-909-LWGFNOW. This is a free resource providing counseling, support, and referral. Or you may contact your personal physician. [facility]: The National Suicide Prevention Lifeline is a [...] was given the opportunity to ask questions. Patient/Water Analyst Name: Patient/Water Analyst Signature: Relationship to Patient: Clinician/Hospital Water Analyst Signature: Date: documented in this encounter Plan of Treatment Not on file documented as of this encounter Visit Diagnoses Not on filedocumented in this encounter
--- OUTSIDE RECORDS SUMMARY | 2025-01-02 08:21 | XMS_ITS | Clinical Summary ---
Author Organization [facility] Address [address] [place] [address] Phone Care Team Providers Care Counter Clerk Name Role Phone Gricelda Cox MD Unavailable [phone] Allergies No known active allergies Medications [...] Active fluticasone propionate (FLONASE) 50 mcg/actuation Nasl Scurry, Suspension 2 Sprays by Nasal route daily. Administer 2 sprays into each nostril daily Active simvastatin (ZOCOR) 20 mg Oral Tablet Take 20 mg by mouth nightly. Active food supplement (ENSURE) Oral Take 1 Bottle by mouth daily. Active Active Problems Problem Noted Date Diagnosed Date Bacteremia 11/27/2022 Paroxysmal atrial fibrillation 11/27/2022 Lymphoma 11/25/2022 Neutropenia 11/25/2022 STEPHANEI (acute kidney injury) 11/25/2022 Hyponatremia 11/25/2022 Pancytopenia [...] topic Insurance [place] [facility] [place] [place] [address] [facility] MEDICARE PPO [place] [id number] [employer] MEDICARE PPO MR AETNA [facility] [place] [address] MEDICARE PPO MR [facility] [address] Advance Directives For more information, please contact: [phone] * Full Code (Latest Code Status on File) Date Activated Date Inactivated Comments 12/02/2022 11:11 AM 12/04/2022 7:53 PM * Full Code Date Activated Date Inactivated Comments 11/24/2022 11:52 PM 12/01/2022 2:40 AM Care Teams Counter Clerk Relationship Specialty Start Date End Date Gricelda Cox MD [address] [place] [address] Medical Oncologist Internal Medicine-Medical Oncology 11/26/22
--- OUTSIDE RECORDS SUMMARY | 2025-01-02 08:22 | XMS_ITS | Clinical Summary ---
Author Organization [facility] Address [address] [place] [address] Care Team Providers Care Analytical Sciences Director Name Role Phone Sourav Magui Davalos APRN Primary Care Provider [phone] Allergies No known active allergies Medications atorvastatin [...] [facility] Hematology/BMT and Cellular Therapy Program [address] [place] [address] Mayela Moore MD Follicular lymphoma of lymph nodes of multiple regions, unspecified follicular lymphoma type (CMS/HCC) (Primary Dx); Lymphoma, unspecified body region, unspecified lymphoma type (CMS/HCC); Atrial fibrillation, unspecified type (CMS/HCC) 10/03/2024 Travel from Last 3 Months Social History [...] Done Comments [facility]-Medicare Annual Wellness (AWV) 1955 [facility]-/Child/Adol SDOH Screenings 1955 [facility]- SDOH Screenings 1974 [...] [facility]-Abdominal Aortic Aneurys m (AAA) Screening 2021 CGU-NOEYC-70 Vaccine ( season) 2024 05/24/2021, 11/30/2020 [facility]-Influenza [...] Antibody Negative Negative 06/23/2024 1:15 PM EST [facility] Blood Venous blood specimen / Unknown Venipuncture / Unknown 06/23/2024 11:48 AM EST 06/23/2024 12:26 PM EST us Mayela Moore MD LAB BLOOD ORDERABLES Final Resul t [facility] [address] [place] [address] from Last 3 Months or Most Recently Relevant to Health Maintenance Insurance MEDICARE Care Teams Analytical Sciences Director Relationship Specialty Start Date End Date Magui Benjamin APRN [address] [place] [address] PCP - General 06/23/24
--- OUTSIDE RECORDS SUMMARY | 2025-01-02 08:22 | XMS_ITS | Encounter Summary ---
Author Organization Address [address] [place] [id number] Care Team Providers Care Dog Or Horse Racing Official Name Role Phone Magui Benjamin APRN Primary Care Provider [phone] Encounter Details Date Type Department Care Team (Late st Contact Info) Description 07/03/2024 Lab Requisition [facility] [address] [place] [address] Mayela Moore MD 800 [facility] [address] [place] [phone] Enlarged lymph nodes, unspecified Social History Tobacco [...] 2:04 PM EST) Case Report Cytology Case: [id number] Authorizing Provider: Mayela Moore MD Collected: 07/03/20241403 Ordering Location: [facility] Received: 07/03/2024 1404 Pathologist: Isra Aviles MD Specimen: Lymph Node, [id number] 07/05/2024 6:55 PM EST [facility] Final Diagnosis A. LYMPH NODE, LEFT, FINE NEEDLE ASPIRATION (OUTSIDE ; COLLECTED ON 05/24/2024): - ATYPICAL LYMPHOID STROMA, SEE COMMENT. 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 The cell block and smears show population [...] would be recommended. 07/05/2024 6:55 PM EST [facility] Clinical Information History of follicular lymphoma and diffuse large B-cell lymphoma 07/05/2024 6:55 PM EST [facility] Gross Description A. [id number] Received along with a corresponding pathology report from [facility] are 2 slides labeled outside case: [id number] collected on 05/24/2024. 07/05/2024 6:55 PM EST [facility] Fine Needle Aspirate Lymph node specimen / Unknown 07/03/2024 2:04 PM EST 07/03/2024 2:04 PM EST us Mayela Moore MD LAB PATHOLOGY ORDERABLES Final R esult [facility] [address] [place] [address] documented in this encounter Visit Diagnoses Diagnosis Enlarged lymph nodes, unspecified documented in this encounter Additional Health Concerns Assessment Noted Time A fall risk assessment has been complete d for the patient 06/23/2024 12:28 PM EST documented as of this encounter Care Teams Dog Or Horse Racing Official Relationship Specialty Start Date End Date Magui Benjamin, SUGAR TRUCKER [address] [place] [address] PCP - General 06/23/24 documented as of this encounter
--- OUTSIDE RECORDS SUMMARY | 2025-01-02 08:22 | XMS_ITS | Referral Summary ---
Author Organization [facility] [employer] Address [address] [place] [address] Care Team Providers Care Salvage Mechanic Name Role Phone Unavailable Primary Care Provider [...] Date Carrillo rded Speak language other than Kazakh at home Not on file 07/30/2023 Want [...]
--- OUTSIDE RECORDS SUMMARY | 2025-01-02 08:22 | XMS_ITS | Encounter Summary ---
Author Organization [facility] Address [address] [id number] Care Team Providers Care Process Improvement Consultant Name Role Phone Magui Benjamin APRN Primary Care Provider [phone] Encounter Details Date Type Department Care Team (Late st Contact Info) Description 07/03/2024 Lab Requisition [facility] [address] [place] [address] Mayela Moore MD 800 [facility] [address] [place] [phone] Hodgkin lymphoma, unspecified, unspecified site (CMS/HCC) Social [...] PM EST) Case Report Bone Marrow Case: [id number] Authorizing Provider: Mayela Moore MD Collected: 07/03/2024 1411 Ordering Location: [facility] Lab Received: 07/03/2024 1411 Pathologist: Isra Aviles MD Specimen: Bone Marrow Aspirate, [id number] 07/10/2024 2:24 PM EST [facility] Final Diagnosis PERIPHERAL BLOOD AND BONE MARROW, PERIPHERAL SMEAR, ASPIRATE SMEAR, CLOT SECTION AND CORE BIOPSY (OUTSIDE ; COLLECTED ON 06/05/2024): - NORMOCELLULAR BONE MARROW WITH MATURING TRILINEAGE HEMATOPOIESIS, SEE COMMENT. - FLOW CYTOMETRY DETECTED 1% B-CELL POPULATION WITH ELEVATED KAPPA TO LAMBDA RATIO OF 8.2 REPORTEDLY. 07/10/2024 2:24 PM [facility] at 1424 EST Comment Patient's history of follicular lymphoma (2018) and subsequent diffuse large B-cell lymphoma (2022) is noted ([id number]). According to the report, the concurrent flow [...] correlation is essential. 07/10/2024 2:24 PM EST [facility] Clinical Information History of B-cell lymphoma 07/10/2024 2:24 PM [facility] CBC and Differential Review of the peripheral smear shows mild macrocytic anemia. White blood cells and platelets appear adequate and show normal morphology. 07/10/2024 2:24 PM [facility] Bone Marrow Differential BONE MARROW DIFFERENTIAL: 200 cells Normal Patient Neutrophils 15-50 33 Metamyelocytes 4-19 7 Myelocytes 1-18 12 Promyelocytes 1-8 0 Blasts 0-2 0 Monocytes 0-5 2 Erythroid 16-38 31 Lymphocytes 3-24 6 Eosinophils 0-6 7 Basophils 0-2 0 Plasma cells 0-4 2 Other 07/10/2024 2:24 PM [facility] Aspirate Smear Staining quality of the bone marrow aspirate smears is suboptimal for morphologic assessment. There is maturing trilineage hematopoiesis. Erythroid and myeloid precursors show full spectrum of maturation. Blasts are not increased. Overt dysplastic features are not identified. The myeloid to erythroid ratio is 1.9 (Normal:1.5-4). Megakaryocytes are present and demonstrate normal morphology. 07/10/2024 2:24 PM [facility] Core Biopsy CELLULARITY: Slightly hypocellular bone [...] Keyla trabeculae are normal. 07/10/2024 2:24 PM [facility] Clot Section Clot sections show predominantly blood with small fragments of a normocellular bone marrow with maturing trilineage hematopoiesis. The provided immunostains for CD20 and CD3 show no atypical lymphoid aggregates. 07/10/2024 2:24 PM [facility] Flow Cytometry Interpretation According to the report, the concurrent flow cytometry performed at the outside institution revealed a 1% B-cell population with an increased kappa:lambda ratio of 8.2 and granulocytes with partial, non-specific CD56 expression. 07/10/2024 2:24 PM [facility] CYTOGENETICS/MOLE CULAR INTERPRETATION Per accompanying pathology report, cytogenetics showed a normal male karyotype. 07/10/2024 2:24 PM EST [facility] Gross Description A. [id number] Received along with a corresponding pathology report from [facility] Laboratory are 19 slides labeled outside case: [id number] collected on 06/05/2024. 07/10/2024 2:24 PM EST [facility] Note: A resident was involved in the service. I attest I examined the relevant preparations for the specimens and confirmed the diagnosis or interpretation. 07/10/2024 2:24 PM EST [facility] Bone Marrow Specimen from bone marrow obtained by aspiration / Unknown 07/03/2024 2:11 PM EST 07/03/2024 2:11 PM EST us Mayela Moore MD LAB PATHOLOGY ORDERABLES Final R esult [facility] [address] [place] [address] documented in this encounter Visit Diagnoses Diagnosis Hodgkin lymphoma, unspecified, unspecified site (CMS/HCC) documented in this encounter Additional Health Concerns Assessment Noted Time A fall risk assessment has been complete d for the patient 06/23/2024 12:28 PM EST documented as of this encounter Care Teams Process Improvement Consultant Relationship Specialty Start Date End Date Maugi Benjamin, ULISES [address] [place] [address] PCP - General 06/23/24 documented as of this encounter
--- OUTSIDE RECORDS SUMMARY | 2025-01-02 08:22 | XMS_ITS | Encounter Summary ---
Author Organization [facility] Address [address] [place] [address] Care Team Providers Care Auto Overhauler Name Role Phone Magui Benjamin APRN Primary Care Provider [phone] Encounter Details Date Type Department Care Team (Late st Contact Info) Description 06/01/2024 Orders Only External Location [address] [place] [address] Provider, External Social History Tobacco Use Types [...] on filedocumented in this encounter Care Teams Auto Overhauler Relationship Specialty Start Date End Date Magui Benjamin APRN [address] [id number] PCP - General 06/23/24 documented as of this encounter
--- OUTSIDE RECORDS SUMMARY | 2025-01-02 08:22 | XMS_ITS | Encounter Summary ---
Author Organization [email or web address] Address [address] [place] [address] Care Team Providers Care Maintenance Man Name Role Phone Unavailable Primary Care Provider Unavailabl e Encounter Details Date Type Department Care Team (Late st Contact Info) Description 05/16/2021 Transcribed Document [facility] [place] Family Medicine [facility] [place] [address] ProviderAiden MD [address] [place] [address] Social History Tobacco Use Types [...] these instructions at home: Medicines ??? Take yngd-njy-cdceehu and prescription medicines only as told by your health care provider. Insertion site care ??? Follow instructions from your health care provider about how to take care of your insertion site. Make sure you: ? Wash your hands with soap and water before you change your bandage (dressing). If soap and water are not available, use hand document preparation specialist. ? Change your dressing as told by [...] provider. Document Revised: 08/03/2018 Document Reviewed: 08/03/2018 [employer]ish[employer] Patient Education ? 2020 [employer] Pharmacology Moderate Conscious Sedation, Adult, Care [...] you are awake and alert. ??? Take hjjr-cok-efgdrby and prescription medicines only as told by [...] provider. Document Revised: 05/23/2020 Document Reviewed: 05/23/2020 [employer]ish[employer] Patient Education ? 2020 [employer]. Radiology Angiogram, Care After This sheet [...] and water are not available, use hand document preparation specialist. ? Change your dressing as told by [...] This is a medical emergency. ??? Take ahhf-lfo-ezncgip and prescription medicines only as told by [...] provider. Document Revised: 05/01/2020 Document Reviewed: 05/01/2020 [employer]ish[employer] Patient Education ? 2020 [employer]. documented in this encounter Plan of Treatment Not on file documented as of this encounter Visit Diagnoses Not on filedocumented in this encounter
--- OUTSIDE RECORDS SUMMARY | 2025-01-02 08:22 | XMS_ITS ---
Author Organization [facility] Address [address] [place] [address] Care Team Providers Care Satellite Manager Name Role Phone Magui Benjamin APRN Primary Care Provider [phone] Active Problems Problem Noted Date Diagnosed Date Atrial fibrillation 2024 Follicular lymphoma of lymph nodes of multiple r egions 2024 Current Treatment and Therapy Plans No current plan information found. Past Treatment and Therapy Plans No past plan information found. Lifetime Dose Tracking * Chemical Lifetime Dose Automatic Entry Manual Entr y CTDIvol 113 mGy 113 mGy 0 mGy Radiation (DLP) 906 mGy-cm 906 mGy-cm 0 mGy-cm
--- OUTSIDE RECORDS SUMMARY | 2025-01-02 08:22 | XMS_ITS | Encounter Summary ---
Author Organization [employer] Address [address] [place] [address] Care Team Providers Care Real Estate Recruiter Name Role Phone Unavailable Primary Care Provider Unavailabl e Encounter Details Date Type Department Care Team (Late st Contact Info) Description 05/16/2021 Transcribed Document [facility] [place] [address] [place] [address] ProviderAiden MD [address] [place] [address] Social History Tobacco Use Types [...] 05/16/2021 16:40 EDT Electronically signed by Chantel [facility] Conversion Thermoforming Machine Operator Cerner at 10/27/2022 10:30 PM CDT documented in this encounter Plan of Treatment Not on file documented as of this encounter Visit Diagnoses Not on filedocumented in this encounter
--- OUTSIDE RECORDS SUMMARY | 2025-01-02 08:22 | XMS_ITS | Encounter Summary ---
Author Organization [facility] Address [address] [id number] Care Team Providers Care Core Blower Name Role Phone Magui Benjamin APRN Primary Care Provider [phone] Encounter Details Date Type Department Care Team (Late st Contact Info) Description 07/03/2024 Lab Requisition [facility] [address] [place] [address] Mayela Moore MD 800 [facility] [address] [place] [phone] Malignant neoplasm of head, face and neck [...] -2 Score 0 07/06/2024 9:42 AM EST [place], Myriam L documented as of this encounter Plan of Treatment Not on file documented as of this encounter Procedures Procedure Name Priority Date/Time Associated Diagnosis Comments SURGICAL PATHOLOGY CONSULT Routine 07/03/2024 2:19 PM EST Malignant neoplasm of head, face and neck (CMS/HCC) documented in this encounter Results * Surgical Pathology Consult (07/03/2024 2:19 PM EST) Case Report Sugical Pathology Consult Case: [id number] Authorizing Provider: Mayela Moore MD Collected: 07/03/2024 1419 Ordering Location: [facility] Received: 07/03/2024 1420 Pathologist: Isra Aviles MD Specimens: A) - Neck, [id number] B) - Lymph Node, [id number] 07/05/2024 6:14 PM EST [facility] Final Diagnosis OUTSIDE ; COLLECTED 12/22/2018 A. LYMPH NODE, LEFT NECK, DEEP JUGULAR, BIOPSY: - CLASSIC FOLLICULAR LYMPHOMA, SEE COMMENT. OUTSIDE ; COLLECTED 08/05/2022 A. 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 07/05/2024 6:14 PM EST [facility] at 1813 EST Comment OUTSIDE ; COLLECTED [...] of previous follicular lymphoma. 07/05/2024 6:14 PM [facility] Clinical Information C76.0 - Malignant neoplasm of head, face and neck [ICD-10-CM] 07/05/2024 6:14 PM [facility] Gross Description A. [id number] Received along with a corresponding pathology report from [facility] Laboratory are 24 slides labeled outside case: [id number] collected on 12/22/2018. B. [id number] Received along with a corresponding pathology report from [facility] are 19 slides labeled outside case: [id number] collected on 08/05/2022. 07/05/2024 6:14 PM [facility] Note: A resident was involved in the service. I attest I examined the relevant preparations for the specimens and confirmed the diagnosis or interpretation. 07/05/2024 6:14 PM [facility] Tissue Lymph node specimen / Unknown 07/03/2024 2:19 PM EST 07/03/2024 2:20 PM EST Tissue specimen (specimen) Lymph node specimen / Unknown 07/03/2024 2:19 PM EST 07/03/2024 2:20 PM EST us Mayela Moore MD LAB PATHOLOGY ORDERABLES Final R esult [facility] [address] [place] [address] documented in this encounter Visit Diagnoses Diagnosis Malignant neoplasm of head, face and neck (CMS/HCC) Malignant neoplasm of head, face, and neck documented in this encounter Additional Health Concerns Assessment Noted Time A fall risk assessment has been complete d for the patient 06/23/2024 12:28 PM EST documented as of this encounter Care Teams Core Blower Relationship Specialty Start Date End Date Magui Benjamin, ULISES [address] [place] [address] PCP - General 06/23/24 documented as of this encounter
[2025-01-02 08:36] LABS: Basophils % 0.7 % (0.1-2.0); Eosinophils # 0.2 Kmm3 (0.0-0.4); Eosinophils % 5.4 % (0.1-12.0); Hematocrit 31.9 % (42.0-52.0); Hemoglobin 10.8 g/dL (14.1-18.0); Immature Granulocytes # 0.01 10^3uL; Immature Granulocytes % 0.4 %; Lymphocytes # 0.5 K/mm3 (0.7-4.5); Mean Corpuscular HGB Conc 33.9 g/dL (31.8-35.4); Mean Corpuscular Hemoglobin 33.6 pg (27.0-31.2); Mean Corpuscular Volume 99.4 fl (80-94); Mean Platelet Volume 9.8 fl (7.4-10.4); Monocytes # 0.5 K/mm3 (0.1-1.0); Monocytes % 16.6 % (1.7-9.3); Neutrophils # 1.7 K/mm3 (1.8-7.8); Neutrophils % 59.9 % (37.0-80.0); Nucleated Red Blood Cells # 0 10^3/uL; Nucleated Red Blood Cells % 0 %; Platelet Count 108 K/mm3 (142-424); Red Blood Count 3.21 M/mm3 (4.60-6.20); Red Cell Distribution Width 15.7 % (11.5-17.5); Red Cell Distribution Width-SD 57.5 fL; White Blood Count 2.8 K/mm3 (4.8-10.8)
[2025-01-02 08:42] LABS: Albumin Level 4.1 g/dl (3.5-5.0); Chloride 102 mmol/L (98-107)
[2025-01-02 08:43] LABS: Potassium 4.2 mmoL/L (3.5-5.1); Sodium 136 mmol/L (136-145)
[2025-01-02 08:45] LABS: Alanine Aminotransferase 24 U/L (12-78); Anion Gap 12.2 mEq/L (5-15); Aspartate Amino Transferase 31 U/L (17-59); Blood Urea Nitrogen 12 mg/dl (9-20); Carbon Dioxide 26 mmol/L (22.0-30.0); Creatinine Clearance Estimated 96 mL/min (50-200); Estimated Glomerular Filt Rate 84 ml/min (>60); GFR (African American) 102 ML/MIN (>60)
[2025-01-02 08:46] LABS: Albumin/Globulin Ratio 1.6 (1.1-1.8); Alkaline Phosphatase 70 U/L (38-126); Bilirubin,Total 0.6 mg/dl (0.2-1.3); Calcium 9.2 mg/dl (8.4-10.2); Globulin 2.5 g/dL (1.3-3.2); Glucose 128 mg/dl (74-100); MANUAL DIFFERENTIAL MANUAL DIFFERENTIAL (MANUAL DIFF); Total Protein,Serum 6.6 g/dl (6.3-8.2)
[2025-01-02 09:48] VITALS: BP 90/50; PULSE 66; RESP 20; TEMP 36.3; O2SAT 98
[2025-01-02 09:48] LABS: Eosinophils % 5 % (0-3); Lymphocytes % 18 % (10-50); Monocytes % 11 % (2-9); Neutrophils % 64 % (42-76); Total Cells Counted 100
[2025-01-02] MEDS: ACETAMINOPHEN 325MG TAB 650 MG (09:48)
[2025-01-02] MEDS: ONDANSETRON 4MG ODT 16 MG (09:48)
[2025-01-02 09:49] LABS: Macrocytosis 1+; Platelet Estimate Slight Decrease
[2025-01-02] MEDS: DEXAMETHASONE 4MG TABLET 12 MG (09:49)
[2025-01-02] MEDS: 0.9 % SODIUM CHLORIDE 50 ML IV (09:49)
[2025-01-02] MEDS: diphenhydrAMINE 50MG CAPSULE 50 MG PO (09:49)
[2025-01-02 10:19] VITALS: BP 92/56; PULSE 69; RESP 20; O2SAT 97
[2025-01-02] MEDS: SODIUM CHLORIDE 0.9% IV (10:19)
[2025-01-02] MEDS: BENDAMUSTINE HCL IV (10:19)
[2025-01-02] MEDS: SODIUM CHLORIDE 0.9% 10ML FLUSH SYRINGE 10 ML IV (10:26)
[2025-01-02 11:03] VITALS: BP 89/50; PULSE 61; RESP 18; O2SAT 98
== END 2025-01-02 11:03 | disposition home or self-care (01) ==
LOC: INF 08:19
PROVIDERS: PCP Nurse Practitioner Family; Visit Provider Internal Medicine Medical Oncology
DX: C83.30 Diffuse large B-cell lymphoma, unspecified site (principal); Z51.11 Encounter for antineoplastic chemotherapy
CPT/HCPCS: 80053; 85007; 85025; 85027; 96413; J7040; J8540; J9034; Q0162

== ENCOUNTER 2025-01-03 12:12 | Outpatient (CLI) | payer MEDICARE, SELFPAY ==
--- OUTSIDE RECORDS SUMMARY | 2025-01-03 12:15 | XMS_ITS | Encounter Summary ---
Author Organization Healthcare Address [address] [id number] Care Team Providers Care Culinary Manager Name Role Phone Magui Benjamin APRN Primary Care Provider [phone] Encounter Details Date Type Department Care Team (Late st Contact Info) Description 07/03/2024 Lab Requisition [facility] [address] [place] [address] Mayela Moore MD 800 [facility] [address] [place] [phone] Malignant neoplasm of head, face and neck [...] -2 Score 0 07/06/2024 9:42 AM EST Altair, Myriam L documented as of this encounter Plan of Treatment Not on file documented as of this encounter Procedures Procedure Name Priority Date/Time Associated Diagnosis Comments SURGICAL PATHOLOGY CONSULT Routine 07/03/2024 2:19 PM EST Malignant neoplasm of head, face and neck (CMS/HCC) documented in this encounter Results * Surgical Pathology Consult (07/03/2024 2:19 PM EST) Case Report Sugical Pathology Consult Case: [id number] Authorizing Provider: Mayela Moore MD Collected: 07/03/2024 1419 Ordering Location: [facility] Lab Received: 07/03/2024 1420 Pathologist: Isra Aviles MD Specimens: A) - Neck, [id number] B) - Lymph Node, [id number] 07/05/2024 6:14 PM EST [facility] [...] of previous follicular lymphoma. 07/05/2024 6:14 PM [facility] Clinical Information C76.0 - Malignant neoplasm of head, face and neck [ICD-10-CM] 07/05/2024 6:14 PM [facility] Gross Description A. [id number] Received along with a corresponding pathology report from [facility] are 24 slides labeled outside case: [id number] collected on 12/22/2018. B. [id number] Received along with a corresponding pathology report from [facility] are 19 slides labeled outside case: [id number] collected on 08/05/2022. 07/05/2024 6:14 PM [facility] Note: A resident was involved in the service. I attest I examined the relevant preparations for the specimens and confirmed the diagnosis or interpretation. 07/05/2024 6:14 PM [facility] Tissue Lymph node specimen / Unknown 07/03/2024 2:19 PM EST 07/03/2024 2:20 PM EST Tissue specimen (specimen) Lymph node specimen / Unknown 07/03/2024 2:19 PM EST 07/03/2024 2:20 PM EST us Mayela Moore MD LAB PATHOLOGY ORDERABLES Final R esult [facility] [address] [place] [address] documented in this encounter Visit Diagnoses Diagnosis Malignant neoplasm of head, face and neck (CMS/HCC) Malignant neoplasm of head, face, and neck documented in this encounter Additional Health Concerns Assessment Noted Time A fall risk assessment has been complete d for the patient 06/23/2024 12:28 PM EST documented as of this encounter Care Teams Culinary Manager Relationship Specialty Start Date End Date Magui Benjamin, ULISES [address] [place] [address] PCP - General 06/23/24 documented as of this encounter
--- OUTSIDE RECORDS SUMMARY | 2025-01-03 12:15 | XMS_ITS | Clinical Summary ---
Author Organization [facility] Address [address] [place] [address] Phone Care Team Providers Care Infant Caregiver Name Role Phone Gricelda Cox MD Unavailable Allergies No known active allergies Medications apixaban [...] Active fluticasone propionate (FLONASE) 50 mcg/actuation Nasl [place], Suspension 2 Sprays by Nasal route daily. [...] topic Insurance [facility] [facility] [place] [facility] MEDICARE PPO [address] [id number] [employer] MEDICARE PPO MR AETNA [facility] [place] [address] MEDICARE PPO MR [facility] [address] Advance Directives For more information, please contact: [phone] * Full Code (Latest Code Status on File) Date Activated Date Inactivated Comments 12/02/2022 11:11 AM 12/04/2022 7:53 PM * Full Code Date Activated Date Inactivated Comments 11/24/2022 11:52 PM 12/01/2022 2:40 AM Care Teams Infant Caregiver Relationship Specialty Start Date End Date Gricelda Cox MD [address] [place] [address] Medical Oncologist Internal Medicine-Medical Oncology 11/26/22
--- OUTSIDE RECORDS SUMMARY | 2025-01-03 12:15 | XMS_ITS | Encounter Summary ---
Author Organization [employer] Address [address] [place] [address] Care Team Providers Care Dope Worker Name Role Phone Unavailable Primary Care Provider Unavailabl e Encounter Details Date Type Department Care Team (Late st Contact Info) Description 05/16/2021 Transcribed Document [facility] [place] [address] [place] [address] ProviderAiden MD [address] [place] [address] Social History Tobacco Use Types [...] Alex MD - 05/16/2021 4:04 PM CDT [facility] [place] [address] JOSE MENSAH :1955 Visit Time:05/16/2021 Your [...] appointment with Dr. Madera as scheduled. Where: [address] [place], [place] [id number]- Business (1) Medications What How Much When [...] you are awake and alert. ??? Take unsi-dlk-nzkwymu and prescription medicines only as told by [...] provider. Document Revised: 05/23/2020 Document Reviewed: 05/23/2020 Project 2020 Patient Education ?? 2020 [employer]. Radial Site Care This sheet gives you [...] these instructions at home: Medicines ??? Take ekvd-qjp-rfnqjjg and prescription medicines only as told by your health care provider. Insertion site care ??? Follow instructions from your health care provider about how to take care of your insertion site. Make sure you: ? Wash your hands with soap and water before you change your bandage (dressing). If soap and water are not available, use hand street light servicer. ? Change your dressing as told by [...] provider. Document Revised: 08/03/2018 Document Reviewed: 08/03/2018 Project 2020 Patient Education ?? 2020 [employer]. Angiogram, Care After This sheet gives you [...] and water are not available, use hand street light servicer. ? Change your dressing as told by [...] This is a medical emergency. ??? Take jjzm-djy-vhthays and prescription medicines only as told by [...] Reviewed: 05/01/2020 Elsevier Patient Education ?? 2020 [employer] Education Inc. Emergency Awareness and Preventative Care STROKE [...] Assistance with quitting is available by contacting 0-709-AXTVNOW. This is a free resource providing counseling, support, and referral. Or you may contact your personal physician. [employer] Suicide Prevention Lifenew [facility]: The National Suicide Prevention Lifeline is [...] was given the opportunity to ask questions. Patient/Cath Lab Radiological Technologist Name: Patient/Cath Lab Radiological Technologist Signature: Relationship to Patient: Clinician/Hospital Cath Lab Radiological Technologist Signature: Date: documented in this encounter Plan of Treatment Not on file documented as of this encounter Visit Diagnoses Not on filedocumented in this encounter
--- OUTSIDE RECORDS SUMMARY | 2025-01-03 12:15 | XMS_ITS | Encounter Summary ---
Author Organization [employer] Address [address] [place] [address] Care Team Providers Care Pressure Control Supervisor Name Role Phone Unavailable Primary Care Provider Unavailabl e Encounter Details Date Type Department Care Team (Late st Contact Info) Description 05/16/2021 Transcribed Document [facility] [place] Medicine [facility] [place] [address] ProviderAiden MD [facility] [place] [address] Social History Tobacco Use Types [...] Source : Stated Height Entry Format : [place] Height, Feet : 5 ft(Converted to: 152 cm, 60 Inch) Height, Inches : 11 Inch(Converted to: 0 ft 11 Inch, 27.94 cm) Clinical Height : 180.34 cm Weight Source : Standing scale Weight Entry Format : [place] Clinical Dosing Weight : 88.64 kg Weight, Pounds : 195 lb Body Surface Area (BSA) : 2.09 m2 Body Mass Index : 27.3 kg/m2 (HI) [place] Body Weight : 74 kg REMY BOSS [...] REMY BOSS RN - 05/16/2021 9:03 EDT Cascade Suicide Severity Rating Scale (C-SSRS) CSSRS Past [...] Obtained From : Patient Primary Language : Occitan Preferred Communication Mode : Verbal Communication Barrier : None Remotely Piloted Vehicle Controller Needed : No Objects to Sharing Info [...] Scale Risk Level : 0-24 Low Risk [place] Fall Interventions : Adequate lighting, Hourly comfort/safety [...] the text rendition version of the form. Electronically signed by Laurita Golden Conversion Production Department Supervisor Cerner at 10/27/2022 10:42 PM CDT documented in this encounter Plan of Treatment Not on file documented as of this encounter Visit Diagnoses Not on filedocumented in this encounter
--- OUTSIDE RECORDS SUMMARY | 2025-01-03 12:15 | XMS_ITS | Referral Summary ---
Author Organization [employer] Address [address] [place] [address] Care Team Providers Care Watch Mechanic Name Role Phone Unavailable Primary Care [...] Date Carrillo rded Speak language other than Luxembourger at home Not on file 07/30/2023 Want [...]
--- OUTSIDE RECORDS SUMMARY | 2025-01-03 12:15 | XMS_ITS | Clinical Summary ---
Author Organization [facility] Address [address] [place] [address] Care Team Providers Care Detective Investigator Name Role Phone Sourav Magui Davalos APRN Primary Care Provider [phone] Allergies No known active allergies Medications atorvastatin [...] CC Hematology/BMT and Cellular Therapy Program [address] [place] [address] Mayela Moore MD Follicular lymphoma of lymph [...] [facility]-Abdominal Aortic Aneurys m (AAA) Screening 2021 [id number] Vaccine ( season) 2024 05/24/2021, 11/30/2020 [facility]-Influenza [...] Antibody Negative Negative 06/23/2024 1:15 PM EST [facility] Blood Venous blood specimen / Unknown Venipuncture / Unknown 06/23/2024 11:48 AM EST 06/23/2024 12:26 PM EST us Mayela Moore MD LAB BLOOD ORDERABLES Final Resul t [facility] [address] [place] [address] from Last 3 Months or Most Recently Relevant to Health Maintenance [place] [phone] Care Teams Detective Investigator Relationship Specialty Start Date End Date Magui Benjamin APRN [address] [place] [address] PCP - General 06/23/24
--- OUTSIDE RECORDS SUMMARY | 2025-01-03 12:15 | XMS_ITS | Encounter Summary ---
Author Organization [employer] Address [address] [place] [address] Care Team Providers Care Film Processing Shift Supervisor Name Role Phone Unavailable Primary Care Provider Unavailabl e Encounter Details Date Type Department Care Team (Late st Contact Info) Description 05/16/2021 Transcribed Document [facility] [place] [facility] [place] [address] ProviderAiden MD [address] [place] [address] Social History Tobacco Use Types [...] these instructions at home: Medicines ??? Take aums-yvt-jtnglmb and prescription medicines only as told by your health care provider. Insertion site care ??? Follow instructions from your health care provider about how to take care of your insertion site. Make sure you: ? Wash your hands with soap and water before you change your bandage (dressing). If soap and water are not available, use hand cheese production supervisor. ? Change your dressing as told by [...] provider. Document Revised: 08/03/2018 Document Reviewed: 08/03/2018 [employer] Patient Education ? 2020 [employer] Inc. Pharmacology Moderate Conscious Sedation, Adult, Care [...] you are awake and alert. ??? Take pumv-fau-avxwffv and prescription medicines only as told by [...] provider. Document Revised: 05/23/2020 Document Reviewed: 05/23/2020 [employer] Patient Education ? 2020 [employer]. Radiology Angiogram, Care After This sheet [...] and water are not available, use hand cheese production supervisor. ? Change your dressing as told by [...] This is a medical emergency. ??? Take acgo-cvq-prjmcrm and prescription medicines only as told by [...] provider. Document Revised: 05/01/2020 Document Reviewed: 05/01/2020 [employer] Patient Education ? 2020 [employer] Business Plan. documented in this encounter Plan of Treatment Not on file documented as of this encounter Visit Diagnoses Not on filedocumented in this encounter
--- OUTSIDE RECORDS SUMMARY | 2025-01-03 12:15 | XMS_ITS | Encounter Summary ---
Author Organization [facility] Address [address] [id number] Care Team Providers Care Grease Refiner Operator Name Role Phone Magui Benjamin APRN Primary Care Provider [phone] Encounter Details Date Type Department Care Team (Late st Contact Info) Description 07/03/2024 Lab Requisition [facility] H Lab [address] [place] [address] Mayela Moore MD 800 [facility] [address] [place] [phone] Hodgkin lymphoma, unspecified, unspecified site (CMS/HCC) Social [...] PM EST) Case Report Bone Marrow Case: [id number] Authorizing Provider: Mayela Moore MD Collected: 07/03/2024 1411 Ordering Location: [facility] Lab Received: 07/03/2024 1411 Pathologist: Isra Aviles MD Specimen: Bone Marrow Aspirate, [id number] 07/10/2024 2:24 PM EST [facility] Final Diagnosis PERIPHERAL BLOOD AND BONE MARROW, PERIPHERAL SMEAR, ASPIRATE SMEAR, CLOT SECTION AND CORE BIOPSY (OUTSIDE ; COLLECTED ON 06/05/2024): - NORMOCELLULAR BONE MARROW WITH MATURING TRILINEAGE HEMATOPOIESIS, SEE COMMENT. - FLOW CYTOMETRY DETECTED 1% B-CELL POPULATION WITH ELEVATED KAPPA TO LAMBDA RATIO OF 8.2 REPORTEDLY. 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 According to the report, the concurrent flow [...] correlation is essential. 07/10/2024 2:24 PM EST [facility] Clinical Information History of B-cell lymphoma 07/10/2024 2:24 PM [facility] CBC and Differential Review of the peripheral smear shows mild macrocytic anemia. White blood cells and platelets appear adequate and show normal morphology. 07/10/2024 2:24 PM [facility] Bone Marrow Differential BONE MARROW DIFFERENTIAL: 200 cells Normal Patient Neutrophils 15-50 33 Metamyelocytes 4-19 7 Myelocytes 1-18 12 Promyelocytes 1-8 0 Blasts 0-2 0 Monocytes 0-5 2 Erythroid 16-38 31 Lymphocytes 3-24 6 Eosinophils 0-6 7 Basophils 0-2 0 Plasma cells 0-4 2 Other 07/10/2024 2:24 PM [facility] Aspirate Smear Staining quality of the bone marrow aspirate smears is suboptimal for morphologic assessment. There is maturing trilineage hematopoiesis. Erythroid and myeloid precursors show full spectrum of maturation. Blasts are not increased. Overt dysplastic features are not identified. The myeloid to erythroid ratio is 1.9 (Normal:1.5-4). Megakaryocytes are present and demonstrate normal morphology. 07/10/2024 2:24 PM [facility] Core Biopsy CELLULARITY: Slightly hypocellular bone marrow. [...] Keyla trabeculae are normal. 07/10/2024 2:24 PM [facility] Clot Section Clot sections show predominantly blood with small fragments of a normocellular bone marrow with maturing trilineage hematopoiesis. The provided immunostains for CD20 and CD3 show no atypical lymphoid aggregates. 07/10/2024 2:24 PM [facility] Flow Cytometry Interpretation According to the report, the concurrent flow cytometry performed at the outside institution revealed a 1% B-cell population with an increased kappa:lambda ratio of 8.2 and granulocytes with partial, non-specific CD56 expression. 07/10/2024 2:24 PM [facility] CYTOGENETICS/MOLE CULAR INTERPRETATION Per accompanying pathology report, cytogenetics showed a normal male karyotype. 07/10/2024 2:24 PM EST [facility] Gross Description A. [id number] Received along with a corresponding pathology report from [facility]ology Laboratory are 19 slides labeled outside case: [id number] collected on 06/05/2024. 07/10/2024 2:24 PM EST [facility] Note: A resident was involved in the service. I attest I examined the relevant preparations for the specimens and confirmed the diagnosis or interpretation. 07/10/2024 2:24 PM EST [facility] Bone Marrow Specimen from bone marrow obtained by aspiration / Unknown 07/03/2024 2:11 PM EST 07/03/2024 2:11 PM EST us Mayela Moore MD LAB PATHOLOGY ORDERABLES Final R esult [facility] [address] [place] [address] documented in this encounter Visit Diagnoses Diagnosis Hodgkin lymphoma, unspecified, unspecified site (CMS/HCC) documented in this encounter Additional Health Concerns Assessment Noted Time A fall risk assessment has been complete d for the patient 06/23/2024 12:28 PM EST documented as of this encounter Care Teams Grease Refiner Operator Relationship Specialty Start Date End Date Magui Benjamin, ULISES [address] [place] [address] PCP - General 06/23/24 documented as of this encounter
--- OUTSIDE RECORDS SUMMARY | 2025-01-03 12:15 | XMS_ITS | Encounter Summary ---
Author Organization [employer] Address [address] [place] [address] Care Team Providers Care Mrb Engineer Name Role Phone Unavailable Primary Care Provider Unavailabl e Encounter Details Date Type Department Care Team (Late st Contact Info) Description 05/16/2021 Transcribed Document [facility] [place] Family Medicine [facility] [place] [address] ProviderAiden [place] [address] Social History Tobacco Use Types [...] Basic Information PCP: Kenroy Chavez MD Primary Class C Driver: Edyta Guerra MD Chief Complaint Newly decreased [...] Available Past Medical History: Active Atrial fibrillation ([id number]) Cardiomyopathy ([id number]) Family History: Brain tumor Sister () Procedure [...] of motion, Normal strength. Integumentary: Warm, Dry, Bryce. Neurologic: Alert, Oriented. Psychiatric: Cooperative, Appropriate mood [...]
--- OUTSIDE RECORDS SUMMARY | 2025-01-03 12:15 | XMS_ITS | Clinical Summary ---
Author Organization [email or web address] Address [address] [place] [address] Care Team Providers Care Global Commodity Manager Name Role Phone Unavailable Primary Care [...] Date Carrillo rded Speak language other than Ghanaian at home Not on file 07/30/2023 Want [...]
--- OUTSIDE RECORDS SUMMARY | 2025-01-03 12:15 | XMS_ITS | Encounter Summary ---
Author Organization [facility] Address [address] [id number] Care Team Providers Care Counter Tacker Name Role Phone Magui Benjamin APRN Primary Care Provider [phone] Encounter Details Date Type Department Care Team (Late st Contact Info) Description 07/03/2024 Lab Requisition [facility] H Lab [address] [place] [address] Mayela Moore MD 800 [facility] [address] [place] [phone] Enlarged lymph nodes, unspecified Social History Tobacco [...] 2:04 PM EST) Case Report Cytology Case: [id number] Authorizing Provider: Mayela Moore MD Collected: 07/03/20241403 Ordering Location: [facility] Received: 07/03/2024 1404 Pathologist: Isra Aviles MD Specimen: Lymph Node, [id number] 07/05/2024 6:55 PM EST [facility] Final Diagnosis A. LYMPH NODE, LEFT, FINE NEEDLE ASPIRATION (OUTSIDE ; COLLECTED ON 05/24/2024): - ATYPICAL LYMPHOID STROMA, SEE COMMENT. 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 The cell block and smears show population [...] would be recommended. 07/05/2024 6:55 PM EST [facility] Clinical Information History of follicular lymphoma and diffuse large B-cell lymphoma 07/05/2024 6:55 PM EST [facility] Gross Description A. [id number] Received along with a corresponding pathology report from [facility] Laboratory are 2 slides labeled outside case: [id number] collected on 05/24/2024. 07/05/2024 6:55 PM EST [facility] Fine Needle Aspirate Lymph node specimen / Unknown 07/03/2024 2:04 PM EST 07/03/2024 2:04 PM EST us Mayela Moore MD LAB PATHOLOGY ORDERABLES Final R esult [facility] [address] [place] [address] documented in this encounter Visit Diagnoses Diagnosis Enlarged lymph nodes, unspecified documented in this encounter Additional Health Concerns Assessment Noted Time A fall risk assessment has been complete d for the patient 06/23/2024 12:28 PM EST documented as of this encounter Care Teams Counter Tacker Relationship Specialty Start Date End Date Magui Benjamin, GEARCASE ASSEMBLER [address] [place] [address] PCP - General 06/23/24 documented as of this encounter
--- OUTSIDE RECORDS SUMMARY | 2025-01-03 12:15 | XMS_ITS ---
Author Organization [facility] Address [address] [place] [address] Care Team Providers Care Director Corporate Compliance Name Role Phone Magui Benjamin APRN Primary Care Provider [phone] Active Problems Problem Noted Date Diagnosed Date [...]
--- OUTSIDE RECORDS SUMMARY | 2025-01-03 12:15 | XMS_ITS | Encounter Summary ---
Author Organization [employer] Address [address] [place] [address] Care Team Providers Care Medication Tech Name Role Phone Unavailable Primary Care Provider Unavailabl e Encounter Details Date Type Department Care Team (Late st Contact Info) Description 05/16/2021 Transcribed Document [facility] [place] Medicine [facility] [place] [address] ProviderAiden MD [address] [place] [address] Social History Tobacco Use Types [...]
--- OUTSIDE RECORDS SUMMARY | 2025-01-03 12:15 | XMS_ITS | Encounter Summary ---
Author Organization [employer] Address [address] [place] [address] Care Team Providers Care Charge Machine Operator Name Role Phone Unavailable Primary Care Provider Unavailabl e Encounter Details Date Type Department Care Team (Late st Contact Info) Description 05/16/2021 Transcribed Document [facility] [place] [address] [place] [address] ProviderAiden MD [address] [place] [address] Social History Tobacco Use Types [...] 05/16/2021 16:40 EDT Electronically signed by Chantel [facility] Conversion Gripper Machine Operator Cerner at 10/27/2022 10:30 PM CDT documented in this encounter Plan of Treatment Not on file documented as of this encounter Visit Diagnoses Not on filedocumented in this encounter
--- OUTSIDE RECORDS SUMMARY | 2025-01-03 12:15 | XMS_ITS | Encounter Summary ---
Author Organization Healthcare Address [address] [place] [address] Care Team Providers Care Upper Marker Name Role Phone Magui Benjamin APRN Primary Care Provider [phone] Encounter Details Date Type Department Care Team (Late st Contact Info) Description 06/01/2024 Orders Only External Location [address] [place] [address] Provider, External Social History Tobacco Use Types [...] on filedocumented in this encounter Care Teams Upper Marker Relationship Specialty Start Date End Date Magui Benjamin APRN [address] [id number] PCP - General 06/23/24 documented as of this encounter
[2025-01-03] MEDS: ONDANSETRON 4MG ODT 16 MG SL (12:32)
[2025-01-03] MEDS: DEXAMETHASONE 4MG TABLET 12 MG PO (12:32)
[2025-01-03 12:33] VITALS: BP 112/62; PULSE 81; RESP 20; TEMP 36.8; O2SAT 98
[2025-01-03] MEDS: ACETAMINOPHEN 325MG TAB 650 MG PO (12:33)
[2025-01-03] MEDS: diphenhydrAMINE 50MG CAPSULE 50 MG PO (12:33)
[2025-01-03] MEDS: SODIUM CHLORIDE 0.9% 50ML BAG 50 ML IV (12:34)
[2025-01-03] MEDS: SODIUM CHLORIDE 0.9% 10ML FLUSH SYRINGE 10 ML IV (12:50)
[2025-01-03] MEDS: SODIUM CHLORIDE 0.9% IV (13:02)
[2025-01-03] MEDS: BENDAMUSTINE HCL IV (13:02)
[2025-01-03 13:20] VITALS: BP 104/66; PULSE 84; RESP 20; O2SAT 98
[2025-01-03 14:05] VITALS: BP 96/59; PULSE 65; RESP 20; O2SAT 97
== END 2025-01-03 14:05 | disposition home or self-care (01) ==
LOC: INF 12:13
PROVIDERS: PCP Nurse Practitioner Family; Visit Provider Internal Medicine Medical Oncology
DX: Z51.11 Encounter for antineoplastic chemotherapy (principal); C83.30 Diffuse large B-cell lymphoma, unspecified site
CPT/HCPCS: 96413; J7040; J8540; J9034; Q0162

== ENCOUNTER 2025-01-24 10:15 | Outpatient (CLI) | payer MEDICARE, SELFPAY ==
--- NOTE | 2025-01-24 10:17 | XR_ITS ---
FINAL REPORT CLINICAL HISTORY: dyspnea COMPARISON: 11/24/2022 FINDINGS: 2 views of the chest were obtained . The heart is normal in size. The mediastinum is within normal limits. The lungs are clear. There is no pneumothorax. Osseous structures are unremarkable. IMPRESSION: No acute cardiopulmonary process. Reviewed, Interpreted and Dictated by Carmen Jack MD Transcribed by Romy Shelley Authenticated and [facility]
--- OUTSIDE RECORDS SUMMARY | 2025-01-24 10:18 | XMS_ITS | Clinical Summary ---
Author Organization [employer] ([place], [place], [place], [place]) Address [address] [place] [address] Care Team Providers Care Used Equipment Sales Representative Name Role Phone Unavailable Primary Care Provider Unavailabl e Social History Tobacco Use Types Packs/Day Years Used Date Smoking Tobacco: Never Assessed Food Insecurity Answer Date Recorded Food run [...] Date Carrillo rded Speak language other than Solomon Islander at home Not on file 07/30/2023 Want help with school or training Not on file 07/30/2023 Substance Use Answer Date Recorded Used [...] Td or Tdap) 09/13/2006 COVID-19 VACCINE ( - season) 2024, 11/30/2020 Falls Risk Screening 07/12/2024 Influenza Vaccine (#1) 2025 Respiratory Syncytial Virus (RSV) Adult or (1 - 1-dose 75+ series) 10/11/2031
--- OUTSIDE RECORDS SUMMARY | 2025-01-24 10:18 | XMS_ITS | Encounter Summary ---
Author Organization [employer] ([place], [place], [place], [place]) Address [address] [place] [address] Care Team Providers Care Miniature Set Designer Name Role Phone Unavailable Primary Care Provider Unavailabl e Encounter Details Date Type Department Care Team (Late st Contact Info) Description 05/16/2021 Transcribed Document [facility] [place] [facility] [place] [address] ProviderAiden MD [address] [place] [address] Social History Tobacco Use Types [...] Source : Stated Height Entry Format : Hopkins Height, Feet : 5 ft(Converted to: 152 cm, 60 Inch) Height, Inches : 11 Inch(Converted to: 0 ft 11 Inch, 27.94 cm) Clinical Height : 180.34 cm Weight Source : Standing scale Weight Entry Format : Hopkins Clinical Dosing Weight : 88.64 kg Weight, Pounds : 195 lb Body Surface Area (BSA) : 2.09 m2 Body Mass Index : 27.3 kg/m2 (HI) Souris Body Weight : 74 kg REMY BOSS [...] Updated: 05/16/2021 09:04:10 EDT by REMY BOSS, RN) Infectious Disease History Does patient have symptoms [...] REMY BOSS RN - 05/16/2021 9:03 EDT [place] Suicide Severity Rating Scale (C-SSRS) CSSRS Past [...] Obtained From : Patient Primary Language : Mohawk Preferred Communication Mode : Verbal Communication Barrier : None Binding Dyer Needed : No Objects to Sharing Info [...] Scale Risk Level : 0-24 Low Risk [place] Fall Interventions : Adequate lighting, Hourly comfort/safety [...]
--- OUTSIDE RECORDS SUMMARY | 2025-01-24 10:18 | XMS_ITS | Encounter Summary ---
Author Organization [employer] ([place], [place], [place], [place]) Address [address] [place] [address] Care Team Providers Care Environmental Solutions Engineer Name Role Phone Unavailable Primary Care Provider Unavailabl e Encounter Details Date Type Department Care Team (Late st Contact Info) Description 05/16/2021 Transcribed Document [facility] [place] [facility] [place] [address] ProviderAiden MD [address] [place] [address] Social History Tobacco Use Types [...] 05/16/2021 16:40 EDT Electronically signed by Chantel [facility] Conversion Operations Research Manager Cerner at 10/27/2022 10:30 PM CDT documented in this encounter Plan of Treatment Not on file documented as of this encounter Visit Diagnoses Not on filedocumented in this encounter
--- OUTSIDE RECORDS SUMMARY | 2025-01-24 10:18 | XMS_ITS | Encounter Summary ---
Author Organization [employer] ([place], [place], [place], [place]) Address [address] [place] [address] Care Team Providers Care Shingle Catcher Name Role Phone Unavailable Primary Care Provider Unavailabl e Encounter Details Date Type Department Care Team (Late st Contact Info) Description 05/16/2021 Transcribed Document [facility] [place] [facility] [place] [address] ProviderAiden MD [address] [place] [address] Social History Tobacco Use Types Packs/Day [...] Basic Information PCP: Kenroy Chavez MD Primary Social Service Liaison: Edyta Guerra MD Chief Complaint Newly decreased [...] Available Past Medical History: Active Atrial fibrillation ([id number]) Cardiomyopathy ([id number]) Family History: Brain tumor Sister () Procedure [...] of motion, Normal strength. Integumentary: Warm, Dry, [place]. Neurologic: Alert, Oriented. Psychiatric: Cooperative, Appropriate mood & affect. Review / Management Results review: No qualifying data available. Impression and Plan IMPRESSION: Dyspnea Newly decreased LVEF 30% Abnormal Stress mild reversible inferior ischemia and global hypokinesis Recently placed on Entresto Chronic A-fib Chronic Eliquis and Metoprolol PLAN; Left Heart Catheterization via right radial artery. Risks and Benefits discussed. Patient wishes to proceed. Electronically signed by Chantel, Laurita Conversion Ballpoint Pen Cartridge Tester Cerner at 10/27/2022 10:50 PM CDT documented in this encounter Plan of Treatment Not on file documented as of this encounter Visit Diagnoses Not on filedocumented in this encounter
--- OUTSIDE RECORDS SUMMARY | 2025-01-24 10:18 | XMS_ITS | Encounter Summary ---
Author Organization [employer] ([place], [place], [place], [place]) Address [address] [place] [address] Care Team Providers Care Door Frame Assembler Machine Name Role Phone Unavailable Primary Care Provider Unavailabl e Encounter Details Date Type Department Care Team (Late st Contact Info) Description 05/16/2021 Transcribed Document [place] [facility] [place] [address] ProviderAiden MD [address] [place] [address] Social History Tobacco Use Types [...] Conversion Note - Aiden ProviderMD - 05/16/2021 4:04 PM CDT Patient Education [...] these instructions at home: Medicines ??? Take ueuf-zwx-gxcmaav and prescription medicines only as told by your health care provider. Insertion site care ??? Follow instructions from your health care provider about how to take care of your insertion site. Make sure you: ? Wash your hands with soap and water before you change your bandage (dressing). If soap and water are not available, use hand marine equipment preservation inspector. ? Change your dressing as told by [...] provider. Document Revised: 08/03/2018 Document Reviewed: 08/03/2018 [facility] Patient Education ? 2020 [facility] [employer] Pharmacology Moderate Conscious Sedation, Adult, Care [...] you are awake and alert. ??? Take npvt-tle-vcwhywz and prescription medicines only as told by [...] provider. Document Revised: 05/23/2020 Document Reviewed: 05/23/2020 [employer] Patient Education ? 2020 [employer] Radiology Angiogram, Care After This sheet [...] and water are not available, use hand marine equipment preservation inspector. ? Change your dressing as told by [...] This is a medical emergency. ??? Take ujsu-jrt-jhmcpfs and prescription medicines only as told by [...] provider. Document Revised: 05/01/2020 Document Reviewed: 05/01/2020 [employer] Patient Education ? 2020 [employer]. Electronically signed by Laurita Golden Conversion Research And Development Manager Cerner at 10/27/2022 10:36 PM CDT documented in this encounter Plan of Treatment Not on file documented as of this encounter Visit Diagnoses Not on filedocumented in this encounter
--- OUTSIDE RECORDS SUMMARY | 2025-01-24 10:18 | XMS_ITS | Encounter Summary ---
Author Organization Healthcare Address [address] [place] [address] Care Team Providers Care Log Pond Worker Name Role Phone Magui Benjamin APRN Primary Care Provider [phone] Encounter Details Date Type Department Care Team (Late st Contact Info) Description 06/01/2024 Orders Only External Location [address] [place] [address] Provider, External Social History Tobacco Use Types [...] on filedocumented in this encounter Care Teams Log Pond Worker Relationship Specialty Start Date End Date Magui Benjamin APRN [address] [id number] PCP - General 06/23/24 documented as of this encounter
--- OUTSIDE RECORDS SUMMARY | 2025-01-24 10:18 | XMS_ITS | Referral Summary ---
Author Organization [employer] ([place], [place], [place], [place]) Address [address] [place] [address] Care Team Providers Care Commercial Truck Driver Name Role Phone Unavailable Primary [...] Date Carrillo rded Speak language other than Lithuanian at home Not on file 07/30/2023 Want [...]
--- OUTSIDE RECORDS SUMMARY | 2025-01-24 10:18 | XMS_ITS | Encounter Summary ---
Author Organization [facility] Address [address] [id number] Care Team Providers Care Program Evaluation Consultant Name Role Phone Magui Benjamin APRN Primary Care Provider [phone] Encounter Details Date Type Department Care Team (Late st Contact Info) Description 07/03/2024 Lab Requisition [facility] [address] [place] [address] Mayela Moore MD [address] [facility] [address] [place] [phone] Malignant neoplasm of head, face and neck [...] -2 Score 0 07/06/2024 9:42 AM EST Sargent, Myriam L documented as of this encounter Plan of Treatment Not on file documented as of this encounter Procedures Procedure Name Priority Date/Time Associated Diagnosis Comments SURGICAL PATHOLOGY CONSULT Routine 07/03/2024 2:19 PM EST Malignant neoplasm of head, face and neck (CMS/HCC) documented in this encounter Results * Surgical Pathology Consult (07/03/2024 2:19 PM EST) Case Report Sugical Pathology Consult Case: [id number] Authorizing Provider: Mayela Moore MD Collected: 07/03/2024 1419 Ordering Location: [facility] Lab Received: 07/03/2024 1420 Pathologist: Isra Aviles MD Specimens: A) - Neck, [id number] B) - Lymph Node, [id number] 07/05/2024 6:14 PM EST [facility] Final Diagnosis OUTSIDE ; COLLECTED 12/22/2018 A. LYMPH NODE, LEFT NECK, DEEP JUGULAR, BIOPSY: - CLASSIC FOLLICULAR LYMPHOMA, SEE COMMENT. OUTSIDE ; COLLECTED 08/05/2022 A. 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 07/05/2024 6:14 PM EST [facility] at 1813 EST Comment OUTSIDE ; COLLECTED [...] of previous follicular lymphoma. 07/05/2024 6:14 PM [facility] Clinical Information C76.0 - Malignant neoplasm of head, face and neck [ICD-10-CM] 07/05/2024 6:14 PM [facility] Gross Description A. [id number] Received along with a corresponding pathology report from [facility] are 24 slides labeled outside case: [id number] collected on 12/22/2018. B. [id number] Received along with a corresponding pathology report from [facility] are 19 slides labeled outside case: [id number] collected on 08/05/2022. 07/05/2024 6:14 PM [place] [...] MD LAB PATHOLOGY ORDERABLES Final R esult [facility] [address] [place] [address] documented in this encounter Visit Diagnoses Diagnosis Malignant neoplasm of head, face and neck (CMS/HCC) Malignant neoplasm of head, face, and neck documented in this encounter Additional Health Concerns Assessment Noted Time A fall risk assessment has been complete d for the patient 06/23/2024 12:28 PM EST documented as of this encounter Care Teams Program Evaluation Consultant Relationship Specialty Start Date End Date Magui Benjamin, ULISES [address] [place] [address] PCP - General 06/23/24 documented as of this encounter
--- OUTSIDE RECORDS SUMMARY | 2025-01-24 10:18 | XMS_ITS | Clinical Summary ---
Author Organization [facility] Address [address] [place] [address] Phone Care Team Providers Care Kennel Technician Name Role Phone Gricelda Cox MD Unavailable [phone] Allergies No known active allergies Medications [...] Active fluticasone propionate (FLONASE) 50 mcg/actuation Nasl [place], Suspension 2 Sprays by Nasal route daily. [...] 2016 COVID-19 Vaccine (#1) 06/21/2021 Influenza Vaccine (#1) 2025 Hepatitis B Vaccine Aged Out No longe r eligible based on patient's age to complete this topic Meningococcal B Vaccine Aged Out No l onger eligible based on patient's age to complete this topic Insurance [facility] [place] [facility] MEDICARE PPO [address] [id number] [employer] MEDICARE PPO MR AET[place] [facility] [place] [address] MEDICARE PPO MR [facility] [address] Advance Directives For more information, please contact: [phone] * Full Code (Latest Code Status on File) Date Activated Date Inactivated Comments 12/02/2022 11:11 AM 12/04/2022 7:53 PM * Full Code Date Activated Date Inactivated Comments 11/24/2022 11:52 PM 12/01/2022 2:40 AM Care Teams Kennel Technician Relationship Specialty Start Date End Date Gricelda Cox MD [address] [place] [address] Medical Oncologist Internal Medicine-Medical Oncology 11/26/22
--- OUTSIDE RECORDS SUMMARY | 2025-01-24 10:18 | XMS_ITS | Encounter Summary ---
Author Organization [employer] ([place], [place], [place], [place]) Address [address] [place] [address] Care Team Providers Care Licensed Clinician Name Role Phone Unavailable Primary Care Provider Unavailabl e Encounter Details Date Type Department Care Team (Late st Contact Info) Description 05/16/2021 Transcribed Document [facility] [place] Family [place] [facility] [place] [address] ProviderAiden MD [address] [place] [address] Social History Tobacco Use Types [...] 05/16/2021 9:22 EDT Description of Event : 919: Spoke with Radha Clark. To give NS at 30 ml per hour pre cath due to EF 30%. NOrmal saline begun at 30 ml per hour. REMY BOSS RN - 05/16/2021 9:37 EDT documented in this encounter Plan of Treatment Not on file documented as of this encounter Visit Diagnoses Not on filedocumented in this encounter
--- OUTSIDE RECORDS SUMMARY | 2025-01-24 10:18 | XMS_ITS | Encounter Summary ---
Author Organization [facility] Address [address] [id number] Care Team Providers Care Hosiery Pairer Name Role Phone Magui Benjamin APRN Primary Care Provider [phone] Encounter Details Date Type Department Care Team (Late st Contact Info) Description 07/03/2024 Lab Requisition [facility] [address] [place] [address] Mayela Moore MD [address] [facility] [address] [place] [phone] Enlarged lymph nodes, unspecified Social History Tobacco [...] 2:04 PM EST) Case Report Cytology Case: [id number] Authorizing Provider: Mayela Moore MD Collected: 07/03/20241403 Ordering Location: [facility] Lab Received: 07/03/2024 1404 Pathologist: Isra Aviles MD Specimen: Lymph Node, [id number] 07/05/2024 6:55 PM EST [facility] Final Diagnosis A. LYMPH NODE, LEFT, FINE NEEDLE ASPIRATION (OUTSIDE ; COLLECTED ON 05/24/2024): - ATYPICAL LYMPHOID STROMA, SEE COMMENT. 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 The cell block and smears show population [...] would be recommended. 07/05/2024 6:55 PM EST [facility] Clinical Information History of follicular lymphoma and diffuse large B-cell lymphoma 07/05/2024 6:55 PM EST [facility] Gross Description A. [id number] Received along with a corresponding pathology report from [facility] are 2 slides labeled outside case: [id number] collected on 05/24/2024. 07/05/2024 6:55 PM EST [facility] Fine Needle Aspirate Lymph node specimen / Unknown 07/03/2024 2:04 PM EST 07/03/2024 2:04 PM EST us Mayela Moore MD LAB PATHOLOGY ORDERABLES Final R esult [facility] [address] [place] [address] documented in this encounter Visit Diagnoses Diagnosis Enlarged lymph nodes, unspecified documented in this encounter Additional Health Concerns Assessment Noted Time A fall risk assessment has been complete d for the patient 06/23/2024 12:28 PM EST documented as of this encounter Care Teams Hosiery Pairer Relationship Specialty Start Date End Date Magui Benjamin, CITY SECRETARY [address] [place] [address] PCP - General 06/23/24 documented as of this encounter
--- OUTSIDE RECORDS SUMMARY | 2025-01-24 10:18 | XMS_ITS ---
Author Organization [facility] Address [address] [place] [address] Care Team Providers Care Baby Registry Sales Consultant Name Role Phone Magui Benjamin APRN Primary Care Provider [phone] Active Problems Problem Noted Date Diagnosed Date [...]
--- OUTSIDE RECORDS SUMMARY | 2025-01-24 10:18 | XMS_ITS | Encounter Summary ---
Author Organization [facility] Address [address] [id number] Care Team Providers Care Supervisor Extrusion Name Role Phone Magui Benjamin APRN Primary Care Provider [phone] Encounter Details Date Type Department Care Team (Late st Contact Info) Description 07/03/2024 Lab Requisition [facility] [address] [place] [address] Mayela Moore MD 800 [facility] [address] [place] [phone] Hodgkin lymphoma, unspecified, unspecified site (CMS/HCC) Social [...] PM EST) Case Report Bone Marrow Case: [id number] Authorizing Provider: Mayela Moore MD Collected: 07/03/2024 1411 Ordering Location: [facility] Lab Received: 07/03/2024 1411 Pathologist: Isra Aviles MD Specimen: Bone Marrow Aspirate, [id number] 07/10/2024 2:24 PM EST [facility] Final Diagnosis PERIPHERAL BLOOD AND BONE MARROW, PERIPHERAL SMEAR, ASPIRATE SMEAR, CLOT SECTION AND CORE BIOPSY (OUTSIDE ; COLLECTED ON 06/05/2024): - NORMOCELLULAR BONE MARROW WITH MATURING TRILINEAGE HEMATOPOIESIS, SEE COMMENT. - FLOW CYTOMETRY DETECTED 1% B-CELL POPULATION WITH ELEVATED KAPPA TO LAMBDA RATIO OF 8.2 REPORTEDLY. 07/10/2024 2:24 PM [facility] at 1424 EST Comment Patient's history of follicular lymphoma (2018) and subsequent diffuse large B-cell lymphoma (2022) is noted ([id number]). According to the report, the concurrent flow [...] correlation is essential. 07/10/2024 2:24 PM EST [facility] Clinical Information History of B-cell lymphoma 07/10/2024 2:24 PM [facility] CBC and Differential Review of the peripheral smear shows mild macrocytic anemia. White blood cells and platelets appear adequate and show normal morphology. 07/10/2024 2:24 PM [facility] Bone Marrow Differential BONE MARROW DIFFERENTIAL: 200 cells Normal Patient Neutrophils 15-50 33 Metamyelocytes 4-19 7 Myelocytes 1-18 12 Promyelocytes 1-8 0 Blasts 0-2 0 Monocytes 0-5 2 Erythroid 16-38 31 Lymphocytes 3-24 6 Eosinophils 0-6 7 Basophils 0-2 0 Plasma cells 0-4 2 Other 07/10/2024 2:24 PM [facility] Aspirate Smear Staining quality of the bone marrow aspirate smears is suboptimal for morphologic assessment. There is maturing trilineage hematopoiesis. Erythroid and myeloid precursors show full spectrum of maturation. Blasts are not increased. Overt dysplastic features are not identified. The myeloid to erythroid ratio is 1.9 (Normal:1.5-4). Megakaryocytes are present and demonstrate normal morphology. 07/10/2024 2:24 PM [facility] Core Biopsy CELLULARITY: Slightly hypocellular [...] Keyla trabeculae are normal. 07/10/2024 2:24 PM [facility] Clot Section Clot sections show predominantly blood with small fragments of a normocellular bone marrow with maturing trilineage hematopoiesis. The provided immunostains for CD20 and CD3 show no atypical lymphoid aggregates. 07/10/2024 2:24 PM [facility] Flow Cytometry Interpretation According to the report, the concurrent flow cytometry performed at the outside institution revealed a 1% B-cell population with an increased kappa:lambda ratio of 8.2 and granulocytes with partial, non-specific CD56 expression. 07/10/2024 2:24 PM [facility] CYTOGENETICS/MOLE CULAR INTERPRETATION Per accompanying pathology report, cytogenetics showed a normal male karyotype. 07/10/2024 2:24 PM EST [facility] Gross Description A. [id number] Received along with a corresponding pathology report from [facility] are 19 slides labeled outside case: [id number] collected on 06/05/2024. 07/10/2024 2:24 PM EST [facility] Note: A resident was involved in the service. I attest I examined the relevant preparations for the specimens and confirmed the diagnosis or interpretation. 07/10/2024 2:24 PM EST [facility] Bone Marrow Specimen from bone marrow obtained by aspiration / Unknown 07/03/2024 2:11 PM EST 07/03/2024 2:11 PM EST us Mayela Moore MD LAB PATHOLOGY ORDERABLES Final R esult [facility] [address] [place] [address] documented in this encounter Visit Diagnoses Diagnosis Hodgkin lymphoma, unspecified, unspecified site (CMS/HCC) documented in this encounter Additional Health Concerns Assessment Noted Time A fall risk assessment has been complete d for the patient 06/23/2024 12:28 PM EST documented as of this encounter Care Teams Supervisor Extrusion Relationship Specialty Start Date End Date Magui Benjamin, ULISES [address] [place] [address] PCP - General 06/23/24 documented as of this encounter
--- OUTSIDE RECORDS SUMMARY | 2025-01-24 10:18 | XMS_ITS | Clinical Summary ---
Author Organization [facility] Address [address] [place] [address] Care Team Providers Care Data Technician Name Role Phone Magui Benjamin APRN Primary Care Provider [phone] Allergies No known active allergies Medications atorvastatin [...] lymph nodes of multiple r egions 2024 Social History Tobacco Use Types Packs/Day Years [...] Health Maintenance Due Date Last Done Comments [facility]-Medicare Annual Wellness (AWV) 1955 [facility]-/Child/Adol SDOH Screenings 1955 [facility]- SDOH Screenings 1974 [facility]-Adult SDOH Screenings 1974 Y-Pneumococcal Vaccine: 50 + Years (1 of 2 - PCV) 10/11/1975 [facility]-Zoster Vaccines (1 of 2) 10/11/1975 [facility]-DTaP,Tdap,and Td Vaccine s (1 - Tdap) 09/14/1996 09/13/1996 CT Colonography 2001 Colonoscopy 2001 FIT-DNA 2001 FIT 2001 FOBT 2001 Sigmoidoscopy 2001 [facility]-Colorectal Cancer Screening 2001 [facility]-RSV Vaccine: 60+ Years o r (1 - Risk 60-74 years 1-dose series) 2016 [facility]-Abdominal Aortic Aneurys m (AAA) Screening 2021 OBB-QVDLI-14 Vaccine ( season) 2024 05/24/2021, 11/30/2020 [facility]-Influenza Vaccine (#1) 2025 [facility]-Depression Screening 07/06/2025 07/06/2024 [facility]-Hepatitis C [...] Antibody Negative Negative 06/23/2024 1:15 PM EST [facility] Blood Venous blood specimen / Unknown Venipuncture / Unknown 06/23/2024 11:48 AM EST 06/23/2024 12:26 PM EST us Mayela Moore MD LAB BLOOD ORDERABLES Final Resul t [facility] [address] [place] [address] from Last 3 Months or Most Recently Relevant to Health Maintenance Insurance MEDICARE Care Teams Data Technician Relationship Specialty Start Date End Date Magui Benjamin, CORRUGATOR SUPERVISOR [address] [place] [address] PCP - General 06/23/24
--- OUTSIDE RECORDS SUMMARY | 2025-01-24 10:18 | XMS_ITS | Encounter Summary ---
Author Organization [employer] ([place], [place], [place], [place]) Address [address] [place] [address] Care Team Providers Care Snowboarder Name Role Phone Unavailable Primary Care Provider Unavailabl e Encounter Details Date Type Department Care Team (Late st Contact Info) Description 05/16/2021 Transcribed Document [facility] [place] Family Medicine [address] [place] [address] ProviderAiden MD [address] [place] [address] Social History Tobacco Use Types Packs/Day Years Used Date Smoking Tobacco: Never Assessed Sex and Gender Information Value Date Recorded Sex Assigned at Male 01/06/2022 6:36 PM CDT Legal Sex Male 6:36 PM CDT Gender Identity Male 01/06/2022 6:36 PM CDT Sexual Orientation Not on file documented as of this encounter Miscellaneous Notes * Cerner Conversion Note - Adien ProviderMD - 05/16/2021 4:04 PM CDT [facility] [place] [address] JOSE EUCEDA :1955 Visit Time:05/16/2021 Your Visit Summary Your [...] appointment with Dr. Madera as scheduled. Where: [address] [place] [phone] Business (1) Medications What How Much When [...] you are awake and alert. ??? Take fseu-uat-rwdqido and prescription medicines only as told by [...] provider. Document Revised: 05/23/2020 Document Reviewed: 05/23/2020 aWhere Patient Education ?? 2020 NextInput. Radial Site Care This sheet gives you [...] these instructions at home: Medicines ??? Take cdsf-uff-izlhseh and prescription medicines only as told by your health care provider. Insertion site care ??? Follow instructions from your health care provider about how to take care of your insertion site. Make sure you: ? Wash your hands with soap and water before you change your bandage (dressing). If soap and water are not available, use hand party plan sales unit sales leader. ? Change your dressing as told by [...] provider. Document Revised: 08/03/2018 Document Reviewed: 08/03/2018 aWhere Patient Education ?? 2020 aWhere Inc. Angiogram, Care After This sheet gives you [...] and water are not available, use hand party plan sales unit sales leader. ? Change your dressing as told by [...] This is a medical emergency. ??? Take xqmx-kku-veyxtnz and prescription medicines only as told by [...] Reviewed: 05/01/2020 Elsevier Patient Education ?? 2020 Elsevier Inc. Emergency Awareness and Preventative Care STROKE [...] Assistance with quitting is available by contacting 7-191-PYXNNOW. This is a free resource providing counseling, support, and referral. Or you may contact your personal physician. [place] Suicide Prevention Lifeline: The National Suicide Prevention Lifeline is a [...] CPR? There are two easy steps: Call --1 if you see a teen or adult [...] between ( 3.5 and 5.1 ) Patient Name:MAKENNALUISJOSE L I have received and understand this information and was given the opportunity to ask questions. Patient/Financial Sales Associate Name: Patient/Financial Sales Associate Signature: Relationship to Patient: Clinician/Hospital Financial Sales Associate Signature: Date: documented in this encounter Plan of Treatment Not on file documented as of this encounter Visit Diagnoses Not on filedocumented in this encounter
== END 2025-01-24 23:59 | disposition home or self-care (01) ==
LOC: RAD 10:15
PROVIDERS: PCP Nurse Practitioner Family; Visit Provider Nurse Practitioner Family
DX: R06.00 Dyspnea, unspecified (principal); R35.0 Frequency of micturition; R30.0 Dysuria
CPT/HCPCS: 71046; 87086

== ENCOUNTER 2025-01-30 08:25 | Outpatient (CLI) | payer MEDICARE, SELFPAY ==
--- OUTSIDE RECORDS SUMMARY | 2025-01-30 08:37 | XMS_ITS | Encounter Summary ---
Author Organization [facility] Address [address] [id number] Care Team Providers Care Jewelry Designer Name Role Phone Magui Benjamin APRN Primary Care Provider [phone] Encounter Details Date Type Department Care Team (Late st Contact Info) Description 07/03/2024 Lab Requisition [facility] [address] [place] [address] Mayela Moore MD [address] [facility] [address] [place] [phone] Hodgkin lymphoma, unspecified, unspecified site (CMS/HCC) Social [...] PM EST) Case Report Bone Marrow Case: [id number] Authorizing Provider: Mayela Moore MD Collected: 07/03/2024 1411 Ordering Location: [facility] Lab Received: 07/03/2024 1411 Pathologist: Isra Aviles MD Specimen: Bone Marrow Aspirate, [id number] 07/10/2024 2:24 PM EST [facility] Final Diagnosis PERIPHERAL BLOOD AND BONE MARROW, PERIPHERAL SMEAR, ASPIRATE SMEAR, CLOT SECTION AND CORE BIOPSY (OUTSIDE ; COLLECTED ON 06/05/2024): - NORMOCELLULAR BONE MARROW WITH MATURING TRILINEAGE HEMATOPOIESIS, SEE COMMENT. - FLOW CYTOMETRY DETECTED 1% B-CELL POPULATION WITH ELEVATED KAPPA TO LAMBDA RATIO OF 8.2 REPORTEDLY. 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 According to the report, the concurrent flow [...] History of B-cell lymphoma 07/10/2024 2:24 PM [facility] CBC and Differential Review of the peripheral smear shows mild macrocytic anemia. White blood cells and platelets appear adequate and show normal morphology. 07/10/2024 2:24 PM [facility] Bone Marrow Differential BONE MARROW DIFFERENTIAL: 200 cells Normal Patient Neutrophils 15-50 33 Metamyelocytes 4-19 7 Myelocytes 1-18 12 Promyelocytes 1-8 0 Blasts 0-2 0 Monocytes 0-5 2 Erythroid 16-38 31 Lymphocytes 3-24 6 Eosinophils 0-6 7 Basophils 0-2 0 Plasma cells 0-4 2 Other 07/10/2024 2:24 PM [facility] Aspirate Smear Staining quality of the bone marrow aspirate smears is suboptimal for morphologic assessment. There is maturing trilineage hematopoiesis. Erythroid and myeloid precursors show full spectrum of maturation. Blasts are not increased. Overt dysplastic features are not identified. The myeloid to erythroid ratio is 1.9 (Normal:1.5-4). Megakaryocytes are present and demonstrate normal morphology. 07/10/2024 2:24 PM [facility] Core Biopsy CELLULARITY: Slightly hypocellular bone marrow. [...] Keyla trabeculae are normal. 07/10/2024 2:24 PM [facility] Clot Section Clot sections show predominantly blood with small fragments of a normocellular bone marrow with maturing trilineage hematopoiesis. The provided immunostains for CD20 and CD3 show no atypical lymphoid aggregates. 07/10/2024 2:24 PM [facility] Flow Cytometry Interpretation According to the report, the concurrent flow cytometry performed at the outside institution revealed a 1% B-cell population with an increased kappa:lambda ratio of 8.2 and granulocytes with partial, non-specific CD56 expression. 07/10/2024 2:24 PM [facility] CYTOGENETICS/MOLE CULAR INTERPRETATION Per accompanying pathology report, cytogenetics showed a normal male karyotype. 07/10/2024 2:24 PM EST [facility] Gross Description A. [id number] Received along with a corresponding pathology report from [facility] are 19 slides labeled outside case: [id number] collected on 06/05/2024. 07/10/2024 2:24 PM EST [...] R esult [facility] [address] [place] [address] documented in this encounter Visit Diagnoses Diagnosis Hodgkin lymphoma, unspecified, unspecified site (CMS/HCC) documented in this encounter Additional Health Concerns Assessment Noted Time A fall risk assessment has been complete d for the patient 06/23/2024 12:28 PM EST documented as of this encounter Care Teams Jewelry Designer Relationship Specialty Start Date End Date Magui Benjamin, ULISES [address] [place] [address] PCP - General 06/23/24 documented as of this encounter
--- OUTSIDE RECORDS SUMMARY | 2025-01-30 08:37 | XMS_ITS | Encounter Summary ---
Author Organization [employer] ([place], [place], [place], [place]) Address [address] [place] [address] Care Team Providers Care Senior Bookkeeper Name Role Phone Unavailable Primary Care Provider Unavailabl e Encounter Details Date Type Department Care Team (Late st Contact Info) Description 05/16/[address] [facility] [place] Family Medicine [facility] [place] [address] ProviderAiden MD [address] [place] [address] Social History Tobacco Use Types [...] these instructions at home: Medicines ??? Take atwh-yyg-xsyangn and prescription medicines only as told by your health care provider. Insertion site care ??? Follow instructions from your health care provider about how to take care of your insertion site. Make sure you: ? Wash your hands with soap and water before you change your bandage (dressing). If soap and water are not available, use hand metal cabinet finisher. ? Change your dressing as told by [...] provider. Document Revised: 08/03/2018 Document Reviewed: 08/03/2018 SafetyTat Patient Education ? 2020 SafetyTat Inc. Pharmacology Moderate Conscious Sedation, Adult, Care [...] you are awake and alert. ??? Take hdmg-nmw-yturner and prescription medicines only as told by [...] provider. Document Revised: 05/23/2020 Document Reviewed: 05/23/2020 ElseDescargas Online Patient Education ? 2020 Elsevier Inc. Radiology [...] and water are not available, use hand metal cabinet finisher. ? Change your dressing as told by [...] This is a medical emergency. ??? Take blyy-kfr-bwjdzai and prescription medicines only as told by [...] provider. Document Revised: 05/01/2020 Document Reviewed: 05/01/2020 ElseDescargas Online Patient Education ? 2020 CueSongs. documented in this encounter Plan of Treatment Not on file documented as of this encounter Visit Diagnoses Not on filedocumented in this encounter
--- OUTSIDE RECORDS SUMMARY | 2025-01-30 08:37 | XMS_ITS | Encounter Summary ---
Author Organization [facility] Address [address] [place] [address] Care Team Providers Care Atm Servicer Name Role Phone Magui Benjamin APRN Primary Care Provider [phone] Encounter Details Date Type Department Care Team (Late st Contact Info) Description 06/01/2024 Orders Only External Location [address] [place] [address] Provider, External Social History Tobacco Use Types [...] on filedocumented in this encounter Care Teams Atm Servicer Relationship Specialty Start Date End Date Magui Benjamin APRN [address] [id number] PCP - General 06/23/24 documented as of this encounter
--- OUTSIDE RECORDS SUMMARY | 2025-01-30 08:37 | XMS_ITS | Clinical Summary ---
Author Organization [employer] ([place], [place], [place], [place]) Address [address] [place] [address] Care Team Providers Care Np Name Role Phone Unavailable Primary Care Provider [...] Date Carrillo rded Speak language other than [place] at home Not on file 07/30/2023 Want [...]
--- OUTSIDE RECORDS SUMMARY | 2025-01-30 08:37 | XMS_ITS | Encounter Summary ---
Author Organization [employer] ([place], [place], [place], [place]) Address [address] [place] [address] Care Team Providers Care Incubator Machine Operator Name Role Phone Unavailable Primary Care Provider Unavailabl e Encounter Details Date Type Department Care Team (Late st Contact Info) Description 05/16/2021 Transcribed Document [facility] [place] Family [facility] [place] [address] ProviderAiden MD [address] [place] [address] Social History Tobacco Use Types [...] Source : Stated Height Entry Format : [place] Height, Feet : 5 ft(Converted to: 152 cm, 60 Inch) Height, Inches : 11 Inch(Converted to: 0 ft 11 Inch, 27.94 cm) Clinical Height : 180.34 cm Weight Source : Standing scale Weight Entry Format : [place] Clinical Dosing Weight : 88.64 kg Weight, Pounds : 195 lb Body Surface Area (BSA) : 2.09 m2 Body Mass Index : 27.3 kg/m2 (HI) [place] Body Weight : 74 kg REMY BOSS [...] REMY BOSS RN - 05/16/2021 9:03 EDT [place] Suicide Severity Rating Scale (C-SSRS) CSSRS Past [...] : Patient Readiness to Learn : Cooperative RMEY BOSS RN - 05/16/2021 9:03 EDT Education [...] Obtained From : Patient Primary Language : Serbian Preferred Communication Mode : Verbal Communication Barrier : None Adjudication Specialist Needed : No Objects to Sharing Info [...] Scale Risk Level : 0-24 Low Risk [place] Fall Interventions : Adequate lighting, Hourly comfort/safety [...] form. Electronically signed by Laurita Golden Conversion Machine Operations Supervisor Cerner at 10/27/2022 10:42 PM CDT documented in this encounter Plan of Treatment Not on file documented as of this encounter Visit Diagnoses Not on filedocumented in this encounter
--- OUTSIDE RECORDS SUMMARY | 2025-01-30 08:37 | XMS_ITS | Clinical Summary ---
Author Organization [facility] Address [address] [place] [address] Care Team Providers Care Assembly Instructions Writer Name Role Phone Magui Benjamin APRN Primary Care Provider [phone] Allergies No known active allergies Medications allopurinol (ZYLOPRIM) 300 MG tablet Take 1 tablet by mouth Daily. Active nitroglycerin (NITROSTAT) 0.[address] under the tongue. Active omeprazole (priLOSEC) 20 MG capsule Take 1 capsule by mouth. Active ondansetron ODT (ZOFRAN-ODT) 8 MG disintegrating tablet Take by mouth. Active simvastatin (ZOCOR) 20 MG tablet Take 1 tablet by mouth Daily. 90 tablet 3 Active apixaban (Eliquis) 5 MG tablet tablet Take 1 tablet by mouth twice daily 180 tablet 2 3 Active metoprolol tartrate (LOPRESSOR) 25 MG tablet Take 1/2 (one-half) tablet by mouth twice daily 90 tablet 4 Active Entresto 24-26 MG tablet Take 1 tablet by mouth twice daily 180 tablet 4 Active amiodarone (PACERONE) 200 MG tablet Take 1 tablet by mouth once daily 30 tablet 1 4 Active Active Problems Problem Noted Date Diagnosed Date Atrial fibrillation 11/27/2022 CHF (congestive heart failure) 11/25/2022 Irregular heartbeat 11/25/2022 Lymphoma 11/25/2022 Neutropenia 11/25/2022 Pancytopenia 11/25/2022 Hyperlipidemia Mitral insufficiency Sleep apnea Resolved Problems Problem Noted Date Diagnosed Date Resolved Date Acute encephalopathy 11/25/2022 023 STEPHANIE (acute kidney injury) 11/25/2022 E coli bacteremia 11/25/2022 12/24/2022 Hyponatremia 11/25/2022 12/24/2022 Septic shock 11/24/2022 12/24/2022 Precordial pain 12/24/2022 Immunizations Immunization Administration Dates Next Due COVID-19 (MAHI) 05/24/2021,11/30/2020 Td (TDVAX) 09/13/1996 Family History Relation Name Status Comments Brother 1 Father Mother Sister 1 Alive Social History Tobacco Use Types Packs/Day Years Used Date Smoking Tobacco: Never Passive Smoke Exposure: Past Smokeless Tobacco: Never Alcohol Use Standard Drinks/Week Comments Never 0 (1 standard drink = 0.6 oz pur e alcohol) Abuse Screen Answer Date Recorded Unsafe at Home or Work/School Not on file Feels Threatened by Someone? Not on file 03/2023 Does Anyone Keep You from Co ntacting Others or Doint Things Outside the Home? Not on file 04/19/2023 Physical Sign of Abuse Present Not on file 1 Housing Stability Answer Date Recorded Current Living Arrangements Not on file 03/2023 Potentially Unsafe Housing Conditions Not on all e 04/19/2023 Family and Community Support Answer Dario e Recorded Help with Day-to-Day Activities Not on file 04/19/2023 Lonely or Isolated Not on file 04/19/2023 Employment Answer Date Recorded Do you want help finding or keeping work or a dell b? Not on file 04/19/2023 Disabilities Answer Date Recorded Concentrating, Remembering, or Making Decisions Difficulty Not on file 04/19/2023 Doing Errands Independently Difficulty Not on fi le 04/19/2023 Education Answer Date Recorded Help with school or training? Not on file Preferred Language Not on file 04/19/2023 Sex and Gender Information Value Date Recorded Sex Assigned at Not on file Legal Sex Male 1:20 PM EDT Gender Identity Not on file Sexual Orientation Not on file Last Filed Vital Signs Vital Sign Reading Time Taken Comments Blood Pressure 100/60 01/28/2023 2:12 PM EDT Pulse 82 01/28/2023 2:12 PM EDT Temperature - - Respiratory Rate - - Oxygen Saturation 99% 01/28/2023 2:12 PM EDT Inhaled Oxygen Concentration - - Weight 86.6 kg (191 lb) 01/28/2023 2:12 PM EDT Height 180.3 cm (5' 11 ) 01/28/2023 2:12 PM EDT Body Mass Index 26.64 01/28/2023 2:12 PM EDT Plan of Treatment Health Maintenance Due Date Last Done Comments LIPID PANEL 1955 Pneumococcal Vaccine 50+ (1 of 2 - PCV) 10/11/1975 COLOGUARD 2001 COLON CANCER SCREENING 5 YEA R SIGMOIDOSCOPY 2001 COLONOSCOPY 2001 [address] CANCER SCREENING 2001 CT COLONOGRAPHY 2001 FECAL OCCULT BLOOD TEST 2001 FIT Testing (1 year) 2001 TDAP/TD VACCINES (2 - Tdap) 09/13/2006 09/13/1996 ZOSTER VACCINE (1 of 2) 2006 ANNUAL WELLNESS VISIT 08/27/2022 COVID-19 Vaccine ( season) 2024, 11/30/2020 INFLUENZA VACCINE 04/11/2025 AAA SCREEN ONCE Completed 12/04/2022, 11/26/2022 HEPATITIS C SCREENING Completed 06/23/2024 Insurance [facility] MEDICARE ADVANTAGE Care Teams Assembly Instructions Writer Relationship Specialty Start Date End Date Magui Benjamin APRN [address] [place] [address] [place] [address] PCP - General Nurse Practitioner 12/24/22
--- OUTSIDE RECORDS SUMMARY | 2025-01-30 08:37 | XMS_ITS | Clinical Summary ---
Author Organization [facility] Address [address] [place] [address] Care Team Providers Care Linseed Oil Order Filler Name Role Phone Magui Benjamin APRN Primary Care Provider [phone] Allergies No known active allergies Medications atorvastatin [...] Health Maintenance Due Date Last Done Comments [facility]-Medicare Annual Wellness (AWV) 1955 [facility]-/Child/Adol SDOH Screenings 1955 [facility]- SDOH [...] - Risk 60-74 years 1-dose series) 2016 [facility]-Abdominal Aortic Aneurys m (AAA) Screening 2021 [id number]-[id number] Vaccine ( season) 2024 05/24/2021, 11/30/2020 [facility]-Influenza [...] Antibody Negative Negative 06/23/2024 1:15 PM EST [facility] Blood Venous blood specimen / Unknown Venipuncture / Unknown 06/23/2024 11:48 AM EST 06/23/2024 12:26 PM EST us Mayela Moore MD LAB BLOOD ORDERABLES Final Resul t [facility] [address] [place] [address] from Last 3 Months or Most Recently Relevant to Health Maintenance Insurance MEDICARE Care Teams Linseed Oil Order Filler Relationship Specialty Start Date End Date Magui Benjamin, SEGMENTAL WALL INSTALLER [address] [place] [address] PCP - General 06/23/24
--- OUTSIDE RECORDS SUMMARY | 2025-01-30 08:37 | XMS_ITS | Clinical Summary ---
Author Organization [facility] Address [address] [place] [address] Phone Care Team Providers Care Therapy Technician Name Role Phone Gricelda Cox MD Unavailable [phone] Allergies No known active allergies Medications [...] Active fluticasone propionate (FLONASE) 50 mcg/actuation Nasl [place], Suspension 2 Sprays by Nasal route daily. [...] topic Insurance [facility] [facility] [facility] [place] [address] [facility] MEDICARE PPO [address] [id number] [employer] MEDICARE PPO MR [place] [facility] [place] [address] MEDICARE PPO MR [facility] [address] Advance Directives For more information, please contact: [phone] * Full Code (Latest Code Status on File) Date Activated Date Inactivated Comments 12/02/2022 11:11 AM 12/04/2022 7:53 PM * Full Code Date Activated Date Inactivated Comments 11/24/2022 11:52 PM 12/01/2022 2:40 AM Care Teams Therapy Technician Relationship Specialty Start Date End Date Gricelda Cox MD [address] [facility] [place] [address] Medical Oncologist Internal Medicine-Medical Oncology 11/26/22
--- OUTSIDE RECORDS SUMMARY | 2025-01-30 08:37 | XMS_ITS | Encounter Summary ---
Author Organization [employer] ([place], [place], [place], [place]) Address [address] [place] [address] Care Team Providers Care Patent Paralegal Name Role Phone Unavailable Primary Care Provider Unavailabl e Encounter Details Date Type Department Care Team (Late st Contact Info) Description 05/16/2021 Transcribed Document [facility] [place] Family Medicine [facility] [place] [address] ProviderAiden MD [address] [place] [address] Social History Tobacco Use Types [...]
--- OUTSIDE RECORDS SUMMARY | 2025-01-30 08:37 | XMS_ITS | Encounter Summary ---
Author Organization [facility] Address [address] [id number] Care Team Providers Care Sanitation Manager Name Role Phone Magui Benjamin APRN Primary Care Provider [phone] Encounter Details Date Type Department Care Team (Late st Contact Info) Description 07/03/2024 Lab Requisition [facility] [address] [place] [address] Mayela Moore MD 800 [facility] [address] [place] [phone] Enlarged lymph nodes, unspecified Social History Tobacco [...] 2:04 PM EST) Case Report Cytology Case: [id number] Authorizing Provider: Mayela Moore MD Collected: 07/03/20241403 Ordering Location: [facility] Received: 07/03/2024 1404 Pathologist: Isra Avilse MD Specimen: Lymph Node, [id number] 07/05/2024 6:55 PM EST [facility] Final Diagnosis A. LYMPH NODE, LEFT, FINE NEEDLE ASPIRATION (OUTSIDE ; COLLECTED ON 05/24/2024): - ATYPICAL LYMPHOID STROMA, SEE COMMENT. 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 The cell block and smears show population [...] would be recommended. 07/05/2024 6:55 PM EST [facility] Clinical Information History of follicular lymphoma and diffuse large B-cell lymphoma 07/05/2024 6:55 PM EST [facility] Gross Description A. [id number] Received along with a corresponding pathology report from [facility] Laboratory are 2 slides labeled outside case: [id number] collected on 05/24/2024. 07/05/2024 6:55 PM EST [facility] Fine Needle Aspirate Lymph node specimen / Unknown 07/03/2024 2:04 PM EST 07/03/2024 2:04 PM EST us Mayela Moore MD LAB PATHOLOGY ORDERABLES Final R esult [facility] [address] [place] [address] documented in this encounter Visit Diagnoses Diagnosis Enlarged lymph nodes, unspecified documented in this encounter Additional Health Concerns Assessment Noted Time A fall risk assessment has been complete d for the patient 06/23/2024 12:28 PM EST documented as of this encounter Care Teams Sanitation Manager Relationship Specialty Start Date End Date Magui Benjamin, BODY WELDER [address] [place] [address] PCP - General 06/23/24 documented as of this encounter
--- OUTSIDE RECORDS SUMMARY | 2025-01-30 08:37 | XMS_ITS | Encounter Summary ---
Author Organization Healthcare Address [address] [id number] Care Team Providers Care Booth Cashier Name Role Phone Magui Benjamin APRN Primary Care Provider [phone] Encounter Details Date Type Department Care Team (Late st Contact Info) Description 07/03/2024 Lab Requisition [facility] [address] [place] [address] Mayela Moore MD [address] [facility] [address] [place] [phone] Malignant neoplasm of head, face and neck [...] -2 Score 0 07/06/2024 9:42 AM EST Noble, Myriam L documented as of this encounter Plan of Treatment Not on file documented as of this encounter Procedures Procedure Name Priority Date/Time Associated Diagnosis Comments SURGICAL PATHOLOGY CONSULT Routine 07/03/2024 2:19 PM EST Malignant neoplasm of head, face and neck (CMS/HCC) documented in this encounter Results * Surgical Pathology Consult (07/03/2024 2:19 PM EST) Case Report Sugical Pathology Consult Case: [id number] Authorizing Provider: Mayela Moore MD Collected: 07/03/2024 1419 Ordering Location: [facility] Lab Received: 07/03/2024 1420 Pathologist: Isra Aviles MD Specimens: A) - Neck, [id number] B) - Lymph Node, [id number] 07/05/2024 6:14 PM EST [facility] Final Diagnosis OUTSIDE ; COLLECTED 12/22/2018 A. LYMPH NODE, LEFT NECK, DEEP JUGULAR, BIOPSY: - CLASSIC FOLLICULAR LYMPHOMA, SEE COMMENT. OUTSIDE ; COLLECTED 08/05/2022 A. 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 07/05/2024 6:14 PM EST [facility] at 1813 EST Comment OUTSIDE ; COLLECTED [...] previous follicular lymphoma. 07/05/2024 6:14 PM [facility] Clinical Information C76.0 - Malignant neoplasm of head, face and neck [ICD-10-CM] 07/05/2024 6:14 PM [facility] Gross Description A. [id number] Received along with a corresponding pathology report from [facility] are 24 slides labeled outside case: [id number] collected on 12/22/2018. B. [id number] Received along with a corresponding pathology report from [facility] are 19 slides labeled outside case: [id number] collected on 08/05/2022. 07/05/2024 6:14 PM [facility] Note: A resident was involved in the service. I attest I examined the relevant preparations for the specimens and confirmed the diagnosis or interpretation. 07/05/2024 6:14 PM [facility] Tissue Lymph node specimen / Unknown 07/03/2024 2:19 PM EST 07/03/2024 2:20 PM EST Tissue specimen (specimen) Lymph node specimen / Unknown 07/03/2024 2:19 PM EST 07/03/2024 2:20 PM EST us Mayela Moore MD LAB PATHOLOGY ORDERABLES Final R esult [facility] [address] [place] [address] documented in this encounter Visit Diagnoses Diagnosis Malignant neoplasm of head, face and neck (CMS/HCC) Malignant neoplasm of head, face, and neck documented in this encounter Additional Health Concerns Assessment Noted Time A fall risk assessment has been complete d for the patient 06/23/2024 12:28 PM EST documented as of this encounter Care Teams Booth Cashier Relationship Specialty Start Date End Date Magui Benjamin, ULISES [address] [place] [address] PCP - General 06/23/24 documented as of this encounter
--- OUTSIDE RECORDS SUMMARY | 2025-01-30 08:37 | XMS_ITS | Encounter Summary ---
Author Organization [employer] ([place], [place], [place], [place]) Address [address] [place] [address] Care Team Providers Care Asphalt Paver Operator Name Role Phone Unavailable Primary Care Provider Unavailabl e Encounter Details Date Type Department Care Team (Late st Contact Info) Description 05/16/2021 Transcribed Document [facility] Family Medicine [facility] [place] [address] ProviderAiden MD [address] [place] [address] Social History Tobacco Use Types Packs/Day [...] Basic Information PCP: Kenroy Chavez MD Primary Clubhouse Attendant: Edyta Guerra MD Chief Complaint Newly decreased [...] Available Past Medical History: Active Atrial fibrillation ([id number]) Cardiomyopathy ([id number]) Family History: Brain tumor Sister () Procedure [...] of motion, Normal strength. Integumentary: Warm, Dry, [place]. Neurologic: Alert, Oriented. Psychiatric: Cooperative, Appropriate mood [...]
--- OUTSIDE RECORDS SUMMARY | 2025-01-30 08:37 | XMS_ITS | Encounter Summary ---
Author Organization [employer] ([place], [place], [place], [place]) Address [address] [place] [address] Care Team Providers Care Key Maker Name Role Phone Unavailable Primary Care Provider Unavailabl e Encounter Details Date Type Department Care Team (Late st Contact Info) Description 05/16/2021 Transcribed Document [facility] Family Medicine [address] [place] [address] ProviderAiden MD [address] [place] [address] Social History Tobacco Use Types [...] Aiden ProviderMD - 05/16/2021 4:04 PM CDT [facility] [place] [address] JOSE EUCEDA :1955 Visit Time:05/16/2021 Your [...] appointment with Dr. Madera as scheduled. Where: [address] [place] [phone]- Business (1) Medications What How Much When [...] you are awake and alert. ??? Take qpqt-epv-qqjnokp and prescription medicines only as told by [...] provider. Document Revised: 05/23/2020 Document Reviewed: 05/23/2020 [employer] Patient Education ?? 2020 [employer]NA. Radial Site Care This sheet gives you [...] these instructions at home: Medicines ??? Take gjqg-okt-wqvhlrt and prescription medicines only as told by your health care provider. Insertion site care ??? Follow instructions from your health care provider about how to take care of your insertion site. Make sure you: ? Wash your hands with soap and water before you change your bandage (dressing). If soap and water are not available, use hand cell attendant helper. ? Change your dressing as told by [...] provider. Document Revised: 08/03/2018 Document Reviewed: 08/03/2018 [employer] Patient Education ?? 2020 [employer]. Angiogram, Care After This sheet gives [...] and water are not available, use hand cell attendant helper. ? Change your dressing as told by [...] This is a medical emergency. ??? Take tikr-rjo-yznfxoc and prescription medicines only as told by [...] Assistance with quitting is available by contacting 1-272-XDZKNOW. This is a free resource providing counseling, support, and referral. Or you may contact your personal physician. [place] Suicide Prevention Lifeline: The National Suicide Prevention [...] was given the opportunity to ask questions. Patient/Pile Driver Operator Helper Name: Patient/Pile Driver Operator Helper Signature: Relationship to Patient: Clinician/Hospital Pile Driver Operator Helper Signature: Date: documented in this encounter Plan of Treatment Not on file documented as of this encounter Visit Diagnoses Not on filedocumented in this encounter
--- OUTSIDE RECORDS SUMMARY | 2025-01-30 08:37 | XMS_ITS | Referral Summary ---
Author Organization [employer] ([place], [place], [place], [place]) Address [address] [place] [address] Care Team Providers Care Assembler Plastic Boat Name Role Phone Unavailable Primary Care Provider [...] Date Carrillo rded Speak language other than Sammarinese at home Not on file 07/30/2023 Want [...]
--- OUTSIDE RECORDS SUMMARY | 2025-01-30 08:37 | XMS_ITS | Encounter Summary ---
Author Organization [facility] Address [address] [place] [address] Care Team Providers Care Scheduler Conveyor Name Role Phone Magui Benjamin APRN Primary Care Provider [phone] Reason for Visit * Reason Comments Med Refill Encounter Details Date Type Department Care Team (Late st Contact Info) Description 11/23/2023 Refill [facility] [address] [facility] [address] [place] [address] Marcy Agrawal APRN [address] [place], [place] [id number] Med Refill Social History Tobacco Use Types Packs/Day Years [...] on filedocumented in this encounter Care Teams Scheduler Conveyor Relationship Specialty Start Date End Date Magui Benjamin APRN [address] [place] [address] [place] [address] PCP - General Nurse Practitioner 12/24/22 documented as of this encounter
--- OUTSIDE RECORDS SUMMARY | 2025-01-30 08:37 | XMS_ITS ---
Author Organization [facility] Address [address] [place] [address] Care Team Providers Care Stringer Up Soldering Machine Name Role Phone Magui Benjamin APRN Primary Care Provider [phone] Active Problems Problem Noted Date Diagnosed Date [...]
--- OUTSIDE RECORDS SUMMARY | 2025-01-30 08:37 | XMS_ITS | Encounter Summary ---
Author Organization [employer] ([place], [place], [place], [place]) Address [address] [place] [address] Care Team Providers Care American Indian Studies Professor Name Role Phone Unavailable Primary Care Provider Unavailabl e Encounter Details Date Type Department Care Team (Late st Contact Info) Description 05/16/2021 Transcribed Document [facility] Family Medicine [facility] [place] [address] ProviderAiden MD [address] [place] [address] Social History Tobacco Use Types [...] 05/16/2021 16:40 EDT Electronically signed by Chantel [facility] Conversion Watch Repairer Apprentice Cerner at 10/27/2022 10:30 PM CDT documented in this encounter Plan of Treatment Not on file documented as of this encounter Visit Diagnoses Not on filedocumented in this encounter
[2025-01-30 08:51] LABS: Hematocrit 23.5 % (42.0-52.0); Hemoglobin 8.0 g/dL (14.1-18.0); Immature Granulocytes % 0 %; Mean Corpuscular HGB Conc 34.0 g/dL (31.8-35.4); Mean Corpuscular Hemoglobin 34.6 pg (27.0-31.2); Mean Corpuscular Volume 101.7 fl (80-94); Nucleated Red Blood Cells % 0 %; Platelet Count 72 K/mm3 (142-424); Red Blood Count 2.31 M/mm3 (4.60-6.20); Red Cell Distribution Width-SD 65.0 fL
[2025-01-30 08:52] LABS: White Blood Count 1.5 K/mm3 (4.8-10.8)
[2025-01-30 08:59] LABS: Albumin Level 4.0 g/dl (3.5-5.0); Chloride 99 mmol/L (98-107)
[2025-01-30 09:00] LABS: Potassium 3.7 mmoL/L (3.5-5.1); Sodium 134 mmol/L (136-145)
[2025-01-30 09:02] LABS: Alanine Aminotransferase 29 U/L (12-78); Anion Gap 13.7 mEq/L (5-15); Aspartate Amino Transferase 32 U/L (17-59); Blood Urea Nitrogen 13 mg/dl (9-20); Carbon Dioxide 25 mmol/L (22.0-30.0); Creatinine,Serum 0.80 mg/dl (0.66-1.25); Estimated Glomerular Filt Rate 96 ml/min (>60); GFR (African American) 116 ML/MIN (>60)
[2025-01-30 09:03] LABS: Albumin/Globulin Ratio 1.6 (1.1-1.8); Alkaline Phosphatase 59 U/L (38-126); Bilirubin,Total 1.5 mg/dl (0.2-1.3); Calcium 9.5 mg/dl (8.4-10.2); Globulin 2.5 g/dL (1.3-3.2); Glucose 117 mg/dl (74-100); Total Protein,Serum 6.5 g/dl (6.3-8.2)
[2025-01-30 09:22] LABS: Albumin Level 4.0 g/dl (3.5-5.0)
[2025-01-30 09:24] LABS: Alanine Aminotransferase 28 U/L (12-78); Alkaline Phosphatase 61 U/L (38-126); Aspartate Amino Transferase 32 U/L (17-59); Bilirubin,Direct 0.6 mg/dl (0.0-0.4); Bilirubin,Indirect 1.0 mg/dL (0.0-0.9); Bilirubin,Total 1.6 mg/dl (0.2-1.3); Bilirubin,Unconjugated 1.0 mg/dL (0.0-1.1); Cholesterol 144 mg/dl (140-200); Total Protein,Serum 6.5 g/dl (6.3-8.2); Triglycerides 114 mg/dl (30-150)
[2025-01-30 09:25] LABS: HDL Cholesterol 58 mg/dl (40-60)
[2025-01-30 09:42] LABS: Triiodothryronine (T3) Uptake 35 % (23.5-40.5)
[2025-01-30 09:43] LABS: Free Thyroxine Index 3.3 ug/dL (5.93-13.13); T4 (Thyroxine) 9.4 ug/dl (5.53-11.0)
[2025-01-30 09:56] LABS: Thyroid Stimulating Hormone 1.85 uIU/mL (0.465-4.68)
[2025-01-30 11:09] LABS: Total Cells Counted 50
[2025-01-30 11:10] LABS: Macrocytosis 1+
== END 2025-01-30 09:40 | disposition home or self-care (01) ==
LOC: INF 08:26
PROVIDERS: Nurse Practitioner Family; PCP Nurse Practitioner Family; Visit Provider Internal Medicine Medical Oncology
DX: C83.30 Diffuse large B-cell lymphoma, unspecified site (principal)
CPT/HCPCS: 36415; 80053; 80061; 80076; 84436; 84443; 84479; 85007; 85025

== ENCOUNTER 2025-02-01 14:52 | Outpatient (CLI) | payer MEDICARE, SELFPAY ==
--- OUTSIDE RECORDS SUMMARY | 2025-02-01 14:54 | XMS_ITS | Encounter Summary ---
Author Organization [facility] Address [address] [place] [address] Care Team Providers Care Commercial Collector Name Role Phone Magui Benjamin APRN Primary Care Provider [phone] Reason for Visit * Reason Comments Med Refill Encounter Details Date Type Department Care Team (Late st Contact Info) Description 11/23/2023 Refill [facility] [address] [facility] [address] [place] [address] Marcy Agrawal APRN [address] [id number] Med Refill Social History Tobacco Use Types [...] help finding or keeping work or a edll b? Not on file 04/19/2023 Disabilities Answer [...] on filedocumented in this encounter Care Teams Commercial Collector Relationship Specialty Start Date End Date Magui Benjamin APRN [address] [place] [address] [place] [address] PCP - General Nurse Practitioner 12/24/22 documented as of this encounter
--- OUTSIDE RECORDS SUMMARY | 2025-02-01 14:54 | XMS_ITS | Encounter Summary ---
Author Organization [employer] ([place], [place], [place], [place]) Address [address] [place] [address] Care Team Providers Care Utilities Service Investigator Name Role Phone Unavailable Primary Care Provider Unavailabl e Encounter Details Date Type Department Care Team (Late st Contact Info) Description 05/16/2021 Transcribed Document [facility] Family Medicine [facility] [place] [address] ProviderAiden MD [address] [place] [address] Social History Tobacco Use Types Packs/Day [...] Basic Information PCP: Kenroy Chavez MD Primary Musical Instrument Maker: Edyta Guerra MD Chief Complaint Newly decreased [...] Available Past Medical History: Active Atrial fibrillation ([id number]) Cardiomyopathy ([id number]) Family History: Brain tumor Sister () Procedure [...] of motion, Normal strength. Integumentary: Warm, Dry, [place]. Neurologic: Alert, Oriented. Psychiatric: Cooperative, Appropriate mood [...]
--- OUTSIDE RECORDS SUMMARY | 2025-02-01 14:54 | XMS_ITS | Clinical Summary ---
Author Organization [employer] ([place], [place], [place], [place]) Address [address] [place] [address] Care Team Providers Care Sign Language Teacher Name Role Phone Unavailable Primary Care Provider [...] Date Carrillo rded Speak language other than Nigerien at home Not on file 07/30/2023 Want [...]
--- OUTSIDE RECORDS SUMMARY | 2025-02-01 14:54 | XMS_ITS | Encounter Summary ---
Author Organization [employer] ([place], [place], [place], [place]) Address [address] [place] [address] Care Team Providers Care Engineering Programmer Name Role Phone Unavailable Primary Care Provider Unavailabl e Encounter Details Date Type Department Care Team (Late st Contact Info) Description 05/16/2021 Transcribed Document [facility] Family Medicine [address] [place] [address] ProviderAiden MD [address] [place] [address] Social History Tobacco Use Types [...] Aiden ProviderMD - 05/16/2021 4:04 PM CDT [facility] [place] [address] JOSE EUCEDA :1955 Visit Time:05/16/2021 Your [...] appointment with Dr. Madera as scheduled. Where: [address] [place] [phone]- Business (1) Medications What How Much When [...] you are awake and alert. ??? Take xhqs-lwv-sywocru and prescription medicines only as told by [...] provider. Document Revised: 05/23/2020 Document Reviewed: 05/23/2020 [employer] Patient Education ?? 2020 [employer]eb[employer]. Radial Site Care This sheet gives you [...] these instructions at home: Medicines ??? Take bcts-lyg-zbtafpo and prescription medicines only as told by your health care provider. Insertion site care ??? Follow instructions from your health care provider about how to take care of your insertion site. Make sure you: ? Wash your hands with soap and water before you change your bandage (dressing). If soap and water are not available, use hand financial sales advisor. ? Change your dressing as told by [...] provider. Document Revised: 08/03/2018 Document Reviewed: 08/03/2018 [employer] Patient Education ?? 2020 [employer] Inc. Angiogram, Care After This sheet gives [...] and water are not available, use hand financial sales advisor. ? Change your dressing as told by [...] This is a medical emergency. ??? Take ohog-ysp-lgspxuz and prescription medicines only as told by [...] Assistance with quitting is available by contacting 5-053-LDKHNOW. This is a free resource providing counseling, support, and referral. Or you may contact your personal physician. [place] Suicide Prevention Lifeline: The National Suicide Prevention [...] was given the opportunity to ask questions. Patient/Store Product Demonstrator Name: Patient/Store Product Demonstrator Signature: Relationship to Patient: Clinician/Hospital Store Product Demonstrator Signature: Date: documented in this encounter Plan of Treatment Not on file documented as of this encounter Visit Diagnoses Not on filedocumented in this encounter
--- OUTSIDE RECORDS SUMMARY | 2025-02-01 14:55 | XMS_ITS | Encounter Summary ---
Author Organization [employer] ([place], [place], [place], [place]) Address [address] [place] [address] Care Team Providers Care School Lunch Manager Name Role Phone Unavailable Primary Care Provider Unavailabl e Encounter Details Date Type Department Care Team (Late st Contact Info) Description 05/16/2021 Transcribed Document [facility] Family Medicine [facility] [place] [address] ProviderAiden MD [address] [place] [address] Social History Tobacco Use Types [...] these instructions at home: Medicines ??? Take dqvf-mho-ymqqoxp and prescription medicines only as told by your health care provider. Insertion site care ??? Follow instructions from your health care provider about how to take care of your insertion site. Make sure you: ? Wash your hands with soap and water before you change your bandage (dressing). If soap and water are not available, use hand transportation specialist. ? Change your dressing as told [...] provider. Document Revised: 08/03/2018 Document Reviewed: 08/03/2018 [employer] Patient Education ? 2020 [employer] Inc. Pharmacology Moderate Conscious Sedation, Adult, Care [...] you are awake and alert. ??? Take lqqi-yjs-gunsqbk and prescription medicines only as told by [...] provider. Document Revised: 05/23/2020 Document Reviewed: 05/23/2020 [employer] Patient Education ? 2020 Elsevier Inc. Radiology [...] and water are not available, use hand transportation specialist. ? Change your dressing as told [...] This is a medical emergency. ??? Take peml-tlk-mfexpst and prescription medicines only as told by [...] provider. Document Revised: 05/01/2020 Document Reviewed: 05/01/2020 [employer] Patient Education ? 2020 [employer] documented in this encounter Plan of Treatment Not on file documented as of this encounter Visit Diagnoses Not on filedocumented in this encounter
--- OUTSIDE RECORDS SUMMARY | 2025-02-01 14:55 | XMS_ITS | Encounter Summary ---
Author Organization [employer] ([place], [place], [place], [place]) Address [address] [place] [address] Care Team Providers Care Rug Inspector Helper Name Role Phone Unavailable Primary Care Provider Unavailabl e Encounter Details Date Type Department Care Team (Late st Contact Info) Description 05/16/[address] [facility] Family Medicine [facility] [place] [address] ProviderAiden MD [address] [place] [address] Social History Tobacco Use Types [...]
--- OUTSIDE RECORDS SUMMARY | 2025-02-01 14:55 | XMS_ITS | Encounter Summary ---
Author Organization [employer] ([place], [place], [place], [place]) Address [address] [place] [address] Care Team Providers Care Care Technician Name Role Phone Unavailable Primary Care Provider Unavailabl e Encounter Details Date Type Department Care Team (Late st Contact Info) Description 05/16/2021 Transcribed Document [facility] [place] [facility] [place] [address] ProviderAiden MD [address] [place] [address] Social History Tobacco Use Types [...] Source : Stated Height Entry Format : Morrison Height, Feet : 5 ft(Converted to: 152 cm, 60 Inch) Height, Inches : 11 Inch(Converted to: 0 ft 11 Inch, 27.94 cm) Clinical Height : 180.34 cm Weight Source : Standing scale Weight Entry Format : Morrison Clinical Dosing Weight : 88.64 kg Weight, Pounds : 195 lb Body Surface Area (BSA) : 2.09 m2 Body Mass Index : 27.3 kg/m2 (HI) [place] Body Weight : 74 kg REMY BOSS [...] REMY BOSS RN - 05/16/2021 9:03 EDT [place] Suicide Severity Rating Scale (C-SSRS) CSSRS Past [...] Obtained From : Patient Primary Language : Kyrgyz Preferred Communication Mode : Verbal Communication Barrier : None [employer] Linux Engineer Needed : No Objects to Sharing Info [...] Scale Risk Level : 0-24 Low Risk [place] Fall Interventions : Adequate lighting, Hourly comfort/safety rounds, Upper side-rails up, Wheels locked, Wires/Cords secured REMY OBSS RN - 05/16/2021 9:03 EDT Valuables and [...]
--- OUTSIDE RECORDS SUMMARY | 2025-02-01 14:55 | XMS_ITS ---
Author Organization [facility] Address [address] [place] [address] Care Team Providers Care Schedule Checker Name Role Phone Magui Benjamin APRN Primary Care Provider [phone] Active Problems Problem Noted Date Diagnosed Date [...]
--- OUTSIDE RECORDS SUMMARY | 2025-02-01 14:55 | XMS_ITS | Encounter Summary ---
Author Organization Healthcare Address [address] [place] [address] Care Team Providers Care Repairer General Name Role Phone Magui Benjamin APRN Primary Care Provider [phone] Encounter Details Date Type Department Care Team (Late st Contact Info) Description 06/01/2024 Orders Only External Location [address] [place] [address] Provider, External Social History Tobacco Use Types [...] on filedocumented in this encounter Care Teams Repairer General Relationship Specialty Start Date End Date Magui Benjamin APRN [address] [id number] PCP - General 06/23/24 documented as of this encounter
--- OUTSIDE RECORDS SUMMARY | 2025-02-01 14:55 | XMS_ITS | Encounter Summary ---
Author Organization [facility] Address [address] [id number] Care Team Providers Care Supervisor Drapery Hanging Name Role Phone Magui Benjamin APRN Primary Care Provider [phone] Encounter Details Date Type Department Care Team (Late st Contact Info) Description 07/03/2024 Lab Requisition [facility] [address] [place] [address] Mayela Moore MD 800 [facility] [address] [place] [phone] Hodgkin lymphoma, unspecified, unspecified site (CMS/HCC) Social [...] PM EST) Case Report Bone Marrow Case: [id number] Authorizing Provider: Mayela Moore MD Collected: 07/03/2024 1411 Ordering Location: [facility] Lab Received: 07/03/2024 1411 Pathologist: Isra Aviles MD Specimen: Bone Marrow Aspirate, [id number] 07/10/2024 2:24 PM EST [facility] Final Diagnosis PERIPHERAL BLOOD AND BONE MARROW, PERIPHERAL SMEAR, ASPIRATE SMEAR, CLOT SECTION AND CORE BIOPSY (OUTSIDE ; COLLECTED ON 06/05/2024): - NORMOCELLULAR BONE MARROW WITH MATURING TRILINEAGE HEMATOPOIESIS, SEE COMMENT. - FLOW CYTOMETRY DETECTED 1% B-CELL POPULATION WITH ELEVATED KAPPA TO LAMBDA RATIO OF 8.2 REPORTEDLY. 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 According to the report, the concurrent flow [...] correlation is essential. 07/10/2024 2:24 PM EST [facility] Clinical Information History of B-cell lymphoma 07/10/2024 2:24 PM [facility] CBC and Differential Review of the peripheral smear shows mild macrocytic anemia. White blood cells and platelets appear adequate and show normal morphology. 07/10/2024 2:24 PM [facility] Bone Marrow Differential BONE MARROW DIFFERENTIAL: 200 cells Normal Patient Neutrophils 15-50 33 Metamyelocytes 4-19 7 Myelocytes 1-18 12 Promyelocytes 1-8 0 Blasts 0-2 0 Monocytes 0-5 2 Erythroid 16-38 31 Lymphocytes 3-24 6 Eosinophils 0-6 7 Basophils 0-2 0 Plasma cells 0-4 2 Other 07/10/2024 2:24 PM [facility] Aspirate Smear Staining quality of the bone marrow aspirate smears is suboptimal for morphologic assessment. There is maturing trilineage hematopoiesis. Erythroid and myeloid precursors show full spectrum of maturation. Blasts are not increased. Overt dysplastic features are not identified. The myeloid to erythroid ratio is 1.9 (Normal:1.5-4). Megakaryocytes are present and demonstrate normal morphology. 07/10/2024 2:24 PM [facility] Core Biopsy CELLULARITY: Slightly hypocellular bone marrow. [...] Keyla trabeculae are normal. 07/10/2024 2:24 PM [facility] Clot Section Clot sections show predominantly blood with small fragments of a normocellular bone marrow with maturing trilineage hematopoiesis. The provided immunostains for CD20 and CD3 show no atypical lymphoid aggregates. 07/10/2024 2:24 PM [facility] Flow Cytometry Interpretation According to the report, the concurrent flow cytometry performed at the outside institution revealed a 1% B-cell population with an increased kappa:lambda ratio of 8.2 and granulocytes with partial, non-specific CD56 expression. 07/10/2024 2:24 PM [facility] CYTOGENETICS/MOLE CULAR INTERPRETATION Per accompanying pathology report, cytogenetics showed a normal male karyotype. 07/10/2024 2:24 PM EST [facility] Gross Description A. [id number] Received along with a corresponding pathology report from [facility] are 19 slides labeled outside case: [id number] collected on 06/05/2024. 07/10/2024 2:24 PM EST [facility] Note: A resident was involved in the service. I attest I examined the relevant preparations for the specimens and confirmed the diagnosis or interpretation. 07/10/2024 2:24 PM EST [facility] Bone Marrow Specimen from bone marrow obtained by aspiration / Unknown 07/03/2024 2:11 PM EST 07/03/2024 2:11 PM EST us Mayela Moore MD LAB PATHOLOGY ORDERABLES Final R esult [facility] [address] [place] [address] documented in this encounter Visit Diagnoses Diagnosis Hodgkin lymphoma, unspecified, unspecified site (CMS/HCC) documented in this encounter Additional Health Concerns Assessment Noted Time A fall risk assessment has been complete d for the patient 06/23/2024 12:28 PM EST documented as of this encounter Care Teams Supervisor Drapery Hanging Relationship Specialty Start Date End Date Magui Benjamin, ULISES [address] [place] [address] PCP - General 06/23/24 documented as of this encounter
--- OUTSIDE RECORDS SUMMARY | 2025-02-01 14:55 | XMS_ITS | Referral Summary ---
Author Organization [employer] ([place], [place], [place], [place]) Address [address] [place] [address] Care Team Providers Care Care Director Name Role Phone Unavailable Primary Care Provider [...] Date Carrillo rded Speak language other than Bhutanese at home Not on file 07/30/2023 Want [...]
--- OUTSIDE RECORDS SUMMARY | 2025-02-01 14:55 | XMS_ITS | Encounter Summary ---
Author Organization [employer] ([place], [place], [place], [place]) Address [address] [place] [address] Care Team Providers Care Ekg Monitor Name Role Phone Unavailable Primary Care Provider Unavailabl e Encounter Details Date Type Department Care Team (Late st Contact Info) Description 05/16/2021 Transcribed Document [facility] Family Medicine [facility] [address] ProviderAiden MD [address] [place] [address] Social History Tobacco Use Types [...] 05/16/2021 16:40 EDT Electronically signed by Ch[facility] Conversion Model Engine Mechanic Cerner at 10/27/2022 10:30 PM CDT documented in this encounter Plan of Treatment Not on file documented as of this encounter Visit Diagnoses Not on filedocumented in this encounter
--- OUTSIDE RECORDS SUMMARY | 2025-02-01 14:55 | XMS_ITS | Encounter Summary ---
Author Organization [facility] Address [address] [id number] Care Team Providers Care Manual Lathe Operator Name Role Phone Magui Benjamin APRN Primary Care Provider [phone] Encounter Details Date Type Department Care Team (Late st Contact Info) Description 07/03/2024 Lab Requisition [facility] [address] [place] [address] Mayela Moore MD 800 [facility] [address] [place] [phone] Malignant neoplasm of head, face and neck [...] -2 Score 0 07/06/2024 9:42 AM EST [place], Myriam L documented as of this encounter Plan of Treatment Not on file documented as of this encounter Procedures Procedure Name Priority Date/Time Associated Diagnosis Comments SURGICAL PATHOLOGY CONSULT Routine 07/03/2024 2:19 PM EST Malignant neoplasm of head, face and neck (CMS/HCC) documented in this encounter Results * Surgical Pathology Consult (07/03/2024 2:19 PM EST) Case Report Sugical Pathology Consult Case: [id number] Authorizing Provider: Mayela Moore MD Collected: 07/03/2024 1419 Ordering Location: [facility] Lab Received: 07/03/2024 1420 Pathologist: Isra Aviles MD Specimens: A) - Neck, [id number] B) - Lymph Node, [id number] 07/05/2024 6:14 PM EST [facility] Final Diagnosis OUTSIDE ; COLLECTED 12/22/2018 A. LYMPH NODE, LEFT NECK, DEEP JUGULAR, BIOPSY: - CLASSIC FOLLICULAR LYMPHOMA, SEE COMMENT. OUTSIDE ; COLLECTED 08/05/2022 A. 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 07/05/2024 6:14 PM EST [facility] at 1813 EST Comment OUTSIDE ; [...] of previous follicular lymphoma. 07/05/2024 6:14 PM [facility] Clinical Information C76.0 - Malignant neoplasm of head, face and neck [ICD-10-CM] 07/05/2024 6:14 PM [facility] Gross Description A. [id number] Received along with a corresponding pathology report from [facility] are 24 slides labeled outside case: [id number] collected on 12/22/2018. B. [id number] Received along with a corresponding pathology report from [facility] are 19 slides labeled outside case: [id number] collected on 08/05/2022. 07/05/2024 6:14 PM [facility] Note: A resident was involved in the service. I attest I examined the relevant preparations for the specimens and confirmed the diagnosis or interpretation. 07/05/2024 6:14 PM [facility] Tissue Lymph node specimen / Unknown 07/03/2024 2:19 PM EST 07/03/2024 2:20 PM EST Tissue specimen (specimen) Lymph node specimen / Unknown 07/03/2024 2:19 PM EST 07/03/2024 2:20 PM EST us Mayela Moore MD LAB PATHOLOGY ORDERABLES Final R esult [facility] [address] [place] [address] documented in this encounter Visit Diagnoses Diagnosis Malignant neoplasm of head, face and neck (CMS/HCC) Malignant neoplasm of head, face, and neck documented in this encounter Additional Health Concerns Assessment Noted Time A fall risk assessment has been complete d for the patient 06/23/2024 12:28 PM EST documented as of this encounter Care Teams Manual Lathe Operator Relationship Specialty Start Date End Date Magui Benjamin, ULISES [address] [place] [address] PCP - General 06/23/24 documented as of this encounter
--- OUTSIDE RECORDS SUMMARY | 2025-02-01 14:55 | XMS_ITS | Encounter Summary ---
Author Organization [facility] Address [address] [id number] Care Team Providers Care Security Guard Supervisor Name Role Phone Magui Benjamin APRN Primary Care Provider [phone] Encounter Details Date Type Department Care Team (Late st Contact Info) Description 07/03/2024 Lab Requisition [facility] [address] [place] [address] Mayela Moore MD 800 [facility] [address] [place] [phone] Enlarged lymph nodes, unspecified Social History Tobacco [...] 2:04 PM EST) Case Report Cytology Case: [id number] Authorizing Provider: Mayela Moore MD Collected: 07/03/20241403 Ordering Location: [facility] Lab Received: 07/03/2024 1404 Pathologist: Isra Aviles MD Specimen: Lymph Node, [id number] 07/05/2024 6:[address] [facility] Final Diagnosis A. LYMPH NODE, LEFT, FINE NEEDLE ASPIRATION (OUTSIDE ; COLLECTED ON 05/24/2024): - ATYPICAL LYMPHOID STROMA, SEE COMMENT. 07/05/2024 6:[address] 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 The cell block and smears show population [...] would be recommended. 07/05/2024 6:55 PM EST [facility] Clinical Information History of follicular lymphoma and diffuse large B-cell lymphoma 07/05/2024 6:55 PM EST [facility] Gross Description A. [id number] Received along with a corresponding pathology report from [facility] are 2 slides labeled outside case: [id number] collected on 05/24/2024. 07/05/2024 6:55 PM EST [facility] Fine Needle Aspirate Lymph node specimen / Unknown 07/03/2024 2:04 PM EST 07/03/2024 2:04 PM EST us Mayela Moore MD LAB PATHOLOGY ORDERABLES Final R esult [facility] [address] [place] [address] documented in this encounter Visit Diagnoses Diagnosis Enlarged lymph nodes, unspecified documented in this encounter Additional Health Concerns Assessment Noted Time A fall risk assessment has been complete d for the patient 06/23/2024 12:28 PM EST documented as of this encounter Care Teams Security Guard Supervisor Relationship Specialty Start Date End Date Magui Benjamin, AUDITOR TAX [address] [place] [address] PCP - General 06/23/24 documented as of this encounter
--- OUTSIDE RECORDS SUMMARY | 2025-02-01 14:55 | XMS_ITS | Clinical Summary ---
Author Organization [facility] Address [address] [place] [address] Care Team Providers Care 3Rd Grade Reading Teacher Name Role Phone Magui Benjamin APRN Primary Care Provider [phone] Allergies No known active allergies Medications allopurinol [...] 11/26/2022 HEPATITIS C SCREENING Completed 06/23/2024 Insurance [facility] MEDICARE ADVANTAGE Care Teams 3Rd Grade Reading Teacher Relationship Specialty Start Date End Date Magui Benjamin APRN [address] [place] [address] [place] [address] PCP - General Nurse Practitioner 12/24/22
--- OUTSIDE RECORDS SUMMARY | 2025-02-01 14:55 | XMS_ITS | Clinical Summary ---
Author Organization [facility] Address [address] [place] [address] Phone Care Team Providers Care Dope Sprayer Name Role Phone Gricelda Cox MD Unavailable [phone] Allergies No known active allergies Medications [...] Active fluticasone propionate (FLONASE) 50 mcg/actuation Nasl [place], Suspension 2 Sprays by Nasal route daily. [...] [facility] [facility] MEDICARE PPO [address] [id number] [employer] MEDICARE PPO MR [place] [facility] [place] [address] MED[place] PPO MR [facility] [address] Advance Directives For more information, please contact: [phone] * Full Code (Latest Code Status on File) Date Activated Date Inactivated Comments 12/02/2022 11:11 AM 12/04/2022 7:53 PM * Full Code Date Activated Date Inactivated Comments 11/24/2022 11:52 PM 12/01/2022 2:40 AM Care Teams Dope Sprayer Relationship Specialty Start Date End Date Gricelda Cox MD [address] [place] [address] Medical Oncologist Internal Medicine-Medical Oncology 11/26/22
--- OUTSIDE RECORDS SUMMARY | 2025-02-01 14:55 | XMS_ITS | Clinical Summary ---
Author Organization [facility] Address [address] [place] [address] Care Team Providers Care Supervisor Contact And Service Clerks Name Role Phone Magui Benjamin APRN Primary Care Provider [phone] Allergies No known active allergies Medications atorvastatin [...] Health Maintenance Due Date Last Done Comments [facility]-Medicare Annual Wellness (AWV) 1955 [facility]-/Child/Adol SDOH Screenings 1955 [facility]- SDOH Screenings 1974 [...] - Risk 60-74 years 1-dose series) 2016 [facility]-Abdominal Aortic Aneurys m (AAA) Screening 2021 [id number] Vaccine ( season) 2024 05/24/2021, 11/30/2020 [facility]-Influenza [...] Antibody Negative Negative 06/23/2024 1:15 PM EST [facility] Blood Venous blood specimen / Unknown Venipuncture / Unknown 06/23/2024 11:48 AM EST 06/23/2024 12:26 PM EST us Mayela Moore MD LAB BLOOD ORDERABLES Final Resul t [facility] [address] [place] [address] from Last 3 Months or Most Recently Relevant to Health Maintenance Insurance MEDICARE Care Teams Supervisor Contact And Service Clerks Relationship Specialty Start Date End Date Magui Benjamin, PUBLIC POLICY MANAGER [address] [place] [address] PCP - General 06/23/24
--- NOTE | 2025-02-01 15:15 | CA_ITS ---
APPROVED REPORT EXAM: Comprehensive 2D, Doppler, and color-flow Echocardiogram Ob Gyn: Mary Ramirez, RCS, RVS Ht: 5 ft 11 in Wt: 206lbs BSA: 2.13 BP: 101/49 mmHg Indications: AFIB, HTN HFrEF, [place], Lymphoma 2D Dimensions Left Atrium 2.81 cm M: 3.0 - 4.0 LA Volume 44.80 mL LA Volume Index 20.612094 mL/m2 (M/F) 16-34 EF AP4 58.10 % GL Strain -19.8 % M-Mode Dimensions RVDd 2.56 cm (0.9-2.6) LA Diam 3.18 cm (1.9-4.0) LVDd 5.13 cm (3.5-5.7) LVDs 2.72 cm (3.5-5.7) IVSd 1.22 cm (0.6-1.1) PWd 1.06 cm (0.6-1.1) EF (Teich) 78.10% EPSs 0.64 cm FS 47.00% EDV (Teich) 125.50 mL TAPSE 2.38 (<1.7) ESV (Teich) 27.50 mL LV Diastology E Decel Time 257 (160-240 msec) E/A Ratio 0.80 MED A' 10.00 cm/s LAT A' 9.90 cm/s Aortic Valve EDY Index 1.23 cm2/m2 AoV Peak Sincere. 134.0 (50-130 cm/s) AO Peak GR. 7.20 mmHg AO Mean GR. 3.60 (<5 mmHg) AO VTI 23.7 (18-25 cm) EDY (VTI) 2.70 (2.5-4.5 cm2) Mitral Valve MV A Velocity 106.0 (40-130 cm/s) E/A Ratio 0.80 Pulmonary Valve GA End VMAX 162.0 cm/s Tricuspid Valve TR P. Velocity 262.00 cm/s RAP Estimate 10.00 mmHg RVSP 37.40 mmHg Left Ventricle The left ventricle is normal size. The left ventricular systolic function is normal. The left ventricular ejection fraction is within the normal range. Proximal septal thickening is present. There is normal LV segmental wall motion. Transmitral Doppler flow pattern suggests impaired LV relaxation. LVEF is 55%. Right Ventricle The right ventricle is normal size. The right ventricular systolic function is normal. Atria The left atrium size is normal. The right atrium size is normal. There is no Doppler evidence of interatrial shunt. Aortic Valve The aortic valve opens well. There is no aortic valvular stenosis. No aortic regurgitation is present. Mitral Valve The mitral valve is normal in structure. No evidence of mitral valve stenosis. Mild mitral regurgitation. Tricuspid Valve Tricuspid valve is grossly normal in structure and function. Mild tricuspid regurgitation. RVSP is 20-25 mmHg. Pulmonic Valve The pulmonary valve is normal in structure. Trace pulmonic regurgitation. Great Vessels The aortic root is normal in size. IVC is normal in size and collapses >50% with inspiration. Pericardium There is no pericardial effusion. Other Information Study Quality: Fair Conclusion Normal biventricular systolic function. Mild MR, mild TR. Electronically signed by : Hailey García MD 02/06/2025 08:44:15
== END 2025-02-01 23:59 | disposition home or self-care (01) ==
LOC: RT 14:52
PROVIDERS: PCP Nurse Practitioner Family; Visit Provider Nurse Practitioner Family
DX: I08.1 Rheumatic disorders of both mitral and tricuspid valves (principal); I11.0 Hypertensive heart disease with heart failure; I50.20 Unspecified systolic (congestive) heart failure; I48.0 Paroxysmal atrial fibrillation; I25.10 Atherosclerotic heart disease of native coronary artery without angina pectoris; G47.33 Obstructive sleep apnea (adult) (pediatric); C85.90 Non-Hodgkin lymphoma, unspecified, unspecified site
CPT/HCPCS: 93306

== ENCOUNTER 2025-02-06 08:08 | Outpatient (CLI) | payer MEDICARE, SELFPAY ==
--- OUTSIDE RECORDS SUMMARY | 2025-02-06 08:11 | XMS_ITS | Encounter Summary ---
Author Organization [facility] Address [address] [place] [address] Care Team Providers Care Vulcanizing Machine Operator Name Role Phone Magui Benjamin APRN Primary Care Provider [phone] Reason for Visit * Reason Comments Med Refill Encounter Details Date Type Department Care Team (Late st Contact Info) Description 11/23/2023 Refill [facility] [address] [facility] [address] [place] [address] Marcy Agrawal APRN [address] [place], [place] [id number] Med Refill Social History Tobacco Use Types [...] on filedocumented in this encounter Care Teams Vulcanizing Machine Operator Relationship Specialty Start Date End Date Magui Benjamin APRN [address] [place] [address] PCP - General Nurse Practitioner 12/24/22 documented as of this encounter
--- OUTSIDE RECORDS SUMMARY | 2025-02-06 08:11 | XMS_ITS | Clinical Summary ---
Author Organization [employer] ([place]) Address [address] [place] [address] Care Team Providers Care Ski Base Trimmer Name Role Phone Unavailable Primary Care Provider [...] Date Carrillo rded Speak language other than Cuban at home Not on file 07/30/2023 Want [...]
--- OUTSIDE RECORDS SUMMARY | 2025-02-06 08:12 | XMS_ITS | Clinical Summary ---
Author Organization [facility] Address [address] [place] [address] Phone Care Team Providers Care Fly Setter Name Role Phone Gricelda Cox MD Unavailable [phone] Allergies No known active allergies Medications [...] Active fluticasone propionate (FLONASE) 50 mcg/actuation Nasl [place], Suspension 2 Sprays by Nasal route daily. [...] topic Insurance [facility] [facility] [facility] [address] [facility] MEDICARE PPO [address] [id number] [employer] MEDICARE PPO [place] AETNA [facility] [place] [address] MEDICARE PPO MR [facility] [address] Advance Directives For more information, please contact: [phone] * Full Code (Latest Code Status on File) Date Activated Date Inactivated Comments 12/02/2022 11:11 AM 12/04/2022 7:53 PM * Full Code Date Activated Date Inactivated Comments 11/24/2022 11:52 PM 12/01/2022 2:40 AM Care Teams Fly Setter Relationship Specialty Start Date End Date Gricelda Cox MD [address] [place] [address] Medical Oncologist Internal Medicine-Medical Oncology 11/26/22
--- OUTSIDE RECORDS SUMMARY | 2025-02-06 08:12 | XMS_ITS | Encounter Summary ---
Author Organization [employer] ([place], [place], [place], [place]) Address [address] [place] [address] Care Team Providers Care Optometrist/Practice Owner Name Role Phone Unavailable Primary Care Provider Unavailabl e Encounter Details Date Type Department Care Team (Late st Contact Info) Description 05/16/2021 Transcribed Document [facility] Family Medicine [facility] [place] [address] ProviderAiden MD [address] [place] [address] Social History Tobacco Use Types [...] REMY BOSS RN - 05/16/2021 9:37 EDT Electronically signed by Laurita Golden Conversion Fire Investigation Lieutenant Cerner at 10/27/2022 10:41 PM CDT documented in this encounter Plan of Treatment Not on file documented as of this encounter Visit Diagnoses Not on filedocumented in this encounter
--- OUTSIDE RECORDS SUMMARY | 2025-02-06 08:12 | XMS_ITS | Encounter Summary ---
Author Organization [employer] ([place], [place]) Address [address] [place] [address] Care Team Providers Care Market Relationship Manager Name Role Phone Unavailable Primary Care Provider Unavailabl e Encounter Details Date Type Department Care Team (Late st Contact Info) Description 05/16/2021 Transcribed Document [facility] Family Medicine [facility] [place] [address] ProviderAiden MD [address] [place] [address] Social History Tobacco Use Types [...] Source : Stated Height Entry Format : Harper Height, Feet : 5 ft(Converted to: 152 cm, 60 Inch) Height, Inches : 11 Inch(Converted to: 0 ft 11 Inch, 27.94 cm) Clinical Height : 180.34 cm Weight Source : Standing scale Weight Entry Format : Harper Clinical Dosing Weight : 88.64 kg Weight, Pounds : 195 lb Body Surface Area (BSA) : 2.09 m2 Body Mass Index : 27.3 kg/m2 (HI) [place] Body Weight : 74 kg REMY BOSS [...] REMY BOSS RN - 05/16/2021 9:03 EDT [place] Suicide Severity Rating Scale (C-SSRS) CSSRS Past [...] Obtained From : Patient Primary Language : Thai Preferred Communication Mode : Verbal Communication Barrier : None Tumbler Machine Operator Needed : No Objects to Sharing Info [...] Scale Risk Level : 0-24 Low Risk [place] Fall Interventions : Adequate lighting, Hourly comfort/safety [...]
--- OUTSIDE RECORDS SUMMARY | 2025-02-06 08:12 | XMS_ITS | Encounter Summary ---
Author Organization [employer] ([place], [place], [place], [place]) Address [address] [place] [address] Care Team Providers Care Hand Molder Meat Name Role Phone Unavailable Primary Care Provider Unavailabl e Encounter Details Date Type Department Care Team (Late st Contact Info) Description 05/16/2021 Transcribed Document [facility] Family Medicine [facility] [place] [address] ProviderAiden MD [address] [place] [address] Social History Tobacco Use Types Packs/Day [...] Basic Information PCP: Kenroy Chavez MD Primary Caddy Master: Edyta Guerra MD Chief Complaint Newly decreased [...] Available Past Medical History: Active Atrial fibrillation ([id number]) Cardiomyopathy ([id number]) Family History: Brain tumor Sister () Procedure [...] of motion, Normal strength. Integumentary: Warm, Dry, [place]. Neurologic: Alert, Oriented. Psychiatric: Cooperative, Appropriate mood [...]
--- OUTSIDE RECORDS SUMMARY | 2025-02-06 08:12 | XMS_ITS | Encounter Summary ---
Author Organization [employer] ([place], [place], [place], [place]) Address [address] [place] [address] Care Team Providers Care Balance Truer Name Role Phone Unavailable Primary Care Provider Unavailabl e Encounter Details Date Type Department Care Team (Late st Contact Info) Description 05/16/2021 Transcribed Document [facility] [place] [address] [place] [address] ProviderAiden MD [address] [place] [address] Social History Tobacco Use Types [...] ProviderMD - 05/16/2021 4:04 PM CDT [facility] [place] [id number] JOSE EUCEDA :1955 Visit Time:05/16/2021 Your [...] appointment with Dr. Madera as scheduled. Where: [address] [place] [phone] (1) Medications What How Much When [...] you are awake and alert. ??? Take yrkq-uys-omkgwcy and prescription medicines only as told by [...] provider. Document Revised: 05/23/2020 Document Reviewed: 05/23/2020 [employer] Patient Education ?? 2020 [employer]. Radial Site Care This sheet gives you [...] these instructions at home: Medicines ??? Take vcky-gnj-jaqqnyy and prescription medicines only as told by your health care provider. Insertion site care ??? Follow instructions from your health care provider about how to take care of your insertion site. Make sure you: ? Wash your hands with soap and water before you change your bandage (dressing). If soap and water are not available, use hand rat farmer. ? Change your dressing as told by [...] provider. Document Revised: 08/03/2018 Document Reviewed: 08/03/2018 [employer] Patient Education ?? 2020 [employer] Angiogram, Care After This sheet gives [...] and water are not available, use hand rat farmer. ? Change your dressing as told by [...] This is a medical emergency. ??? Take jvvv-hfe-zapzrfi and prescription medicines only as told by [...] Assistance with quitting is available by contacting 9-906-ECXTNOW. This is a free resource providing counseling, support, and referral. Or you may contact your personal physician. [place] Suicide Prevention Lifeline: The National Suicide Prevention [...] was given the opportunity to ask questions. Patient/Hairspring Assembler Name: Patient/Hairspring Assembler Signature: Relationship to Patient: Clinician/Hospital Hairspring Assembler Signature: Date: documented in this encounter Plan of Treatment Not on file documented as of this encounter Visit Diagnoses Not on filedocumented in this encounter
--- OUTSIDE RECORDS SUMMARY | 2025-02-06 08:13 | XMS_ITS | Encounter Summary ---
Author Organization [employer] ([place], [place], [place], [place]) Address [address] [place] [address] Care Team Providers Care Parts Manager Name Role Phone Unavailable Primary Care Provider Unavailabl e Encounter Details Date Type Department Care Team (Late st Contact Info) Description 05/16/2021 Transcribed Document [facility] [place] [facility] [place] [address] ProviderAiden MD [address] [place] [address] Social History Tobacco Use [...] these instructions at home: Medicines ??? Take lfdp-qiy-mixdkeb and prescription medicines only as told by your health care provider. Insertion site care ??? Follow instructions from your health care provider about how to take care of your insertion site. Make sure you: ? Wash your hands with soap and water before you change your bandage (dressing). If soap and water are not available, use hand water resource engineering specialist. ? Change your dressing as told [...] provider. Document Revised: 08/03/2018 Document Reviewed: 08/03/2018 [employer] Patient Education ? 2020 [employer] Pharmacology Moderate Conscious Sedation, Adult, Care [...] you are awake and alert. ??? Take etka-oih-ztwyqkj and prescription medicines only as told by [...] provider. Document Revised: 05/23/2020 Document Reviewed: 05/23/2020 [employer] Patient Education ? 2020 [employer]. Radiology [...] and water are not available, use hand water resource engineering specialist. ? Change your dressing as told [...] This is a medical emergency. ??? Take nzqa-sol-zevnjos and prescription medicines only as told by [...] provider. Document Revised: 05/01/2020 Document Reviewed: 05/01/2020 [employer] Patient Education ? 2020 [employer]. documented in this encounter Plan of Treatment Not on file documented as of this encounter Visit Diagnoses Not on filedocumented in this encounter
--- OUTSIDE RECORDS SUMMARY | 2025-02-06 08:13 | XMS_ITS | Clinical Summary ---
Author Organization [facility] Address [address] [place] [address] Care Team Providers Care Die Inspector Name Role Phone Magui Benjamin APRN Primary Care Provider [phone] Allergies No known active allergies Medications atorvastatin [...] Health Maintenance Due Date Last Done Comments [facility]-Medicare Annual Wellness (AWV) 1955 [facility]-/Child/Adol SDOH Screenings 1955 [facility]- SDOH [...] - Risk 60-74 years 1-dose series) 2016 [facility]-Abdominal Aortic Aneurys m (AAA) Screening 2021 [facility]-CBUBG-58 Vaccine ( season) 2024 05/24/2021, 11/30/2020 [facility]-Influenza [...] Antibody Negative Negative 06/23/2024 1:15 PM EST [facility] Blood Venous blood specimen / Unknown Venipuncture / Unknown 06/23/2024 11:48 AM EST 06/23/2024 12:26 PM EST us Mayela Moore MD LAB BLOOD ORDERABLES Final Resul t [facility] [address] [place] [address] from Last 3 Months or Most Recently Relevant to Health Maintenance Insurance MEDICARE Care Teams Die Inspector Relationship Specialty Start Date End Date Magui Benjamin, MIXER AND BLENDER [address] [place] [address] PCP - General 06/23/24
--- OUTSIDE RECORDS SUMMARY | 2025-02-06 08:13 | XMS_ITS | Encounter Summary ---
Author Organization [employer] ([place], [place], [place], [place]) Address [address] [place] [address] Care Team Providers Care Credit Balance Specialist Name Role Phone Unavailable Primary Care Provider Unavailabl e Encounter Details Date Type Department Care Team (Late st Contact Info) Description 05/16/2021 Transcribed Document [facility] [place] [facility] [place] [address] ProviderAiden MD [address] [place] [address] Social History Tobacco Use Types [...] 05/16/2021 16:40 EDT Electronically signed by Chantel [facility] Conversion Vice President Of Human Resources Cerner at 10/27/2022 10:30 PM CDT documented in this encounter Plan of Treatment Not on file documented as of this encounter Visit Diagnoses Not on filedocumented in this encounter
--- OUTSIDE RECORDS SUMMARY | 2025-02-06 08:13 | XMS_ITS | Referral Summary ---
Author Organization [employer] ([place], [place], [place], [place]) Address [address] [place] [address] Care Team Providers Care Flatwork Presser Name Role Phone Unavailable Primary Care Provider [...] Date Carrillo rded Speak language other than Guatemalan at home Not on file 07/30/2023 Want [...]
--- OUTSIDE RECORDS SUMMARY | 2025-02-06 08:13 | XMS_ITS | Encounter Summary ---
Author Organization Healthcare Address [address] [id number] Care Team Providers Care Sleeve Tailor Name Role Phone Magui Benjamin APRN Primary Care Provider [phone] Encounter Details Date Type Department Care Team (Late st Contact Info) Description 07/03/2024 Lab Requisition [facility] [address] [place] [address] Mayela Moore MD 800 [facility] [address] [place] [phone] Malignant neoplasm of head, face and neck [...] -2 Score 0 07/06/2024 9:42 AM EST [place], Myriam L documented as of this encounter Plan of Treatment Not on file documented as of this encounter Procedures Procedure Name Priority Date/Time Associated Diagnosis Comments SURGICAL PATHOLOGY CONSULT Routine 07/03/2024 2:19 PM EST Malignant neoplasm of head, face and neck (CMS/HCC) documented in this encounter Results * Surgical Pathology Consult (07/03/2024 2:19 PM EST) Case Report Sugical Pathology Consult Case: [id number] Authorizing Provider: Mayela Moore MD Collected: 07/03/2024 1419 Ordering Location: [facility] Received: 07/03/2024 1420 Pathologist: Isra Aviles MD Specimens: A) - Neck, [id number] B) - Lymph Node, [id number] 07/05/2024 6:14 PM EST [facility] Final Diagnosis OUTSIDE ; COLLECTED 12/22/2018 A. LYMPH NODE, LEFT NECK, DEEP JUGULAR, BIOPSY: - CLASSIC FOLLICULAR LYMPHOMA, SEE COMMENT. OUTSIDE ; COLLECTED 08/05/2022 A. 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 07/05/2024 6:14 PM EST [facility] at 1813 EST Comment OUTSIDE ; [...] of previous follicular lymphoma. 07/05/2024 6:14 PM [facility] Clinical Information C76.0 - Malignant neoplasm of head, face and neck [ICD-10-CM] 07/05/2024 6:14 PM [facility] Gross Description A. [id number] Received along with a corresponding pathology report from [facility] are 24 slides labeled outside case: [id number] collected on 12/22/2018. B. [id number] Received along with a corresponding pathology report from [facility] are 19 slides labeled outside case: [id number] collected on 08/05/2022. 07/05/2024 6:14 PM [facility] Note: A resident was involved in the service. I attest I examined the relevant preparations for the specimens and confirmed the diagnosis or interpretation. 07/05/2024 6:14 PM [facility] Tissue Lymph node specimen / Unknown 07/03/2024 2:19 PM EST 07/03/2024 2:20 PM EST Tissue specimen (specimen) Lymph node specimen / Unknown 07/03/2024 2:19 PM EST 07/03/2024 2:20 PM EST us Mayela Moore MD LAB PATHOLOGY ORDERABLES Final R esult [facility] [address] [place] [address] documented in this encounter Visit Diagnoses Diagnosis Malignant neoplasm of head, face and neck (CMS/HCC) Malignant neoplasm of head, face, and neck documented in this encounter Additional Health Concerns Assessment Noted Time A fall risk assessment has been complete d for the patient 06/23/2024 12:28 PM EST documented as of this encounter Care Teams Sleeve Tailor Relationship Specialty Start Date End Date Magui Benjamin, ULISES [address] [place] [address] PCP - General 06/23/24 documented as of this encounter
--- OUTSIDE RECORDS SUMMARY | 2025-02-06 08:13 | XMS_ITS | Clinical Summary ---
Author Organization [facility] Address [address] [place] [address] Care Team Providers Care Salvage Engineer Name Role Phone Magui Benjamin APRN Primary Care Provider [phone] Allergies No known active allergies Medications allopurinol [...] 11/26/2022 HEPATITIS C SCREENING Completed 06/23/[address] [facility] MEDICARE ADVANTAGE Care Teams Salvage Engineer Relationship Specialty Start Date End Date Magui Benjamin APRN [address] [place] [address] PCP - General Nurse Practitioner 12/24/22
--- OUTSIDE RECORDS SUMMARY | 2025-02-06 08:13 | XMS_ITS | Encounter Summary ---
Author Organization [facility] Address [address] [id number] Care Team Providers Care Full Stack Software Engineer Name Role Phone Magui Benjamin APRN Primary Care Provider [phone] Encounter Details Date Type Department Care Team (Late st Contact Info) Description 07/03/2024 Lab Requisition [facility] [address] [place] [address] Mayela Moore MD 800 [facility] [address] [place] [phone] Hodgkin lymphoma, unspecified, unspecified site (CMS/HCC) Social [...] PM EST) Case Report Bone Marrow Case: [id number] Authorizing Provider: Mayela Moore MD Collected: 07/03/2024 1411 Ordering Location: [facility] Received: 07/03/2024 1411 Pathologist: Isra Aviles MD Specimen: Bone Marrow Aspirate, [id number] 07/10/2024 2:24 PM EST [facility] Final Diagnosis PERIPHERAL BLOOD AND BONE MARROW, PERIPHERAL SMEAR, ASPIRATE SMEAR, CLOT SECTION AND CORE BIOPSY (OUTSIDE ; COLLECTED ON 06/05/2024): - NORMOCELLULAR BONE MARROW WITH MATURING TRILINEAGE HEMATOPOIESIS, SEE COMMENT. - FLOW CYTOMETRY DETECTED 1% B-CELL POPULATION WITH ELEVATED KAPPA TO LAMBDA RATIO OF 8.2 REPORTEDLY. 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 According to the report, the concurrent flow [...] History of B-cell lymphoma 07/10/2024 2:24 PM [facility] CBC and Differential Review of the peripheral smear shows mild macrocytic anemia. White blood cells and platelets appear adequate and show normal morphology. 07/10/2024 2:24 PM [facility] Bone Marrow Differential BONE MARROW DIFFERENTIAL: 200 cells Normal Patient Neutrophils 15-50 33 Metamyelocytes 4-19 7 Myelocytes 1-18 12 Promyelocytes 1-8 0 Blasts 0-2 0 Monocytes 0-5 2 Erythroid 16-38 31 Lymphocytes 3-24 6 Eosinophils 0-6 7 Basophils 0-2 0 Plasma cells 0-4 2 Other 07/10/2024 2:24 PM [facility] Aspirate Smear Staining quality of [...] partial, non-specific CD56 expression. 07/10/2024 2:24 PM [facility] CYTOGENETICS/MOLE CULAR INTERPRETATION Per accompanying pathology report, cytogenetics showed a normal male karyotype. 07/10/2024 2:24 PM EST [facility] Gross Description A. [id number] Received along with a corresponding pathology report from [facility] are 19 slides labeled outside case: [id number] collected on 06/05/2024. 07/10/2024 2:24 PM EST [...] R esult [facility] [address] [place] [address] documented in this encounter Visit Diagnoses Diagnosis Hodgkin lymphoma, unspecified, unspecified site (CMS/HCC) documented in this encounter Additional Health Concerns Assessment Noted Time A fall risk assessment has been complete d for the patient 06/23/2024 12:28 PM EST documented as of this encounter Care Teams Full Stack Software Engineer Relationship Specialty Start Date End Date Magui Benjamin, ULISES [address] [place] [address] PCP - General 06/23/24 documented as of this encounter
--- OUTSIDE RECORDS SUMMARY | 2025-02-06 08:13 | XMS_ITS | Encounter Summary ---
Author Organization [facility] Address [address] [place] [address] Care Team Providers Care Prefabricated Houses Trimmer Name Role Phone Magui Benjamin APRN Primary Care Provider [phone] Encounter Details Date Type Department Care Team (Late st Contact Info) Description 06/01/2024 Orders Only External Location [address] [place] [address] Provider, External Social History Tobacco Use Types [...] on filedocumented in this encounter Care Teams Prefabricated Houses Trimmer Relationship Specialty Start Date End Date Magui Benjamin APRN [address] [id number] PCP - General 06/23/24 documented as of this encounter
--- OUTSIDE RECORDS SUMMARY | 2025-02-06 08:13 | XMS_ITS | Encounter Summary ---
Author Organization [facility] Address [address] [id number] Care Team Providers Care Implement Mechanic Name Role Phone Magui Benjamin APRN Primary Care Provider [phone] Encounter Details Date Type Department Care Team (Late st Contact Info) Description 07/03/2024 Lab Requisition [facility] [address] [place] [address] Mayela Moore MD 800 [facility] [address] [place] [phone] Enlarged lymph nodes, unspecified Social History Tobacco [...] 2:04 PM EST) Case Report Cytology Case: [id number] Authorizing Provider: Mayela Moore MD Collected: 07/03/20241403 Ordering Location: [facility] Received: 07/03/2024 1404 Pathologist: Isra Aviles MD Specimen: Lymph Node, [id number] 07/05/2024 6:55 PM EST [facility] Final Diagnosis A. LYMPH NODE, LEFT, FINE NEEDLE ASPIRATION (OUTSIDE ; COLLECTED ON 05/24/2024): - ATYPICAL LYMPHOID STROMA, SEE COMMENT. 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 The cell block and smears show population [...] would be recommended. 07/05/2024 6:55 PM EST [facility] Clinical Information History of follicular lymphoma and diffuse large B-cell lymphoma 07/05/2024 6:55 PM EST [facility] Gross Description A. [id number] Received along with a corresponding pathology report from [facility] are 2 slides labeled outside case: [id number] collected on 05/24/2024. 07/05/2024 6:55 PM EST [facility] Fine Needle Aspirate Lymph node specimen / Unknown 07/03/2024 2:04 PM EST 07/03/2024 2:04 PM EST us Mayela Moore MD LAB PATHOLOGY ORDERABLES Final R esult [facility] [address] [place] [address] documented in this encounter Visit Diagnoses Diagnosis Enlarged lymph nodes, unspecified documented in this encounter Additional Health Concerns Assessment Noted Time A fall risk assessment has been complete d for the patient 06/23/2024 12:28 PM EST documented as of this encounter Care Teams Implement Mechanic Relationship Specialty Start Date End Date Magui Benjamin, SENIOR HEALTH EDUCATOR [address] [place] [address] PCP - General 06/23/24 documented as of this encounter
--- OUTSIDE RECORDS SUMMARY | 2025-02-06 08:13 | XMS_ITS ---
Author Organization [facility] Address [address] [place] [address] Care Team Providers Care Public Safety Telecommunicator Name Role Phone Magui Benjamin APRN Primary Care Provider [phone] Active Problems Problem Noted Date Diagnosed Date [...]
[2025-02-06 08:28] LABS: Hematocrit 26.9 % (42.0-52.0); Hemoglobin 9.0 g/dL (14.1-18.0); Immature Granulocytes % 2.0 %; Mean Corpuscular HGB Conc 33.5 g/dL (31.8-35.4); Mean Corpuscular Hemoglobin 34.6 pg (27.0-31.2); Mean Corpuscular Volume 103.5 fl (80-94); Nucleated Red Blood Cells % 2.0 %; Platelet Count 123 K/mm3 (142-424); Red Blood Count 2.60 M/mm3 (4.60-6.20); Red Cell Distribution Width-SD 69.3 fL; White Blood Count 4.6 K/mm3 (4.8-10.8)
[2025-02-06 08:35] LABS: Chloride 101 mmol/L (98-107)
[2025-02-06 08:36] LABS: Albumin Level 3.8 g/dl (3.5-5.0); Potassium 4.6 mmoL/L (3.5-5.1); Sodium 133 mmol/L (136-145)
[2025-02-06 08:38] LABS: Blood Urea Nitrogen 20 mg/dl (9-20); Creatinine,Serum 1.20 mg/dl (0.66-1.25); Estimated Glomerular Filt Rate 60 ml/min (>60); GFR (African American) 73 ML/MIN (>60)
[2025-02-06 08:39] LABS: Alanine Aminotransferase 34 U/L (12-78); Albumin/Globulin Ratio 1.2 (1.1-1.8); Alkaline Phosphatase 76 U/L (38-126); Anion Gap 13.6 mEq/L (5-15); Aspartate Amino Transferase 32 U/L (17-59); Bilirubin,Total 0.6 mg/dl (0.2-1.3); Calcium 9.5 mg/dl (8.4-10.2); Carbon Dioxide 23 mmol/L (22.0-30.0); Globulin 3.1 g/dL (1.3-3.2); Glucose 90 mg/dl (74-100); Total Protein,Serum 6.9 g/dl (6.3-8.2)
[2025-02-06] MEDS: DEXAMETHASONE 4MG TABLET 12 MG PO (10:10)
[2025-02-06] MEDS: ONDANSETRON 4MG ODT 16 MG SL (10:10)
[2025-02-06] MEDS: ACETAMINOPHEN 325MG TAB 650 MG PO (10:10)
[2025-02-06] MEDS: SODIUM CHLORIDE 0.9% IV (10:40)
[2025-02-06] MEDS: BENDAMUSTINE HCL IV (10:40)
[2025-02-06 10:45] VITALS: BP 100/52; PULSE 69; RESP 18; TEMP 36.8; O2SAT 99
[2025-02-06 10:57] LABS: Total Cells Counted 100
[2025-02-06 10:58] LABS: Anisocytosis 1+; Macrocytosis 1+; Ovalocytes 1+; Polychromasia 1+
[2025-02-06 11:15] VITALS: BP 105/52; PULSE 71
[2025-02-06 11:45] VITALS: BP 110/56; PULSE 69
[2025-02-06 11:55] VITALS: BP 108/51; PULSE 72
== END 2025-02-06 12:00 | disposition home or self-care (01) ==
LOC: INF 08:09
PROVIDERS: PCP Nurse Practitioner Family; Visit Provider Internal Medicine Medical Oncology
DX: Z51.11 Encounter for antineoplastic chemotherapy (principal); C83.30 Diffuse large B-cell lymphoma, unspecified site
CPT/HCPCS: 80053; 85007; 85025; 85027; 96413; J7040; J8540; J9034; Q0162

== ENCOUNTER 2025-02-07 10:00 | Outpatient (CLI) | payer MEDICARE, SELFPAY ==
--- OUTSIDE RECORDS SUMMARY | 2025-02-07 10:03 | XMS_ITS | Encounter Summary ---
Author Organization Healthcare Address [address] [id number] Care Team Providers Care Aircraft Line Assembler Name Role Phone Magui Benjamin APRN Primary Care Provider [phone] Encounter Details Date Type Department Care Team (Late st Contact Info) Description 07/03/2024 Lab Requisition [facility] [address] [place] [address] Mayela Moore MD 800 [facility] [address] [place] [phone] Malignant neoplasm of head, face and neck [...] -2 Score 0 07/06/2024 9:42 AM EST [place], Myriam L documented as of this encounter Plan of Treatment Not on file documented as of this encounter Procedures Procedure Name Priority Date/Time Associated Diagnosis Comments SURGICAL PATHOLOGY CONSULT Routine 07/03/2024 2:19 PM EST Malignant neoplasm of head, face and neck (CMS/HCC) documented in this encounter Results * Surgical Pathology Consult (07/03/2024 2:19 PM EST) Case Report Sugical Pathology Consult Case: [id number] Authorizing Provider: Mayela Moore MD Collected: 07/03/2024 1419 Ordering Location: [facility] Lab Received: 07/03/2024 1420 Pathologist: Isra Aviles MD Specimens: A) - Neck, [id number] B) - Lymph Node, [id number] 07/05/2024 6:14 PM EST [facility] Final Diagnosis OUTSIDE ; COLLECTED 12/22/2018 A. LYMPH NODE, LEFT NECK, DEEP JUGULAR, BIOPSY: - CLASSIC FOLLICULAR LYMPHOMA, SEE COMMENT. OUTSIDE ; COLLECTED 08/05/2022 A. 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 07/05/2024 6:14 PM EST [facility] at 1813 EST Comment OUTSIDE ; COLLECTED [...] follicular lymphoma. 07/05/2024 6:14 PM [facility] Clinical Information C76.0 - Malignant neoplasm of head, face and neck [ICD-10-CM] 07/05/2024 6:14 PM [facility] Gross Description A. [id number] Received along with a corresponding pathology report from [facility] are 24 slides labeled outside case: [id number] collected on 12/22/2018. B. [id number] Received along with a corresponding pathology report from [facility] are 19 slides labeled outside case: [id number] collected on 08/05/2022. 07/05/2024 6:14 PM [facility] Note: A resident was involved in the service. I attest I examined the relevant preparations for the specimens and confirmed the diagnosis or interpretation. 07/05/2024 6:14 PM [facility] Tissue Lymph node specimen / Unknown 07/03/2024 2:19 PM EST 07/03/2024 2:20 PM EST Tissue specimen (specimen) Lymph node specimen / Unknown 07/03/2024 2:19 PM EST 07/03/2024 2:20 PM EST us Mayela Moore MD LAB PATHOLOGY ORDERABLES Final R esult [facility] [address] [place] [address] documented in this encounter Visit Diagnoses Diagnosis Malignant neoplasm of head, face and neck (CMS/HCC) Malignant neoplasm of head, face, and neck documented in this encounter Additional Health Concerns Assessment Noted Time A fall risk assessment has been complete d for the patient 06/23/2024 12:28 PM EST documented as of this encounter Care Teams Aircraft Line Assembler Relationship Specialty Start Date End Date Magui Benjamin, ULISES [address] [place] [address] PCP - General 06/23/24 documented as of this encounter
--- OUTSIDE RECORDS SUMMARY | 2025-02-07 10:03 | XMS_ITS | Encounter Summary ---
Author Organization [employer] ([place], [place], [place], [place]) Address [address] [place] [address] Care Team Providers Care Cardroom Supervisor Name Role Phone Unavailable Primary Care Provider Unavailabl e Encounter Details Date Type Department Care Team (Late st Contact Info) Description 05/16/2021 Transcribed Document [facility] [place] [facility] [place] [address] ProviderAiden MD [address] [place] [address] Social History Tobacco Use Types Packs/Day [...] Basic Information PCP: Kenroy Chavez MD Primary Head Bucker: Edyta Guerra MD Chief Complaint Newly decreased [...] Available Past Medical History: Active Atrial fibrillation ([id number]) Cardiomyopathy ([id number]) Family History: Brain tumor Sister () Procedure [...] of motion, Normal strength. Integumentary: Warm, Dry, [place]. Neurologic: Alert, Oriented. Psychiatric: Cooperative, Appropriate mood [...] proceed. Electronically signed by Chantel, Laurita Conversion Prepared Foods Production Team Member Cerner at 10/27/2022 10:50 PM CDT documented in this encounter Plan of Treatment Not on file documented as of this encounter Visit Diagnoses Not on filedocumented in this encounter
--- OUTSIDE RECORDS SUMMARY | 2025-02-07 10:03 | XMS_ITS | Encounter Summary ---
Author Organization [facility] Address [address] [place] [address] Care Team Providers Care Purchasing Administrative Assistant Name Role Phone Magui Benjamin APRN Primary Care Provider [phone] Reason for Visit * Reason Comments Med Refill Encounter Details Date Type Department Care Team (Late st Contact Info) Description 11/23/2023 Refill [facility] [address] [facility] [address] [place] [address] Marcy Agrawal APRN [address] [place], [place] [id number] Med Refill Social History Tobacco Use Types [...] on filedocumented in this encounter Care Teams Purchasing Administrative Assistant Relationship Specialty Start Date End Date Magui Benjamin APRN [address] [place] [address] PCP - General Nurse Practitioner 12/24/22 documented as of this encounter
--- OUTSIDE RECORDS SUMMARY | 2025-02-07 10:03 | XMS_ITS | Encounter Summary ---
Author Organization [employer] ([place], [place], [place], [place]) Address [address] [place] [address] Care Team Providers Care Vegetable Inspector Name Role Phone Unavailable Primary Care Provider Unavailabl e Encounter Details Date Type Department Care Team (Late st Contact Info) Description 05/16/2021 Transcribed Document [facility] [place] [facility] [place] [address] ProviderAiden MD [address] [place] [address] Social History Tobacco Use Types [...] Source : Stated Height Entry Format : [place] Height, Feet : 5 ft(Converted to: 152 cm, 60 Inch) Height, Inches : 11 Inch(Converted to: 0 ft 11 Inch, 27.94 cm) Clinical Height : 180.34 cm Weight Source : Standing scale Weight Entry Format : [place] Clinical Dosing Weight : 88.64 kg Weight, Pounds : 195 lb Body Surface Area (BSA) : 2.09 m2 Body Mass Index : 27.3 kg/m2 (HI) [place] Body Weight : 74 kg REMY BOSS [...] REMY BOSS RN - 05/16/2021 9:03 EDT [place] Suicide Severity Rating Scale (C-SSRS) CSSRS Past [...] Obtained From : Patient Primary Language : Greenlandic Preferred Communication Mode : Verbal Communication Barrier : None Core Java Engineer Needed : No Objects to Sharing [...] Scale Risk Level : 0-24 Low Risk [place] Fall Interventions : Adequate lighting, Hourly comfort/safety [...]
--- OUTSIDE RECORDS SUMMARY | 2025-02-07 10:03 | XMS_ITS | Encounter Summary ---
Author Organization [facility] Address [address] [id number] Care Team Providers Care Economics Department Chair Name Role Phone Magui Benjamin APRN Primary Care Provider [phone] Encounter Details Date Type Department Care Team (Late st Contact Info) Description 07/03/2024 Lab Requisition [facility] [address] [place] [address] Mayela Moore MD [address] [facility] [address] [place] [phone] Enlarged lymph nodes, unspecified Social History Tobacco [...] 2:04 PM EST) Case Report Cytology Case: [id number] Authorizing Provider: Mayela Moore MD Collected: 07/03/20241403 Ordering Location: [facility] Lab Received: 07/03/2024 1404 Pathologist: Isra Aviles MD Specimen: Lymph Node, [id number] 07/05/2024 6:[address] [facility] Final Diagnosis A. LYMPH NODE, LEFT, FINE NEEDLE ASPIRATION (OUTSIDE ; COLLECTED ON 05/24/2024): - ATYPICAL LYMPHOID STROMA, SEE COMMENT. 07/05/2024 6:[address] 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 The cell block and smears show population [...] would be recommended. 07/05/2024 6:55 PM EST [facility] Clinical Information History of follicular lymphoma and diffuse large B-cell lymphoma 07/05/2024 6:55 PM EST [facility] Gross Description A. [id number] Received along with a corresponding pathology report from [facility] Laboratory are 2 slides labeled outside case: [id number] collected on 05/24/2024. 07/05/2024 6:55 PM EST [facility] Fine Needle Aspirate Lymph node specimen / Unknown 07/03/2024 2:04 PM EST 07/03/2024 2:04 PM EST us Mayela Moore MD LAB PATHOLOGY ORDERABLES Final R esult [facility] [address] [place] [address] documented in this encounter Visit Diagnoses Diagnosis Enlarged lymph nodes, unspecified documented in this encounter Additional Health Concerns Assessment Noted Time A fall risk assessment has been complete d for the patient 06/23/2024 12:28 PM EST documented as of this encounter Care Teams Economics Department Chair Relationship Specialty Start Date End Date Magui Benjamin, ACCESS REGISTRAR [address] [place] [address] PCP - General 06/23/24 documented as of this encounter
--- OUTSIDE RECORDS SUMMARY | 2025-02-07 10:03 | XMS_ITS | Clinical Summary ---
Author Organization [facility] Address [address] [place] [address] Phone Care Team Providers Care Sewing Room Supervisor Name Role Phone Gricelda Cox MD Unavailable [phone] Allergies No known active allergies Medications [...] Active fluticasone propionate (FLONASE) 50 mcg/actuation Nasl [place], Suspension 2 Sprays by Nasal route daily. [...] topic Insurance [facility] [facility] [place] [place] [facility] MEDICARE PPO [address] [id number] [employer] MEDICARE PPO MR [facility] [place] [address] MEDICARE PPO MR [facility] [address] Advance Directives For more information, please contact: [phone] * Full Code (Latest Code Status on File) Date Activated Date Inactivated Comments 12/02/2022 11:11 AM 12/04/2022 7:53 PM * Full Code Date Activated Date Inactivated Comments 11/24/2022 11:52 PM 12/01/2022 2:40 AM Care Teams Sewing Room Supervisor Relationship Specialty Start Date End Date Gricelda Cox MD [address] [facility] [place] [address] Medical Oncologist Internal Medicine-Medical Oncology 11/26/22
--- OUTSIDE RECORDS SUMMARY | 2025-02-07 10:03 | XMS_ITS | Clinical Summary ---
Author Organization [employer] ([place], [place], [place], [place]) Address [address] [place] [address] Care Team Providers Care Natural Sciences Department Chair Name Role Phone Unavailable Primary Care Provider [...] Date Carrillo rded Speak language other than Barbadian at home Not on file 07/30/2023 Want [...]
--- OUTSIDE RECORDS SUMMARY | 2025-02-07 10:03 | XMS_ITS | Encounter Summary ---
Author Organization [facility] ([place], [place], [place], [place]) Address [address] [place] [address] Care Team Providers Care Pest Control Operator Name Role Phone Unavailable Primary Care Provider Unavailabl e Encounter Details Date Type Department Care Team (Late st Contact Info) Description 05/16/2021 Transcribed Document [facility] [place] [facility] [place] [address] ProviderAiden MD [address] [place] [address] Social History Tobacco Use Types [...] these instructions at home: Medicines ??? Take yjsh-wei-khsmtfg and prescription medicines only as told by your health care provider. Insertion site care ??? Follow instructions from your health care provider about how to take care of your insertion site. Make sure you: ? Wash your hands with soap and water before you change your bandage (dressing). If soap and water are not available, use hand deli manager. ? Change your dressing as told by [...] provider. Document Revised: 08/03/2018 Document Reviewed: 08/03/2018 Booodl Patient Education ? 2020 [employer]oodl Inc. Pharmacology Moderate Conscious Sedation, Adult, Care [...] you are awake and alert. ??? Take qokh-xed-ljfqeym and prescription medicines only as told by [...] provider. Document Revised: 05/23/2020 Document Reviewed: 05/23/2020 ElseSocial Pulse Patient Education ? 2020 Elsevier Inc. Radiology [...] and water are not available, use hand deli manager. ? Change your dressing as told by [...] This is a medical emergency. ??? Take tzsu-vwf-hhouumh and prescription medicines only as told by [...] provider. Document Revised: 05/01/2020 Document Reviewed: 05/01/2020 ElseSocial Pulse Patient Education ? 2020 uSpeak. Electronically signed by Laurita [facility] Food Service Worker Cerner at 10/27/2022 10:36 PM CDT documented in this encounter Plan of Treatment Not on file documented as of this encounter Visit Diagnoses Not on filedocumented in this encounter
--- OUTSIDE RECORDS SUMMARY | 2025-02-07 10:03 | XMS_ITS | Referral Summary ---
Author Organization [employer] ([place], [place], [place], [place]) Address [address] [place] [address] Care Team Providers Care Gravel Hauler Name Role Phone Unavailable Primary Care Provider [...] Date Carrillo rded Speak language other than Iraqi at home Not on file 07/30/2023 Want [...]
--- OUTSIDE RECORDS SUMMARY | 2025-02-07 10:03 | XMS_ITS | Encounter Summary ---
Author Organization [employer] ([place], [place], [place], [place]) Address [address] [place] [address] Care Team Providers Care Operations Manager/Coordinator Name Role Phone Unavailable Primary Care Provider Unavailabl e Encounter Details Date Type Department Care Team (Late st Contact Info) Description 05/16/2021 Transcribed Document [facility] [place] [facility] [place] [address] ProviderAiden MD [address] [place] [address] Social History Tobacco Use Types [...]
--- OUTSIDE RECORDS SUMMARY | 2025-02-07 10:03 | XMS_ITS | Encounter Summary ---
Author Organization [employer] ([place], [place], [place], [place]) Address [address] [place] [address] Care Team Providers Care Manager Process Improvement Name Role Phone Unavailable Primary Care Provider Unavailabl e Encounter Details Date Type Department Care Team (Late st Contact Info) Description 05/16/2021 Transcribed Document [facility] [place] Family Medicine [address] [place] [address] ProviderAiden MD [address] [place] [address] Social History Tobacco Use Types [...] Aiden ProviderMD - 05/16/2021 4:04 PM CDT [facility] [place] [address] JOSE EUCEDA :1955 Visit Time:05/16/2021 Your [...] appointment with Dr. Madera as scheduled. Where: [address] [place] [address]- Business (1) Medications What How Much When [...] you are awake and alert. ??? Take unxl-bul-tyjvhtr and prescription medicines only as told by [...] provider. Document Revised: 05/23/2020 Document Reviewed: 05/23/2020 Greatist Patient Education ?? 2020 Proximic. Radial Site Care This sheet gives you [...] these instructions at home: Medicines ??? Take wvxg-yzp-ftapooc and prescription medicines only as told by your health care provider. Insertion site care ??? Follow instructions from your health care provider about how to take care of your insertion site. Make sure you: ? Wash your hands with soap and water before you change your bandage (dressing). If soap and water are not available, use hand senior controls technician. ? Change your dressing as told by [...] provider. Document Revised: 08/03/2018 Document Reviewed: 08/03/2018 Greatist Patient Education ?? 2020 Greatist Inc. Angiogram, Care After This sheet gives [...] and water are not available, use hand senior controls technician. ? Change your dressing as told by [...] This is a medical emergency. ??? Take htde-fzq-yinbkaw and prescription medicines only as told by [...] Assistance with quitting is available by contacting 7-674-DCCZNOW. This is a free resource providing counseling, support, and referral. Or you may contact your personal physician. [place] Suicide Prevention Lifeline: The National Suicide Prevention [...] was given the opportunity to ask questions. Patient/Environmental Marketer Name: Patient/Environmental Marketer Signature: Relationship to Patient: Clinician/Hospital Environmental Marketer Signature: Date: documented in this encounter Plan of Treatment Not on file documented as of this encounter Visit Diagnoses Not on filedocumented in this encounter
--- OUTSIDE RECORDS SUMMARY | 2025-02-07 10:03 | XMS_ITS ---
Author Organization [facility] Address [address] [place] [address] Care Team Providers Care Architect Manager Name Role Phone Magui Benjamin APRN Primary Care Provider [phone] Active Problems Problem Noted Date Diagnosed Date [...]
--- OUTSIDE RECORDS SUMMARY | 2025-02-07 10:03 | XMS_ITS | Encounter Summary ---
Author Organization [facility] Address [address] [place] [address] Care Team Providers Care Tube Puller Name Role Phone Magui Benjamin APRN Primary Care Provider [phone] Encounter Details Date Type Department Care Team (Late st Contact Info) Description 06/01/2024 Orders Only External Location [address] [place] [address] Provider, External Social History Tobacco Use Types [...] on filedocumented in this encounter Care Teams Tube Puller Relationship Specialty Start Date End Date Magui Benjamin APRN [address] [id number] PCP - General 06/23/24 documented as of this encounter
--- OUTSIDE RECORDS SUMMARY | 2025-02-07 10:03 | XMS_ITS | Encounter Summary ---
Author Organization [employer] ([place], [place], [place], [place]) Address [address] [place] [address] Care Team Providers Care Barrel Bung Remover And Dumper Name Role Phone Unavailable Primary Care Provider Unavailabl e Encounter Details Date Type Department Care Team (Late st Contact Info) Description 05/16/2021 Transcribed Document [facility] [place] [facility] [place] [address] ProviderAiden MD [address] [place] [address] Social History Tobacco Use Types [...] 05/16/2021 16:40 EDT Electronically signed by Chantel [facility] Conversion Mental Hygiene Consultant Cerner at 10/27/2022 10:30 PM CDT documented in this encounter Plan of Treatment Not on file documented as of this encounter Visit Diagnoses Not on filedocumented in this encounter
--- OUTSIDE RECORDS SUMMARY | 2025-02-07 10:03 | XMS_ITS | Clinical Summary ---
Author Organization [facility] Address [address] [place] [address] Care Team Providers Care Auxiliary Operator Name Role Phone Magui Benjamin APRN Primary Care Provider [phone] Allergies No known active allergies Medications allopurinol [...] 11/26/2022 HEPATITIS C SCREENING Completed 06/23/2024 Insurance [facility] MEDICARE ADVANTAGE Care Teams Auxiliary Operator Relationship Specialty Start Date End Date Magui Benjamin APRN [address] [place] [address] PCP - General Nurse Practitioner 12/24/22
--- OUTSIDE RECORDS SUMMARY | 2025-02-07 10:03 | XMS_ITS | Clinical Summary ---
Author Organization [facility] Address [address] [place] [address] Care Team Providers Care Statistician Name Role Phone Magui Benjamin APRN Primary Care Provider [phone] Allergies No known active allergies Medications atorvastatin [...] Due Date Last Done Comments [facility]-Medicare Annual Wellness (AWV) 1955 [facility]-/Child/Adol SDOH Screenings 1955 [facility]- SDOH Screenings 1974 [...] 60-74 years 1-dose series) 2016 [facility]-Abdominal Aortic Aneurys m (AAA) Screening 2021 CAF-DUWTY-28 Vaccine ( season) 2024 05/24/2021, 11/30/2020 [facility]-Influenza [...] Antibody Negative Negative 06/23/2024 1:15 PM EST [facility] Blood Venous blood specimen / Unknown Venipuncture / Unknown 06/23/2024 11:48 AM EST 06/23/2024 12:26 PM EST us Mayela Moore MD LAB BLOOD ORDERABLES Final Resul t [facility] [address] [place] [address] from Last 3 Months or Most Recently Relevant to Health Maintenance Insurance MEDICARE Care Teams Statistician Relationship Specialty Start Date End Date Magui Benjamin, ACADEMIC INTERVENTIONIST [address] [place] [address] PCP - General 06/23/24
--- OUTSIDE RECORDS SUMMARY | 2025-02-07 10:03 | XMS_ITS | Encounter Summary ---
Author Organization [facility] Address [address] [address] Care Team Providers Care Teacher Public Health Name Role Phone Magui Benjamin APRN Primary Care Provider [phone] Encounter Details Date Type Department Care Team (Late st Contact Info) Description 07/03/2024 Lab Requisition [facility] Lab [address] [place] [address] Mayela Moore MD [address] [facility] [address] [place] [phone] Hodgkin lymphoma, unspecified, unspecified site (CMS/HCC) Social [...] PM EST) Case Report Bone Marrow Case: [id number] Authorizing Provider: Mayela Moore MD Collected: 07/03/2024 1411 Ordering Location: [facility] Received: 07/03/2024 1411 Pathologist: Isra Aviles MD Specimen: Bone Marrow Aspirate, [id number] 07/10/2024 2:24 PM EST [facility] Final Diagnosis PERIPHERAL BLOOD AND BONE MARROW, PERIPHERAL SMEAR, ASPIRATE SMEAR, CLOT SECTION AND CORE BIOPSY (OUTSIDE ; COLLECTED ON 06/05/2024): - NORMOCELLULAR BONE MARROW WITH MATURING TRILINEAGE HEMATOPOIESIS, SEE COMMENT. - FLOW CYTOMETRY DETECTED 1% B-CELL POPULATION WITH ELEVATED KAPPA TO LAMBDA RATIO OF 8.2 REPORTEDLY. 07/10/2024 2:24 PM [facility] at 1424 EST Comment Patient's history of follicular lymphoma (2018) and subsequent diffuse large B-cell lymphoma (2022) is noted ([id number]). According to the report, the concurrent flow [...] correlation is essential. 07/10/2024 2:24 PM EST [facility] Clinical Information History of B-cell lymphoma 07/10/2024 2:24 PM [facility] CBC and Differential Review of the peripheral smear shows mild macrocytic anemia. White blood cells and platelets appear adequate and show normal morphology. 07/10/2024 2:24 PM [facility] Bone Marrow Differential BONE MARROW DIFFERENTIAL: 200 cells Normal Patient Neutrophils 15-50 33 Metamyelocytes 4-19 7 Myelocytes 1-18 12 Promyelocytes 1-8 0 Blasts 0-2 0 Monocytes 0-5 2 Erythroid 16-38 31 Lymphocytes 3-24 6 Eosinophils 0-6 7 Basophils 0-2 0 Plasma cells 0-4 2 Other 07/10/2024 2:24 PM [facility] Aspirate Smear Staining quality of [...] non-specific CD56 expression. 07/10/2024 2:24 PM [facility] CYTOGENETICS/MOLE CULAR INTERPRETATION Per accompanying pathology report, cytogenetics showed a normal male karyotype. 07/10/2024 2:24 PM EST [facility] Gross Description A. [id number] Received along with a corresponding pathology report from [facility] Laboratory are 19 slides labeled outside case: [id number] collected on 06/05/2024. 07/10/2024 2:24 PM EST [facility] Note: A resident was involved in the service. I attest I examined the relevant preparations for the specimens and confirmed the diagnosis or interpretation. 07/10/2024 2:24 PM EST [facility] Bone Marrow Specimen from bone marrow obtained by aspiration / Unknown 07/03/2024 2:11 PM EST 07/03/2024 2:11 PM EST us Mayela Moore MD LAB PATHOLOGY ORDERABLES Final R esult [facility] [address] [place] [address] documented in this encounter Visit Diagnoses Diagnosis Hodgkin lymphoma, unspecified, unspecified site (CMS/HCC) documented in this encounter Additional Health Concerns Assessment Noted Time A fall risk assessment has been complete d for the patient 06/23/2024 12:28 PM EST documented as of this encounter Care Teams Teacher Public Health Relationship Specialty Start Date End Date Magui Benjamin, ULISES [address] [place] [address] PCP - General 06/23/24 documented as of this encounter
[2025-02-07] MEDS: DEXAMETHASONE 4MG TABLET 12 MG (10:09)
[2025-02-07] MEDS: ACETAMINOPHEN 325MG TAB 650 MG (10:09)
[2025-02-07] MEDS: ONDANSETRON 4MG ODT 16 MG (10:10)
[2025-02-07] MEDS: SODIUM CHLORIDE 0.9% IV (10:48)
[2025-02-07] MEDS: BENDAMUSTINE HCL IV (10:48)
[2025-02-07 11:00] VITALS: BP 99/54; PULSE 74; RESP 18; TEMP 36.7; O2SAT 98
[2025-02-07 11:30] VITALS: BP 104/65; PULSE 65
[2025-02-07 12:00] VITALS: BP 109/71; PULSE 76
== END 2025-02-07 12:09 | disposition home or self-care (01) ==
LOC: INF 10:01
PROVIDERS: PCP Nurse Practitioner Family; Visit Provider Internal Medicine Medical Oncology
DX: Z51.11 Encounter for antineoplastic chemotherapy (principal); C83.30 Diffuse large B-cell lymphoma, unspecified site
CPT/HCPCS: 96366; 96413; J7040; J8540; J9034; Q0162

== ENCOUNTER 2025-02-10 11:19 | Emergency (ER) | payer MEDICARE, SELFPAY ==
[2025-02-10] VITALS (11 sets, daily range): BP systolic 80–98; BP diastolic 48–61; PULSE 83–88; RESP 10–18; TEMP 36.7–37.1; O2SAT 92–100; BMI 27.6
--- NOTE | 2025-02-10 11:17 | ECG_ITS ---
APPROVED REPORT Exam: Resting ECG HR:84 bpm ECG Measurements Heart Rate 84 AXES SC 201 P 56 QRSd 102 QRS 11 QT 368 T 53 QTc 410 Conclusion SINUS RHYTHM NORMAL ECG UNCONFIRMED REPORT Significant artifact present. Normal sinus rhythm. No obvious ST elevation or depression Electronically signed by : COREEN MORGAN, 02/13/2025 13:05:14
--- OUTSIDE RECORDS SUMMARY | 2025-02-10 11:27 | XMS_ITS | Encounter Summary ---
Author Organization [employer] ([place], [place], [place], [place]) Address [address] [place] [address] Care Team Providers Care Director Consumer Name Role Phone Unavailable Primary Care Provider Unavailabl e Encounter Details Date Type Department Care Team (Late st Contact Info) Description 05/16/2021 Transcribed Document [facility] [place] [facility] [place] [address] ProviderAiden MD [address] [place] [address] Social History Tobacco Use Types Packs/Day [...] Basic Information PCP: Kenroy Chavez MD Primary Appointment Manager: Edyta Guerra MD Chief Complaint Newly decreased [...] Available Past Medical History: Active Atrial fibrillation ([id number]) Cardiomyopathy ([id number]) Family History: Brain tumor Sister () Procedure [...] of motion, Normal strength. Integumentary: Warm, Dry, [place]. Neurologic: Alert, Oriented. Psychiatric: Cooperative, Appropriate mood [...]
--- OUTSIDE RECORDS SUMMARY | 2025-02-10 11:27 | XMS_ITS | Encounter Summary ---
Author Organization [employer] ([place], [place], [place], [place]) Address [address] [place] [address] Care Team Providers Care Copy Clerk Name Role Phone Unavailable Primary Care Provider Unavailabl e Encounter Details Date Type Department Care Team (Late st Contact Info) Description 05/16/2021 Transcribed Document [facility] [place] Family Medicine [facility] [place] [address] ProviderAiden MD [address] [place] [address] Social History Tobacco Use Types [...] Source : Stated Height Entry Format : [place] Height, Feet : 5 ft(Converted to: 152 cm, 60 Inch) Height, Inches : 11 Inch(Converted to: 0 ft 11 Inch, 27.94 cm) Clinical Height : 180.34 cm Weight Source : Standing scale Weight Entry Format : [place] Clinical Dosing Weight : 88.64 kg Weight, Pounds : 195 lb Body Surface Area (BSA) : 2.09 m2 Body Mass Index : 27.3 kg/m2 (HI) [place] Body Weight : 74 kg REMY BOSS RN - 05/16/2021 8:58 EDT Health Histories Smoking Status : Former smoker, quit more than 30 days ago Smokeless Tobacco Status : Never REMY OBSS RN - 05/16/2021 8:58 EDT Social History [...] REMY BOSS RN - 05/16/2021 9:03 EDT [place] Suicide Severity Rating Scale (C-SSRS) CSSRS Past [...] Obtained From : Patient Primary Language : Tam[place] Preferred Communication Mode : Verbal Communication Barrier : None Public Relations Studies Director Needed : No Objects to Sharing Info [...] Scale Risk Level : 0-24 Low Risk [place] Fall Interventions : Adequate lighting, Hourly comfort/safety [...]
--- OUTSIDE RECORDS SUMMARY | 2025-02-10 11:27 | XMS_ITS | Encounter Summary ---
Author Organization [employer] ([place], [place], [place], [place]) Address [address] [place] [address] Care Team Providers Care Collection Support Specialist Name Role Phone Unavailable Primary Care Provider Unavailabl e Encounter Details Date Type Department Care Team (Late st Contact Info) Description 05/16/2021 Transcribed Document [facility] [place] Family Medicine [address] [place] [address] ProviderAiden MD [address] [place] [address] Social History Tobacco Use Types [...] Aiden ProviderMD - 05/16/2021 4:[address] [facility] [place] [address] JOSE EUCEDA :1955 Visit Time:05/16/2021 Your [...] appointment with Dr. Madera as scheduled. Where: [address] [place] [phone]- Business (1) Medications What How Much When [...] you are awake and alert. ??? Take lhok-rzi-jfmynvk and prescription medicines only as told by [...] provider. Document Revised: 05/23/2020 Document Reviewed: 05/23/2020 Reading Room Patient Education ?? 2020 Digi[employer]mart. Radial Site Care This sheet gives you [...] these instructions at home: Medicines ??? Take czyw-ncf-azcrqwt and prescription medicines only as told by your health care provider. Insertion site care ??? Follow instructions from your health care provider about how to take care of your insertion site. Make sure you: ? Wash your hands with soap and water before you change your bandage (dressing). If soap and water are not available, use hand fruit pitter. ? Change your dressing as told by [...] provider. Document Revised: 08/03/2018 Document Reviewed: 08/03/2018 Reading Room Patient Education ?? 2020 Reading Room Inc. Angiogram, Care After This sheet gives [...] and water are not available, use hand fruit pitter. ? Change your dressing as told by [...] This is a medical emergency. ??? Take aqyt-zvs-wpionpn and prescription medicines only as told by [...] Assistance with quitting is available by contacting 3-079-OCXANOW. This is a free resource providing counseling, support, and referral. Or you may contact your personal physician. [place] Suicide Prevention Lifeline: The National Suicide Prevention [...] was given the opportunity to ask questions. Patient/Cloth Bleaching Supervisor Name: Patient/Cloth Bleaching Supervisor Signature: Relationship to Patient: Clinician/Hospital Cloth Bleaching Supervisor Signature: Date: documented in this encounter Plan of Treatment Not on file documented as of this encounter Visit Diagnoses Not on filedocumented in this encounter
--- OUTSIDE RECORDS SUMMARY | 2025-02-10 11:27 | XMS_ITS | Clinical Summary ---
Author Organization [employer] ([place], [place], [place], [place]) Address [address] [place] [address] Care Team Providers Care Field Investigator Name Role Phone Unavailable Primary Care [...] Date Carrillo rded Speak language other than Czech at home Not on file 07/30/2023 Want [...]
--- OUTSIDE RECORDS SUMMARY | 2025-02-10 11:27 | XMS_ITS | Encounter Summary ---
Author Organization [facility] Address [address] [place] [address] Care Team Providers Care Blast Furnace Checker Name Role Phone Magui Benjamin APRN Primary Care Provider [phone] Reason for Visit * Reason Comments Med Refill Encounter Details Date Type Department Care Team (Late st Contact Info) Description 11/23/2023 Refill [facility] [address] [facility] [address] [place] [address] Marcy Agrawal APRN [address] [place], [place] [id number] Med Refill Social History Tobacco Use Types [...] on filedocumented in this encounter Care Teams Blast Furnace Checker Relationship Specialty Start Date End Date Magui Benjamin APRN [address] [place] [address] PCP - General Nurse Practitioner 12/24/22 documented as of this encounter
--- OUTSIDE RECORDS SUMMARY | 2025-02-10 11:28 | XMS_ITS | Encounter Summary ---
Author Organization [employer] ([place], [place], [place], [place]) Address [address] [place] [address] Care Team Providers Care Cyanide Furnace Operator Name Role Phone Unavailable Primary Care Provider Unavailabl e Encounter Details Date Type Department Care Team (Late st Contact Info) Description 05/16/2021 Transcribed Document [facility] [place] [address] ProviderAiden MD [address] [place] [address] Social History Tobacco Use Types [...] these instructions at home: Medicines ??? Take nczp-mrg-vpockgr and prescription medicines only as told by your health care provider. Insertion site care ??? Follow instructions from your health care provider about how to take care of your insertion site. Make sure you: ? Wash your hands with soap and water before you change your bandage (dressing). If soap and water are not available, use hand school principal. ? Change your dressing as told by [...] provider. Document Revised: 08/03/2018 Document Reviewed: 08/03/2018 [employer] Patient Education ? 2020 [employer] Pharmacology Moderate Conscious Sedation, Adult, Care [...] you are awake and alert. ??? Take onwy-spr-rehjpfn and prescription medicines only as told by [...] provider. Document Revised: 05/23/2020 Document Reviewed: 05/23/2020 [employer] Patient Education ? 2020 [employer] Radiology [...] and water are not available, use hand school principal. ? Change your dressing as told by [...] This is a medical emergency. ??? Take vtzm-amm-uuuceqk and prescription medicines only as told by [...] provider. Document Revised: 05/01/2020 Document Reviewed: 05/01/2020 [employer] Patient Education ? 2020 [employer] documented in this encounter Plan of Treatment Not on file documented as of this encounter Visit Diagnoses Not on filedocumented in this encounter
--- OUTSIDE RECORDS SUMMARY | 2025-02-10 11:28 | XMS_ITS | Encounter Summary ---
Author Organization [employer] ([place], [place], [place], [place]) Address [address] [place] [address] Care Team Providers Care Telepathist Name Role Phone Unavailable Primary Care Provider Unavailabl e Encounter Details Date Type Department Care Team (Late st Contact Info) Description 05/16/2021 Transcribed Document [facility] Medicine [facility] [place] [address] ProviderAiden MD [address] [place] [address] Social History Tobacco Use Types [...] EDT Electronically signed by Laurita Golden Conversion Professor Of Mechanical Engineering Cerner at 10/27/2022 10:41 PM CDT documented in this encounter Plan of Treatment Not on file documented as of this encounter Visit Diagnoses Not on filedocumented in this encounter
--- OUTSIDE RECORDS SUMMARY | 2025-02-10 11:28 | XMS_ITS | Clinical Summary ---
Author Organization [facility] Address [address] [place] [address] Care Team Providers Care Director Card Name Role Phone Magui Benjamin APRN Primary Care Provider [phone] Allergies No known active allergies Medications allopurinol [...] 11/26/2022 HEPATITIS C SCREENING Completed 06/23/2024 Insurance [facility] MEDICARE ADVANTAGE Care Teams Director Card Relationship Specialty Start Date End Date Magui Benjamin APRN [address] [place] [address] PCP - General Nurse Practitioner 12/24/22
--- OUTSIDE RECORDS SUMMARY | 2025-02-10 11:28 | XMS_ITS | Clinical Summary ---
Author Organization [facility] Address [address] [place] [address] Care Team Providers Care Fortune Cookie Maker Name Role Phone Magui Benjamin APRN Primary Care Provider Allergies No known active allergies Medications atorvastatin [...] Due Date Last Done Comments [facility]-Medicare Annual Wellness (AWV) 1955 [facility]-Infant/Child/Adol SDOH Screenings 1955 [facility]- SDOH Screenings 1974 [...] 60-74 years 1-dose series) 2016 [facility]-Abdominal Aortic Aneurys m (AAA) Screening 2021 [id number] Vaccine ( season) 2024 05/24/2021, 11/30/2020 [facility]-Influenza [...] Antibody Negative Negative 06/23/2024 1:15 PM EST [facility] Blood Venous blood specimen / Unknown Venipuncture / Unknown 06/23/2024 11:48 AM EST 06/23/2024 12:26 PM EST us Mayela Moore MD LAB BLOOD ORDERABLES Final Resul t [facility] [address] [place] [address] from Last 3 Months or Most Recently Relevant to Health Maintenance Insurance MEDICARE Care Teams Fortune Cookie Maker Relationship Specialty Start Date End Date Magui Benjamin, BEVERAGE HOST [address] [place] [address] PCP - General 06/23/24
--- OUTSIDE RECORDS SUMMARY | 2025-02-10 11:28 | XMS_ITS | Clinical Summary ---
Author Organization [facility] Address [address] [place] [address] Phone Care Team Providers Care Split And Drum Room Supervisor Name Role Phone Gricelda Cox MD Unavailable [phone] Allergies No known active allergies Medications [...] Active fluticasone propionate (FLONASE) 50 mcg/actuation Nasl [place], Suspension 2 Sprays by Nasal route daily. [...] topic Insurance [facility] [place] [facility] MEDICARE PPO [place] [id number] [employer] MEDICARE PPO MR [place] [facility] [place] [address] MEDICARE PPO MR [facility] [address] Advance Directives For more information, please contact: [phone] * Full Code (Latest Code Status on File) Date Activated Date Inactivated Comments 12/02/2022 11:11 AM 12/04/2022 7:53 PM * Full Code Date Activated Date Inactivated Comments 11/24/2022 11:52 PM 12/01/2022 2:40 AM Care Teams Split And Drum Room Supervisor Relationship Specialty Start Date End Date Gricelda Cox MD [address] [place] [address] Medical Oncologist Internal Medicine-Medical Oncology 11/26/22
--- OUTSIDE RECORDS SUMMARY | 2025-02-10 11:28 | XMS_ITS ---
Author Organization [facility] Address [address] [place] [address] Care Team Providers Care Chemical Engraver Name Role Phone Magui Benjamin APRN Primary Care Provider [phone] Active Problems Problem Noted Date Diagnosed Date [...]
--- OUTSIDE RECORDS SUMMARY | 2025-02-10 11:28 | XMS_ITS | Encounter Summary ---
Author Organization [facility] Address [address] [id number] Care Team Providers Care Protective Services Officer Name Role Phone Magui Benjamin APRN Primary Care Provider [phone] Encounter Details Date Type Department Care Team (Late st Contact Info) Description 07/03/2024 Lab Requisition [facility] [address] [place] [address] Mayela Moore MD [address] [facility] [address] [place] [phone] Hodgkin lymphoma, unspecified, unspecified site (CMS/HCC) Social [...] PM EST) Case Report Bone Marrow Case: [id number] Authorizing Provider: Mayela Moore MD Collected: 07/03/2024 1411 Ordering Location: [facility] Lab Received: 07/03/2024 1411 Pathologist: Isra Aivles MD Specimen: Bone Marrow Aspirate, [id number] 07/10/2024 2:24 PM EST [facility] Final Diagnosis PERIPHERAL BLOOD AND BONE MARROW, PERIPHERAL SMEAR, ASPIRATE SMEAR, CLOT SECTION AND CORE BIOPSY (OUTSIDE ; COLLECTED ON 06/05/2024): - NORMOCELLULAR BONE MARROW WITH MATURING TRILINEAGE HEMATOPOIESIS, SEE COMMENT. - FLOW CYTOMETRY DETECTED 1% B-CELL POPULATION WITH ELEVATED KAPPA TO LAMBDA RATIO OF 8.2 REPORTEDLY. 07/10/2024 2:24 PM [facility] at 1424 EST Comment Patient's history of follicular lymphoma (2018) and subsequent diffuse large B-cell lymphoma (2022) is noted ([id number]). According to the report, the concurrent flow [...] correlation is essential. 07/10/2024 2:24 PM EST [facility] Clinical Information History of B-cell lymphoma 07/10/2024 2:24 PM [facility] CBC and Differential Review of the peripheral smear shows mild macrocytic anemia. White blood cells and platelets appear adequate and show normal morphology. 07/10/2024 2:24 PM [facility] Bone Marrow Differential BONE MARROW DIFFERENTIAL: 200 cells Normal Patient Neutrophils 15-50 33 Metamyelocytes 4-19 7 Myelocytes 1-18 12 Promyelocytes 1-8 0 Blasts 0-2 0 Monocytes 0-5 2 Erythroid 16-38 31 Lymphocytes 3-24 6 Eosinophils 0-6 7 Basophils 0-2 0 Plasma cells 0-4 2 Other 07/10/2024 2:24 PM [facility] Aspirate Smear Staining quality of the bone marrow aspirate smears is suboptimal for morphologic assessment. There is maturing trilineage hematopoiesis. Erythroid and myeloid precursors show full spectrum of maturation. Blasts are not increased. Overt dysplastic features are not identified. The myeloid to erythroid ratio is 1.9 (Normal:1.5-4). Megakaryocytes are present and demonstrate normal morphology. 07/10/2024 2:24 PM [facility] Core Biopsy CELLULARITY: Slightly hypocellular bone [...] Keyla trabeculae are normal. 07/10/2024 2:24 PM [facility] Clot Section Clot sections show predominantly blood with small fragments of a normocellular bone marrow with maturing trilineage hematopoiesis. The provided immunostains for CD20 and CD3 show no atypical lymphoid aggregates. 07/10/2024 2:24 PM [facility] Flow Cytometry Interpretation According to the report, the concurrent flow cytometry performed at the outside institution revealed a 1% B-cell population with an increased kappa:lambda ratio of 8.2 and granulocytes with partial, non-specific CD56 expression. 07/10/2024 2:24 PM [facility] CYTOGENETICS/MOLE CULAR INTERPRETATION Per accompanying pathology report, cytogenetics showed a normal male karyotype. 07/10/2024 2:24 PM EST [facility] Gross Description A. [id number] Received along with a corresponding pathology report from [facility] are 19 slides labeled outside case: [id number] collected on 06/05/2024. 07/10/2024 2:24 PM EST [facility] Note: A resident was involved in the service. I attest I examined the relevant preparations for the specimens and confirmed the diagnosis or interpretation. 07/10/2024 2:24 PM EST [facility] Bone Marrow Specimen from bone marrow obtained by aspiration / Unknown 07/03/2024 2:11 PM EST 07/03/2024 2:11 PM EST us Mayela Moore MD LAB PATHOLOGY ORDERABLES Final R esult [facility] [address] [place] [address] documented in this encounter Visit Diagnoses Diagnosis Hodgkin lymphoma, unspecified, unspecified site (CMS/HCC) documented in this encounter Additional Health Concerns Assessment Noted Time A fall risk assessment has been complete d for the patient 06/23/2024 12:28 PM EST documented as of this encounter Care Teams Protective Services Officer Relationship Specialty Start Date End Date Magui Benjamin, ULISES [address] [place] [address] PCP - General 06/23/24 documented as of this encounter
--- OUTSIDE RECORDS SUMMARY | 2025-02-10 11:28 | XMS_ITS | Referral Summary ---
Author Organization [employer] ([place], [place], [place], [place]) Address [address] [place] [address] Care Team Providers Care Billet Cutter Name Role Phone Unavailable Primary Care Provider [...] Date Carrillo rded Speak language other than Slovak at home Not on file 07/30/2023 Want [...]
--- OUTSIDE RECORDS SUMMARY | 2025-02-10 11:28 | XMS_ITS | Encounter Summary ---
Author Organization [facility] Address [address] [place] [address] Care Team Providers Care Signaling Project Engineer Name Role Phone Magui Benjamin APRN Primary Care Provider [phone] Encounter Details Date Type Department Care Team (Late st Contact Info) Description 06/01/2024 Orders Only External Location [address] [place] [address] Provider, External Social History Tobacco Use Types [...] on filedocumented in this encounter Care Teams Signaling Project Engineer Relationship Specialty Start Date End Date Magui Benjamin APRN [address] [place] [id number] PCP - General 06/23/24 documented as of this encounter
--- OUTSIDE RECORDS SUMMARY | 2025-02-10 11:28 | XMS_ITS | Encounter Summary ---
Author Organization [facility] Address [address] [place] [id number] Care Team Providers Care Ramp Manager Name Role Phone Magui Benjamin APRN Primary Care Provider Encounter Details Date Type Department Care Team (Late st Contact Info) Description 07/03/2024 Lab Requisition [facility] [address] [place] [address] Mayela Moore MD [address] [facility] [address] [place] [phone] Malignant neoplasm of head, face and neck [...] -2 Score 0 07/06/2024 9:42 AM EST Michael, Myriam L documented as of this encounter Plan of Treatment Not on file documented as of this encounter Procedures Procedure Name Priority Date/Time Associated Diagnosis Comments SURGICAL PATHOLOGY CONSULT Routine 07/03/2024 2:19 PM EST Malignant neoplasm of head, face and neck (CMS/HCC) documented in this encounter Results * Surgical Pathology Consult (07/03/2024 2:19 PM EST) Case Report Sugical Pathology Consult Case: [id number] Authorizing Provider: Mayela Moore MD Collected: 07/03/2024 1419 Ordering Location: [facility] Lab Received: 07/03/2024 1420 Pathologist: Isra Aviles MD Specimens: A) - Neck, [id number] B) - Lymph Node, [id number] 07/05/2024 6:14 PM EST [facility] Final Diagnosis OUTSIDE ; COLLECTED 12/22/2018 A. LYMPH NODE, LEFT NECK, DEEP JUGULAR, BIOPSY: - CLASSIC FOLLICULAR LYMPHOMA, SEE COMMENT. OUTSIDE ; COLLECTED 08/05/2022 A. 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 07/05/2024 6:14 PM EST [facility] at 1813 EST Comment OUTSIDE ; [...] of previous follicular lymphoma. 07/05/2024 6:14 PM [facility] Clinical Information C76.0 - Malignant neoplasm of head, face and neck [ICD-10-CM] 07/05/2024 6:14 PM [facility] Gross Description A. [id number] Received along with a corresponding pathology report from [facility] are 24 slides labeled outside case: [id number] collected on 12/22/2018. B. [id number] Received along with a corresponding pathology report from [facility] are 19 slides labeled outside case: [id number] collected on 08/05/2022. 07/05/2024 6:14 PM [facility] Note: A resident was involved in the service. I attest I examined the relevant preparations for the specimens and confirmed the diagnosis or interpretation. 07/05/2024 6:14 PM [facility] Tissue Lymph node specimen / Unknown 07/03/2024 2:19 PM EST 07/03/2024 2:20 PM EST Tissue specimen (specimen) Lymph node specimen / Unknown 07/03/2024 2:19 PM EST 07/03/2024 2:20 PM EST us Mayela Moore MD LAB PATHOLOGY ORDERABLES Final R esult [facility] [address] [place] [address] documented in this encounter Visit Diagnoses Diagnosis Malignant neoplasm of head, face and neck (CMS/HCC) Malignant neoplasm of head, face, and neck documented in this encounter Additional Health Concerns Assessment Noted Time A fall risk assessment has been complete d for the patient 06/23/2024 12:28 PM EST documented as of this encounter Care Teams Ramp Manager Relationship Specialty Start Date End Date Magui Benjamin, ULISES [address] [place] [address] PCP - General 06/23/24 documented as of this encounter
--- OUTSIDE RECORDS SUMMARY | 2025-02-10 11:28 | XMS_ITS | Encounter Summary ---
Author Organization [facility] Address [address] [place] [id number] Care Team Providers Care Coating Line Worker Name Role Phone Magui Benjamin APRN Primary Care Provider [phone] Encounter Details Date Type Department Care Team (Late st Contact Info) Description 07/03/2024 Lab Requisition [facility] [address] [place] [address] Mayela Moore MD [address] [facility] [address] [place] [phone] Enlarged lymph nodes, unspecified Social History Tobacco [...] 2:04 PM EST) Case Report Cytology Case: [id number] Authorizing Provider: Mayela Moore MD Collected: 07/03/20241403 Ordering Location: [facility] Lab Received: 07/03/2024 1404 Pathologist: Isra Aviles MD Specimen: Lymph Node, [id number] 07/05/2024 6:55 PM EST [facility] Final Diagnosis A. LYMPH NODE, LEFT, FINE NEEDLE ASPIRATION (OUTSIDE ; COLLECTED ON 05/24/2024): - ATYPICAL LYMPHOID STROMA, SEE COMMENT. 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 The cell block and smears show population [...] would be recommended. 07/05/2024 6:55 PM EST [facility] Clinical Information History of follicular lymphoma and diffuse large B-cell lymphoma 07/05/2024 6:55 PM EST [facility] Gross Description A. [id number] Received along with a corresponding pathology report from [facility] are 2 slides labeled outside case: [id number] collected on 05/24/2024. 07/05/2024 6:55 PM EST [facility] Fine Needle Aspirate Lymph node specimen / Unknown 07/03/2024 2:04 PM EST 07/03/2024 2:04 PM EST us Mayela Moore MD LAB PATHOLOGY ORDERABLES Final R esult [facility] [address] [place] [address] documented in this encounter Visit Diagnoses Diagnosis Enlarged lymph nodes, unspecified documented in this encounter Additional Health Concerns Assessment Noted Time A fall risk assessment has been complete d for the patient 06/23/2024 12:28 PM EST documented as of this encounter Care Teams Coating Line Worker Relationship Specialty Start Date End Date Magui Benjamin, WINDOW SASH INSTALLER [address] [place] [address] PCP - General 06/23/24 documented as of this encounter
--- OUTSIDE RECORDS SUMMARY | 2025-02-10 11:28 | XMS_ITS | Encounter Summary ---
Author Organization [employer] [facility] ([place], [place], [place], [place]) Address [address] [place] [address] Care Team Providers Care Keyboarding Clerk Name Role Phone Unavailable Primary Care Provider Unavailabl e Encounter Details Date Type Department Care Team (Late st Contact Info) Description 05/16/2021 Transcribed Document [facility] [place] [facility] [place] [address] ProviderAiden MD [address] [place] [address] Social History Tobacco Use Types [...] 05/16/2021 16:40 EDT Electronically signed by Chantel [facility] Conversion First Mate Cerner at 10/27/2022 10:30 PM CDT documented in this encounter Plan of Treatment Not on file documented as of this encounter Visit Diagnoses Not on filedocumented in this encounter
--- NOTE | 2025-02-10 11:50 | XR_ITS ---
PROCEDURE INFORMATION: Exam: XR Left Ankle Exam date and time: 02/10/2025 12:15 PM Age: 69 years old Clinical indication: Injury or trauma; Fall; Blunt trauma; Ankle; Left; Additional info: Fall, left ankle TECHNIQUE: Imaging protocol: Radiologic exam of the left ankle. Views: 1 or 2 views. COMPARISON: CR XR FOOT LT 2V 02/10/2025 12:15 PM FINDINGS: Bones/joints: Normal. Soft tissues: Normal. IMPRESSION: No acute findings.
--- NOTE | 2025-02-10 11:50 | XR_ITS ---
PROCEDURE INFORMATION: Exam: XR Left Foot Exam date and time: 02/10/2025 12:15 PM Age: 69 years old Clinical indication: Injury or trauma; Fall; Blunt trauma; Foot; Left; Additional info: Fall, left foot pain TECHNIQUE: Imaging protocol: Radiologic exam of the left foot. Views: 1 or 2 views. COMPARISON: CR XR ANKLE LT 2V 02/10/2025 12:15 PM FINDINGS: Bones/joints: Hammertoe deformities digits 2 through 5, limiting evaluation. Questionable lucency within the 4th metatarsal neck, recommend correlation with patient pain. Soft tissues: Normal. IMPRESSION: Hammertoe deformities digits 2 through 5, limiting evaluation. Questionable lucency within the 4th metatarsal neck, recommend correlation with patient pain.
--- NOTE | 2025-02-10 11:50 | XR_ITS ---
PROCEDURE INFORMATION: Exam: XR Chest Exam date and time: 02/10/2025 12:19 PM Age: 69 years old Clinical indication: Shortness of breath; Additional info: Shortness of breath, presyncope TECHNIQUE: Imaging protocol: Radiologic exam of the chest. Views: 2 views. COMPARISON: CR XR CHEST 2V 01/24/2025 10:20 AM FINDINGS: Lungs: Unremarkable. No consolidation. Pleural spaces: Unremarkable. No pleural effusion. No pneumothorax. Heart/Mediastinum: Unremarkable. No cardiomegaly. Bones/joints: Unremarkable. IMPRESSION: No acute findings.
--- NOTE | 2025-02-10 11:51 | HMH.EDGENADL ---
Discharge Plan Disposition Patient Disposition: Home, Self-Care Prescriptions Prescriptions: No Action metoprolol tartrate 25 mg tablet 12.5 mg PO BID Qty: 180 3RF Eliquis 5 mg tablet 5 mg PO BID Qty: 180 3RF cholecalciferol (vitamin D3) 25 mcg (1,000 unit) capsule 1,000 unit PO DAILY Qty: 90 3RF prochlorperazine maleate [Compazine] 10 mg tablet 10 mg PO Q6H PRN (Reason: nausea and vomiting) Qty: 30 0RF Rx Instructions: take one tablet as needed every 6 hrs for n/v sulfamethoxazole-trimethoprim [Bactrim DS] 800-160 mg tablet 1 tab PO BID 7 Days Qty: 14 0RF prednisone 20 mg tablet 20 mg PO DAILY Qty: 30 0RF albuterol sulfate [Ventolin HFA] 90 mcg/actuation HFA aerosol inhaler 2 puff inhalation Q4-6H PRN (Reason: shortness of breath or wheezing) Qty: 6.7 1RF atorvastatin 40 mg tablet 40 mg PO DAILY amiodarone 200 mg tablet 200 mg PO DAILY Entresto 24-26 mg tablet 0.5 tab PO BID promethazine-DM 6.25-15 mg/5 mL syrup 5 ml PO Q4-6H PRN (Reason: cough) Qty: 118 0RF omeprazole 20 mg capsule,delayed release(DR/EC) 20 mg PO DAILY PRN (Reason: GERD) Referrals Follow up/Referrals: Sergo Schwarz DO [Staff Physician, Orthopedics] - See instructions Magui Benjamin APRN [Primary Care Provider, Family Practice] - See instructions Activity Restrictions/Add. Instructions Additional Instructions/Restrictions: You were found to have a fracture of your left fourth metatarsal, which is a bone in your foot. You are being provided a walking boot and crutches to help you walk. You are also being referred to Dr. Schwarz, our orthopedic surgeon. Call their office at the [place] next week to schedule an appointment. Your blood pressure has also been low, which could be from your Entresto. Per Dr. Terry, he wants you to stop taking the Entresto and follow-up in clinic at 9 AM on Wednesday. You are also being provided a Holter monitor. He will follow-up the results of that Holter monitor with you. You are likely having lightheadedness because your blood pressure was so low. Over the next 2 days, be sure that you stand up very slowly and stand still for at least 1 to 2 minutes before starting to walk. If you feel lightheaded at any point, sit back down. If you develop any new or worsening symptoms, such as worsening chest pain, shortness of breath, return to the emergency department for evaluation Clinical Impressions Clinical Impression: Hypotension, Pre-syncope, Closed fracture of fourth metatarsal of left foot Print Language Print Language: Argentine Discharge ED Provider: Santi Luis General Adult HPI General Chief complaint: Dizziness Stated complaint: Dizziness Time Seen by Provider: 02/10/25 11:42 Mode of Arrival: Ambulatory Source of Information: Patient Description of Symptoms (Recalled from ER Triage Doc. by RN): patient states he has been dizzy 4-5 days he fell yesterday unsure on LOC, dneies hitting head head. he is also having left ankle pain from his fall yesterday does have history of low blood pressure and takes entresto History of Present Illness HPI narrative: Jose Euceda is a 69-year-old male with a past medical history of heart failure on Entresto, followed by Dr. Terry's office ([facility]), coronary artery disease, obstructive sleep apnea, parkinsonism, hyperlipidemia, A-fib who presents to the emergency department for complaints of lightheadedness with standing, shortness of breath and left ankle pain after fall. Patient states that over the last 2 weeks, he has had worsening lightheadedness with standing. He states that he is followed by Dr. Terry's office and they want his blood pressure in the 80/50 range. He states that approximately 2 weeks ago, they decreased his Entresto dose by half thinking this was contributing to his lightheadedness, however he is continued to be lightheaded. He states that yesterday, he stood up in the bathroom and felt lightheaded and fell to the ground. He does state he hit his head at that time on the cabinet but denies loss of consciousness. Related Data Home Medications ?Medication ?Instructions ?Recorded ?Confirmed omeprazole 20 mg capsule,delayed 20 mg PO DAILY PRN GERD 07/08/23 02/06/25 release amiodarone 200 mg tablet 200 mg PO DAILY 01/24/25 02/06/25 atorvastatin 40 mg tablet 40 mg PO DAILY 01/24/25 02/06/25 sacubitril 24 mg-valsartan 26 mg 0.5 tab PO BID 01/30/25 02/06/25 tablet (Entresto) Previous Rx's ?Medication ?Instructions ?Recorded apixaban 5 mg tablet (Eliquis) 5 mg PO BID Blood thinner #180 tabs 11/25/23 cholecalciferol (vitamin D3) 25 1,000 unit PO DAILY Supplement #90 11/25/23 mcg (1,000 unit) capsule caps metoprolol tartrate 25 mg tablet 12.5 mg (1/2 x 25 mg) PO BID High 11/25/23 blood pressure #180 tabs prochlorperazine maleate 10 mg 10 mg PO Q6H PRN nausea and 10/10/24 tablet (Compazine) vomiting #30 tabs albuterol sulfate 90 mcg/actuation 2 puff inhalation Q4-6H PRN 01/16/25 aerosol inhaler (Ventolin HFA) shortness of breath or wheezing #6.7 grams prednisone 20 mg tablet 20 mg PO DAILY #30 tabs 01/16/25 sulfamethoxazole 800 1 tab PO BID 7 days #14 tabs 01/30/25 mg-trimethoprim 160 mg tablet (Bactrim DS) promethazine-DM 6.25 mg-15 mg/5 mL 5 ml PO Q4-6H PRN cough #118 mL 02/02/25 oral syrup Allergies Allergy/AdvReac Type Severity Reaction Status Date / Time No Known Allergies Allergy Verified 02/06/25 09:03 [facility] Disclaimer: The information contained in this section may have been updated after the patient was seen, as this information can be updated by other users. Medical History Lymphoma of lymph nodes of neck On amiodarone therapy Pressure ulcer below rectum HFrEF (heart failure with reduced ejection fraction) Sinusitis URI (upper respiratory infection) History of nuclear stress test 05/06/2021 STEPHANIE (acute kidney injury) Pneumonia Neutropenic fever Septic shock Acute renal failure Sepsis Cough Sleep apnea Bronchitis History of back pain Allergies Hypertension Hyperlipidemia Shoulder pain, left Hyperlipidemia Neuropathy CHF (congestive heart failure) 04/2021 EF 30 to 35% 07/2022 EF 45 to 50% Anemia DDD (degenerative disc disease) Lymphoma GERD (gastroesophageal reflux disease) Cancer Afib Shoulder strain COVID-19 Left shoulder strain Surgical History H/O lymph node biopsy Hx of tonsillectomy H/O colonoscopy Family History Sister Cancer Brain cancer Social History Smoking Status: Never smoker years smoked: 40 smoking status stop date: 17 YEARS AGO how long ago did patient quit smoking: quit at the age of 52 second hand exposure: Yes alcohol intake: current alcohol intake frequency: holidays/special occasions only substance use type: denies use current occupational status: retired Travel in the last 8 weeks?: None adopted: No caregiver/support person: No foster care: No household members: spouse housing: house lives independently: Yes marital status: number of children: 1 education level: high school 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 current occupational exposures/hazards: No caffeine: Yes Have you lived/traveled outside US in past 30 days?: No Contact w/someone who lives/traveled outside US past 30 days?: No Exposure to someone with infectious disease in past 14 days?: No Do you have a fever (greater than 100.4 F or 38 C)?: No Have you tested positive for COVID-19?: No Exposed to someone with COVID-19 in past 14 days?: No Do you have a sore throat?: No Do you have a cough?: No Do you have any weakness?: No Do you have any diarrhea?: No Are you experiencing any unusual bleeding?: No Do you have any muscle aches/pain?: No Do you have any abdominal pain?: No Are you experiencing loss of taste or smell?: No Other Medical History Have you received the Flu Vaccine for this season: No Have you received the Pneumonia Vaccine: No ROS Obtained: Yes Systems reviewed as appropriate & no additional complaints except as documented Physical Exam General General appearance: alert and in no apparent distress Head Head exam: atraumatic Eye Eye exam: Present normal appearance and PERRL ENT ENT exam: Present normal external ear exam Neck Neck exam: Present full ROM Chest Chest inspection: Present symmetric chest wall rise Respiratory Respiratory exam: Present normal lung sounds bilaterally; Absent respiratory distress, wheezes or stridor Cardiovascular Cardiovascular exam: Present regular rate and normal rhythm Abdominal Exam Abdominal exam: Present soft; Absent distention, tenderness or guarding exam: Present deferred Extremities Exam Extremities exam: Present normal inspection; Absent edema Back Exam Back exam: Present normal inspection Neurological Exam Neurological exam: Present alert, oriented X3 and CN II-XII intact; Absent motor sensory deficit Psychiatric Psychiatric exam: Present normal affect Skin Skin exam: Present warm, dry and other (pale) Medical Decision Making Medical Records Screening: Per USPSTF and CDC recommendations, given the prevalence of disease in our region, it is our hospital?s policy to screen for HIV and viral Hepatitis for all patients aged 18 and over and those with ongoing risk factors. Caleb Inquiry Pt receiving controlled substance: No Vital Signs: 02/10/25 11:22 02/10/25 11:30 02/10/25 11:46 Temperature 98.1 F Temperature Source Oral Pulse Rate 83 Pulse Rate [Right Radial] 87 Respiratory Rate 16 13 16 Blood Pressure 86/57 L 86/57 L Blood Pressure [Right Arm] 98/58 L Blood Pressure Mean Blood Pressure Mean [Right Arm] 71 Blood Pressure Source [Right Arm] Automatic Cuff Blood Pressure Position [Right Arm] Sitting 02 Sat by Pulse Oximetry 96 97 Oxygen Delivery Method Room Air Room Air 02/10/25 12:00 02/10/25 12:36 02/10/25 12:43 Temperature Temperature Source Pulse Rate 85 87 Pulse Rate [Right Radial] Respiratory Rate 10 L 12 18 Blood Pressure 80/48 L 89/53 L 89/53 L Blood Pressure [Right Arm] Blood Pressure Mean Blood Pressure Mean [Right Arm] Blood Pressure Source [Right Arm] Blood Pressure Position [Right Arm] 02 Sat by Pulse Oximetry 100 98 Oxygen Delivery Method 02/10/25 13:00 02/10/25 13:30 02/10/25 14:00 Temperature Temperature Source Pulse Rate 85 85 83 Pulse Rate [Right Radial] Respiratory Rate 12 18 18 Blood Pressure 87/52 L 83/50 L 89/53 L Blood Pressure [Right Arm] Blood Pressure Mean 60 63 Blood Pressure Mean [Right Arm] Blood Pressure Source [Right Arm] Blood Pressure Position [Right Arm] 02 Sat by Pulse Oximetry 98 100 98 Oxygen Delivery Method 02/10/25 14:54 02/10/25 14:55 Temperature 98.7 F Temperature Source Pulse Rate 88 88 Pulse Rate [Right Radial] Respiratory Rate 16 16 Blood Pressure 91/61 L 91/61 L Blood Pressure [Right Arm] Blood Pressure Mean Blood Pressure Mean [Right Arm] Blood Pressure Source [Right Arm] Blood Pressure Position [Right Arm] 02 Sat by Pulse Oximetry 92 L Oxygen Delivery Method Room Air Room Air Lab Data Lab Results 02/10/25 11:24: WBC 6.3, RBC 2.43 L, Hgb 8.5 L, Hct 25.6 L, MCV 105.3 H, MCH 35.0 H, MCHC 33.2, RDW 19.1 H, Plt Count 137 L, MPV 9.9, Neut % (Auto) 92.2 H, Lymph % (Auto) 0.6 L, [place] % (Auto) 5.4, Eos % (Auto) 0.8, Baso % (Auto) 0.2, Neut # (Auto) 5.8, Lymph # (Auto) 0.0 L, [place] # (Auto) 0.3, Eos # (Auto) 0.1, Baso # (Auto) 0.0, Total Counted 100, Neutrophils % (Manual) 91 H, Lymphocytes % (Manual) 3 L, Monocytes % (Manual) 3, Eosinophils % (Manual) 3, Nucleated RBCs 2, Platelet Estimate Slight decrease, Polychromasia 1+, Anisocytosis 2+, Sodium 133 L, Potassium 4.0, Chloride 103, Carbon Dioxide 24, Anion Gap 10.0, BUN 26 H, Creatinine 1.10, Estimated Creat Clear 82, Estimated GFR 67, Est GFR ( Amer) 81, Glucose 133 H, Calcium 8.9, Magnesium 1.9, Total Bilirubin 0.5, AST 34, ALT 36, Alkaline Phosphatase 72, Troponin I < 0.01, NT-Pro-B Natriuret Pep 197 H, Total Protein 6.2 L, Albumin 3.3 L, Globulin 2.9, Albumin/Globulin Ratio 1.1, HCV Ab KATHLEEN w/Rflx PCR Qn Negative, HIV Ag/Ab Combo Qual Negative 02/10/25 11:24 02/10/25 11:24 Orders (Tests/Meds): ORDERS Category Date Time Status Ankle XR - Left 2 Views [XR ankle LT 2V] Stat Exams 02/10/25 11:50 Completed CXR 2 view (NOT portable) [XR chest 2V] Stat Exams 02/10/25 11:50 Completed Foot XR left 2 views [XR foot LT 2V] Stat Exams 02/10/25 11:50 Completed POCUS Point of Care (ER Only) Stat Exams 02/10/25 11:47 Taken BNP [NT Pro Brain Natriuretic Pep.] Stat Lab 02/10/25 11:24 Completed CBC w/Auto Diff [Complete Blood Count Auto Diff] Stat Lab 02/10/25 11:24 Completed CMP [Comprehensive Metabolic Panel] Stat Lab 02/10/25 11:24 Completed HIV Combo Stat Lab 02/10/25 11:24 Completed Hepatitis C Ab Qual. W/ RFX Stat Lab 02/10/25 11:24 Completed Magnesium Stat Lab 02/10/25 11:24 Completed Troponin I Stat Lab 02/10/25 11:24 Completed ECG holter monitor 48 hour Routine Y 02/10/25 15:00 Completed Medical Decision Narrative: Jose Euceda is a 69-year-old male with a past medical history of heart failure on Entresto, followed by Dr. Terry's office ([facility]), coronary artery disease, obstructive sleep apnea, parkinsonism, hyperlipidemia, A-fib who presents to the emergency department for complaints of lightheadedness with standing, shortness of breath and left ankle pain after fall. Patient states that over the last 2 weeks, he has had worsening lightheadedness with standing. He states that he is followed by Dr. Terry's office and they want his blood pressure in the 80/50 range. He states that approximately 2 weeks ago, they decreased his Entresto dose by half thinking this was contributing to his lightheadedness, however he is continued to be lightheaded. He states that yesterday, he stood up in the bathroom and felt lightheaded and fell to the ground. He does state he hit his head at that time on the cabinet but denies loss of consciousness. He denies any chest pain prior to the event or currently. On arrival, patient's blood pressure is 98/58, heart rate within normal limits, maintaining appropriate oxygen saturation on room air. Physical exam, as stated above, reveals an overall well-appearing male in no distress. He does appear pale but he is alert and completely oriented. Cardiopulmonary exam reveals no murmurs, wheezing, rales or rhonchi. Abdomen is soft, nontender nondistended. Bedside [id number] cardiac and lung ultrasound showed normal estimated ejection fraction, no wall motion abnormality. No pericardial effusion. No evidence of right heart strain. Lung ultrasound showed no left-sided B-lines with lung sliding present. Few scattered right-sided B-lines with lung sliding present. No evidence of effusion or consolidation. See procedure note for details. Patient does have swelling and tenderness and bruising over the lateral aspect of his left foot near the fourth toe/metatarsal. 2+ DP pulses. Less than 2-second capillary refill. Differential diagnosis includes, but is not limited to: Orthostatic hypotension, medication side effect, ACS, CHF exacerbation, anemia, pneumonia, electrolyte derangement, among others. The most morbid conditions were considered and workup was based on these. Workup in the emergency department included: 2 view chest x-ray, CBC, CMP, BNP, troponin, left ankle x-ray, left foot x-ray. Chest x-ray was interpreted by me personally. No focal consolidation, no pneumothorax, no cardiomegaly. See final radiology report for details. Ankle and foot x-rays were also interpreted by me personally. Patient has what appears to be a nondisplaced fracture of the body of the left fourth metatarsal. See radiology report for details. Laboratory studies show no leukocytosis, stable anemia with hemoglobin of 8.5, hematocrit 25.6, platelets are low at 137. Mild hyponatremia 133 but electrolytes otherwise within normal limits. No STEPHANIE. Glucose normal at 133. Magnesium normal at 1.9. Liver enzymes within normal limits. Initial troponin less than 0.01. BNP very mildly elevated 197. Per previous cardiology notes, patient's blood pressures have been in the 90 to low 100s systolic on those visits. Patient states that he is sure that they want his blood pressure in the 80s over 50 range, which is where it is currently. He does not appear volume overloaded. I discussed patient's case with Dr. Terry as I feel that his symptomatology is likely related to his low blood pressure resulting in orthostasis. He advised to take the patient off of Entresto at this time and to have patient follow-up in clinic on Wednesday morning at 9 AM. For patient's metatarsal fracture, it is nondisplaced and will place patient in a walking boot, however in the setting of patient's significant orthostasis, advised him to minimize walking until his blood pressure and symptoms improved. Will also provide crutches. Will also give referral to Dr. Schwarz with orthopedic surgery team. Will avoid prescribing opiate pain medications at this time due to patient's hypotension. I instructed him to stand slowly and to remain standing for at least 1 to 2 minutes prior to walking to ensure that he does not get lightheaded or pass out. Instructed patient that he is to stop taking his Entresto until he is able to follow-up with Dr. Terry on Wednesday. Patient was given very strict return precautions. All questions were answered. He demonstrated understanding and was in agreement this plan. He was then discharged from the emergency department in stable condition. Procedures Limited Ultrasound Interpretation:: Limited cardiac ultrasound Indication: Shortness of breath, syncope Identified cardiac views:Cardiac parasternal long axis, cardiac parasternal short axis, cardiac subxiphoid view, cardiac four-chamber view Findings: -Cardiac activity present -Wall motion grossly normal -Pericardial effusion absent -Right heart strain absent Impression: - From above Images were saved to permanent archive The study was technically adequate CPT: 03343 This study was performed by me, and I personally interpreted all images/videos. Based on my clinical judgement, these images were adequate and did not necessitate further imaging. Limited lung ultrasound A focused ultrasound exam of the pleural spaces was performed to evaluate for pneumothorax, pulmonary edema, pleural effusion and/or consolidation. The ultrasound was performed with the following indications, as noted in the H&P: Dyspnea, hypotension Identified structures: Right and left thoracic cavities were examined. Findings: Lung sliding: - Left and right present B-lines: - Left absent - Right few and scattered Pleural effusion: - Left absent - Right absent Consolidation: - Left absent - Right absent Impression: - Pneumothorax absent - Pleural effusion absent - B-lines none on the left, few and scattered on the right - Consolidation absent Images were saved to permanent archive The study was technically adequate CPT 12465-63 This study was performed by me, and I personally interpreted all images/videos. Based on my clinical judgement, these images were adequate and did not necessitate further imaging. Critical Care Critical Care Time Critical Care Time: No
[2025-02-10 11:57] LABS: Hematocrit 25.6 % (42.0-52.0); Hemoglobin 8.5 g/dL (14.1-18.0); Immature Granulocytes % 0.8 %; Mean Corpuscular HGB Conc 33.2 g/dL (31.8-35.4); Mean Corpuscular Hemoglobin 35.0 pg (27.0-31.2); Mean Corpuscular Volume 105.3 fl (80-94); Nucleated Red Blood Cells % 1.1 %; Platelet Count 137 K/mm3 (142-424); Red Blood Count 2.43 M/mm3 (4.60-6.20); Red Cell Distribution Width-SD 71.7 fL; White Blood Count 6.3 K/mm3 (4.8-10.8)
[2025-02-10 12:01] LABS: Albumin Level 3.3 g/dl (3.5-5.0); Chloride 103 mmol/L (98-107); Potassium 4.0 mmoL/L (3.5-5.1); Sodium 133 mmol/L (136-145)
[2025-02-10 12:03] LABS: Alanine Aminotransferase 36 U/L (12-78); Aspartate Amino Transferase 34 U/L (17-59); Blood Urea Nitrogen 26 mg/dl (9-20); Creatinine Clearance Estimated 82 mL/min (50-200); Creatinine,Serum 1.10 mg/dl (0.66-1.25); Estimated Glomerular Filt Rate 67 ml/min (>60); GFR (African American) 81 ML/MIN (>60)
[2025-02-10 12:04] LABS: Albumin/Globulin Ratio 1.1 (1.1-1.8); Alkaline Phosphatase 72 U/L (38-126); Anion Gap 10.0 mEq/L (5-15); Bilirubin,Total 0.5 mg/dl (0.2-1.3); Calcium 8.9 mg/dl (8.4-10.2); Carbon Dioxide 24 mmol/L (22.0-30.0); Globulin 2.9 g/dL (1.3-3.2); Glucose 133 mg/dl (74-100); Magnesium 1.9 mg/dl (1.6-2.3); Total Protein,Serum 6.2 g/dl (6.3-8.2)
[2025-02-10 12:14] LABS: NT Pro Brain Natriuretic Pep. 197 pg/mL (0-125)
[2025-02-10 12:18] LABS: Total Cells Counted 100
[2025-02-10 12:21] LABS: Troponin I < 0.01 ng/ml (0.00-0.034)
[2025-02-10 12:23] LABS: Anisocytosis 2+; Polychromasia 1+
[2025-02-10 12:54] LABS: Hepatitis C Ab Qual. W/ RFX NEGATIVE (Negative)
--- NOTE | 2025-02-10 13:34 | PC.NURSE ---
I rounded on the pt. no new complaints at this time. no needs voiced. call virk in reach.
--- NOTE | 2025-02-10 14:17 | PC.NURSE ---
contacted respiratory r/t 48 hr holter monitor.
== END 2025-02-10 15:09 | disposition home or self-care (01) ==
PROVIDERS: Emergency Provider Student in an Organized Health Care Education/Training Program; PCP Nurse Practitioner Family
DX: S92.342A Displaced fracture of fourth metatarsal bone, left foot, initial encounter for closed fracture (principal); R55 Syncope and collapse; I95.9 Hypotension, unspecified; E78.5 Hyperlipidemia, unspecified; G47.33 Obstructive sleep apnea (adult) (pediatric); K21.9 Gastro-esophageal reflux disease without esophagitis; I50.9 Heart failure, unspecified
CPT/HCPCS: 71046; 73600; 73620; 80053; 83735; 83880; 84484; 85007; 85025; 85027; 86803; 87389; 93005; 93225; 93226; 93227; 99285

== ENCOUNTER 2025-03-06 08:02 | Outpatient (CLI) | payer MEDICARE, SELFPAY ==
[2025-03-06] VITALS (21 sets, daily range): BP systolic 103–130; BP diastolic 57–74; PULSE 62–74; RESP 14–16; TEMP 36.3–36.6; O2SAT 97–99
--- OUTSIDE RECORDS SUMMARY | 2025-03-06 08:10 | XMS_ITS | Clinical Summary ---
Author Organization [employer] ([place], [place], [place], [place]) Address [address] [place] [address] Care Team Providers Care Tag Marker Name Role Phone Unavailable Primary Care Provider [...] Date Carrillo rded Speak language other than Uzbek at home Not on file 07/30/2023 Want [...]
--- OUTSIDE RECORDS SUMMARY | 2025-03-06 08:10 | XMS_ITS | Encounter Summary ---
Author Organization [employer] ([place], [place], [place], [place]) Address [address] [place] [address] Care Team Providers Care Cpht Name Role Phone Unavailable Primary Care Provider Unavailabl e Encounter Details Date Type Department Care Team (Late st Contact Info) Description 05/16/2021 Transcribed Document [facility] [place] [facility] [place] [address] ProviderAiden MD [address] [place] [address] Social History Tobacco Use Types [...] 05/16/2021 16:40 EDT Electronically signed by Chantel [facility] [employer] Farmer Cerner at 10/27/2022 10:30 PM CDT documented in this encounter Plan of Treatment Not on file documented as of this encounter Visit Diagnoses Not on filedocumented in this encounter
--- OUTSIDE RECORDS SUMMARY | 2025-03-06 08:10 | XMS_ITS | Encounter Summary ---
Author Organization [facility] Address [address] [id number] Care Team Providers Care Buckram Sewer Name Role Phone Magui Benjamin APRN Primary Care Provider [phone] Encounter Details Date Type Department Care Team (Late st Contact Info) Description 07/03/2024 Lab Requisition [facility] [address] [place] [address] Mayela Moore MD [address] [facility] [address] [place] [id number] Enlarged lymph nodes, unspecified Social History Tobacco [...] 2:04 PM EST) Case Report Cytology Case: [id number] Authorizing Provider: Mayela Moore MD Collected: 07/03/20241403 Ordering Location: [facility] Lab Received: 07/03/2024 1404 Pathologist: Isra Aviles MD Specimen: Lymph Node, [id number] 07/05/2024 6:55 PM EST [facility] Final Diagnosis A. LYMPH NODE, LEFT, FINE NEEDLE ASPIRATION (OUTSIDE ; COLLECTED ON 05/24/2024): - ATYPICAL LYMPHOID STROMA, SEE COMMENT. 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 The cell block and smears show population [...] would be recommended. 07/05/2024 6:55 PM EST [facility] Clinical Information History of follicular lymphoma and diffuse large B-cell lymphoma 07/05/2024 6:55 PM EST [facility] Gross Description A. [id number] Received along with a corresponding pathology report from [facility]ology & Cytology Laboratory are 2 slides labeled outside case: [id number] collected on 05/24/2024. 07/05/2024 6:55 PM EST [facility] Fine Needle Aspirate Lymph node specimen / Unknown 07/03/2024 2:04 PM EST 07/03/2024 2:04 PM EST us Mayela Moore MD LAB PATHOLOGY ORDERABLES Final R esult [facility] [address] [place] [address] documented in this encounter Visit Diagnoses Diagnosis Enlarged lymph nodes, unspecified documented in this encounter Additional Health Concerns Assessment Noted Time A fall risk assessment has been complete d for the patient 06/23/2024 12:28 PM EST documented as of this encounter Care Teams Buckram Sewer Relationship Specialty Start Date End Date Magui Benjamin, WOOD CALKER [address] [place] [address] PCP - General 06/23/24 documented as of this encounter
--- OUTSIDE RECORDS SUMMARY | 2025-03-06 08:10 | XMS_ITS | Encounter Summary ---
Author Organization [employer] ([place], [place], [place], [place]) Address [address] [place] [address] Care Team Providers Care Horticultural Technical Officer Name Role Phone Unavailable Primary Care Provider Unavailabl e Encounter Details Date Type Department Care Team (Late st Contact Info) Description 05/16/2021 Transcribed Document [facility] [place] [facility] [place] [address] ProviderAiden MD [address] [place] [address] Social History Tobacco Use Types Packs/Day [...] Basic Information PCP: Kenroy Chavez MD Primary Inside Sales Advertising Executive: Edyta Guerra MD Chief Complaint Newly decreased [...] Available Past Medical History: Active Atrial fibrillation ([id number]) Cardiomyopathy ([id number]) Family History: Brain tumor Sister () Procedure [...] of motion, Normal strength. Integumentary: Warm, Dry, Toxey. Neurologic: Alert, Oriented. Psychiatric: Cooperative, Appropriate mood [...] proceed. Electronically signed by Chantel, Laurita Conversion Product Development Carpenter Cerner at 10/27/2022 10:50 PM CDT documented in this encounter Plan of Treatment Not on file documented as of this encounter Visit Diagnoses Not on filedocumented in this encounter
--- OUTSIDE RECORDS SUMMARY | 2025-03-06 08:10 | XMS_ITS ---
Author Organization [facility] Address [address] [place] [address] Care Team Providers Care Family Life Counselor Name Role Phone Magui Benjamin APRN Primary Care Provider [phone] Active Problems Problem Noted Date Diagnosed Date [...]
--- OUTSIDE RECORDS SUMMARY | 2025-03-06 08:10 | XMS_ITS | Encounter Summary ---
Author Organization [employer] ([place], [place], [place], [place]) Address [address] [place] [address] Care Team Providers Care Figure Clerk Name Role Phone Unavailable Primary Care Provider Unavailabl e Encounter Details Date Type Department Care Team (Late st Contact Info) Description 05/16/2021 Transcribed Document [facility] [place] Family Medicine [address] [place] [address] ProviderAiden MD [address] [place] [address] Social History Tobacco Use Types [...] Aiden ProviderMD - 05/16/2021 4:04 PM CDT [facility] [place] [address] JOSE EUCEDA :1955 Visit Time:05/16/2021 Your [...] appointment with Dr. Madera as scheduled. Where: [address] [place] [address]- Business (1) Medications What How Much When [...] you are awake and alert. ??? Take przc-ccx-fbnmmzk and prescription medicines only as told by [...] provider. Document Revised: 05/23/2020 Document Reviewed: 05/23/2020 [email or web address] Patient Education ?? 2020 [employer]CI Com. Radial Site Care This sheet gives you [...] these instructions at home: Medicines ??? Take sxrx-anw-lwdqngg and prescription medicines only as told by your health care provider. Insertion site care ??? Follow instructions from your health care provider about how to take care of your insertion site. Make sure you: ? Wash your hands with soap and water before you change your bandage (dressing). If soap and water are not available, use hand purchasing and fiscal clerk. ? Change your dressing as told by [...] provider. Document Revised: 08/03/2018 Document Reviewed: 08/03/2018 [email or web address] Patient Education ?? 2020 [employer] Inc. Angiogram, Care After This sheet gives [...] and water are not available, use hand purchasing and fiscal clerk. ? Change your dressing as told by [...] This is a medical emergency. ??? Take iuda-dwj-fusyjkg and prescription medicines only as told by [...] Assistance with quitting is available by contacting 8-508-RYOXNOW. This is a free resource providing counseling, support, and referral. Or you may contact your personal physician. [place] Suicide Prevention Lifeline: The National Suicide Prevention [...] was given the opportunity to ask questions. Patient/Trailer Tank Truck Driver Name: Patient/Trailer Tank Truck Driver Signature: Relationship to Patient: Clinician/Hospital Trailer Tank Truck Driver Signature: Date: documented in this encounter Plan of Treatment Not on file documented as of this encounter Visit Diagnoses Not on filedocumented in this encounter
--- OUTSIDE RECORDS SUMMARY | 2025-03-06 08:10 | XMS_ITS | Encounter Summary ---
Author Organization [facility] Address [address] [id number] Care Team Providers Care Cma Name Role Phone Magui Benjamin APRN Primary Care Provider [phone] Encounter Details Date Type Department Care Team (Late st Contact Info) Description 07/03/2024 Lab Requisition [facility] [address] [place] [address] Mayela Moore MD [address] [facility] [address] [place] [phone] Hodgkin lymphoma, unspecified, unspecified site (CMS/HCC) Social [...] PM EST) Case Report Bone Marrow Case: [id number] Authorizing Provider: Mayela Moore MD Collected: 07/03/2024 1411 Ordering Location: [facility] Lab Received: 07/03/2024 1411 Pathologist: Isra Aviles MD Specimen: Bone Marrow Aspirate, [id number] 07/10/2024 2:24 PM EST [facility] Final Diagnosis PERIPHERAL BLOOD AND BONE MARROW, PERIPHERAL SMEAR, ASPIRATE SMEAR, CLOT SECTION AND CORE BIOPSY (OUTSIDE ; COLLECTED ON 06/05/2024): - NORMOCELLULAR BONE MARROW WITH MATURING TRILINEAGE HEMATOPOIESIS, SEE COMMENT. - FLOW CYTOMETRY DETECTED 1% B-CELL POPULATION WITH ELEVATED KAPPA TO LAMBDA RATIO OF 8.2 REPORTEDLY. 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 According to the report, the concurrent flow [...] correlation is essential. 07/10/2024 2:24 PM EST [facility] Clinical Information History of B-cell lymphoma 07/10/2024 2:24 PM [facility] CBC and Differential Review of the peripheral smear shows mild macrocytic anemia. White blood cells and platelets appear adequate and show normal morphology. 07/10/2024 2:24 PM [facility] Bone Marrow Differential BONE MARROW DIFFERENTIAL: 200 cells Normal Patient Neutrophils 15-50 33 Metamyelocytes 4-19 7 Myelocytes 1-18 12 Promyelocytes 1-8 0 Blasts 0-2 0 Monocytes 0-5 2 Erythroid 16-38 31 Lymphocytes 3-24 6 Eosinophils 0-6 7 Basophils 0-2 0 Plasma cells 0-4 2 Other 07/10/2024 2:24 PM [facility] Aspirate Smear Staining quality of the bone marrow aspirate smears is suboptimal for morphologic assessment. There is maturing trilineage hematopoiesis. Erythroid and myeloid precursors show full spectrum of maturation. Blasts are not increased. Overt dysplastic features are not identified. The myeloid to erythroid ratio is 1.9 (Normal:1.5-4). Megakaryocytes are present and demonstrate normal morphology. 07/10/2024 2:24 PM [facility] Core Biopsy CELLULARITY: Slightly hypocellular [...] trabeculae are normal. 07/10/2024 2:24 PM [facility] Clot Section Clot sections show predominantly blood with small fragments of a normocellular bone marrow with maturing trilineage hematopoiesis. The provided immunostains for CD20 and CD3 show no atypical lymphoid aggregates. 07/10/2024 2:24 PM [facility] Flow Cytometry Interpretation According to the report, the concurrent flow cytometry performed at the outside institution revealed a 1% B-cell population with an increased kappa:lambda ratio of 8.2 and granulocytes with partial, non-specific CD56 expression. 07/10/2024 2:24 PM [facility] CYTOGENETICS/MOLE CULAR INTERPRETATION Per accompanying pathology report, cytogenetics showed a normal male karyotype. 07/10/2024 2:24 PM EST [facility] Gross Description A. [id number] Received along with a corresponding pathology report from [facility] are 19 slides labeled outside case: [id number] collected on 06/05/2024. 07/10/2024 2:24 PM EST [facility] Note: A resident was involved in the service. I attest I examined the relevant preparations for the specimens and confirmed the diagnosis or interpretation. 07/10/2024 2:24 PM EST [facility] Bone Marrow Specimen from bone marrow obtained by aspiration / Unknown 07/03/2024 2:11 PM EST 07/03/2024 2:11 PM EST us Mayela Moore MD LAB PATHOLOGY ORDERABLES Final R esult [facility] [address] [place] [address] documented in this encounter Visit Diagnoses Diagnosis Hodgkin lymphoma, unspecified, unspecified site (CMS/HCC) documented in this encounter Additional Health Concerns Assessment Noted Time A fall risk assessment has been complete d for the patient 06/23/2024 12:28 PM EST documented as of this encounter Care Teams Cma Relationship Specialty Start Date End Date Magui Benjamin, ULISES [address] [place] [address] PCP - General 06/23/24 documented as of this encounter
--- OUTSIDE RECORDS SUMMARY | 2025-03-06 08:10 | XMS_ITS | Clinical Summary ---
Author Organization [facility] Address [address] [place] [address] Care Team Providers Care Umbrella Tipper Machine Name Role Phone Magui Benjamin APRN Primary Care Provider [phone] Allergies No known active allergies Medications allopurinol [...] 11/26/2022 HEPATITIS C SCREENING Completed 06/23/2024 Insurance [facility] MEDICARE ADVANTAGE Care Teams Umbrella Tipper Machine Relationship Specialty Start Date End Date Magui Benjamin APRN [address] [place] [address] [place] [address] PCP - General Nurse Practitioner 12/24/22
--- OUTSIDE RECORDS SUMMARY | 2025-03-06 08:10 | XMS_ITS | Encounter Summary ---
Author Organization [employer] ([place], [place], [place], [place]) Address [address] [place] [address] Care Team Providers Care Explosives Operator Name Role Phone Unavailable Primary Care Provider Unavailabl e Encounter Details Date Type Department Care Team (Late st Contact Info) Description 05/16/2021 Transcribed Document [facility] [place] [facility] [place] [address] ProviderAiden MD [address] [place] [address] Social History Tobacco Use Types [...] these instructions at home: Medicines ??? Take womo-rfm-doageaq and prescription medicines only as told by your health care provider. Insertion site care ??? Follow instructions from your health care provider about how to take care of your insertion site. Make sure you: ? Wash your hands with soap and water before you change your bandage (dressing). If soap and water are not available, use hand finisher fine diamond dies. ? Change your dressing as told by [...] provider. Document Revised: 08/03/2018 Document Reviewed: 08/03/2018 [employer] Patient Education ? 2020 [employer] Pharmacology Moderate Conscious Sedation, Adult, Care [...] you are awake and alert. ??? Take rpxt-qsx-pgdofsc and prescription medicines only as told by [...] provider. Document Revised: 05/23/2020 Document Reviewed: 05/23/2020 [employer] Patient Education ? 2020 Elsevier Inc. Radiology [...] and water are not available, use hand finisher fine diamond dies. ? Change your dressing as told by [...] This is a medical emergency. ??? Take yysg-xkp-ameduul and prescription medicines only as told by [...] provider. Document Revised: 05/01/2020 Document Reviewed: 05/01/2020 [employer] Patient Education ? 2020 [employer]. documented in this encounter Plan of Treatment Not on file documented as of this encounter Visit Diagnoses Not on filedocumented in this encounter
--- OUTSIDE RECORDS SUMMARY | 2025-03-06 08:10 | XMS_ITS | Encounter Summary ---
Author Organization [facility] Address [address] [place] [address] Care Team Providers Care Business Segment Manager Name Role Phone Magui Benjamin APRN Primary Care Provider [phone] Reason for Visit * Reason Comments Med Refill Encounter Details Date Type Department Care Team (Late st Contact Info) Description 11/23/2023 Refill [facility] [address] [facility] [address] [place] [address] Marcy Agrawal APRN [address] [place], [place] [id number] Med Refill Social History Tobacco Use Types [...] on filedocumented in this encounter Care Teams Business Segment Manager Relationship Specialty Start Date End Date Magui Benjamin APRN [address] [place] [address] PCP - General Nurse Practitioner 12/24/22 documented as of this encounter
--- OUTSIDE RECORDS SUMMARY | 2025-03-06 08:10 | XMS_ITS | Encounter Summary ---
Author Organization [facility] Address [address] [place] [address] Care Team Providers Care Heel Splitter Name Role Phone Magui Benjamin APRN Primary Care Provider [phone] Encounter Details Date Type Department Care Team (Late st Contact Info) Description 06/01/2024 Orders Only External Location [address] [place] [address] Provider, External Social History Tobacco Use Types [...] on filedocumented in this encounter Care Teams Heel Splitter Relationship Specialty Start Date End Date Magui Benjamin APRN [address] [id number] PCP - General 06/23/24 documented as of this encounter
--- OUTSIDE RECORDS SUMMARY | 2025-03-06 08:10 | XMS_ITS | Encounter Summary ---
Author Organization [employer] ([place], [place], [place], [place]) Address [address] [place] [address] Care Team Providers Care Vegetable Buncher Name Role Phone Unavailable Primary Care Provider Unavailabl e Encounter Details Date Type Department Care Team (Late st Contact Info) Description 05/16/2021 Transcribed Document [facility] [place] Family Medicine [facility] [address] ProviderAiden MD [address] [place] [address] Social History Tobacco Use Types [...]
--- OUTSIDE RECORDS SUMMARY | 2025-03-06 08:10 | XMS_ITS | Clinical Summary ---
Author Organization [facility] Address [address] [place] [address] Care Team Providers Care Content Publisher Name Role Phone Magui Benjamin APRN Primary Care Provider [phone] Allergies No known active allergies Medications atorvastatin [...] Due Date Last Done Comments [facility]-Medicare Annual Wellness (AWV) 1955 [facility]-/Child/Adol SDOH Screenings 1955 [facility]- SDOH [...] 60-74 years 1-dose series) 2016 [facility]-Abdominal Aortic Aneurys m (AAA) Screening 2021 SBX-HIGAL-76 Vaccine ( season) 2024 05/24/2021, 11/30/2020 [facility]-Influenza [...] Antibody Negative Negative 06/23/2024 1:15 PM EST [facility] Blood Venous blood specimen / Unknown Venipuncture / Unknown 06/23/2024 11:48 AM EST 06/23/2024 12:26 PM EST us Mayela Moore MD LAB BLOOD ORDERABLES Final Resul t [facility] [address] [place] [address] from Last 3 Months or Most Recently Relevant to Health Maintenance Insurance MEDICARE Care Teams Content Publisher Relationship Specialty Start Date End Date Magui Benjamin, ASSISTANT CORPORATION COUNSEL [address] [place] [address] PCP - General 06/23/24
--- OUTSIDE RECORDS SUMMARY | 2025-03-06 08:10 | XMS_ITS | Referral Summary ---
Author Organization [employer] ([place], [place], [place], [place]) Address [address] [place] [address] Care Team Providers Care Foil Stamp Operator Name Role Phone Unavailable Primary Care [...] Date Carrillo rded Speak language other than Chinese at home Not on file 07/30/2023 Want [...]
--- OUTSIDE RECORDS SUMMARY | 2025-03-06 08:10 | XMS_ITS | Encounter Summary ---
Author Organization [facility] Address [address] [id number] Care Team Providers Care Core Piler Name Role Phone Magui Benjamin APRN Primary Care Provider [phone] Encounter Details Date Type Department Care Team (Late st Contact Info) Description 07/03/2024 Lab Requisition [facility] [address] [place] [address] Mayela Moore MD [address] [facility] [address] [place] [phone] Malignant neoplasm of head, face and neck [...] EST) Case Report [facility] Consult Case: [id number] Authorizing Provider: Mayela Moore MD Collected: 07/03/2024 1419 Ordering Location: [facility] Lab Received: 07/03/2024 1420 Pathologist: Isra Aviles MD Specimens: A) - Neck, [id number] B) - Lymph Node, [id number] 07/05/2024 6:[address] [facility] Final Diagnosis OUTSIDE ; COLLECTED 12/22/2018 A. LYMPH NODE, LEFT NECK, DEEP JUGULAR, BIOPSY: - CLASSIC FOLLICULAR LYMPHOMA, SEE COMMENT. OUTSIDE ; COLLECTED 08/05/2022 A. 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 07/05/2024 6:[address] [facility] at 1813 EST Comment OUTSIDE ; COLLECTED [...] of previous follicular lymphoma. 07/05/2024 6:14 PM [facility] Clinical Information C76.0 - Malignant neoplasm of head, face and neck [ICD-10-CM] 07/05/2024 6:14 PM [facility] Gross Description A. [id number] Received along with a corresponding pathology report from [facility] are 24 slides labeled outside case: [id number] collected on 12/22/2018. B. [id number] Received along with a corresponding pathology report from [facility] are 19 slides labeled outside case: [id number] collected on 08/05/2022. 07/05/2024 6:14 PM [facility] [...] LAB PATHOLOGY ORDERABLES Final R esult [facility] [address] [place] [address] documented in this encounter Visit Diagnoses Diagnosis Malignant neoplasm of head, face and neck (CMS/HCC) Malignant neoplasm of head, face, and neck documented in this encounter Additional Health Concerns Assessment Noted Time A fall risk assessment has been complete d for the patient 06/23/2024 12:28 PM EST documented as of this encounter Care Teams Core Piler Relationship Specialty Start Date End Date Magui Benjamin, ULISES [address] [place] [address] PCP - General 06/23/24 documented as of this encounter
--- OUTSIDE RECORDS SUMMARY | 2025-03-06 08:10 | XMS_ITS | Clinical Summary ---
Author Organization [facility] Address [address] [place] [address] Phone Care Team Providers Care Senior Media Buyer Name Role Phone Gricelda Cox MD Unavailable [phone] Allergies No known active allergies Medications [...] Active fluticasone propionate (FLONASE) 50 mcg/actuation Nasl [place], Suspension 2 Sprays by Nasal route daily. [...] [place] [address] [facility] MEDICARE PPO [address] [place] [id number] [employer] MEDICARE PPO MR [employer] [facility] [place] [address] MEDICARE PPO MR [facility] [address] Advance Directives For more information, please contact: [phone] * Full Code (Latest Code Status on File) Date Activated Date Inactivated Comments 12/02/2022 11:11 AM 12/04/2022 7:53 PM * Full Code Date Activated Date Inactivated Comments 11/24/2022 11:52 PM 12/01/2022 2:40 AM Care Teams Senior Media Buyer Relationship Specialty Start Date End Date Gricelda Cox MD [address] [place] [address] Medical Oncologist Internal Medicine-Medical Oncology 11/26/22
--- OUTSIDE RECORDS SUMMARY | 2025-03-06 08:10 | XMS_ITS | Encounter Summary ---
Author Organization [employer] ([place], [place], [place], [place]) Address [address] [place] [address] Care Team Providers Care Configuration Developer Name Role Phone Unavailable Primary Care Provider Unavailabl e Encounter Details Date Type Department Care Team (Late st Contact Info) Description 05/16/2021 Transcribed Document [facility] [place] Family Medicine [facility] [place] [address] ProviderAiden MD [address] [place] [address] Social History Tobacco Use Types [...] Source : Stated Height Entry Format : Cullen Height, Feet : 5 ft(Converted to: 152 cm, 60 Inch) Height, Inches : 11 Inch(Converted to: 0 ft 11 Inch, 27.94 cm) Clinical Height : 180.34 cm Weight Source : Standing scale Weight Entry Format : Cullen Clinical Dosing Weight : 88.64 kg Weight, Pounds : 195 lb Body Surface Area (BSA) : 2.09 m2 Body Mass Index : 27.3 kg/m2 ([place]) [place] Body Weight : 74 kg REMY BOSS [...] REMY BOSS RN - 05/16/2021 9:03 EDT Hart Suicide Severity Rating Scale (C-SSRS) CSSRS Past [...] Obtained From : Patient Primary Language : Omani Preferred Communication Mode : Verbal Communication Barrier : None Seat Joiner Chainstitch Needed : No Objects to Sharing Info [...] Scale Risk Level : 0-24 Low Risk Bascom Fall Interventions : Adequate lighting, Hourly comfort/safety [...]
[2025-03-06 08:25] LABS: Albumin Level 3.8 g/dl (3.5-5.0); Chloride 107 mmol/L (98-107); Potassium 4.1 mmoL/L (3.5-5.1); Sodium 140 mmol/L (136-145)
[2025-03-06 08:26] LABS: Hematocrit 21.3 % (42.0-52.0); Immature Granulocytes % 0.4 %; Mean Corpuscular HGB Conc 31.5 g/dL (31.8-35.4); Mean Corpuscular Hemoglobin 34.5 pg (27.0-31.2); Mean Corpuscular Volume 109.8 fl (80-94); Nucleated Red Blood Cells % 0 %; Platelet Count 59 K/mm3 (142-424); Red Blood Count 1.94 M/mm3 (4.60-6.20); Red Cell Distribution Width-SD 81.4 fL; White Blood Count 2.5 K/mm3 (4.8-10.8)
[2025-03-06 08:28] LABS: Alanine Aminotransferase 21 U/L (12-78); Albumin/Globulin Ratio 1.7 (1.1-1.8); Alkaline Phosphatase 80 U/L (38-126); Anion Gap 13.1 mEq/L (5-15); Aspartate Amino Transferase 30 U/L (17-59); Bilirubin,Total 0.7 mg/dl (0.2-1.3); Blood Urea Nitrogen 8 mg/dl (9-20); Carbon Dioxide 24 mmol/L (22.0-30.0); Creatinine,Serum 0.90 mg/dl (0.66-1.25); Estimated Glomerular Filt Rate 84 ml/min (>60); GFR (African American) 102 ML/MIN (>60); Globulin 2.2 g/dL (1.3-3.2); Total Protein,Serum 6.0 g/dl (6.3-8.2)
[2025-03-06 08:29] LABS: Calcium 9.1 mg/dl (8.4-10.2); Glucose 110 mg/dl (74-100)
[2025-03-06 08:46] LABS: Hemoglobin 6.7 g/dL (14.1-18.0)
[2025-03-06 09:09] LABS: Macrocytosis 2+; Total Cells Counted 50
[2025-03-06] MEDS: 0.9 % SODIUM CHLORIDE 250 ML 25 ML IV (13:05)
== END 2025-03-06 18:40 | disposition home or self-care (01) ==
LOC: INF 08:05
PROVIDERS: PCP Nurse Practitioner Family; Visit Provider Internal Medicine Medical Oncology
DX: C83.30 Diffuse large B-cell lymphoma, unspecified site (principal); R52 Pain, unspecified; R55 Syncope and collapse; I48.91 Unspecified atrial fibrillation
CPT/HCPCS: 36415; 36430; 80053; 85007; 85025; 85027; 86850; 93270; J7050; P9016

== ENCOUNTER 2025-03-26 08:19 | Outpatient (CLI) | payer MEDICARE, SELFPAY ==
--- NOTE | 2025-03-26 08:45 | CT_ITS ---
FINAL REPORT TECHNIQUE: IV contrast enhanced exam This study was performed with techniques to keep radiation doses as low as reasonably achievable, (ALARA). Individualized dose reduction techniques using automated exposure control or adjustment of mA and/or kV according to the patient's size were employed. CLINICAL HISTORY: Lymphoma COMPARISON: 12/19/2024 FINDINGS: Abdomen: Lung bases are clear. Liver has an unremarkable CT appearance. The hypodense lesion in the posterior spleen has decreased in size since the prior exam, currently measuring 8 mm was previously 14 mm. This may be improvement in the size of the cyst or improvement in lymphomatous involvement of the spleen. The pancreas and adrenal glands are unremarkable. Kidneys show no mass or obstruction. There is a curvilinear soft tissue opacity in the left retroperitoneum that probably represents treated adenopathy, measuring 21 x 8 mm in size and best seen on image #50 of series 5, stable since the prior exam. No new adenopathy or increase in size of previously noted nodes is identified. No bowel obstruction or fluid collection is seen. There is minimal haziness in the mesenteric fat, that may be secondary to treatment or mesenteric panniculitis. Pelvis: The appendix is normal in appearance. Pelvic bowel loops are unremarkable. No fluid collection or adenopathy is seen. There is a diverticulum present in the right posterior bladder, stable. Diverticulosis of the sigmoid colon is present. IMPRESSION: 1. Decrease in size of the hypodense lesion in the posterior spleen, that may represent an improved cyst or improved lymphomatous involvement of the spleen. 2. No evidence of disease progression. Reviewed, Interpreted and Dictated by Carmen Jack MD Transcribed by Marielos Canseco Authenticated and [facility]
--- NOTE | 2025-03-26 08:45 | CT_ITS ---
FINAL REPORT TECHNIQUE: Axial CT with contrast with 3-D MIP reconstruction This study was performed with techniques to keep radiation doses as low as reasonably achievable, (ALARA). Individualized dose reduction techniques using automated exposure control or adjustment of mA and/or kV according to the patient's size were employed. CLINICAL HISTORY: Lymphoma COMPARISON: 12/19/2024 FINDINGS: No enlarged adenopathy is present. There is evidence of old granulomatous disease. No pulmonary mass or infiltrate is present. There is no significant pleural effusion. There is no significant pericardial effusion. Gynecomastia is noted. IMPRESSION: 1. No evidence of active disease in this patient with history of lymphoma. Reviewed, Interpreted and Dictated by Carmen Jack MD Transcribed by Marielos Canseco Authenticated and [facility]
[2025-03-26] MEDS: IOPAMIDOL-370 (76%);100ML BOTTLE 75 ML IV (09:09)
[2025-03-26] MEDS: SODIUM CHLORIDE 0.9% 10ML SYR (RAD ONLY) 10 ML IV (09:09)
== END 2025-03-26 23:59 | disposition home or self-care (01) ==
LOC: RAD 08:20
PROVIDERS: PCP Nurse Practitioner Family; Visit Provider Internal Medicine Medical Oncology
DX: C83.30 Diffuse large B-cell lymphoma, unspecified site (principal); R93.5 Abnormal findings on diagnostic imaging of other abdominal regions, including retroperitoneum
CPT/HCPCS: 71260; 74177; Q9967

== ENCOUNTER 2025-03-27 10:58 | Outpatient (CLI) | payer MEDICARE, SELFPAY ==
--- NOTE | 2025-03-27 11:00 | PC.NURSE ---
1100-collected labs via venipuncture stick in right ac with butterfly needle;pt to d/c to oncology appt.
--- OUTSIDE RECORDS SUMMARY | 2025-03-27 11:14 | XMS_ITS | Clinical Summary ---
Author Organization [employer] ([place], [place], [place], [place]) Address [address] [place] [address] Care Team Providers Care Installations Inspector Name Role Phone Unavailable Primary Care [...] Date Carrillo rded Speak language other than Albanian at home Not on file 07/30/2023 Want [...] VACCINES (2 - Td or Tdap) 09/13/2006 Falls Risk Screening 07/12/2024 COVID-19 VACCINE (3 - season) 2025, 11/30/2020 Influenza Vaccine (#1) 2025 Respiratory Syncytial Virus (RSV) Adult or (1 - 1-dose 75+ series) 10/11/2031
--- OUTSIDE RECORDS SUMMARY | 2025-03-27 11:14 | XMS_ITS | Encounter Summary ---
Author Organization Healthcare Address [address] [place] [address] Care Team Providers Care Fish Packer Name Role Phone Magui Benjamin APRN Primary Care Provider [phone] Encounter Details Date Type Department Care Team (Late st Contact Info) Description 06/01/2024 Orders Only External Location [address] [place] [address] Provider, External Social History Tobacco Use Types [...] on filedocumented in this encounter Care Teams Fish Packer Relationship Specialty Start Date End Date Magui Benjamin APRN [address] [id number] PCP - General 06/23/24 documented as of this encounter
--- OUTSIDE RECORDS SUMMARY | 2025-03-27 11:14 | XMS_ITS | Encounter Summary ---
Author Organization [employer] ([place], [place], [place], [place]) Address [address] [place] [address] Care Team Providers Care Optometric Tech Name Role Phone Unavailable Primary Care Provider Unavailabl e Encounter Details Date Type Department Care Team (Late st Contact Info) Description 05/16/2021 Transcribed Document [facility] [place] [facility] [place] [address] ProviderAiden MD [address] [place] [address] Social History Tobacco Use Types [...] these instructions at home: Medicines ??? Take eirb-ruv-hxlkztk and prescription medicines only as told by your health care provider. Insertion site care ??? Follow instructions from your health care provider about how to take care of your insertion site. Make sure you: ? Wash your hands with soap and water before you change your bandage (dressing). If soap and water are not available, use hand box inspector. ? Change your dressing as told [...] provider. Document Revised: 08/03/2018 Document Reviewed: 08/03/2018 [employer] Patient Education ? 2020 [employer] Pharmacology Moderate Conscious Sedation, Adult, Care [...] you are awake and alert. ??? Take gxtq-vcl-ojkvecf and prescription medicines only as told by [...] provider. Document Revised: 05/23/2020 Document Reviewed: 05/23/2020 [employer] Patient Education ? 2020 [employer] Inc. Radiology [...] and water are not available, use hand box inspector. ? Change your dressing as told [...] This is a medical emergency. ??? Take qjwq-gux-agakxyn and prescription medicines only as told by [...] provider. Document Revised: 05/01/2020 Document Reviewed: 05/01/2020 [employer] Patient Education ? 2020 [employer]. documented in this encounter Plan of Treatment Not on file documented as of this encounter Visit Diagnoses Not on filedocumented in this encounter
--- OUTSIDE RECORDS SUMMARY | 2025-03-27 11:14 | XMS_ITS | Encounter Summary ---
Author Organization [employer] ([place], [place], [place], [place]) Address [address] [place] [address] Care Team Providers Care Felt Cutting Machine Operator Name Role Phone Unavailable Primary Care Provider Unavailabl e Encounter Details Date Type Department Care Team (Late st Contact Info) Description 05/16/2021 Transcribed Document [facility] [place] Medicine [facility] [place] [address] ProviderAiden MD [address] [place] [address] Social History Tobacco Use Types Packs/Day [...] Basic Information PCP: Kenroy Chavez MD Primary Underwriter: Edyta Guerra MD Chief Complaint Newly decreased [...] Available Past Medical History: Active Atrial fibrillation (81305467) Cardiomyopathy (316133212) Family History: Brain tumor Sister () Procedure [...] of motion, Normal strength. Integumentary: Warm, Dry, [place]. Neurologic: Alert, Oriented. Psychiatric: Cooperative, Appropriate mood [...]
--- OUTSIDE RECORDS SUMMARY | 2025-03-27 11:14 | XMS_ITS | Encounter Summary ---
Author Organization [employer] ([place], [place], [place], [place]) Address [address] [place] [address] Care Team Providers Care Police Stenographer Name Role Phone Unavailable Primary Care Provider Unavailabl e Encounter Details Date Type Department Care Team (Late st Contact Info) Description 05/16/2021 Transcribed Document [facility] [place] [address] [place] [address] ProviderAiden MD [address] [place] [address] Social History Tobacco Use [...] Aiden ProviderMD - 05/16/2021 4:04 PM CDT [facility] [place] [address] JOSE EUCEDA :1955 Visit Time:05/16/2021 Your [...] appointment with Dr. Madera as scheduled. Where: [address] [place] [phone] Business (1) Medications What How Much When [...] you are awake and alert. ??? Take zprz-hen-vumkbvw and prescription medicines only as told by [...] provider. Document Revised: 05/23/2020 Document Reviewed: 05/23/2020 [employer] Patient Education ?? 2020 [employer]. Radial Site Care This sheet gives you [...] these instructions at home: Medicines ??? Take kmbh-jfw-aqdgeha and prescription medicines only as told by your health care provider. Insertion site care ??? Follow instructions from your health care provider about how to take care of your insertion site. Make sure you: ? Wash your hands with soap and water before you change your bandage (dressing). If soap and water are not available, use hand banker mason. ? Change your dressing as told by [...] provider. Document Revised: 08/03/2018 Document Reviewed: 08/03/2018 [employer] Patient Education ?? 2020 [employer] Inc[employer] Angiogram, Care After This sheet gives [...] and water are not available, use hand banker mason. ? Change your dressing as told by [...] This is a medical emergency. ??? Take nfcx-kwb-agijgnz and prescription medicines only as told by [...] Assistance with quitting is available by contacting 6-848-KQXSNOW. This is a free resource providing counseling, support, and referral. Or you may contact your personal physician. [place] Suicide Prevention Lifeline: The National Suicide Prevention [...] was given the opportunity to ask questions. Patient/Senior Gamemaster Name: Patient/Senior Gamemaster Signature: Relationship to Patient: Clinician/Hospital Senior Gamemaster Signature: Date: documented in this encounter Plan of Treatment Not on file documented as of this encounter Visit Diagnoses Not on filedocumented in this encounter
--- OUTSIDE RECORDS SUMMARY | 2025-03-27 11:14 | XMS_ITS | Clinical Summary ---
Author Organization [facility] Address [address] [place] [address] Phone Care Team Providers Care Claims Manager Name Role Phone Gricelda Cox MD Unavailable [phone] Allergies No known active allergies Medications [...] Active fluticasone propionate (FLONASE) 50 mcg/actuation Nasl [place], Suspension 2 Sprays by Nasal route daily. [...] topic Insurance [facility] [place] [facility] MEDICARE PPO [address] [place] [id number] HU[employer] MEDICARE PPO [place] AETNA [facility] [place] [address] MEDICARE PPO MR [facility] [address] Advance Directives For more information, please contact: [phone] * Full Code (Latest Code Status on File) Date Activated Date Inactivated Comments 12/02/2022 11:11 AM 12/04/2022 7:53 PM * Full Code Date Activated Date Inactivated Comments 11/24/2022 11:52 PM 12/01/2022 2:40 AM Care Teams Claims Manager Relationship Specialty Start Date End Date Gricelda Cox MD [address] [facility] [place] [place] [address] Medical Oncologist Internal Medicine-Medical Oncology 11/26/22
--- OUTSIDE RECORDS SUMMARY | 2025-03-27 11:14 | XMS_ITS | Encounter Summary ---
Author Organization [employer] ([place], [place], [place], [place]) Address [address] [place] [address] Care Team Providers Care Boom Cat Operator Name Role Phone Unavailable Primary Care Provider Unavailabl e Encounter Details Date Type Department Care Team (Late st Contact Info) Description 05/16/2021 Transcribed Document [facility] [place] [facility] [place] [address] ProviderAiden MD [address] [place] [address] Social History Tobacco Use Types [...] EDT Electronically signed by Chantel [facility] Conversion Studio Model Cerner at 10/27/2022 10:30 PM CDT documented in this encounter Plan of Treatment Not on file documented as of this encounter Visit Diagnoses Not on filedocumented in this encounter
--- OUTSIDE RECORDS SUMMARY | 2025-03-27 11:14 | XMS_ITS | Encounter Summary ---
Author Organization [facility] Address [address] [place] [address] Care Team Providers Care Manager Study Name Role Phone Magui Benjamin APRN Primary Care Provider [phone] Reason for Visit * Reason Comments Med Refill Encounter Details Date Type Department Care Team (Late st Contact Info) Description 11/23/2023 Refill [facility] CARDIOLOGY [address] [facility] [address] [place] [address] Marcy Agrawal APRN [address] [place], [place] [id number] Med Refill Social History Tobacco Use Types [...] on filedocumented in this encounter Care Teams Manager Study Relationship Specialty Start Date End Date Magui Benjamin APRN [address] [place] [address] [place] [address] PCP - General Nurse Practitioner 12/24/22 documented as of this encounter
--- OUTSIDE RECORDS SUMMARY | 2025-03-27 11:14 | XMS_ITS | Encounter Summary ---
Author Organization [employer] ([place], [place], [place], [place]) Address [address] [place] [address] Care Team Providers Care Natural Resources Instructor Name Role Phone Unavailable Primary Care Provider Unavailabl e Encounter Details Date Type Department Care Team (Late st Contact Info) Description 05/16/2021 Transcribed Document [facility] [place] Medicine [facility] [place] [address] ProviderAiden MD [address] [place] [address] Social History Tobacco Use Types [...] Source : Stated Height Entry Format : Orange Height, Feet : 5 ft(Converted to: 152 cm, 60 Inch) Height, Inches : 11 Inch(Converted to: 0 ft 11 Inch, 27.94 cm) Clinical Height : 180.34 cm Weight Source : Standing scale Weight Entry Format : Orange Clinical Dosing Weight : 88.64 kg Weight, Pounds : 195 lb Body Surface Area (BSA) : 2.09 m2 Body Mass Index : 27.3 kg/m2 (HI) [place] Body Weight : 74 kg REMY BOSS [...] REMY BOSS RN - 05/16/2021 9:03 EDT [place] Suicide Severity Rating Scale (C-SSRS) CSSRS Past [...] Obtained From : Patient Primary Language : Mauritanian Preferred Communication Mode : Verbal Communication Barrier : None Sales Operations Manager Needed : No Objects to Sharing Info [...] Scale Risk Level : 0-24 Low Risk [place] Fall Interventions : Adequate lighting, Hourly comfort/safety [...] form. Electronically signed by Laurita Golden Conversion Recording Studio Setup Worker Cerner at 10/27/2022 10:42 PM CDT documented in this encounter Plan of Treatment Not on file documented as of this encounter Visit Diagnoses Not on filedocumented in this encounter
--- OUTSIDE RECORDS SUMMARY | 2025-03-27 11:14 | XMS_ITS | Encounter Summary ---
Author Organization [employer] ([place], [place], [place], [place]) Address [address] [place] [address] Care Team Providers Care Soa Engineer Name Role Phone Unavailable Primary Care Provider Unavailabl e Encounter Details Date Type Department Care Team (Late st Contact Info) Description 05/16/2021 Transcribed Document [facility] [place] Family Medicine [facility] [place] [address] ProviderAiden MD [address] [place] [address] Social History Tobacco Use Types [...]
--- OUTSIDE RECORDS SUMMARY | 2025-03-27 11:15 | XMS_ITS | Encounter Summary ---
Author Organization [facility] Address [address] [id number] Care Team Providers Care Hazmat Tanker Driver Name Role Phone Magui Benjamin APRN Primary Care Provider [phone] Encounter Details Date Type Department Care Team (Late st Contact Info) Description 07/03/2024 Lab Requisition [facility] [address] [place] [address] Mayela Moore MD [address] [facility] [address] [place] [phone] Enlarged lymph nodes, unspecified Social History Tobacco [...] 2:04 PM EST) Case Report Cytology Case: [id number] Authorizing Provider: Mayela Moore MD Collected: 07/03/20241403 Ordering Location: [facility] Lab Received: 07/03/2024 1404 Pathologist: Isra Aviles MD Specimen: Lymph Node, [id number] 07/05/2024 6:55 PM EST [facility] Final Diagnosis A. LYMPH NODE, LEFT, FINE NEEDLE ASPIRATION (OUTSIDE ; COLLECTED ON 05/24/2024): - ATYPICAL LYMPHOID STROMA, SEE COMMENT. 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 The cell block and smears show population [...] would be recommended. 07/05/2024 6:55 PM EST [facility] Clinical Information History of follicular lymphoma and diffuse large B-cell lymphoma 07/05/2024 6:55 PM EST [facility] Gross Description A. [id number] Received along with a corresponding pathology report from [facility] are 2 slides labeled outside case: [id number] collected on 05/24/2024. 07/05/2024 6:55 PM EST [facility] Fine Needle Aspirate Lymph node specimen / Unknown 07/03/2024 2:04 PM EST 07/03/2024 2:04 PM EST us Mayela Moore MD LAB PATHOLOGY ORDERABLES Final R esult [facility] [address] [place] [address] documented in this encounter Visit Diagnoses Diagnosis Enlarged lymph nodes, unspecified documented in this encounter Additional Health Concerns Assessment Noted Time A fall risk assessment has been complete d for the patient 06/23/2024 12:28 PM EST documented as of this encounter Care Teams Hazmat Tanker Driver Relationship Specialty Start Date End Date Magui Benjamin, HANDLE TURNER [address] [place] [address] PCP - General 06/23/24 documented as of this encounter
--- OUTSIDE RECORDS SUMMARY | 2025-03-27 11:15 | XMS_ITS | Encounter Summary ---
Author Organization [facility] Address [address] [id number] Care Team Providers Care Drivematic Machine Operator Name Role Phone Magui Benjamin APRN Primary Care Provider [phone] Encounter Details Date Type Department Care Team (Late st Contact Info) Description 07/03/2024 Lab Requisition [facility] [address] [place] [address] Mayela Moore MD [address] [facility] [address] [place] [phone] Hodgkin lymphoma, unspecified, unspecified site (CMS/HCC) Social [...] PM EST) Case Report Bone Marrow Case: [id number] Authorizing Provider: Mayela Moore MD Collected: 07/03/2024 1411 Ordering Location: [facility] Lab Received: 07/03/2024 1411 Pathologist: Isra Aviles MD Specimen: Bone Marrow Aspirate, [id number] 07/10/2024 2:24 PM EST [facility] Final Diagnosis PERIPHERAL BLOOD AND BONE MARROW, PERIPHERAL SMEAR, ASPIRATE SMEAR, CLOT SECTION AND CORE BIOPSY (OUTSIDE ; COLLECTED ON 06/05/2024): - NORMOCELLULAR BONE MARROW WITH MATURING TRILINEAGE HEMATOPOIESIS, SEE COMMENT. - FLOW CYTOMETRY DETECTED 1% B-CELL POPULATION WITH ELEVATED KAPPA TO LAMBDA RATIO OF 8.2 REPORTEDLY. 07/10/2024 2:24 PM [facility] at 1424 EST Comment Patient's history of follicular lymphoma (2018) and subsequent diffuse large B-cell lymphoma (2022) is noted ([id number]). According to the report, the concurrent flow [...] correlation is essential. 07/10/2024 2:24 PM EST [facility] Clinical Information History of B-cell lymphoma 07/10/2024 2:24 PM [facility] CBC and Differential Review of the peripheral smear shows mild macrocytic anemia. White blood cells and platelets appear adequate and show normal morphology. 07/10/2024 2:24 PM [facility] Bone Marrow Differential BONE MARROW DIFFERENTIAL: 200 cells Normal Patient Neutrophils 15-50 33 Metamyelocytes 4-19 7 Myelocytes 1-18 12 Promyelocytes 1-8 0 Blasts 0-2 0 Monocytes 0-5 2 Erythroid 16-38 31 Lymphocytes 3-24 6 Eosinophils 0-6 7 Basophils 0-2 0 Plasma cells 0-4 2 Other 07/10/2024 2:24 PM [facility] Aspirate Smear Staining quality of the bone marrow aspirate smears is suboptimal for morphologic assessment. There is maturing trilineage hematopoiesis. Erythroid and myeloid precursors show full spectrum of maturation. Blasts are not increased. Overt dysplastic features are not identified. The myeloid to erythroid ratio is 1.9 (Normal:1.5-4). Megakaryocytes are present and demonstrate normal morphology. 07/10/2024 2:24 PM [facility] Core Biopsy CELLULARITY: Slightly hypocellular bone marrow. [...] are normal. 07/10/2024 2:24 PM [facility] Clot Section Clot sections show predominantly blood with small fragments of a normocellular bone marrow with maturing trilineage hematopoiesis. The provided immunostains for CD20 and CD3 show no atypical lymphoid aggregates. 07/10/2024 2:24 PM [facility] Flow Cytometry Interpretation According to the report, the concurrent flow cytometry performed at the outside institution revealed a 1% B-cell population with an increased kappa:lambda ratio of 8.2 and granulocytes with partial, non-specific CD56 expression. 07/10/2024 2:24 PM [facility] CYTOGENETICS/MOLE CULAR INTERPRETATION Per accompanying pathology report, cytogenetics showed a normal male karyotype. 07/10/2024 2:24 PM EST [facility] Gross Description A. [id number] Received along with a corresponding pathology report from [facility] are 19 slides labeled outside case: [id number] collected on 06/05/2024. 07/10/2024 2:24 PM EST [facility] Note: A resident was involved in the service. I attest I examined the relevant preparations for the specimens and confirmed the diagnosis or interpretation. 07/10/2024 2:24 PM EST [facility] Bone Marrow Specimen from bone marrow obtained by aspiration / Unknown 07/03/2024 2:11 PM EST 07/03/2024 2:11 PM EST us Mayela Moore MD LAB PATHOLOGY ORDERABLES Final R esult [facility] [address] [place] [address] documented in this encounter Visit Diagnoses Diagnosis Hodgkin lymphoma, unspecified, unspecified site (CMS/HCC) documented in this encounter Additional Health Concerns Assessment Noted Time A fall risk assessment has been complete d for the patient 06/23/2024 12:28 PM EST documented as of this encounter Care Teams Drivematic Machine Operator Relationship Specialty Start Date End Date Magui Benjamin, ULISES [address] [place] [address] PCP - General 06/23/24 documented as of this encounter
--- OUTSIDE RECORDS SUMMARY | 2025-03-27 11:15 | XMS_ITS | Referral Summary ---
Author Organization [employer] ([place], [place], [place], [place]) Address [address] [place] [address] Care Team Providers Care Transmitter Engineer In Charge Name Role Phone Unavailable Primary Care Provider [...] Date Carrillo rded Speak language other than Tamazight at home Not on file 07/30/2023 Want [...]
--- OUTSIDE RECORDS SUMMARY | 2025-03-27 11:15 | XMS_ITS | Patient Health Record ---
[facility] Address [address] [facility] [address] [place] [id number] Care Team Providers Care Machine Cutter Name Role Phone Josef Chavez Primary Care Provider [phone] Allergies No Known Allergies Medications Medication SIG (Take, Route, Frequency, Duration) Notes Start Date End Date Status Entresto 24-26 MG 1 tab(s) orally 2 times a day Active Gabapentin 300 MG 1 cap(s) orally 2 times a day 01/14/2022 Active Metoprolol Succinate ER 100 MG 1 tab(s) orally once a day Active Eliquis 5 MG as directed orally 2 times a day Active Amiodarone HCl 200 MG 2 tab(s) orally bid Not-Taking Multivitamin - 1 tab(s) orally once a day Active Omeprazole Magnesium 20 MG 1 cap(s) orally once a day Active ALBUTEROL HFA INHALER 200 METERED DOSES/ 8.5GM 2 INHALATIONS TID AND Q2H PRN; Duration: 30 DAYS *Please review for potential replacement for e-prescription and drug interaction check* 10/21/2020 Active Immunizations Vaccine Route Administration Date Status Comme nts COVID 19 Silva Unknown 11/30/2020 Administered COVID 19 Silva Unknown 05/24/2021 Administered DT, 7 YEARS OR OLDER Unknown 09/13/1996 Administered Prevnar (PCV20) IM Intramuscular 11/13/2021 Administered Problems Problem Type SNOMED Code ICD Code Onset Dates Problem Status W/U Status Risk Notes Problem Paroxysmal atrial fibrillation (119052414) Paroxysmal atrial fibrillation (I48.0) Active confirmed Problem Arteriosclerotic vascular disease (36875068) Arteriosclerotic cardiovascular disease (I25.10) Active confirmed Problem Bilateral tinnitus (8444084580219) Tinnitus of both ears (H93.13) Active confirmed Problem Chronic systolic heart failure (248792015) Chronic systolic congestive heart failure (I50.22) Active confirmed Problem Dyslipidemia (476376600) Dyslipidemia (E78.5) Active confirmed Problem Non-Hodgkin lymphoma (597854858) Lymphoma, unspecified body region, unspecified lymphoma type (C85.90) Active confirmed Problem Obstructive sleep apnea syndrome (58522181) CLAYTON treated with BiPAP (G47.33) Active confirmed Problem Hearing loss (54598832) Bilateral hearing loss, unspecified hearing loss type (H91.93) Active confirmed Problem Neurogenic claudication (388131198) Spinal stenosis of lumbar region with neurogenic claudication (M48.062) Active confirmed Plan Of Treatment Pending Test Test Name Order Date Lipid Panel (in house) 11/13/2021 P-Comprehensive Metabolic Panel (CMP) P-PSA 11/13/2021 Insurance Providers Payer Name Payer Address Payer Phone Subscriber Number Group Number Insured Name Patient Relationship to Insured Coverage Start Date Coverage End Date [employer] (MEDICAR E) [address] [address] [place] [address] [id number] CAL MENSAH Self - patient is the insured Medications Administered Medication Instructions Date of Administration Dosage Notes Dexamethasone 03/08/2006 1 mL Dexamethasone 08/20/2006 1 mL Dexamethasone 09/27/2009 1 mL Dexamethasone 06/24/2010 1 mL Dexamethasone 09/18/2011 1 mL Dexamethasone 03/22/2012 rocephin one gram IM 01/28/2015 1 g Medical (General) History Medical History History ICD Code 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 Madera ASCVD Chronic systolic heart failure - EF 30-3 5% by Echo. Dr. Madera CLAYTON - CPAP Surgical History Surgery Date(Month/Year) neck biopsy- [facility] 12/2018
--- OUTSIDE RECORDS SUMMARY | 2025-03-27 11:15 | XMS_ITS | Encounter Summary ---
Author Organization Healthcare Address [address] [id number] Care Team Providers Care Technical Operations Vice President Name Role Phone Magui Benjamin APRN Primary Care Provider [phone] Encounter Details Date Type Department Care Team (Late st Contact Info) Description 07/03/2024 Lab Requisition [facility] [address] [place] [address] Mayela Moore MD [address] [facility] [address] [place] [phone] Malignant neoplasm of head, face and neck [...] -2 Score 0 07/06/2024 9:42 AM EST [place], Myriam L documented as of this encounter Plan of Treatment Not on file documented as of this encounter Procedures Procedure Name Priority Date/Time Associated Diagnosis Comments SURGICAL PATHOLOGY CONSULT Routine 07/03/2024 2:19 PM EST Malignant neoplasm of head, face and neck (CMS/HCC) documented in this encounter Results * Surgical Pathology Consult (07/03/2024 2:19 PM EST) Case Report Sugical Pathology Consult Case: [id number] Authorizing Provider: Mayela Moore MD Collected: 07/03/2024 1419 Ordering Location: [facility] Lab Received: 07/03/2024 1420 Pathologist: Isra Aviles MD Specimens: A) - Neck, [id number] B) - Lymph Node, [id number] 07/05/2024 6:14 PM EST [facility] [...] of previous follicular lymphoma. 07/05/2024 6:14 PM [facility] Clinical Information C76.0 - Malignant neoplasm of head, face and neck [ICD-10-CM] 07/05/2024 6:14 PM [facility] Gross Description A. [id number] Received along with a corresponding pathology report from [facility] are 24 slides labeled outside case: [id number] collected on 12/22/2018. B. [id number] Received along with a corresponding pathology report from [facility] are 19 slides labeled outside case: [id number] collected on 08/05/2022. 07/05/2024 6:14 PM [facility] Note: A resident was involved in the service. I attest I examined the relevant preparations for the specimens and confirmed the diagnosis or interpretation. 07/05/2024 6:14 PM [facility] Tissue Lymph node specimen / Unknown 07/03/2024 2:19 PM EST 07/03/2024 2:20 PM EST Tissue specimen (specimen) Lymph node specimen / Unknown 07/03/2024 2:19 PM EST 07/03/2024 2:20 PM EST us Mayela Moore MD LAB PATHOLOGY ORDERABLES Final R esult [facility] [address] [place] [address] documented in this encounter Visit Diagnoses Diagnosis Malignant neoplasm of head, face and neck (CMS/HCC) Malignant neoplasm of head, face, and neck documented in this encounter Additional Health Concerns Assessment Noted Time A fall risk assessment has been complete d for the patient 06/23/2024 12:28 PM EST documented as of this encounter Care Teams Technical Operations Vice President Relationship Specialty Start Date End Date Magui Benjamin, ULISES [address] [place] [address] PCP - General 06/23/24 documented as of this encounter
--- OUTSIDE RECORDS SUMMARY | 2025-03-27 11:15 | XMS_ITS | Clinical Summary ---
Author Organization [facility] Address [address] [place] [address] Care Team Providers Care Parallel Computing Software Engineer Name Role Phone Magui Benjamin APRN Primary Care Provider [phone] Allergies No known active allergies Medications allopurinol [...] WELLNESS VISIT 08/27/2022 COVID-19 Vaccine ( season) 2025, 11/30/2020 INFLUENZA VACCINE 04/11/2025 AAA SCREEN ONCE Completed 12/04/2022, 11/26/2022 HEPATITIS C SCREENING Completed 06/23/2024 Insurance [facility] MEDICARE ADVANTAGE Care Teams Parallel Computing Software Engineer Relationship Specialty Start Date End Date Magui Benjamin APRN [address] [place] [address] PCP - General Nurse Practitioner 12/24/22
--- OUTSIDE RECORDS SUMMARY | 2025-03-27 11:15 | XMS_ITS ---
Author Organization [facility] Address [address] [place] [address] Care Team Providers Care Disability Counselor Name Role Phone Magui Benjamin APRN Primary Care Provider [phone] Active Problems Problem Noted Date Diagnosed Date [...]
--- OUTSIDE RECORDS SUMMARY | 2025-03-27 11:15 | XMS_ITS | Clinical Summary ---
Author Organization [facility] Address [address] [place] [address] Care Team Providers Care Employment Coach Name Role Phone Magui Benjamin APRN Primary Care Provider [phone] Allergies No known active allergies Medications atorvastatin [...] Due Date Last Done Comments [facility]-Medicare Annual Wellness (AWV) 1955 [facility]-/Child/Adol SDOH Screenings 1955 [facility]- SDOH Screenings 1974 [...] 60-74 years 1-dose series) 2016 [facility]-Abdominal Aortic Aneurys m (AAA) Screening 2021 [id number] Vaccine ( season) 2025 05/24/2021, 11/30/2020 [facility]-Influenza Vaccine (#1) 2025 [facility]-Depression [...] Antibody Negative Negative 06/23/2024 1:15 PM EST [facility] Blood Venous blood specimen / Unknown Venipuncture / Unknown 06/23/2024 11:48 AM EST 06/23/2024 12:26 PM EST us Mayela Moore MD LAB BLOOD ORDERABLES Final Resul t [facility] [address] [place] [address] from Last 3 Months or Most Recently Relevant to Health Maintenance Insurance MEDICARE Care Teams Employment Coach Relationship Specialty Start Date End Date Magui Benjamin, OVER SHORT AND DAMAGE CLERK [address] [place] [address] PCP - General 06/23/24
[2025-03-27 11:19] LABS: Hematocrit 26.7 % (42.0-52.0); Hemoglobin 9.1 g/dL (14.1-18.0); Immature Granulocytes % 0 %; Mean Corpuscular HGB Conc 34.1 g/dL (31.8-35.4); Mean Corpuscular Hemoglobin 34.7 pg (27.0-31.2); Mean Corpuscular Volume 101.9 fl (80-94); Nucleated Red Blood Cells % 0 %; Platelet Count 107 K/mm3 (142-424); Red Blood Count 2.62 M/mm3 (4.60-6.20); Red Cell Distribution Width-SD 69.0 fL
[2025-03-27 11:21] LABS: White Blood Count 1.4 K/mm3 (4.8-10.8)
[2025-03-27 11:23] LABS: Alanine Aminotransferase 30 U/L (12-78); Albumin Level 3.9 g/dl (3.5-5.0); Albumin/Globulin Ratio 1.8 (1.1-1.8); Alkaline Phosphatase 69 U/L (38-126); Anion Gap 8.9 mEq/L (5-15); Aspartate Amino Transferase 31 U/L (17-59); Bilirubin,Total 0.8 mg/dl (0.2-1.3); Blood Urea Nitrogen 8 mg/dl (9-20); Calcium 8.9 mg/dl (8.4-10.2); Carbon Dioxide 25 mmol/L (22.0-30.0); Chloride 106 mmol/L (98-107); Creatinine,Serum 0.90 mg/dl (0.66-1.25); Estimated Glomerular Filt Rate 84 ml/min (>60); GFR (African American) 102 ML/MIN (>60); Globulin 2.2 g/dL (1.3-3.2); Glucose 130 mg/dl (74-100); Potassium 3.9 mmoL/L (3.5-5.1); Sodium 136 mmol/L (136-145); Total Protein,Serum 6.1 g/dl (6.3-8.2)
[2025-03-27 12:20] LABS: Polychromasia 1+; Total Cells Counted 100
[2025-03-27 12:21] LABS: Macrocytosis 1+
== END 2025-03-27 11:02 | disposition home or self-care (01) ==
LOC: INF 10:59
PROVIDERS: PCP Nurse Practitioner Family; Visit Provider Internal Medicine Medical Oncology
DX: C83.30 Diffuse large B-cell lymphoma, unspecified site (principal)
CPT/HCPCS: 36415; 80053; 83615; 85007; 85025

== ENCOUNTER 2025-04-03 11:10 | Outpatient (CLI) | payer MEDICARE, SELFPAY ==
--- OUTSIDE RECORDS SUMMARY | 2025-04-03 11:18 | XMS_ITS | Encounter Summary ---
Author Organization Healthcare Address [address] [place] [address] Care Team Providers Care Burr Sander Name Role Phone Magui Benjamin APRN Primary Care Provider [phone] Encounter Details Date Type Department Care Team (Late st Contact Info) Description 06/01/2024 Orders Only External Location [address] [place] [address] Provider, External Social History Tobacco Use Types [...] on filedocumented in this encounter Care Teams Burr Sander Relationship Specialty Start Date End Date Magui Benjamin APRN [address] [id number] PCP - General 06/23/24 documented as of this encounter
--- OUTSIDE RECORDS SUMMARY | 2025-04-03 11:18 | XMS_ITS | Clinical Summary ---
Author Organization [facility] Address [address] [place] [address] Phone Care Team Providers Care Machine Farmworker Name Role Phone Gricelda Cox MD Unavailable [phone] Allergies No known active allergies Medications [...] Active fluticasone propionate (FLONASE) 50 mcg/actuation Nasl [place], Suspension 2 Sprays by Nasal route daily. [...] topic Insurance [facility] [place] [facility] MEDICARE PPO [address] [id number] [employer] MEDICARE PPO MR [employer] [facility] [place] MEDICARE PPO MR [facility] [address] Advance Directives For more information, please contact: [phone] * Full Code (Latest Code Status on File) Date Activated Date Inactivated Comments 12/02/2022 11:11 AM 12/04/2022 7:53 PM * Full Code Date Activated Date Inactivated Comments 11/24/2022 11:52 PM 12/01/2022 2:40 AM Care Teams Machine Farmworker Relationship Specialty Start Date End Date Gricelda Cox MD [address] [place] [address] Medical Oncologist Internal Medicine-Medical Oncology 11/26/22
--- OUTSIDE RECORDS SUMMARY | 2025-04-03 11:18 | XMS_ITS | Clinical Summary ---
Author Organization [facility] Address [address] [place] [address] Care Team Providers Care Appellate Law Clerk Name Role Phone Magui Benjamin APRN Primary Care Provider [phone] Allergies No known active allergies Medications allopurinol [...] of 2) 2006 ANNUAL WELLNESS VISIT 08/27/2022 INFLUENZA VACCINE 02/09/2025 COVID-19 Vaccine ( season) 2025, 11/30/2020 AAA SCREEN ONCE Completed 12/04/2022, 11/26/2022 HEPATITIS C SCREENING Completed 06/23/2024 Insurance [facility] MEDICARE ADVANTAGE Care Teams Appellate Law Clerk Relationship Specialty Start Date End Date Magui Benjamin APRN [address] [place] [address] PCP - General Nurse Practitioner 12/24/22
--- OUTSIDE RECORDS SUMMARY | 2025-04-03 11:18 | XMS_ITS | Patient Health Record ---
Author Organization [facility] Address [address] [facility] [address] [place] [id number] Care Team Providers Care Hybrid Technologist Name Role Phone Josef Chavez Primary Care Provider [phone] Allergies No Known Allergies Medications Medication SIG [...] Status Risk Notes Problem Paroxysmal atrial fibrillation (836480916) Paroxysmal atrial fibrillation (I48.0) Active confirmed Problem Arteriosclerotic vascular disease (74293036) Arteriosclerotic cardiovascular disease (I25.10) Active confirmed Problem Bilateral tinnitus (5373035326739) Tinnitus of both ears (H93.13) Active confirmed Problem Chronic systolic heart failure (162525980) Chronic systolic congestive heart failure (I50.22) Active confirmed Problem Dyslipidemia (089638798) Dyslipidemia (E78.5) Active confirmed Problem Non-Hodgkin lymphoma (790177523) Lymphoma, unspecified body region, unspecified lymphoma type (C85.90) Active confirmed Problem Obstructive sleep apnea syndrome (36644562) [place] treated with BiPAP (G47.33) Active confirmed Problem Hearing loss (82126552) Bilateral hearing loss, unspecified hearing loss type (H91.93) Active confirmed Problem Neurogenic claudication (383421609) Spinal stenosis of lumbar region with neurogenic 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
--- OUTSIDE RECORDS SUMMARY | 2025-04-03 11:18 | XMS_ITS | Encounter Summary ---
Author Organization [facility] Address [address] [address] Care Team Providers Care Rotary Saw Operator Name Role Phone Magui Benjamin APRN Primary Care Provider [phone] Encounter Details Date Type Department Care Team (Late st Contact Info) Description 07/03/2024 Lab Requisition [facility] H Lab [address] [place] [address] Mayela Moore MD 800 [facility] [address] [place] [address] Enlarged lymph nodes, unspecified Social History Tobacco [...] 2:04 PM EST) Case Report Cytology Case: [id number] Authorizing Provider: Mayela Moore MD Collected: 07/03/20241403 Ordering Location: [facility] Lab Received: 07/03/2024 1404 Pathologist: Isra Aviles MD Specimen: Lymph Node, [id number] 07/05/2024 6:55 PM EST [facility] Final Diagnosis A. LYMPH NODE, LEFT, FINE NEEDLE ASPIRATION (OUTSIDE ; COLLECTED ON 05/24/2024): - ATYPICAL LYMPHOID STROMA, SEE COMMENT. 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 The cell block and smears show population [...] would be recommended. 07/05/2024 6:55 PM EST [facility] Clinical Information History of follicular lymphoma and diffuse large B-cell lymphoma 07/05/2024 6:55 PM EST [facility] Gross Description A. [id number] Received along with a corresponding pathology report from [facility] Laboratory are 2 slides labeled outside case: [id number] collected on 05/24/2024. 07/05/2024 6:55 PM EST [facility] Fine Needle Aspirate Lymph node specimen / Unknown 07/03/2024 2:04 PM EST 07/03/2024 2:04 PM EST us Mayela Moore MD LAB PATHOLOGY ORDERABLES Final R esult [facility] [address] [place] [address] documented in this encounter Visit Diagnoses Diagnosis Enlarged lymph nodes, unspecified documented in this encounter Additional Health Concerns Assessment Noted Time A fall risk assessment has been complete d for the patient 06/23/2024 12:28 PM EST documented as of this encounter Care Teams Rotary Saw Operator Relationship Specialty Start Date End Date Magui Benjamin, MANAGER MOBILITY [address] [place] [address] PCP - General 06/23/24 documented as of this encounter
--- OUTSIDE RECORDS SUMMARY | 2025-04-03 11:18 | XMS_ITS | Clinical Summary ---
Author Organization [facility] Address [address] [place] [address] Care Team Providers Care Wrapper Leaf Inspector Name Role Phone Magui Benjamin APRN Primary Care Provider [phone] Allergies No known active allergies Medications atorvastatin [...] Health Maintenance Due Date Last Done Comments [facility] Annual Well[facility] (AWV[facility] 1955 [facility]/Child/Adol SDOH Screenings 1956 [facility]- SDOH Screenings [...] - Risk 60-74 years 1-dose series) 2016 [facility]-Abdominal Aortic Aneurys m (AAA) Screening 2021 [id number]-70 Vaccine ( season) 2025 05/24/2021, 11/30/2020 [facility]-Influenza [...] MD LAB BLOOD ORDERABLES Final [facility]ul t [facility] [address] [place] [address] from Last 3 Months or Most Recently Relevant to Health Maintenance Insurance MEDICARE Care Teams Wrapper Leaf Inspector Relationship Specialty Start Date End Date Magui Benjamin, LUNCHROOM MONITOR [address] [place] [address] PCP - General 06/23/24
--- OUTSIDE RECORDS SUMMARY | 2025-04-03 11:18 | XMS_ITS | Encounter Summary ---
Author Organization [facility] Address [address] [place] [address] Care Team Providers Care Nuclear Test Technician Name Role Phone Magui Benjamin APRN Primary Care Provider [phone] Reason for Visit * Reason Comments Med Refill Encounter Details Date Type Department Care Team (Late st Contact Info) Description 11/23/[address] [facility] [address] [facility] [address] [place] [address] Marcy Agrawal APRN [address] [place], [place] [id number] Med Refill Social History Tobacco Use Types [...] on filedocumented in this encounter Care Teams Nuclear Test Technician Relationship Specialty Start Date End Date Magui Benjamin APRN [address] [place] [address] PCP - General Nurse Practitioner 12/24/22 documented as of this encounter
--- OUTSIDE RECORDS SUMMARY | 2025-04-03 11:19 | XMS_ITS | Encounter Summary ---
Author Organization Healthcare Address [address] [id number] Care Team Providers Care Potato Peeling Machine Operator Name Role Phone Magui Benjamin APRN Primary Care Provider [phone] Encounter Details Date Type Department Care Team (Late st Contact Info) Description 07/03/2024 Lab Requisition [facility] Lab [address] [place] [address] Mayela Moore MD 800 [facility] [address] [place] [phone] Malignant neoplasm of head, face and neck [...] Score 0 07/06/2024 9:42 AM EST [place], Myriam L documented as of this encounter Plan of Treatment Not on file documented as of this encounter Procedures Procedure Name Priority Date/Time Associated Diagnosis Comments SURGICAL PATHOLOGY CONSULT Routine 07/03/2024 2:19 PM EST Malignant neoplasm of head, face and neck (CMS/HCC) documented in this encounter Results * Surgical Pathology Consult (07/03/2024 2:19 PM EST) Case Report Sugical Pathology Consult Case: [id number] Authorizing Provider: Mayela Moore MD Collected: 07/03/2024 1419 Ordering Location: [facility] Lab Received: 07/03/2024 1420 Pathologist: Isra Aviles MD Specimens: A) - Neck, [id number] B) - Lymph Node, [id number] 07/05/2024 6:14 PM EST [facility] Final Diagnosis OUTSIDE ; COLLECTED 12/22/2018 A. LYMPH NODE, LEFT NECK, DEEP JUGULAR, BIOPSY: - CLASSIC FOLLICULAR LYMPHOMA, SEE COMMENT. OUTSIDE ; COLLECTED 08/05/2022 A. 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 07/05/2024 6:14 PM EST [facility] at 1813 EST Comment OUTSIDE ; [...] follicular lymphoma. 07/05/2024 6:[address] [facility] Clinical Information C76.0 - Malignant neoplasm of head, face and neck [ICD-10-CM] 07/05/2024 6:14 PM [facility] Gross Description A. [id number] Received along with a corresponding pathology report from [facility] Laboratory are 24 slides labeled outside case: [id number] collected on 12/22/2018. B. [id number] Received along with a corresponding pathology report from [facility] are 19 slides labeled outside case: [id number] collected on 08/05/2022. 07/05/2024 6:14 PM [facility] [...] MD LAB PATHOLOGY ORDERABLES Final R esult [facility] [address] [place] [address] documented in this encounter Visit Diagnoses Diagnosis Malignant neoplasm of head, face and neck (CMS/HCC) Malignant neoplasm of head, face, and neck documented in this encounter Additional Health Concerns Assessment Noted Time A fall risk assessment has been complete d for the patient 06/23/2024 12:28 PM EST documented as of this encounter Care Teams Potato Peeling Machine Operator Relationship Specialty Start Date End Date Magui Benjamin, ULISES [address] [place] [address] PCP - General 06/23/24 documented as of this encounter
--- OUTSIDE RECORDS SUMMARY | 2025-04-03 11:19 | XMS_ITS ---
Author Organization [facility] Address [address] [place] [address] Care Team Providers Care Buying Agent Name Role Phone Magui Benjamin APRN Primary Care Provider [phone] Active Problems Problem Noted Date Diagnosed Date [...]
--- OUTSIDE RECORDS SUMMARY | 2025-04-03 11:19 | XMS_ITS | Encounter Summary ---
Author Organization [facility] Address [address] [id number] Care Team Providers Care Utility Tractor Operator Name Role Phone Magui Benjamin APRN Primary Care Provider [phone] Encounter Details Date Type Department Care Team (Late st Contact Info) Description 07/03/2024 Lab Requisition [facility] Lab [address] [place] [address] Mayela Moore MD 800 [facility] [address] [place] [phone] Hodgkin lymphoma, unspecified, unspecified site (CMS/HCC) Social [...] PM EST) Case Report Bone Marrow Case: [id number] Authorizing Provider: Mayela Moore MD Collected: 07/03/2024 1411 Ordering Location: [facility] Lab Received: 07/03/2024 1411 Pathologist: Isra Aviles MD Specimen: Bone Marrow Aspirate, [id number] 07/10/2024 2:24 PM EST [facility] Final Diagnosis PERIPHERAL BLOOD AND BONE MARROW, PERIPHERAL SMEAR, ASPIRATE SMEAR, CLOT SECTION AND CORE BIOPSY (OUTSIDE ; COLLECTED ON 06/05/2024): - NORMOCELLULAR BONE MARROW WITH MATURING TRILINEAGE HEMATOPOIESIS, SEE COMMENT. - FLOW CYTOMETRY DETECTED 1% B-CELL POPULATION WITH ELEVATED KAPPA TO LAMBDA RATIO OF 8.2 REPORTEDLY. 07/10/2024 2:24 PM [facility] at 1424 EST Comment Patient's history of follicular lymphoma (2018) and subsequent diffuse large B-cell lymphoma (2022) is noted ([id number]). According to the report, the concurrent flow [...] correlation is essential. 07/10/2024 2:24 PM EST [facility] Clinical Information History of B-cell lymphoma 07/10/2024 2:24 PM [facility] CBC and Differential Review of the peripheral smear shows mild macrocytic anemia. White blood cells and platelets appear adequate and show normal morphology. 07/10/2024 2:24 PM [facility] Bone Marrow Differential BONE MARROW DIFFERENTIAL: 200 cells Normal Patient Neutrophils 15-50 33 Metamyelocytes 4-19 7 Myelocytes 1-18 12 Promyelocytes 1-8 0 Blasts 0-2 0 Monocytes 0-5 2 Erythroid 16-38 31 Lymphocytes 3-24 6 Eosinophils 0-6 7 Basophils 0-2 0 Plasma cells 0-4 2 Other 07/10/2024 2:24 PM [facility] Aspirate Smear Staining quality of the bone marrow aspirate smears is suboptimal for morphologic assessment. There is maturing trilineage hematopoiesis. Erythroid and myeloid precursors show full spectrum of maturation. Blasts are not increased. Overt dysplastic features are not identified. The myeloid to erythroid ratio is 1.9 (Normal:1.5-4). Megakaryocytes are present and demonstrate normal morphology. 07/10/2024 2:24 PM [facility] Core Biopsy CELLULARITY: Slightly hypocellular bone [...] Keyla trabeculae are normal. 07/10/2024 2:24 PM [facility] Clot Section Clot sections show predominantly blood with small fragments of a normocellular bone marrow with maturing trilineage hematopoiesis. The provided immunostains for CD20 and CD3 show no atypical lymphoid aggregates. 07/10/2024 2:24 PM [facility] Flow Cytometry Interpretation According to the report, the concurrent flow cytometry performed at the outside institution revealed a 1% B-cell population with an increased kappa:lambda ratio of 8.2 and granulocytes with partial, non-specific CD56 expression. 07/10/2024 2:24 PM [facility] CYTOGENETICS/MOLE CULAR INTERPRETATION Per accompanying pathology report, cytogenetics showed a normal male karyotype. 07/10/2024 2:24 PM EST [facility] Gross Description A. [id number] Received along with a corresponding pathology report from [facility]ology Laboratory are 19 slides labeled outside case: [id number] collected on 06/05/2024. 07/10/2024 2:24 PM EST [facility] Note: A resident was involved in the service. I attest I examined the relevant preparations for the specimens and confirmed the diagnosis or interpretation. 07/10/2024 2:24 PM EST [facility] Bone Marrow Specimen from bone marrow obtained by aspiration / Unknown 07/03/2024 2:11 PM EST 07/03/2024 2:11 PM EST us Mayela Moore MD LAB PATHOLOGY ORDERABLES Final R esult [facility] [address] [place] [address] documented in this encounter Visit Diagnoses Diagnosis Hodgkin lymphoma, unspecified, unspecified site (CMS/HCC) documented in this encounter Additional Health Concerns Assessment Noted Time A fall risk assessment has been complete d for the patient 06/23/2024 12:28 PM EST documented as of this encounter Care Teams Utility Tractor Operator Relationship Specialty Start Date End Date Magui Benjamin, ULISES [address] [place] [address] PCP - General 06/23/24 documented as of this encounter
[2025-04-03 11:36] LABS: Hematocrit 28.7 % (42.0-52.0); Hemoglobin 9.4 g/dL (14.1-18.0); Immature Granulocytes % 0 %; Mean Corpuscular HGB Conc 32.8 g/dL (31.8-35.4); Mean Corpuscular Hemoglobin 34.1 pg (27.0-31.2); Mean Corpuscular Volume 104.0 fl (80-94); Nucleated Red Blood Cells % 0 %; Platelet Count 124 K/mm3 (142-424); Red Blood Count 2.76 M/mm3 (4.60-6.20); Red Cell Distribution Width-SD 73.0 fL
[2025-04-03 11:38] LABS: White Blood Count 1.5 K/mm3 (4.8-10.8)
[2025-04-03 12:46] LABS: Total Cells Counted 100
[2025-04-03 12:58] LABS: Anisocytosis 2+
== END 2025-04-03 23:59 | disposition home or self-care (01) ==
LOC: INF 11:10
PROVIDERS: PCP Nurse Practitioner Family; Visit Provider Internal Medicine Medical Oncology
DX: C83.30 Diffuse large B-cell lymphoma, unspecified site (principal)
CPT/HCPCS: 36415; 85007; 85025; 85027

== ENCOUNTER 2025-04-10 10:52 | Outpatient (CLI) | payer MEDICARE, SELFPAY ==
--- OUTSIDE RECORDS SUMMARY | 2025-04-10 10:59 | XMS_ITS | Encounter Summary ---
Author Organization [employer] ([place], [place], [place], [place]) Address [address] [place] [address] Care Team Providers Care Contract Graphic Designer Name Role Phone Unavailable Primary Care Provider Unavailabl e Encounter Details Date Type Department Care Team (Late st Contact Info) Description 05/16/2021 Transcribed Document [facility] Family Medicine [facility] [place] [address] ProviderAiden MD [address] [place] [address] Social History Tobacco Use Types [...] these instructions at home: Medicines ??? Take rwqs-yuf-wqdcpsr and prescription medicines only as told by your health care provider. Insertion site care ??? Follow instructions from your health care provider about how to take care of your insertion site. Make sure you: ? Wash your hands with soap and water before you change your bandage (dressing). If soap and water are not available, use hand mate fishing vessel. ? Change your dressing as told by [...] provider. Document Revised: 08/03/2018 Document Reviewed: 08/03/2018 [employer] Patient Education ? 2020 [employer]. Pharmacology Moderate Conscious Sedation, Adult, Care [...] you are awake and alert. ??? Take mlgq-nec-gafrjgb and prescription medicines only as told by [...] provider. Document Revised: 05/23/2020 Document Reviewed: 05/23/2020 [employer] Patient Education ? 2020 Elsevier Inc. Radiology [...] and water are not available, use hand mate fishing vessel. ? Change your dressing as told by [...] This is a medical emergency. ??? Take blqp-veq-dwvjatc and prescription medicines only as told by [...] provider. Document Revised: 05/01/2020 Document Reviewed: 05/01/2020 [employer] Patient Education ? 2020 [employer]. documented in this encounter Plan of Treatment Not on file documented as of this encounter Visit Diagnoses Not on filedocumented in this encounter
--- OUTSIDE RECORDS SUMMARY | 2025-04-10 10:59 | XMS_ITS | Encounter Summary ---
Author Organization [employer] ([place], [place], [place], [place]) Address [address] [place] [address] Care Team Providers Care Sheet Finisher Name Role Phone Unavailable Primary Care Provider Unavailabl e Encounter Details Date Type Department Care Team (Late st Contact Info) Description 05/16/2021 Transcribed Document [facility] Family Medicine [facility] [address] ProviderAiden MD [address] [place] [address] Social History Tobacco Use Types [...] Source : Stated Height Entry Format : [place] Height, Feet : 5 ft(Converted to: 152 cm, 60 Inch) Height, Inches : 11 Inch(Converted to: 0 ft 11 Inch, 27.94 cm) Clinical Height : 180.34 cm Weight Source : Standing scale Weight Entry Format : [place] Clinical Dosing Weight : 88.64 kg Weight, [...] REMY BOSS RN - 05/16/2021 9:03 EDT [place] Suicide Severity Rating Scale (C-SSRS) CSSRS Past [...] Obtained From : Patient Primary Language : Zambian Preferred Communication Mode : Verbal Communication Barrier : None Container Finisher Needed : No Objects to Sharing Info [...] Scale Risk Level : 0-24 Low Risk [place] Fall Interventions : Adequate lighting, Hourly comfort/safety [...]
--- OUTSIDE RECORDS SUMMARY | 2025-04-10 10:59 | XMS_ITS | Encounter Summary ---
Author Organization [employer] ([place], [place], [place], [place]) Address [address] [place] [address] Care Team Providers Care Marketing Coordinator Name Role Phone Unavailable Primary Care Provider Unavailabl e Encounter Details Date Type Department Care Team (Late st Contact Info) Description 05/16/2021 Transcribed Document [facility] [place] Family Medicine [facility] [place] [address] ProviderAiden MD [address] [place] [address] Social History Tobacco Use Types [...] 05/16/2021 16:40 EDT Electronically signed by Chantel [facility] Conversion Airborne Operations Cerner at 10/27/2022 10:30 PM CDT documented in this encounter Plan of Treatment Not on file documented as of this encounter Visit Diagnoses Not on filedocumented in this encounter
--- OUTSIDE RECORDS SUMMARY | 2025-04-10 10:59 | XMS_ITS | Encounter Summary ---
Author Organization [employer] ([place], [place], [place], [place]) Address [address] [place] [address] Care Team Providers Care Flamer After Lasting Name Role Phone Unavailable Primary Care Provider Unavailabl e Encounter Details Date Type Department Care Team (Late st Contact Info) Description 05/16/2021 Transcribed Document [facility] Family Medicine [address] [place] [address] ProviderAiden MD [address] [place] [address] Social History Tobacco Use Types [...] Aiden ProviderMD - 05/16/2021 4:04 PM CDT [facility] [place] [address] JOSE EUCEDA :1955 Visit Time:05/16/2021 Your Visit Summary Your Care Team Admitting Physician - LUCIEN TONG MD Attending Physician - LUCIEN TONG MD Primary Care Physician - FAMILY EUGNEIA (REF)MD Referring Physician - LUCIEN TONG MD [...] appointment with Dr. Madera as scheduled. Where: [address] [place] [phone] Business (1) Medications What How Much When [...] you are awake and alert. ??? Take deti-tvc-qtrrttl and prescription medicines only as told by [...] provider. Document Revised: 05/23/2020 Document Reviewed: 05/23/2020 [employer]ali Patient Education ?? 2020 [employer]. Radial Site Care This sheet gives you [...] these instructions at home: Medicines ??? Take bisc-gwe-xxsbxbb and prescription medicines only as told by your health care provider. Insertion site care ??? Follow instructions from your health care provider about how to take care of your insertion site. Make sure you: ? Wash your hands with soap and water before you change your bandage (dressing). If soap and water are not available, use hand track service person. ? Change your dressing as told by [...] provider. Document Revised: 08/03/2018 Document Reviewed: 08/03/2018 wali Patient Education ?? 2020 [employer] Inc. Angiogram, Care After This sheet gives [...] and water are not available, use hand track service person. ? Change your dressing as told by [...] This is a medical emergency. ??? Take nqwl-slg-rtzzswz and prescription medicines only as told by [...] Assistance with quitting is available by contacting 0-366-UDAYNOW. This is a free resource providing counseling, support, and referral. Or you may contact your personal physician. [place] Suicide Prevention Lifeline: The National Suicide Prevention [...] was given the opportunity to ask questions. Patient/School Secretary Name: Patient/School Secretary Signature: Relationship to Patient: Clinician/Hospital School Secretary Signature: Date: documented in this encounter Plan of Treatment Not on file documented as of this encounter Visit Diagnoses Not on filedocumented in this encounter
--- OUTSIDE RECORDS SUMMARY | 2025-04-10 10:59 | XMS_ITS | Encounter Summary ---
Author Organization [employer] ([place], [place], [place], [place]) Address [address] [place] [address] Care Team Providers Care President & Founder Name Role Phone Unavailable Primary Care Provider Unavailabl e Encounter Details Date Type Department Care Team (Late st Contact Info) Description 05/16/2021 Transcribed Document [facility] Family Medicine [facility] [place] [address] ProviderAiden MD [address] [place] [address] Social History Tobacco Use Types Packs/Day [...] Basic Information PCP: Kenroy Chavez MD Primary Steel Erector Apprentice: Edyta Guerra MD Chief Complaint Newly decreased [...] Available Past Medical History: Active Atrial fibrillation (18161444) Cardiomyopathy (191621392) Family History: Brain tumor Sister () Procedure [...] of motion, Normal strength. Integumentary: Warm, Dry, [place]. Neurologic: Alert, Oriented. Psychiatric: Cooperative, Appropriate mood [...] proceed. Electronically signed by Chantel, Laurita Conversion Director Information Security Cerner at 10/27/2022 10:50 PM CDT documented in this encounter Plan of Treatment Not on file documented as of this encounter Visit Diagnoses Not on filedocumented in this encounter
--- OUTSIDE RECORDS SUMMARY | 2025-04-10 10:59 | XMS_ITS | Clinical Summary ---
Author Organization [facility] Address [address] [place] [address] Phone Care Team Providers Care Tube Coremaker Name Role Phone Gricelda Cox MD Unavailable [phone] Allergies No known active allergies Medications [...] Active fluticasone propionate (FLONASE) 50 mcg/actuation Nasl [place], Suspension 2 Sprays by Nasal route daily. [...] 60-74 years 1-dose series) 2016 COVID-19 Vaccine ( - 2023-2 5 season) 2025 Influenza Vaccine (#1) 2025 Hepatitis B Vaccine Aged Out No longe r eligible based on patient's age to complete this topic Meningococcal B Vaccine Aged Out No l onger eligible based on patient's age to complete this topic [facility] [place] [employer] MEDICARE PPO [place] [employer] MEDICARE PPO [place] [id number] AETNA [facility] [place] [address] MEDICARE PPO MR [facility] [address] Advance Directives For more information, please contact: [phone] * Full Code (Latest Code Status on File) Date Activated Date Inactivated Comments 12/02/2022 11:11 AM 12/04/2022 7:53 PM * Full Code Date Activated Date Inactivated Comments 11/24/2022 11:52 PM 12/01/2022 2:40 AM Care Teams Tube Coremaker Relationship Specialty Start Date End Date Gricelda Cox MD [address] [address] Medical Oncologist Internal Medicine-Medical Oncology 11/26/22
--- OUTSIDE RECORDS SUMMARY | 2025-04-10 10:59 | XMS_ITS | Encounter Summary ---
Author Organization Healthcare Address [address] [place] [address] Care Team Providers Care Advertising Account Executive Name Role Phone Magiu Benjamin APRN Primary Care Provider [phone] Encounter Details Date Type Department Care Team (Late st Contact Info) Description 06/01/2024 Orders Only External Location [address] [place] [address] Provider, External Social History Tobacco Use Types [...] on filedocumented in this encounter Care Teams Advertising Account Executive Relationship Specialty Start Date End Date Magui Benjamin APRN [address] [place] [id number] PCP - General 06/23/24 documented as of this encounter
--- OUTSIDE RECORDS SUMMARY | 2025-04-10 10:59 | XMS_ITS | Encounter Summary ---
Author Organization [facility] Address [address] [place] [address] Care Team Providers Care Binder Lockstitch Name Role Phone Magui Benjamin APRN Primary Care Provider [phone] Reason for Visit * Reason Comments Med Refill Encounter Details Date Type Department Care Team (Late st Contact Info) Description 11/23/2023 Refill [facility] [address] [facility] [address] [place] [address] Marcy Agrawal APRN [address] [place], [place] [id number] Med Refill Social History Tobacco Use Types [...] on filedocumented in this encounter Care Teams Binder Lockstitch Relationship Specialty Start Date End Date Magui Benjamin APRN [address] [place] [address] [place] [address] PCP - General Nurse Practitioner 12/24/22 documented as of this encounter
--- OUTSIDE RECORDS SUMMARY | 2025-04-10 10:59 | XMS_ITS | Clinical Summary ---
Author Organization [facility] Address [address] [place] [address] Care Team Providers Care Senior Cyber Security Analyst Name Role Phone Sourav Magui Davalos APRN Primary Care Provider [phone] Allergies No known active allergies Medications atorvastatin [...] Health Maintenance Due Date Last Done Comments PENDING SALE TO [facility]-Medicare Annual Wellness (AWV) 1955 PENDING SALE TO [facility]-/Child/Adol SDOH Screenings 1955 [facility]- SDOH Screenings 1974 [...] - Risk 60-74 years 1-dose series) 2016 PENDING SALE TO [facility]-Abdominal Aortic Aneurys m (AAA) Screening 2021 [id number] Vaccine ( season) 2025 05/24/2021, 11/30/2020 [facility]-Influenza [...] MD LAB BLOOD ORDERABLES Final Resul t [facility] [address] [place] [address] from Last 3 Months or Most Recently Relevant to Health Maintenance Insurance MEDICARE Care Teams Senior Cyber Security Analyst Relationship Specialty Start Date End Date Magui Benjamin, ACCESS TECH [address] [place] [address] PCP - General 06/23/24
--- OUTSIDE RECORDS SUMMARY | 2025-04-10 10:59 | XMS_ITS | Encounter Summary ---
Author Organization [employer] ([place], [place], [place], [place]) Address [address] [place] [address] Care Team Providers Care Hourly Team Members Name Role Phone Unavailable Primary Care Provider Unavailabl e Encounter Details Date Type Department Care Team (Late st Contact Info) Description 05/16/2021 Transcribed Document [facility] [place] [facility] [place] [address] ProviderAiden MD [address] [place] [address] Social History Tobacco Use Types [...] of Event : 919: Spoke with Radha lCark. To give NS at 30 ml per hour pre cath due to EF 30%. NOrmal saline begun at 30 ml per hour. REMY BOSS RN - 05/16/2021 9:37 EDT documented in this encounter Plan of Treatment Not on file documented as of this encounter Visit Diagnoses Not on filedocumented in this encounter
--- OUTSIDE RECORDS SUMMARY | 2025-04-10 10:59 | XMS_ITS | Clinical Summary ---
Author Organization [email or web address] ([place], [place], [place], [place]) Address [address] [place] [address] Care Team Providers Care Flatwork Assembler Name Role Phone Unavailable Primary Care Provider [...] Date Carrillo rded Speak language other than Welsh at home Not on file 07/30/2023 Want [...]
--- OUTSIDE RECORDS SUMMARY | 2025-04-10 11:00 | XMS_ITS | Referral Summary ---
Author Organization [employer] ([place], [place], [place], [place]) Address [address] [place] [address] Care Team Providers Care Assistant Purchasing Manager Name Role Phone Unavailable Primary Care [...] Date Carrillo rded Speak language other than Tajik at home Not on file 07/30/2023 Want [...]
--- OUTSIDE RECORDS SUMMARY | 2025-04-10 11:00 | XMS_ITS | Clinical Summary ---
Author Organization [facility] Address [address] [place] [address] Care Team Providers Care Carpenter Prototype Name Role Phone Magui Benjamin APRN Primary Care Provider [phone] Allergies No known active allergies Medications allopurinol [...] 11/26/2022 HEPATITIS C SCREENING Completed 06/23/2024 Insurance [facility] MEDICARE ADVANTAGE Care Teams Carpenter Prototype Relationship Specialty Start Date End Date Magui Benjamin APRN [address] [place] [address] [place] [address] PCP - General Nurse Practitioner 12/24/22
--- OUTSIDE RECORDS SUMMARY | 2025-04-10 11:00 | XMS_ITS | Encounter Summary ---
Author Organization Healthcare Address [address] [place] [address] Care Team Providers Care Batting Machine Operator Insulation Name Role Phone Magui Benjamin APRN Primary Care Provider [phone] Encounter Details Date Type Department Care Team (Late st Contact Info) Description 07/03/2024 Lab Requisition [facility] [address] [place] [address] Mayela Moore MD [address] [facility] [address] [place] [address] Malignant neoplasm of head, face and neck [...] -2 Score 0 07/06/2024 9:42 AM EST [facility] Myriam L documented as of this encounter Plan of Treatment Not on file documented as of this encounter Procedures Procedure Name Priority Date/Time Associated Diagnosis Comments SURGICAL PATHOLOGY CONSULT Routine 07/03/2024 2:19 PM EST Malignant neoplasm of head, face and neck (CMS/HCC) documented in this encounter Results * Surgical Pathology Consult (07/03/2024 2:19 PM EST) Case Report Sugical Pathology Consult Case: [id number] Authorizing Provider: Mayela Moore MD Collected: 07/03/2024 1419 Ordering Location: [facility] Lab Received: 07/03/2024 1420 Pathologist: Isra Aviles MD Specimens: A) - Neck, [id number] B) - Lymph Node, [id number] 07/05/2024 6:14 PM EST [facility] Final Diagnosis OUTSIDE ; COLLECTED 12/22/2018 A. LYMPH NODE, LEFT NECK, DEEP JUGULAR, BIOPSY: - CLASSIC FOLLICULAR LYMPHOMA, SEE COMMENT. OUTSIDE ; COLLECTED 08/05/2022 A. 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 07/05/2024 6:14 PM EST [facility] at 1813 EST Comment OUTSIDE ; [...] of previous follicular lymphoma. 07/05/2024 6:14 PM [facility] Clinical Information C76.0 - Malignant neoplasm of head, face and neck [ICD-10-CM] 07/05/2024 6:14 PM [facility] Gross Description A. [id number] Received along with a corresponding pathology report from [facility] are 24 slides labeled outside case: [id number] collected on 12/22/2018. B. [id number] Received along with a corresponding pathology report from [facility] are 19 slides labeled outside case: [id number] collected on 08/05/2022. 07/05/2024 6:14 PM [facility] Note: A resident was involved in the service. I attest I examined the relevant preparations for the specimens and confirmed the diagnosis or interpretation. 07/05/2024 6:14 PM [facility] Tissue Lymph node specimen / Unknown 07/03/2024 2:19 PM EST 07/03/2024 2:20 PM EST Tissue specimen (specimen) Lymph node specimen / Unknown 07/03/2024 2:19 PM EST 07/03/2024 2:20 PM EST us Mayela Moore MD LAB PATHOLOGY ORDERABLES Final R esult [facility] [address] [place] [address] documented in this encounter Visit Diagnoses Diagnosis Malignant neoplasm of head, face and neck (CMS/HCC) Malignant neoplasm of head, face, and neck documented in this encounter Additional Health Concerns Assessment Noted Time A fall risk assessment has been complete d for the patient 06/23/2024 12:28 PM EST documented as of this encounter Care Teams Batting Machine Operator Insulation Relationship Specialty Start Date End Date Magui Benjamin, ULISES [address] [place] [address] PCP - General 06/23/24 documented as of this encounter
--- OUTSIDE RECORDS SUMMARY | 2025-04-10 11:00 | XMS_ITS | Patient Health Record ---
[facility] Address [address] [facility] [address] [place] [id number] Care Team Providers Care Special Needs Caregiver Name Role Phone Josef Chavez Primary Care Provider [phone] Allergies No Known Allergies Medications Medication SIG [...] Vaccine Route Administration Date Status Comme nts Prevnar (PCV20) IM Intramuscular 11/13/2021 Administered DT, 7 YEARS OR OLDER Unknown 09/13/1996 Administered COVID 19 Silva Unknown 11/30/2020 Administered COVID 19 Silva Unknown 05/24/2021 Administered Problems Problem Type SNOMED Code ICD Code Onset Dates Problem Status W/U Status Risk Notes Problem Paroxysmal atrial fibrillation (077155203) Paroxysmal atrial fibrillation (I48.0) Active confirmed Problem Arteriosclerotic vascular disease (66311301) Arteriosclerotic cardiovascular disease (I25.10) Active confirmed Problem Bilateral tinnitus (1982501422939) Tinnitus of both ears (H93.13) Active confirmed Problem Chronic systolic heart failure (824680569) Chronic systolic congestive heart failure (I50.22) Active confirmed Problem Dyslipidemia (671703513) Dyslipidemia (E78.5) Active confirmed Problem Non-Hodgkin lymphoma (552088118) Lymphoma, unspecified body region, unspecified lymphoma type (C85.90) Active confirmed Problem Obstructive sleep apnea syndrome (23778686) [place] treated with BiPAP (G47.33) Active confirmed Problem Hearing loss (73408868) Bilateral hearing loss, unspecified hearing loss type (H91.93) Active confirmed Problem Neurogenic claudication (927762796) Spinal stenosis of lumbar region with neurogenic claudication (M48.062) Active confirmed Plan Of Treatment Pending Test Test Name Order Date Lipid Panel (in house) 11/13/2021 P-Comprehensive Metabolic Panel (CMP) P-PSA 11/13/2021 Insurance Providers Payer Name Payer Address Payer Phone Subscriber Number Group Number Insured Name Patient Relationship to Insured Coverage Start Date Coverage End Date [employer] (MEDICAR E) [address] [address] [place] [address] [id number] CAL MENSAH Self - patient is the [...] CPAP Surgical History Surgery Date(Month/Year) neck biopsy- [facility] 12/2018
--- OUTSIDE RECORDS SUMMARY | 2025-04-10 11:00 | XMS_ITS | Encounter Summary ---
Author Organization [facility] Address [address] [id number] Care Team Providers Care Cable Systems Installer Name Role Phone Magui Benjamin APRN Primary Care Provider [phone] Encounter Details Date Type Department Care Team (Late st Contact Info) Description 07/03/2024 Lab Requisition [facility] [address] [place] [address] Mayela Moore MD [address] [facility] [address] [place] [phone] Enlarged lymph nodes, unspecified Social History Tobacco [...] 2:04 PM EST) Case Report Cytology Case: [id number] Authorizing Provider: Mayela Moore MD Collected: 07/03/20241403 Ordering Location: [facility] Lab Received: 07/03/2024 1404 Pathologist: Isra Aviles MD Specimen: Lymph Node, [id number] 07/05/2024 6:55 PM EST [facility] Final Diagnosis A. LYMPH NODE, LEFT, FINE NEEDLE ASPIRATION (OUTSIDE ; COLLECTED ON 05/24/2024): - ATYPICAL LYMPHOID STROMA, SEE COMMENT. 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 The cell block and smears show population [...] would be recommended. 07/05/2024 6:55 PM EST [facility] Clinical Information History of follicular lymphoma and diffuse large B-cell lymphoma 07/05/2024 6:55 PM EST [facility] Gross Description A. [id number] Received along with a corresponding pathology report from [facility] are 2 slides labeled outside case: [id number] collected on 05/24/2024. 07/05/2024 6:55 PM EST [facility] Fine Needle Aspirate Lymph node specimen / Unknown 07/03/2024 2:04 PM EST 07/03/2024 2:04 PM EST us Mayela Moore MD LAB PATHOLOGY ORDERABLES Final R esult [facility] [address] [place] [address] documented in this encounter Visit Diagnoses Diagnosis Enlarged lymph nodes, unspecified documented in this encounter Additional Health Concerns Assessment Noted Time A fall risk assessment has been complete d for the patient 06/23/2024 12:28 PM EST documented as of this encounter Care Teams Cable Systems Installer Relationship Specialty Start Date End Date Magui Benjamin, WOOD MILLING MACHINE HAND [address] [place] [address] PCP - General 06/23/24 documented as of this encounter
--- OUTSIDE RECORDS SUMMARY | 2025-04-10 11:00 | XMS_ITS ---
Author Organization [facility] Address [address] [place] [address] Care Team Providers Care Domestic Violence Advocate Name Role Phone Magui Benjamin APRN Primary Care Provider [phone] Active Problems Problem Noted Date Diagnosed Date [...]
--- OUTSIDE RECORDS SUMMARY | 2025-04-10 11:00 | XMS_ITS | Encounter Summary ---
Author Organization [facility] Address [address] [id number] Care Team Providers Care Keel Press Operator Name Role Phone Magui Benjamin APRN Primary Care Provider [phone] Encounter Details Date Type Department Care Team (Late st Contact Info) Description 07/03/2024 Lab Requisition [facility] [address] [place] [address] Mayela Moore MD 800 [facility] [address] [place] [phone] Hodgkin lymphoma, unspecified, unspecified site (CMS/HCC) Social [...] PM EST) Case Report Bone Marrow Case: [id number] Authorizing Provider: Mayela Moore MD Collected: 07/03/2024 1411 Ordering Location: [facility] Lab Received: 07/03/2024 1411 Pathologist: Isra Aviles MD Specimen: Bone Marrow Aspirate, [id number] 07/10/2024 2:24 PM EST [facility] Final Diagnosis PERIPHERAL BLOOD AND BONE MARROW, PERIPHERAL SMEAR, ASPIRATE SMEAR, CLOT SECTION AND CORE BIOPSY (OUTSIDE ; COLLECTED ON 06/05/2024): - NORMOCELLULAR BONE MARROW WITH MATURING TRILINEAGE HEMATOPOIESIS, SEE COMMENT. - FLOW CYTOMETRY DETECTED 1% B-CELL POPULATION WITH ELEVATED KAPPA TO LAMBDA RATIO OF 8.2 REPORTEDLY. 07/10/2024 2:24 PM [facility] at 1424 EST Comment Patient's history of follicular lymphoma (2018) and subsequent diffuse large B-cell lymphoma (2022) is noted ([id number]). According to the report, the concurrent flow [...] correlation is essential. 07/10/2024 2:24 PM EST [facility] Clinical Information History of B-cell lymphoma 07/10/2024 2:24 PM [facility] CBC and Differential Review of the peripheral smear shows mild macrocytic anemia. White blood cells and platelets appear adequate and show normal morphology. 07/10/2024 2:24 PM [facility] Bone Marrow Differential BONE MARROW DIFFERENTIAL: 200 cells Normal Patient Neutrophils 15-50 33 Metamyelocytes 4-19 7 Myelocytes 1-18 12 Promyelocytes 1-8 0 Blasts 0-2 0 Monocytes 0-5 2 Erythroid 16-38 31 Lymphocytes 3-24 6 Eosinophils 0-6 7 Basophils 0-2 0 Plasma cells 0-4 2 Other 07/10/2024 2:24 PM [facility] Aspirate Smear Staining quality of the bone marrow aspirate smears is suboptimal for morphologic assessment. There is maturing trilineage hematopoiesis. Erythroid and myeloid precursors show full spectrum of maturation. Blasts are not increased. Overt dysplastic features are not identified. The myeloid to erythroid ratio is 1.9 (Normal:1.5-4). Megakaryocytes are present and demonstrate normal morphology. 07/10/2024 2:24 PM [facility] Core Biopsy CELLULARITY: Slightly hypocellular bone [...] trabeculae are normal. 07/10/2024 2:24 PM [facility] Clot Section Clot sections show predominantly blood with small fragments of a normocellular bone marrow with maturing trilineage hematopoiesis. The provided immunostains for CD20 and CD3 show no atypical lymphoid aggregates. 07/10/2024 2:24 PM [facility] Flow Cytometry Interpretation According to the report, the concurrent flow cytometry performed at the outside institution revealed a 1% B-cell population with an increased kappa:lambda ratio of 8.2 and granulocytes with partial, non-specific CD56 expression. 07/10/2024 2:24 PM [facility] CYTOGENETICS/MOLE CULAR INTERPRETATION Per accompanying pathology report, cytogenetics showed a normal male karyotype. 07/10/2024 2:24 PM EST [facility] Gross Description A. [id number] Received along with a corresponding pathology report from [facility] are 19 slides labeled outside case: [id number] collected on 06/05/2024. 07/10/2024 2:24 PM EST [facility] Note: A resident was involved in the service. I attest I examined the relevant preparations for the specimens and confirmed the diagnosis or interpretation. 07/10/2024 2:24 PM EST [facility] Bone Marrow Specimen from bone marrow obtained by aspiration / Unknown 07/03/2024 2:11 PM EST 07/03/2024 2:11 PM EST us Mayela Moore MD LAB PATHOLOGY ORDERABLES Final R esult [facility] [address] [place] [address] documented in this encounter Visit Diagnoses Diagnosis Hodgkin lymphoma, unspecified, unspecified site (CMS/HCC) documented in this encounter Additional Health Concerns Assessment Noted Time A fall risk assessment has been complete d for the patient 06/23/2024 12:28 PM EST documented as of this encounter Care Teams Keel Press Operator Relationship Specialty Start Date End Date Magui Benjamin, ULISES [address] [place] [address] PCP - General 06/23/24 documented as of this encounter
[2025-04-10 11:05] LABS: Hematocrit 29.9 % (42.0-52.0); Hemoglobin 10.2 g/dL (14.1-18.0); Immature Granulocytes % 0 %; Mean Corpuscular HGB Conc 34.1 g/dL (31.8-35.4); Mean Corpuscular Hemoglobin 35.2 pg (27.0-31.2); Mean Corpuscular Volume 103.1 fl (80-94); Nucleated Red Blood Cells % 0 %; Platelet Count 101 K/mm3 (142-424); Red Blood Count 2.90 M/mm3 (4.60-6.20); Red Cell Distribution Width-SD 70.4 fL
[2025-04-10 11:10] LABS: White Blood Count 1.7 K/mm3 (4.8-10.8)
[2025-04-10 12:25] LABS: Total Cells Counted 100
[2025-04-10 12:26] LABS: Macrocytosis 1+
== END 2025-04-10 23:59 | disposition home or self-care (01) ==
LOC: INF 10:52
PROVIDERS: PCP Nurse Practitioner Family; Visit Provider Internal Medicine Medical Oncology
DX: C83.30 Diffuse large B-cell lymphoma, unspecified site (principal)
CPT/HCPCS: 36415; 85007; 85025; 85027

== ENCOUNTER 2025-04-17 10:43 | Outpatient (CLI) | payer MEDICARE, SELFPAY ==
--- OUTSIDE RECORDS SUMMARY | 2025-04-17 10:49 | XMS_ITS | Encounter Summary ---
Author Organization [employer] ([place], [place], [place], [place]) Address [address] [place] [address] Care Team Providers Care Tool Dresser Name Role Phone Unavailable Primary Care Provider Unavailabl e Encounter Details Date Type Department Care Team (Late st Contact Info) Description 05/16/2021 Transcribed Document [facility] [place] [address] [place] [address] ProviderAiden MD [address] [place] [address] Social History Tobacco Use Types [...] 4:04 PM CDT [facility] [place] [address] JOSE EUCEDA :1955 Visit Time:05/16/2021 Your Visit Summary Your Care Team Admitting Physician - LUCIEN TONG MD Attending Physician - LUCIEN TOGN MD Primary Care Physician - FAMILY EUGENIA [...] appointment with Dr. Madera as scheduled. Where: [address] [place] [phone] (1) Medications What How Much When [...] you are awake and alert. ??? Take qgsc-yzc-valccxn and prescription medicines only as told by [...] provider. Document Revised: 05/23/2020 Document Reviewed: 05/23/2020 [employer] Patient Education ?? 2020 [employer]. Radial Site Care This sheet gives you [...] these instructions at home: Medicines ??? Take llmc-ece-ltraljp and prescription medicines only as told by your health care provider. Insertion site care ??? Follow instructions from your health care provider about how to take care of your insertion site. Make sure you: ? Wash your hands with soap and water before you change your bandage (dressing). If soap and water are not available, use hand rig welder. ? Change your dressing as told by [...] provider. Document Revised: 08/03/2018 Document Reviewed: 08/03/2018 [employer] Patient Education ?? 2020 [employer] Angiogram, Care After This sheet gives [...] and water are not available, use hand rig welder. ? Change your dressing as told by [...] This is a medical emergency. ??? Take fkcv-qpl-fsotjxe and prescription medicines only as told by [...] Assistance with quitting is available by contacting 4-911-KRMNNOW. This is a free resource providing counseling, support, and referral. Or you may contact your personal physician. [place] Suicide Prevention Lifeline: The National Suicide Prevention [...] was given the opportunity to ask questions. Patient/Compressed Yeast Supervisor Name: Patient/Compressed Yeast Supervisor Signature: Relationship to Patient: Clinician/Hospital Compressed Yeast Supervisor Signature: Date: documented in this encounter Plan of Treatment Not on file documented as of this encounter Visit Diagnoses Not on filedocumented in this encounter
--- OUTSIDE RECORDS SUMMARY | 2025-04-17 10:49 | XMS_ITS | Clinical Summary ---
Author Organization [facility] Address [address] [place] [address] Care Team Providers Care Fish Hatchery Manager Name Role Phone Magui Benjamin APRN [...] Health Maintenance Due Date Last Done Comments [facility]-Medicare Annual Wellness (AWV) 1955 [facility]-/Child/Adol SDOH Screenings 1955 [facility]- SDOH Screenings 1974 [...] - Risk 60-74 years 1-dose series) 2016 [facility]-Abdominal Aortic Aneurys m (AAA) Screening 2021 DYZ-WEXSJ-20 Vaccine ( season) 2025 05/24/2021, 11/30/2020 [facility]-Influenza [...] Antibody Negative Negative 06/23/2024 1:15 PM EST [facility] Blood Venous blood specimen / Unknown Venipuncture / Unknown 06/23/2024 11:48 AM EST 06/23/2024 12:26 PM EST us Mayela Moore MD LAB BLOOD ORDERABLES Final Resul t [facility] [address] [place] [address] from Last 3 Months or Most Recently Relevant to Health Maintenance Insurance MEDICARE Care Teams Fish Hatchery Manager Relationship Specialty Start Date End Date Magui Benjamin, COMMUNICATIONS TOWER TECHNICIAN [address] [place] [address] PCP - General 06/23/24
--- OUTSIDE RECORDS SUMMARY | 2025-04-17 10:49 | XMS_ITS | Encounter Summary ---
Author Organization [employer] ([place], [place], [place], [place]) Address [address] [place] [address] Care Team Providers Care Income Tax Investigator Name Role Phone Unavailable Primary Care Provider Unavailabl e Encounter Details Date Type Department Care Team (Late st Contact Info) Description 05/16/2021 Transcribed Document [facility] [place] Family Medicine [facility] [place] [address] ProviderAiden MD [address] [place] [address] Social History Tobacco Use Types Packs/Day [...] Basic Information PCP: Kenroy Chavez MD Primary Fabrication Mig Welder: Edyta Guerra MD Chief Complaint Newly decreased [...] Available Past Medical History: Active Atrial fibrillation ([id number]) Cardiomyopathy ([id number]) Family History: Brain tumor Sister () Procedure [...] of motion, Normal strength. Integumentary: Warm, Dry, [place]. Neurologic: Alert, Oriented. Psychiatric: Cooperative, Appropriate mood [...]
--- OUTSIDE RECORDS SUMMARY | 2025-04-17 10:49 | XMS_ITS | Encounter Summary ---
Author Organization [employer] ([place], [place], [place], [place]) Address [address] [place] [address] Care Team Providers Care Tire Repair Mechanic Name Role Phone Unavailable Primary Care Provider Unavailabl e Encounter Details Date Type Department Care Team (Late st Contact Info) Description 05/16/2021 Transcribed Document [facility] [place] [facility] [place] [address] ProviderAiden MD [address] [place] [address] Social History Tobacco Use Types [...] 05/16/2021 16:40 EDT Electronically signed by Chant[facility] Conversion Aix Administrator Cerner at 10/27/2022 10:30 PM CDT documented in this encounter Plan of Treatment Not on file documented as of this encounter Visit Diagnoses Not on filedocumented in this encounter
--- OUTSIDE RECORDS SUMMARY | 2025-04-17 10:49 | XMS_ITS | Clinical Summary ---
Author Organization [employer] ([place], [place], [place], [place]) Address [address] [place] [address] Care Team Providers Care Finger Waver Name Role Phone Unavailable Primary Care Provider [...] Date Carrillo rded Speak language other than Indonesian at home Not on file 07/30/2023 Want [...]
--- OUTSIDE RECORDS SUMMARY | 2025-04-17 10:49 | XMS_ITS | Encounter Summary ---
Author Organization [employer] ([place], [place], [place], [place]) Address [address] [place] [address] Care Team Providers Care Crystal Mounter Name Role Phone Unavailable Primary Care Provider Unavailabl e Encounter Details Date Type Department Care Team (Late st Contact Info) Description 05/16/2021 Transcribed Document [facility] [facility] [place] [address] ProviderAiden MD [address] [place] [address] Social History Tobacco Use Types [...]
--- OUTSIDE RECORDS SUMMARY | 2025-04-17 10:49 | XMS_ITS | Encounter Summary ---
Author Organization [facility] Address [address] [place] [address] Care Team Providers Care Potato Grader Name Role Phone Magui Benjamin APRN Primary Care Provider Reason for Visit * Reason Comments Med Refill Encounter Details Date Type Department Care Team (Late st Contact Info) Description 11/23/2023 Refill [facility] [address] [facility] [address] [place] [address] Marcy Agrawal APRN [address] [place], [place] [id number] Med Refill Social History Tobacco Use Types [...] on filedocumented in this encounter Care Teams Potato Grader Relationship Specialty Start Date End Date Magui Benjamin APRN [address] [place] [address] PCP - General Nurse Practitioner 12/24/22 documented as of this encounter
--- OUTSIDE RECORDS SUMMARY | 2025-04-17 10:49 | XMS_ITS | Encounter Summary ---
Author Organization [employer] ([place], [place], [place], [place]) Address [address] [place] [address] Care Team Providers Care Public Relations Analyst Name Role Phone Unavailable Primary Care Provider Unavailabl e Encounter Details Date Type Department Care Team (Late st Contact Info) Description 05/16/2021 Transcribed Document [facility] [place] [facility] [place] [address] ProviderAiden MD [address] [place] [address] Social History Tobacco Use Types [...] Source : Stated Height Entry Format : [place] Height, Feet : 5 ft(Converted to: 152 cm, 60 Inch) Height, Inches : 11 Inch(Converted to: 0 ft 11 Inch, 27.94 cm) Clinical Height : 180.34 cm Weight Source : Standing scale Weight Entry Format : [place] Clinical Dosing Weight : 88.64 kg Weight, Pounds : 195 lb Body Surface Area (BSA) : 2.09 m2 Body Mass Index : 27.3 kg/m2 (HI) [place] Body Weight : 74 kg REMY BOSS [...] (Last Updated: 05/16/2021 08:59:17 EDT by REMY BSOS, RN) Alcohol: Alcohol Use History Yes. Alcohol [...] REMY BOSS RN - 05/16/2021 9:03 EDT [place] Suicide Severity Rating Scale (C-SSRS) CSSRS Past [...] Obtained From : Patient Primary Language : Tunisian Preferred Communication Mode : Verbal Communication Barrier : None Um Rn Needed : No Objects to Sharing Info [...] Scale Risk Level : 0-24 Low Risk [place] Fall Interventions : Adequate lighting, Hourly comfort/safety [...]
--- OUTSIDE RECORDS SUMMARY | 2025-04-17 10:49 | XMS_ITS | Encounter Summary ---
Author Organization [employer] ([place], [place], [place], [place]) Address [address] [place] [address] Care Team Providers Care Behavior Clinician Name Role Phone Unavailable Primary Care Provider Unavailabl e Encounter Details Date Type Department Care Team (Late st Contact Info) Description 05/16/2021 Transcribed Document [facility] [place] [facility] [place] [address] ProviderAiden MD [address] [place] [address] Social History Tobacco Use Types [...] these instructions at home: Medicines ??? Take idbt-jxj-oxgwepg and prescription medicines only as told by your health care provider. Insertion site care ??? Follow instructions from your health care provider about how to take care of your insertion site. Make sure you: ? Wash your hands with soap and water before you change your bandage (dressing). If soap and water are not available, use hand rat poisoner. ? Change your dressing as told by [...] provider. Document Revised: 08/03/2018 Document Reviewed: 08/03/2018 [employer] Patient Education ? 2020 [employer] Pharmacology Moderate Conscious Sedation, Adult, [...] you are awake and alert. ??? Take uuxf-bgi-affcbno and prescription medicines only as told by [...] provider. Document Revised: 05/23/2020 Document Reviewed: 05/23/2020 [employer] Patient Education ? 2020 Else[employer] Inc. Radiology [...] water are not available, use hand rat poisoner. ? Change your dressing as told by [...] This is a medical emergency. ??? Take flai-iog-dhxubkk and prescription medicines only as told by [...] provider. Document Revised: 05/01/2020 Document Reviewed: 05/01/2020 [employer] Patient Education ? 2020 [employer]. documented in this encounter Plan of Treatment Not on file documented as of this encounter Visit Diagnoses Not on filedocumented in this encounter
--- OUTSIDE RECORDS SUMMARY | 2025-04-17 10:49 | XMS_ITS | Encounter Summary ---
Author Organization [facility] Address [address] [place] [address] Care Team Providers Care Warehouse Helper Name Role Phone Magui Benjamin APRN Primary Care Provider [phone] Encounter Details Date Type Department Care Team (Late st Contact Info) Description 06/01/2024 Orders Only External Location [address] [place] [address] Provider, External Social History Tobacco Use Types [...] on filedocumented in this encounter Care Teams Warehouse Helper Relationship Specialty Start Date End Date Magui Benjamin APRN [address] [id number] PCP - General 06/23/24 documented as of this encounter
--- OUTSIDE RECORDS SUMMARY | 2025-04-17 10:49 | XMS_ITS | Clinical Summary ---
Author Organization [facility] Address [address] [place] [address] Phone Care Team Providers Care Orchard Sprayer Name Role Phone Gricelda Cox MD Unavailable [phone] Allergies No known active allergies Medications [...] Active fluticasone propionate (FLONASE) 50 mcg/actuation Nasl Milo, Suspension 2 Sprays by Nasal route daily. [...] patient's age to complete this topic [facility] [place] [employer] MED[place] PPO [place] [employer] MEDICARE PPO [address] [id number] AETNA [facility] [place] [address] MEDICARE PPO MR [facility] [address] Advance Directives For more information, please contact: [phone] * Full Code (Latest Code Status on File) Date Activated Date Inactivated Comments 12/02/2022 11:11 AM 12/04/2022 7:53 PM * Full Code Date Activated Date Inactivated Comments 11/24/2022 11:52 PM 12/01/2022 2:40 AM Care Teams Orchard Sprayer Relationship Specialty Start Date End Date Gricelda Cox MD [address] [place] [address] Medical Oncologist Internal Medicine-Medical Oncology 11/26/22
--- OUTSIDE RECORDS SUMMARY | 2025-04-17 10:50 | XMS_ITS | Encounter Summary ---
Author Organization [facility] Address [address] [id number] Care Team Providers Care Construction Pit Worker Name Role Phone Magui Benjamin APRN Primary Care Provider [phone] Encounter Details Date Type Department Care Team (Late st Contact Info) Description 07/03/2024 Lab Requisition [facility] H Lab [address] [place] [address] Mayela Moore MD 800 [facility] [address] [place] [phone] Malignant neoplasm of head, face and neck [...] EST) Case Report Sugical Pathology Consult Case: [id number] Authorizing Provider: Mayela Moore MD Collected: 07/03/2024 1419 [facility] Received: 07/03/2024 1420 Pathologist: Isra Aviles MD Specimens: A) - Neck, [id number] B) - Lymph Node, [id number] 07/05/2024 6:14 PM EST [facility] Final Diagnosis OUTSIDE ; COLLECTED 12/22/2018 A. LYMPH NODE, LEFT NECK, DEEP JUGULAR, BIOPSY: - CLASSIC FOLLICULAR LYMPHOMA, SEE COMMENT. OUTSIDE ; COLLECTED 08/05/2022 A. 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 07/05/2024 6:14 PM EST [facility] at 1813 EST Comment OUTSIDE ; [...] of previous follicular lymphoma. 07/05/2024 6:14 PM [facility] Clinical Information C76.0 - Malignant neoplasm of head, face and neck [ICD-10-CM] 07/05/2024 6:14 PM [facility] Gross Description A. [id number] Received along with a corresponding pathology report from [facility] are 24 slides labeled outside case: [id number] collected on 12/22/2018. B. [id number] Received along with a corresponding pathology report from [facility] are 19 slides labeled outside case: [id number] collected on 08/05/2022. 07/05/2024 6:14 PM [facility] Note: A resident was involved in the service. I attest I examined the relevant preparations for the specimens and confirmed the diagnosis or interpretation. 07/05/2024 6:14 PM [facility] Tissue Lymph node specimen / Unknown 07/03/2024 2:19 PM EST 07/03/2024 2:20 PM EST Tissue specimen (specimen) Lymph node specimen / Unknown 07/03/2024 2:19 PM EST 07/03/2024 2:20 PM EST us Mayela Moore MD LAB PATHOLOGY ORDERABLES Final R esult [facility] [address] [place] [address] documented in this encounter Visit Diagnoses Diagnosis Malignant neoplasm of head, face and neck (CMS/HCC) Malignant neoplasm of head, face, and neck documented in this encounter Additional Health Concerns Assessment Noted Time A fall risk assessment has been complete d for the patient 06/23/2024 12:28 PM EST documented as of this encounter Care Teams Construction Pit Worker Relationship Specialty Start Date End Date aMgui Benjamin, ULISES [address] [place] [address] PCP - General 06/23/24 documented as of this encounter
--- OUTSIDE RECORDS SUMMARY | 2025-04-17 10:50 | XMS_ITS | Encounter Summary ---
Author Organization [facility] Address [address] [id number] Care Team Providers Care Account Liaison Hospice Name Role Phone Magui Benjamin APRN Primary Care Provider [phone] Encounter Details Date Type Department Care Team (Late st Contact Info) Description 07/03/2024 Lab Requisition [facility] H Lab [address] [place] [address] Mayela Moore MD [address] [facility] [address] [place] [phone] Enlarged lymph nodes, unspecified Social History Tobacco [...] hopeless Not at all 07/06/2024 9:42 AM Myraim Mojica Patient Health Questionnaire -2 Score 0 07/06/2024 9:42 AM Myriam Mojica documented as of this encounter Plan of Treatment Not on file documented as of this encounter Procedures Procedure Name Priority Date/Time Associated Diagnosis Comments CYTOLOGY CONSULT Routine 07/03/2024 2:04 PM EST Enlarged lymph nodes, unspecified documented in this encounter Results * Cytology Consult (07/03/2024 2:04 PM EST) Case Report Cytology Case: [id number] Authorizing Provider: Mayela Moore MD Collected: 07/03/20241403 Ordering Location: [facility] Received: 07/03/2024 1404 Pathologist: Isra Aviles MD Specimen: Lymph Node, [id number] 07/05/2024 6:55 PM EST [facility] Final Diagnosis A. LYMPH NODE, LEFT, FINE NEEDLE ASPIRATION (OUTSIDE ; COLLECTED ON 05/24/2024): - ATYPICAL LYMPHOID STROMA, SEE COMMENT. 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 The cell block and smears show population [...] would be recommended. 07/05/2024 6:55 PM EST [facility] Clinical Information History of follicular lymphoma and diffuse large B-cell lymphoma 07/05/2024 6:55 PM EST [facility] Gross Description A. [id number] Received along with a corresponding pathology report from [facility] are 2 slides labeled outside case: [id number] collected on 05/24/2024. 07/05/2024 6:55 PM EST [facility] Fine Needle Aspirate Lymph node specimen / Unknown 07/03/2024 2:04 PM EST 07/03/2024 2:04 PM EST us Mayela Moore MD LAB PATHOLOGY ORDERABLES Final R esult [facility] [address] [place] [address] documented in this encounter Visit Diagnoses Diagnosis Enlarged lymph nodes, unspecified documented in this encounter Additional Health Concerns Assessment Noted Time A fall risk assessment has been complete d for the patient 06/23/2024 12:28 PM EST documented as of this encounter Care Teams Account Liaison Hospice Relationship Specialty Start Date End Date Magui Benjamin, OFFICE 365 CONSULTANT [address] [place] [address] PCP - General 06/23/24 documented as of this encounter
--- OUTSIDE RECORDS SUMMARY | 2025-04-17 10:50 | XMS_ITS | Referral Summary ---
Author Organization [employer] ([place], [place], [place], [place]) Address [address] [place] [address] Care Team Providers Care Web Sizer Name Role Phone Unavailable Primary Care Provider [...] Date Carrillo rded Speak language other than Uruguayan at home Not on file 07/30/2023 Want [...]
--- OUTSIDE RECORDS SUMMARY | 2025-04-17 10:50 | XMS_ITS ---
Author Organization [facility] Address [address] [place] [address] Care Team Providers Care Bar And Filler Assembler Name Role Phone Magui Benjamin APRN Primary Care Provider [phone] Active Problems Problem Noted Date Diagnosed Date [...]
--- OUTSIDE RECORDS SUMMARY | 2025-04-17 10:50 | XMS_ITS | Patient Health Record ---
[facility] Address [address] [facility] [address] [id number] Care Team Providers Care Photo Engraver Name Role Phone Josef Chavez Primary Care Provider Allergies No Known Allergies Medications Medication SIG [...] Status Risk Notes Problem Paroxysmal atrial fibrillation (462170065) Paroxysmal atrial fibrillation (I48.0) Active confirmed Problem Arteriosclerotic vascular disease (54523056) Arteriosclerotic cardiovascular disease (I25.10) Active confirmed Problem Bilateral tinnitus (0538155915316) Tinnitus of both ears (H93.13) Active confirmed Problem Chronic systolic heart failure (294336873) Chronic systolic congestive heart failure (I50.22) Active confirmed Problem Dyslipidemia (331064913) Dyslipidemia (E78.5) Active confirmed Problem Non-Hodgkin lymphoma (663959417) Lymphoma, unspecified body region, unspecified lymphoma type (C85.90) Active confirmed Problem Obstructive sleep apnea syndrome (92569408) CLAYTON treated with BiPAP (G47.33) Active confirmed Problem Hearing loss (17200040) Bilateral hearing loss, unspecified hearing loss type (H91.93) Active confirmed Problem Neurogenic claudication (182913136) Spinal stenosis of lumbar region with neurogenic claudication (M48.062) Active confirmed Plan Of Treatment Pending Test Test Name Order Date Lipid Panel (in house) 11/13/2021 P-Comprehensive Metabolic Panel (CMP) P-PSA 11/13/2021 Insurance Providers Payer Name Payer Address Payer Phone Subscriber Number Group Number Insured Name Patient Relationship to Insured Coverage Start Date Coverage End Date [employer] (MEDICAR E) [address] [address] [place] [address] [id number] CAL MENSAH Self - patient is the [...] EF 30-3 5% by Echo. Dr. Madera CLAYOTN - CPAP Surgical History Surgery Date(Month/Year) neck biopsy- [facility] 12/2018
--- OUTSIDE RECORDS SUMMARY | 2025-04-17 10:50 | XMS_ITS | Clinical Summary ---
Author Organization [facility] Address [address] [place] [address] Care Team Providers Care Assistant Professor Of Geography Name Role Phone Magui Benjamin APRN Primary Care Provider [phone] Allergies No known active allergies Medications allopurinol [...] 11/26/2022 HEPATITIS C SCREENING Completed 06/23/2024 Insurance [facility] MEDICARE ADVANTAGE Care Teams Assistant Professor Of Geography Relationship Specialty Start Date End Date Magui Benjamin APRN [address] [place] [address] PCP - General Nurse Practitioner 12/24/22
--- OUTSIDE RECORDS SUMMARY | 2025-04-17 10:50 | XMS_ITS | Encounter Summary ---
Author Organization [facility] Address [address] [id number] Care Team Providers Care Bar Hostess Name Role Phone Magui Benjamin APRN Primary Care Provider [phone] Encounter Details Date Type Department Care Team (Late st Contact Info) Description 07/03/2024 Lab Requisition [facility] [address] [place] [address] Mayela Moore MD [address] [facility] [address] [place] [phone] Hodgkin lymphoma, unspecified, unspecified site (CMS/HCC) Social [...] PM EST) Case Report Bone Marrow Case: [id number] Authorizing Provider: Mayela Moore MD Collected: 07/03/2024 1411 Ordering Location: [facility] Lab Received: 07/03/2024 1411 Pathologist: Isra Aviles MD Specimen: Bone Marrow Aspirate, [id number] 07/10/2024 2:24 PM EST [facility] Final Diagnosis PERIPHERAL BLOOD AND BONE MARROW, PERIPHERAL SMEAR, ASPIRATE SMEAR, CLOT SECTION AND CORE BIOPSY (OUTSIDE ; COLLECTED ON 06/05/2024): - NORMOCELLULAR BONE MARROW WITH MATURING TRILINEAGE HEMATOPOIESIS, SEE COMMENT. - FLOW CYTOMETRY DETECTED 1% B-CELL POPULATION WITH ELEVATED KAPPA TO LAMBDA RATIO OF 8.2 REPORTEDLY. 07/10/2024 2:24 PM [facility] at 1424 EST Comment Patient's history of follicular lymphoma (2018) and subsequent diffuse large B-cell lymphoma (2022) is noted ([id number]). According to the report, the concurrent flow [...] History of B-cell lymphoma 07/10/2024 2:24 PM [facility] CBC and Differential Review of the peripheral smear shows mild macrocytic anemia. White blood cells and platelets appear adequate and show normal morphology. 07/10/2024 2:24 PM [facility] Bone Marrow Differential BONE MARROW DIFFERENTIAL: 200 cells Normal Patient Neutrophils 15-50 33 Metamyelocytes 4-19 7 Myelocytes 1-18 12 Promyelocytes 1-8 0 Blasts 0-2 0 Monocytes 0-5 2 Erythroid 16-38 31 Lymphocytes 3-24 6 Eosinophils 0-6 7 Basophils 0-2 0 Plasma cells 0-4 2 Other 07/10/2024 2:24 PM [facility] Aspirate Smear Staining quality of the bone marrow aspirate smears is suboptimal for morphologic assessment. There is maturing trilineage hematopoiesis. Erythroid and myeloid precursors show full spectrum of maturation. Blasts are not increased. Overt dysplastic features are not identified. The myeloid to erythroid ratio is 1.9 (Normal:1.5-4). Megakaryocytes are present and demonstrate normal morphology. 07/10/2024 2:24 PM [facility] Core Biopsy CELLULARITY: Slightly hypocellular bone [...] trabeculae are normal. 07/10/2024 2:24 PM [facility] Clot Section Clot sections show predominantly blood with small fragments of a normocellular bone marrow with maturing trilineage hematopoiesis. The provided immunostains for CD20 and CD3 show no atypical lymphoid aggregates. 07/10/2024 2:24 PM [facility] Flow Cytometry Interpretation According to the report, the concurrent flow cytometry performed at the outside institution revealed a 1% B-cell population with an increased kappa:lambda ratio of 8.2 and granulocytes with partial, non-specific CD56 expression. 07/10/2024 2:24 PM [facility] CYTOGENETICS/MOLE CULAR INTERPRETATION Per accompanying pathology report, cytogenetics showed a normal male karyotype. 07/10/2024 2:24 PM EST [facility] Gross Description A. [id number] Received along with a corresponding pathology report from [facility] Laboratory are 19 slides labeled outside case: [id number] collected on 06/05/2024. 07/10/2024 2:24 PM EST [...] esult [facility] [address] [place] [address] documented in this encounter Visit Diagnoses Diagnosis Hodgkin lymphoma, unspecified, unspecified site (CMS/HCC) documented in this encounter Additional Health Concerns Assessment Noted Time A fall risk assessment has been complete d for the patient 06/23/2024 12:28 PM EST documented as of this encounter Care Teams Bar Hostess Relationship Specialty Start Date End Date Magui Benjamin, ULISES [address] [place] [address] PCP - General 06/23/24 documented as of this encounter
[2025-04-17 10:59] LABS: Hematocrit 28.2 % (42.0-52.0); Hemoglobin 9.2 g/dL (14.1-18.0); Immature Granulocytes % 0.6 %; Mean Corpuscular HGB Conc 32.6 g/dL (31.8-35.4); Mean Corpuscular Hemoglobin 34.3 pg (27.0-31.2); Mean Corpuscular Volume 105.2 fl (80-94); Nucleated Red Blood Cells % 0 %; Platelet Count 108 K/mm3 (142-424); Red Blood Count 2.68 M/mm3 (4.60-6.20); Red Cell Distribution Width-SD 70.1 fL
[2025-04-17 11:22] LABS: White Blood Count 1.7 K/mm3 (4.8-10.8)
[2025-04-17 12:06] LABS: Total Cells Counted 100
[2025-04-17 12:07] LABS: Anisocytosis 1+
== END 2025-04-17 10:50 | disposition home or self-care (01) ==
LOC: INF 10:45
PROVIDERS: PCP Nurse Practitioner Family; Visit Provider Internal Medicine Medical Oncology
DX: C83.30 Diffuse large B-cell lymphoma, unspecified site (principal)
CPT/HCPCS: 36415; 85007; 85025; 85027

== ENCOUNTER 2025-04-24 08:21 | Outpatient (CLI) | payer MEDICARE, SELFPAY ==
[2025-04-24 08:45] LABS: Hematocrit 29.4 % (42.0-52.0); Hemoglobin 9.5 g/dL (14.1-18.0); Immature Granulocytes % 6.8 %; Mean Corpuscular HGB Conc 32.3 g/dL (31.8-35.4); Mean Corpuscular Hemoglobin 34.2 pg (27.0-31.2); Mean Corpuscular Volume 105.8 fl (80-94); Nucleated Red Blood Cells % 0 %; Platelet Count 107 K/mm3 (142-424); Red Blood Count 2.78 M/mm3 (4.60-6.20); Red Cell Distribution Width-SD 68.7 fL
[2025-04-24 08:46] LABS: White Blood Count 1.5 K/mm3 (4.8-10.8)
[2025-04-24 09:39] LABS: Macrocytosis 2+; Total Cells Counted 50
== END 2025-04-24 23:59 | disposition home or self-care (01) ==
LOC: INF 08:22
PROVIDERS: PCP Nurse Practitioner Family; Visit Provider Internal Medicine Medical Oncology
DX: C83.30 Diffuse large B-cell lymphoma, unspecified site (principal)
CPT/HCPCS: 36415; 85007; 85025; 85027

== ENCOUNTER 2025-05-01 10:39 | Outpatient (CLI) | payer MEDICARE, SELFPAY ==
[2025-05-01 11:14] LABS: Hematocrit 30.2 % (42.0-52.0); Hemoglobin 10.6 g/dL (14.1-18.0); Immature Granulocytes % 23.0 %; Mean Corpuscular HGB Conc 35.1 g/dL (31.8-35.4); Mean Corpuscular Hemoglobin 35.7 pg (27.0-31.2); Mean Corpuscular Volume 101.7 fl (80-94); Nucleated Red Blood Cells % 0 %; Platelet Count 128 K/mm3 (142-424); Red Blood Count 2.97 M/mm3 (4.60-6.20); Red Cell Distribution Width-SD 64.3 fL; Reticulocyte % (Auto) 3.1 % (0.9-3.2)
[2025-05-01 11:15] LABS: Iron 114 ug/dL (49-181)
[2025-05-01 11:24] LABS: White Blood Count 1.8 K/mm3 (4.8-10.8)
[2025-05-01 11:25] LABS: Total Iron Binding Capacity 222 ug/dL (261-462)
[2025-05-01 11:51] LABS: Ferritin 630 ng/ml (17.9-464)
[2025-05-01 12:20] LABS: Vitamin B12 921 pg/mL (239-931)
[2025-05-01 12:36] LABS: Total Cells Counted 25
[2025-05-01 12:37] LABS: Macrocytosis 1+
[2025-05-01 12:39] LABS: Folate > 20.00 ng/mL
== END 2025-05-01 23:59 | disposition home or self-care (01) ==
PROVIDERS: PCP Nurse Practitioner Family; Visit Provider Internal Medicine Medical Oncology
DX: D64.9 Anemia, unspecified (principal); C82.90 Follicular lymphoma, unspecified, unspecified site; C83.30 Diffuse large B-cell lymphoma, unspecified site
CPT/HCPCS: 36415; 82607; 82728; 82746; 83010; 83540; 83550; 83615; 85007; 85025; 85027; 85044

== ENCOUNTER 2025-05-08 10:35 | Outpatient (CLI) | payer MEDICARE, SELFPAY ==
--- OUTSIDE RECORDS SUMMARY | 2025-05-08 10:41 | XMS_ITS | Encounter Summary ---
Author Organization [employer] ([place], [place], [place], [place]) Address [address] [place] [address] Care Team Providers Care Auto Mechanic Supervisor Name Role Phone Unavailable Primary Care Provider Unavailabl e Encounter Details Date Type Department Care Team (Late st Contact Info) Description 05/16/2021 Transcribed Document [facility] [facility] [address] ProviderAiden MD [address] [place] [address] Social History Tobacco Use Types [...] Source : Stated Height Entry Format : [place] Height, Feet : 5 ft(Converted to: 152 cm, 60 Inch) Height, Inches : 11 Inch(Converted to: 0 ft 11 Inch, 27.94 cm) Clinical Height : 180.34 cm Weight Source : Standing scale Weight Entry Format : [place] Clinical Dosing Weight : 88.64 kg Weight, Pounds : 195 lb Body Surface Area (BSA) : 2.09 m2 Body Mass Index : 27.3 kg/m2 (HI) [place] Body Weight : 74 kg REMY BOSS [...] REMY BOSS RN - 05/16/2021 9:03 EDT [place] Suicide Severity Rating Scale (C-SSRS) CSSRS Past [...] Obtained From : Patient Primary Language : Taiwanese Preferred Communication Mode : Verbal Communication Barrier : None Maintenance Parts Technician Needed : No Objects to Sharing Info [...] Scale Risk Level : 0-24 Low Risk [place] Fall Interventions : Adequate lighting, Hourly comfort/safety [...] form. Electronically signed by Laurita Golden Conversion Worker'S Compensation Claims Examiner Cerner at 10/27/2022 10:42 PM CDT documented in this encounter Plan of Treatment Not on file documented as of this encounter Visit Diagnoses Not on filedocumented in this encounter
--- OUTSIDE RECORDS SUMMARY | 2025-05-08 10:41 | XMS_ITS | Clinical Summary ---
Author Organization [employer] ([place], [place], [place], [place]) Address [address] [place] [address] Care Team Providers Care Salesperson Women'S Dresses Name Role Phone Unavailable Primary Care Provider [...]
--- OUTSIDE RECORDS SUMMARY | 2025-05-08 10:41 | XMS_ITS | Encounter Summary ---
Author Organization [employer] ([place], [place], [place], [place]) Address [address] [place] [address] Care Team Providers Care Research Software Engineer Name Role Phone Unavailable Primary Care Provider Unavailabl e Encounter Details Date Type Department Care Team (Late st Contact Info) Description 05/16/2021 Transcribed Document [facility] [place] [address] [place] [address] ProviderAiden MD [address] [place] [address] Social History Tobacco Use Types [...] Aiden ProviderMD - 05/16/2021 4:04 PM CDT [facility] [place] [address] JOSE EUCEDA :1955 Visit Time:05/16/2021 Your [...] appointment with Dr. Madera as scheduled. Where: [address] [place] [phone] Business (1) Medications What How Much When [...] you are awake and alert. ??? Take modo-kgj-ydxuxul and prescription medicines only as told by [...] provider. Document Revised: 05/23/2020 Document Reviewed: 05/23/2020 [employer]US Patient Education ?? 2020 [employer]. Radial Site Care This sheet gives you [...] these instructions at home: Medicines ??? Take tuxz-gfw-bewgvfc and prescription medicines only as told by your health care provider. Insertion site care ??? Follow instructions from your health care provider about how to take care of your insertion site. Make sure you: ? Wash your hands with soap and water before you change your bandage (dressing). If soap and water are not available, use hand risk adjustment specialist. ? Change your dressing as told [...] provider. Document Revised: 08/03/2018 Document Reviewed: 08/03/2018 EDUS Patient Education ?? 2020 [employer]US Inc. Angiogram, Care After This sheet gives [...] and water are not available, use hand risk adjustment specialist. ? Change your dressing as told [...] This is a medical emergency. ??? Take wegi-cfs-xnqpyff and prescription medicines only as told by [...] Assistance with quitting is available by contacting 8-571-XXUVNOW. This is a free resource providing counseling, support, and referral. Or you may contact your personal physician. [place] Suicide Prevention Lifeline: The National Suicide Prevention [...] was given the opportunity to ask questions. Patient/Electric Shovel Operator Name: Patient/Electric Shovel Operator Signature: Relationship to Patient: Clinician/Hospital Electric Shovel Operator Signature: Date: documented in this encounter Plan of Treatment Not on file documented as of this encounter Visit Diagnoses Not on filedocumented in this encounter
--- OUTSIDE RECORDS SUMMARY | 2025-05-08 10:41 | XMS_ITS | Encounter Summary ---
Author Organization [employer] ([place], [place], [place], [place]) Address [address] [place] [address] Care Team Providers Care Risk Control Analyst Name Role Phone Unavailable Primary Care Provider Unavailabl e Encounter Details Date Type Department Care Team (Late st Contact Info) Description 05/16/2021 Transcribed Document [facility] [facility] [place] [address] ProviderAiden MD [address] [place] [address] Social History Tobacco Use Types [...] 05/16/2021 16:40 EDT Electronically signed by [facility] Conversion Home Health Caregiver Cerner at 10/27/2022 10:30 PM CDT documented in this encounter Plan of Treatment Not on file documented as of this encounter Visit Diagnoses Not on filedocumented in this encounter
--- OUTSIDE RECORDS SUMMARY | 2025-05-08 10:41 | XMS_ITS | Encounter Summary ---
Author Organization [facility] Address [address] [place] [address] Care Team Providers Care Guide Tour Name Role Phone Magui Benjamin APRN Primary Care Provider [phone] Encounter Details Date Type Department Care Team (Late st Contact Info) Description 06/01/2024 Orders Only External Location [address] [place] [address] Provider, External Social History Tobacco Use Types [...] on filedocumented in this encounter Care Teams Guide Tour Relationship Specialty Start Date End Date Magui Benjamin APRN [address] [id number] PCP - General 06/23/24 documented as of this encounter
--- OUTSIDE RECORDS SUMMARY | 2025-05-08 10:41 | XMS_ITS | Encounter Summary ---
Author Organization [facility] Address [address] [place] [address] Care Team Providers Care Data Security Consultant Name Role Phone Magui Benjamin APRN Primary Care Provider [phone] Reason for Visit * Reason Comments Med Refill Encounter Details Date Type Department Care Team (Late st Contact Info) Description 11/23/2023 Refill [facility] [address] [facility] [address] [place] [address] Marcy Agrawal APRN [address] [place], [place] [address] Med Refill Social History Tobacco Use Types [...] on filedocumented in this encounter Care Teams Data Security Consultant Relationship Specialty Start Date End Date Magui Benjamin APRN [address] [place] [address] PCP - General Nurse Practitioner 12/24/22 documented as of this encounter
--- OUTSIDE RECORDS SUMMARY | 2025-05-08 10:41 | XMS_ITS | Clinical Summary ---
Author Organization [facility] Address [address] [place] [address] Care Team Providers Care Roof Mechanic Name Role Phone Sourav Magui Davalos APRN Primary Care Provider [phone] Allergies No known active allergies Medications atorvastatin [...] Due Date Last Done Comments [facility]-Medicare Annual Wellness (AWV) 1955 [facility]-/Child/Adol SDOH Screenings 1955 [facility]- SDOH Screenings [...] 60-74 years 1-dose series) 2016 [facility]-Abdominal Aortic Aneurys m (AAA) Screening 2021 [id number] Vaccine ( season) 2025 05/24/2021, 11/30/2020 [facility]-Influenza [...] Antibody Negative Negative 06/23/2024 1:[address] [facility] Blood Venous blood specimen / Unknown Venipuncture / Unknown 06/23/2024 11:48 AM EST 06/23/2024 12:26 PM EST us Mayela Moore MD LAB BLOOD ORDERABLES Final Resul t [facility] [address] [place] [address] from Last 3 Months or Most Recently Relevant to Health Maintenance Insurance MEDICARE Care Teams Roof Mechanic Relationship Specialty Start Date End Date Magui Benjamin, MANAGER ADMINISTRATIVE SERVICES [address] [place] [address] PCP - General 06/23/24
--- OUTSIDE RECORDS SUMMARY | 2025-05-08 10:41 | XMS_ITS | Encounter Summary ---
Author Organization [employer] ([place], [place], [place], [place]) Address [address] [place] [address] Care Team Providers Care Pattern Vault Clerk Name Role Phone Unavailable Primary Care Provider Unavailabl e Encounter Details Date Type Department Care Team (Late st Contact Info) Description 05/16/2021 Transcribed Document [facility] [place] [facility] [place] [address] ProviderAiden MD [address] [place] [address] Social History Tobacco Use Types [...]
--- OUTSIDE RECORDS SUMMARY | 2025-05-08 10:41 | XMS_ITS | Encounter Summary ---
Author Organization [employer] ([place], [place], [place], [place]) Address [address] [place] [address] Care Team Providers Care Steam Station Supervisor Name Role Phone Unavailable Primary Care Provider Unavailabl e Encounter Details Date Type Department Care Team (Late st Contact Info) Description 05/16/2021 Transcribed Document [facility] [place] [facility] [place] [address] ProviderAiden MD [address] [place] [address] Social History Tobacco Use Types Packs/Day [...] Basic Information PCP: Kenroy Chavez MD Primary Tongue Binder: Edyta Guerra MD Chief Complaint Newly decreased [...] Available Past Medical History: Active Atrial fibrillation (56875535) Cardiomyopathy (691230955) Family History: Brain tumor Sister () Procedure [...] of motion, Normal strength. Integumentary: Warm, Dry, Cylinder. Neurologic: Alert, Oriented. Psychiatric: Cooperative, Appropriate mood [...]
--- OUTSIDE RECORDS SUMMARY | 2025-05-08 10:41 | XMS_ITS | Clinical Summary ---
Author Organization [facility] Address [address] [place] [address] Phone Care Team Providers Care Bench Mover Name Role Phone Gricelda Cox MD Unavailable [phone] Allergies No known active allergies Medications [...] Active fluticasone propionate (FLONASE) 50 mcg/actuation Nasl [place], Suspension 2 Sprays by Nasal route daily. [...] RSV or 60+ (1 - Ris k 50-74 years 1-dose series) 2006 COVID-19 Vaccine (2024-2 6 season) 2025 Influenza Vaccine (#1) 2025 Hepatitis B Vaccine Aged Out No longe r eligible based on patient's age to complete this topic Meningococcal B Vaccine Aged Out No l onger eligible based on patient's age to complete this topic [facility] [place] [employer] MEDICARE PPO [place] [employer] MEDICARE PPO [address] [place] [id number] AETNA [facility] [place] [address] MEDICARE PPO MR [facility] [address] Advance Directives For more information, please contact: [phone] * Full Code (Latest Code Status on File) Date Activated Date Inactivated Comments 12/02/2022 11:11 AM 12/04/2022 7:53 PM * Full Code Date Activated Date Inactivated Comments 11/24/2022 11:52 PM 12/01/2022 2:40 AM Care Teams Bench Mover Relationship Specialty Start Date End Date Gricelda Cox MD [address] [facility] [place] [address] Medical Oncologist Internal Medicine-Medical Oncology 11/26/22
--- OUTSIDE RECORDS SUMMARY | 2025-05-08 10:41 | XMS_ITS | Encounter Summary ---
Author Organization [employer] ([place], [place], [place], [place]) Address [address] [place] [address] Care Team Providers Care Contact Printer Dry Film Name Role Phone Unavailable Primary Care Provider Unavailabl e Encounter Details Date Type Department Care Team (Late st Contact Info) Description 05/16/2021 Transcribed Document [facility] [place] Medicine [facility] [place] [address] ProviderAiden MD [address] [place] [address] Social History Tobacco Use Types [...] these instructions at home: Medicines ??? Take gehx-wth-wskympy and prescription medicines only as told by your health care provider. Insertion site care ??? Follow instructions from your health care provider about how to take care of your insertion site. Make sure you: ? Wash your hands with soap and water before you change your bandage (dressing). If soap and water are not available, use hand oxyacetylene welder. ? Change your dressing as told [...] provider. Document Revised: 08/03/2018 Document Reviewed: 08/03/2018 [employer] Patient Education ? 2020 [employer] Pharmacology Moderate Conscious Sedation, Adult, Care [...] you are awake and alert. ??? Take jzru-upf-srnpaqo and prescription medicines only as told by [...] provider. Document Revised: 05/23/2020 Document Reviewed: 05/23/2020 ElseNear Page Patient Education ? 2020 Elsevier Inc. Radiology [...] and water are not available, use hand oxyacetylene welder. ? Change your dressing as told [...] This is a medical emergency. ??? Take evhc-nou-booemni and prescription medicines only as told by [...] provider. Document Revised: 05/01/2020 Document Reviewed: 05/01/2020 ElseNear Page Patient Education ? 2020 [employer]. documented in this encounter Plan of Treatment Not on file documented as of this encounter Visit Diagnoses Not on filedocumented in this encounter
--- OUTSIDE RECORDS SUMMARY | 2025-05-08 10:42 | XMS_ITS | Clinical Summary ---
Author Organization [facility] Address [address] [place] [address] Care Team Providers Care Mud Jack Operator Name Role Phone Magui Benjamin APRN Primary Care Provider [phone] Allergies No known active allergies Medications allopurinol [...] C SCREENING Completed 06/23/2024 Insurance [facility] MED[facility] Care Teams Mud Jack Operator Relationship Specialty Start Date End Date Magui Benjamin APRN [address] [place] [address] [place] [address] PCP - General Nurse Practitioner 12/24/22
--- OUTSIDE RECORDS SUMMARY | 2025-05-08 10:42 | XMS_ITS | Referral Summary ---
Author Organization [employer] ([place], [place], [place], [place]) Address [address] [place] [address] Care Team Providers Care Marble Worker Name Role Phone Unavailable Primary Care [...] Date Carrillo rded Speak language other than Hungarian at home Not on file 07/30/2023 Want [...]
--- OUTSIDE RECORDS SUMMARY | 2025-05-08 10:42 | XMS_ITS | Encounter Summary ---
Author Organization Healthcare Address [address] [id number] Care Team Providers Care Irrigation Service Technician Name Role Phone Magui Benjamin APRN Primary Care Provider [phone] Encounter Details Date Type Department Care Team (Late st Contact Info) Description 07/03/2024 Lab Requisition [facility] [address] [place] [address] Mayela Moore MD 800 [facility] [address] [place] [phone] Malignant neoplasm of head, face and neck [...] EST) Case Report Sugical Pathology Consult Case: [id number] Authorizing Provider: Mayela Moore MD Collected: 07/03/2024 1419 Ordering Location: [facility] Lab Received: 07/03/2024 1420 Pathologist: Isra Aviles MD Specimens: A) - Neck, [id number] B) - Lymph Node, [id number] 07/05/2024 6:14 PM EST [facility] Final Diagnosis OUTSIDE ; COLLECTED 12/22/2018 A. LYMPH NODE, LEFT NECK, DEEP JUGULAR, BIOPSY: - CLASSIC FOLLICULAR LYMPHOMA, SEE COMMENT. OUTSIDE ; COLLECTED 08/05/2022 A. 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 07/05/2024 6:14 PM EST [facility] at 1813 EST Comment OUTSIDE ; [...] and neck [ICD-10-CM] 07/05/2024 6:14 PM [facility] Gross Description A. [id number] Received along with a corresponding pathology report from [facility] are 24 slides labeled outside case: [id number] collected on 12/22/2018. B. [id number] Received along with a corresponding pathology report from [facility] are 19 slides labeled outside case: [id number] collected on 08/05/2022. 07/05/2024 6:14 PM [facility] Note: A resident was involved in the service. I attest I examined the relevant preparations for the specimens and confirmed the diagnosis or interpretation. 07/05/2024 6:14 PM [facility] Tissue Lymph node specimen / Unknown 07/03/2024 2:19 PM EST 07/03/2024 2:20 PM EST Tissue specimen (specimen) Lymph node specimen / Unknown 07/03/2024 2:19 PM EST 07/03/2024 2:20 PM EST us Mayela Moore MD LAB PATHOLOGY ORDERABLES Final R esult [facility] [address] [place] [address] documented in this encounter Visit Diagnoses Diagnosis Malignant neoplasm of head, face and neck (CMS/HCC) Malignant neoplasm of head, face, and neck documented in this encounter Additional Health Concerns Assessment Noted Time A fall risk assessment has been complete d for the patient 06/23/2024 12:28 PM EST documented as of this encounter Care Teams Irrigation Service Technician Relationship Specialty Start Date End Date Magui Benjamin, ULISES [address] [place] [address] PCP - General 06/23/24 documented as of this encounter
--- OUTSIDE RECORDS SUMMARY | 2025-05-08 10:42 | XMS_ITS | Encounter Summary ---
Author Organization [facility] Address [address] [id number] Care Team Providers Care Tunnel Form Placing Supervisor Name Role Phone Magui Benjamin APRN Primary Care Provider [phone] Encounter Details Date Type Department Care Team (Late st Contact Info) Description 07/03/2024 Lab Requisition [facility] Lab [address] [place] [address] Mayela Moore MD 800 [facility] [address] [place] [phone] Enlarged lymph nodes, unspecified Social History Tobacco [...] 2:04 PM EST) Case Report Cytology Case: [id number] Authorizing Provider: Mayela Moore MD Collected: 07/03/20241403 Ordering Location: [facility] Lab Received: 07/03/2024 1404 Pathologist: Isra Aviles MD Specimen: Lymph Node, [id number] 07/05/2024 6:55 PM EST [facility] Final Diagnosis A. LYMPH NODE, LEFT, FINE NEEDLE ASPIRATION (OUTSIDE ; COLLECTED ON 05/24/2024): - ATYPICAL LYMPHOID STROMA, SEE COMMENT. 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 The cell block and smears show population [...] would be recommended. 07/05/2024 6:55 PM EST [facility] Clinical Information History of follicular lymphoma and diffuse large B-cell lymphoma 07/05/2024 6:55 PM EST [facility] Gross Description A. [id number] Received along with a corresponding pathology report from [facility] are 2 slides labeled outside case: [id number] collected on 05/24/2024. 07/05/2024 6:55 PM EST [facility] Fine Needle Aspirate Lymph node specimen / Unknown 07/03/2024 2:04 PM EST 07/03/2024 2:04 PM EST us Mayela Moore MD LAB PATHOLOGY ORDERABLES Final R esult [facility] [address] [place] [address] documented in this encounter Visit Diagnoses Diagnosis Enlarged lymph nodes, unspecified documented in this encounter Additional Health Concerns Assessment Noted Time A fall risk assessment has been complete d for the patient 06/23/2024 12:28 PM EST documented as of this encounter Care Teams Tunnel Form Placing Supervisor Relationship Specialty Start Date End Date Magui Benjamin, ASPHALT PATCHER [address] [place] [address] PCP - General 06/23/24 documented as of this encounter
--- OUTSIDE RECORDS SUMMARY | 2025-05-08 10:42 | XMS_ITS | Encounter Summary ---
Author Organization [facility] Address [address] [id number] Care Team Providers Care Film Reader Name Role Phone Magui Benjamin APRN Primary Care Provider [phone] Encounter Details Date Type Department Care Team (Late st Contact Info) Description 07/03/2024 Lab Requisition [facility] Lab [address] [place] [address] Mayela Moore MD 800 [facility] [address] [place] [phone] Hodgkin lymphoma, unspecified, unspecified site (CMS/HCC) Social [...] PM EST) Case Report Bone Marrow Case: [id number] Authorizing Provider: Mayela Moore MD Collected: 07/03/2024 1411 Ordering Location: [facility] Lab Received: 07/03/2024 1411 Pathologist: Isra Aviles MD Specimen: Bone Marrow Aspirate, [id number] 07/10/2024 2:24 PM EST [facility] Final Diagnosis PERIPHERAL BLOOD AND BONE MARROW, PERIPHERAL SMEAR, ASPIRATE SMEAR, CLOT SECTION AND CORE BIOPSY (OUTSIDE ; COLLECTED ON 06/05/2024): - NORMOCELLULAR BONE MARROW WITH MATURING TRILINEAGE HEMATOPOIESIS, SEE COMMENT. - FLOW CYTOMETRY DETECTED 1% B-CELL POPULATION WITH ELEVATED KAPPA TO LAMBDA RATIO OF 8.2 REPORTEDLY. 07/10/2024 2:24 PM [facility] at 1424 EST Comment Patient's history of follicular lymphoma (2018) and subsequent diffuse large B-cell lymphoma (2022) is noted ([id number]). According to the report, the concurrent flow [...] History of B-cell lymphoma 07/10/2024 2:24 PM [facility] CBC and Differential Review of the peripheral smear shows mild macrocytic anemia. White blood cells and platelets appear adequate and show normal morphology. 07/10/2024 2:24 PM [facility] Bone Marrow Differential BONE MARROW DIFFERENTIAL: 200 cells Normal Patient Neutrophils 15-50 33 Metamyelocytes 4-19 7 Myelocytes 1-18 12 Promyelocytes 1-8 0 Blasts 0-2 0 Monocytes 0-5 2 Erythroid 16-38 31 Lymphocytes 3-24 6 Eosinophils 0-6 7 Basophils 0-2 0 Plasma cells 0-4 2 Other 07/10/2024 2:24 PM [facility] Aspirate Smear Staining quality of the bone marrow aspirate smears is suboptimal for morphologic assessment. There is maturing trilineage hematopoiesis. Erythroid and myeloid precursors show full spectrum of maturation. Blasts are not increased. Overt dysplastic features are not identified. The myeloid to erythroid ratio is 1.9 (Normal:1.5-4). Megakaryocytes are present and demonstrate normal morphology. 07/10/2024 2:24 PM [facility] Core Biopsy CELLULARITY: Slightly hypocellular [...] Keyla trabeculae are normal. 07/10/2024 2:24 PM [facility] Clot Section Clot sections show predominantly blood with small fragments of a normocellular bone marrow with maturing trilineage hematopoiesis. The provided immunostains for CD20 and CD3 show no atypical lymphoid aggregates. 07/10/2024 2:24 PM [facility] Flow Cytometry Interpretation According to the report, the concurrent flow cytometry performed at the outside institution revealed a 1% B-cell population with an increased kappa:lambda ratio of 8.2 and granulocytes with partial, non-specific CD56 expression. 07/10/2024 2:24 PM [facility] CYTOGENETICS/MOLE CULAR INTERPRETATION Per accompanying pathology report, cytogenetics showed a normal male karyotype. 07/10/2024 2:24 PM EST [facility] Gross Description A. [id number] Received along with a corresponding pathology report from [facility] are 19 slides labeled outside case: [id number] collected on 06/05/2024. 07/10/2024 2:24 PM EST [...] R esult [facility] [address] [place] [address] documented in this encounter Visit Diagnoses Diagnosis Hodgkin lymphoma, unspecified, unspecified site (CMS/HCC) documented in this encounter Additional Health Concerns Assessment Noted Time A fall risk assessment has been complete d for the patient 06/23/2024 12:28 PM EST documented as of this encounter Care Teams Film Reader Relationship Specialty Start Date End Date Magui Benjamin, ULISES [address] [place] [address] PCP - General 06/23/24 documented as of this encounter
--- OUTSIDE RECORDS SUMMARY | 2025-05-08 10:42 | XMS_ITS ---
Author Organization [facility] Address [address] [place] [address] Care Team Providers Care Photographer Still Name Role Phone Magui Benjamin APRN Primary Care Provider Active Problems Problem Noted Date Diagnosed Date [...]
[2025-05-08 10:54] LABS: Hematocrit 33.0 % (42.0-52.0); Hemoglobin 10.8 g/dL (14.1-18.0); Immature Granulocytes % 12.4 %; Mean Corpuscular HGB Conc 32.7 g/dL (31.8-35.4); Mean Corpuscular Hemoglobin 34.2 pg (27.0-31.2); Mean Corpuscular Volume 104.4 fl (80-94); Nucleated Red Blood Cells % 0 %; Platelet Count 112 K/mm3 (142-424); Red Blood Count 3.16 M/mm3 (4.60-6.20); Red Cell Distribution Width-SD 66.4 fL; White Blood Count 3.0 K/mm3 (4.8-10.8)
[2025-05-08 12:22] LABS: Total Cells Counted 100
[2025-05-08 12:23] LABS: RBC Morphology Normal
== END 2025-05-08 23:59 | disposition home or self-care (01) ==
LOC: INF 10:36
PROVIDERS: PCP Nurse Practitioner Family; Visit Provider Internal Medicine Medical Oncology
DX: C83.30 Diffuse large B-cell lymphoma, unspecified site (principal)
CPT/HCPCS: 36415; 85007; 85025

== ENCOUNTER 2025-05-15 11:02 | Outpatient (CLI) | payer MEDICARE, SELFPAY ==
--- OUTSIDE RECORDS SUMMARY | 2025-05-15 11:09 | XMS_ITS | Clinical Summary ---
Author Organization [facility] Address [address] [place] [address] Care Team Providers Care Sfdc Consultant Name Role Phone Magui Benjamin APRN Primary Care Provider [phone] Allergies No known active allergies Medications allopurinol [...] 11/26/2022 HEPATITIS C SCREENING Completed 06/23/2024 Insurance [facility] MEDICARE ADVANTAGE Care Teams Sfdc Consultant Relationship Specialty Start Date End Date Magui Benjamin APRN [address] [place] [address] PCP - General Nurse Practitioner 12/24/22
--- OUTSIDE RECORDS SUMMARY | 2025-05-15 11:09 | XMS_ITS | Encounter Summary ---
Author Organization [facility] Address [address] [id number] Care Team Providers Care Ice Cream Machine Operator Name Role Phone Magui Benjamin APRN Primary Care Provider [phone] Encounter Details Date Type Department Care Team (Late st Contact Info) Description 07/03/2024 Lab Requisition [facility] Lab [address] [place] [address] Mayela Moore MD 800 [facility] [address] [place] [phone] Hodgkin lymphoma, unspecified, unspecified site (CMS/HCC) Social [...] PM EST) Case Report Bone Marrow Case: [id number] Authorizing Provider: Mayela Moore MD Collected: 07/03/2024 1411 Ordering Location: [facility] Lab Received: 07/03/2024 1411 Pathologist: Isra Aviles MD Specimen: Bone Marrow Aspirate, [id number] 07/10/2024 2:24 PM EST [facility] Final Diagnosis PERIPHERAL BLOOD AND BONE MARROW, PERIPHERAL SMEAR, ASPIRATE SMEAR, CLOT SECTION AND CORE BIOPSY (OUTSIDE ; COLLECTED ON 06/05/2024): - NORMOCELLULAR BONE MARROW WITH MATURING TRILINEAGE HEMATOPOIESIS, SEE COMMENT. - FLOW CYTOMETRY DETECTED 1% B-CELL POPULATION WITH ELEVATED KAPPA TO LAMBDA RATIO OF 8.2 REPORTEDLY. 07/10/2024 2:24 PM [facility] at 1424 EST Comment Patient's history of follicular lymphoma (2018) and subsequent diffuse large B-cell lymphoma (2022) is noted ([id number]). According to the report, the concurrent flow [...] History of B-cell lymphoma 07/10/2024 2:24 PM [facility] CBC and Differential Review of the peripheral smear shows mild macrocytic anemia. White blood cells and platelets appear adequate and show normal morphology. 07/10/2024 2:24 PM [facility] Bone Marrow Differential BONE MARROW DIFFERENTIAL: 200 cells Normal Patient Neutrophils 15-50 33 Metamyelocytes 4-19 7 Myelocytes 1-18 12 Promyelocytes 1-8 0 Blasts 0-2 0 Monocytes 0-5 2 Erythroid 16-38 31 Lymphocytes 3-24 6 Eosinophils 0-6 7 Basophils 0-2 0 Plasma cells 0-4 2 Other 07/10/2024 2:24 PM [facility] Aspirate Smear Staining quality of the bone marrow aspirate smears is suboptimal for morphologic assessment. There is maturing trilineage hematopoiesis. Erythroid and myeloid precursors show full spectrum of maturation. Blasts are not increased. Overt dysplastic features are not identified. The myeloid to erythroid ratio is 1.9 (Normal:1.5-4). Megakaryocytes are present and demonstrate normal morphology. 07/10/2024 2:24 PM [facility] Core Biopsy CELLULARITY: Slightly hypocellular bone [...] Keyla trabeculae are normal. 07/10/2024 2:24 PM [facility] Clot Section Clot sections show predominantly blood with small fragments of a normocellular bone marrow with maturing trilineage hematopoiesis. The provided immunostains for CD20 and CD3 show no atypical lymphoid aggregates. 07/10/2024 2:24 PM [facility] Flow Cytometry Interpretation According to the report, the concurrent flow cytometry performed at the outside institution revealed a 1% B-cell population with an increased kappa:lambda ratio of 8.2 and granulocytes with partial, non-specific CD56 expression. 07/10/2024 2:24 PM [facility] CYTOGENETICS/MOLE CULAR INTERPRETATION Per accompanying pathology report, cytogenetics showed a normal male karyotype. 07/10/2024 2:24 PM EST [facility] Gross Description A. [id number] Received along with a corresponding pathology report from [facility] Laboratory are 19 slides labeled outside case: [id number] collected on 06/05/2024. 07/10/2024 2:24 PM EST [...] R esult [facility] [address] [place] [address] documented in this encounter Visit Diagnoses Diagnosis Hodgkin lymphoma, unspecified, unspecified site (CMS/HCC) documented in this encounter Additional Health Concerns Assessment Noted Time A fall risk assessment has been complete d for the patient 06/23/2024 12:28 PM EST documented as of this encounter Care Teams Ice Cream Machine Operator Relationship Specialty Start Date End Date Magui Benjamin, ULISES [address] [place] [address] PCP - General 06/23/24 documented as of this encounter
--- OUTSIDE RECORDS SUMMARY | 2025-05-15 11:09 | XMS_ITS | Clinical Summary ---
Author Organization [facility] Address [address] [place] [address] Care Team Providers Care Regional Maintenance Manager Name Role Phone Magui Benjamin APRN Primary Care Provider [phone] Allergies No known active allergies Medications atorvastatin [...] Health Maintenance Due Date Last Done Comments [facility]-Medicare Annual Wellness (AWV) 1955 [facility]-/Child/Adol SDOH Screenings 1955 [facility]- [...] - Risk 60-74 years 1-dose series) 2016 [facility]-Abdominal Aortic Aneurys m (AAA) Screening 2021 [id number] Vaccine ( season) 2025 05/24/2021, 11/30/2020 [facility]-Influenza [...] Antibody Negative Negative 06/23/2024 1:15 PM EST [facility] Blood Venous blood specimen / Unknown Venipuncture / Unknown 06/23/2024 11:48 AM EST 06/23/2024 12:26 PM EST us Mayela Moore MD LAB BLOOD ORDERABLES Final Resul t [facility] [address] [place] [address] from Last 3 Months or Most Recently Relevant to Health Maintenance Insurance MEDICARE Care Teams Regional Maintenance Manager Relationship Specialty Start Date End Date Magui Benjamin, LOCKSTITCH HEMMER [address] [place] [address] PCP - General 06/23/24
--- OUTSIDE RECORDS SUMMARY | 2025-05-15 11:09 | XMS_ITS | Encounter Summary ---
Author Organization Healthcare Address [address] [place] [address] Care Team Providers Care Supervisor Metal Placing Name Role Phone Magui Benjamin APRN Primary Care Provider [phone] Encounter Details Date Type Department Care Team (Late st Contact Info) Description 06/01/2024 Orders Only External Location [address] [place] [address] Provider, External Social History Tobacco Use Types [...] on filedocumented in this encounter Care Teams Supervisor Metal Placing Relationship Specialty Start Date End Date Magui Benjamin APRN [address] [id number] PCP - General 06/23/24 documented as of this encounter
--- OUTSIDE RECORDS SUMMARY | 2025-05-15 11:09 | XMS_ITS | Encounter Summary ---
Author Organization [facility] Address [address] [id number] Care Team Providers Care Television Station Manager Name Role Phone Magui Benjamin APRN Primary Care Provider [phone] Encounter Details Date Type Department Care Team (Late st Contact Info) Description 07/03/2024 Lab Requisition [facility] Lab [address] [place] [address] Mayela Moore MD 800 [facility] [address] [place] [phone] Enlarged lymph nodes, unspecified Social History Tobacco [...] 2:04 PM EST) Case Report Cytology Case: [id number] Authorizing Provider: Mayela Moore MD Collected: 07/03/20241403 Ordering Location: [facility] Lab Received: 07/03/2024 1404 Pathologist: Isra Aviles MD Specimen: Lymph Node, [id number] 07/05/2024 6:[address] [facility] Final Diagnosis A. LYMPH NODE, LEFT, FINE NEEDLE ASPIRATION (OUTSIDE ; COLLECTED ON 05/24/2024): - ATYPICAL LYMPHOID STROMA, SEE COMMENT. 07/05/2024 6:[address] 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 The cell block and smears show population [...] would be recommended. 07/05/2024 6:55 PM EST [facility] Clinical Information History of follicular lymphoma and diffuse large B-cell lymphoma 07/05/2024 6:55 PM EST [facility] Gross Description A. [id number] Received along with a corresponding pathology report from [facility] are 2 slides labeled outside case: [id number] collected on 05/24/2024. 07/05/2024 6:55 PM EST [facility] Fine Needle Aspirate Lymph node specimen / Unknown 07/03/2024 2:04 PM EST 07/03/2024 2:04 PM EST us Mayela Moore MD LAB PATHOLOGY ORDERABLES Final R esult [facility] [address] [place] [address] documented in this encounter Visit Diagnoses Diagnosis Enlarged lymph nodes, unspecified documented in this encounter Additional Health Concerns Assessment Noted Time A fall risk assessment has been complete d for the patient 06/23/2024 12:28 PM EST documented as of this encounter Care Teams Television Station Manager Relationship Specialty Start Date End Date Magui Benjamin, LABEL TACKER [address] [place] [address] PCP - General 06/23/24 documented as of this encounter
--- OUTSIDE RECORDS SUMMARY | 2025-05-15 11:09 | XMS_ITS | Encounter Summary ---
Author Organization [facility] Address [address] [place] [address] Care Team Providers Care Keycase Assembler Name Role Phone Magui Benjamin APRN Primary Care Provider [phone] Reason for Visit * Reason Comments Med Refill Encounter Details Date Type Department Care Team (Late st Contact Info) Description 11/23/2023 Refill [facility] [address] [facility] [address] [place] [address] Marcy Agrawal APRN [address] [place], [place] [id number] Med Refill Social History Tobacco Use Types [...] on filedocumented in this encounter Care Teams Keycase Assembler Relationship Specialty Start Date End Date Magui Benjamin APRN [address] [place] [address] PCP - General Nurse Practitioner 12/24/22 documented as of this encounter
--- OUTSIDE RECORDS SUMMARY | 2025-05-15 11:09 | XMS_ITS | Encounter Summary ---
Author Organization Healthcare Address [address] [id number] Care Team Providers Care Drying Tunnel Operator Name Role Phone Magui Benjamin APRN Primary Care Provider [phone] Encounter Details Date Type Department Care Team (Late st Contact Info) Description 07/03/2024 Lab Requisition [facility] [address] [place] [address] Mayela Moore MD 800 [facility] [address] [place] [phone] Malignant neoplasm of head, face and neck [...] EST) Case Report Sugical Pathology Consult Case: [id number] Authorizing Provider: Mayela Moore MD Collected: 07/03/2024 1419 Ordering Location: [facility] Lab Received: 07/03/2024 1420 Pathologist: Isra Aviles MD Specimens: A) - Neck, [id number] B) - Lymph Node, [id number] 07/05/2024 6:14 PM EST [facility] Final Diagnosis OUTSIDE ; COLLECTED 12/22/2018 A. LYMPH NODE, LEFT NECK, DEEP JUGULAR, BIOPSY: - CLASSIC FOLLICULAR LYMPHOMA, SEE COMMENT. OUTSIDE ; COLLECTED 08/05/2022 A. 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 07/05/2024 6:14 PM EST [facility] at 1813 EST Comment OUTSIDE ; [...] of previous follicular lymphoma. 07/05/2024 6:14 PM [facility] Clinical Information C76.0 - Malignant neoplasm of head, face and neck [ICD-10-CM] 07/05/2024 6:14 PM [facility] Gross Description A. [id number] Received along with a corresponding pathology report from [facility] Laboratory are 24 slides labeled outside case: [id number] collected on 12/22/2018. B. [id number] Received along with a corresponding pathology report from [facility] are 19 slides labeled outside case: [id number] collected on 08/05/2022. 07/05/2024 6:14 PM [facility] Note: A resident was involved in the service. I attest I examined the relevant preparations for the specimens and confirmed the diagnosis or interpretation. 07/05/2024 6:14 PM [facility] Tissue Lymph node specimen / Unknown 07/03/2024 2:19 PM EST 07/03/2024 2:20 PM EST Tissue specimen (specimen) Lymph node specimen / Unknown 07/03/2024 2:19 PM EST 07/03/2024 2:20 PM EST us Mayela Moore MD LAB PATHOLOGY ORDERABLES Final R esult [facility] [address] [place] [address] documented in this encounter Visit Diagnoses Diagnosis Malignant neoplasm of head, face and neck (CMS/HCC) Malignant neoplasm of head, face, and neck documented in this encounter Additional Health Concerns Assessment Noted Time A fall risk assessment has been complete d for the patient 06/23/2024 12:28 PM EST documented as of this encounter Care Teams Drying Tunnel Operator Relationship Specialty Start Date End Date Magui Benjamin, ULISES [address] [place] [address] PCP - General 06/23/24 documented as of this encounter
--- OUTSIDE RECORDS SUMMARY | 2025-05-15 11:09 | XMS_ITS ---
Author Organization [facility] Address [address] [place] [address] Care Team Providers Care Electric Razor Mechanic Name Role Phone Magui Benjamin APRN Primary Care Provider [phone] Active Problems Problem Noted Date Diagnosed Date [...]
--- NOTE | 2025-05-15 11:11 | PC.NURSE ---
1100 Venipuncture performed to pt's lt ac x 1 stick using a butterfly access needle. Blood drawn and needle withdrawn-site secured with 2x2 gauze and coban.
[2025-05-15 11:12] LABS: Hematocrit 31.9 % (42.0-52.0); Hemoglobin 10.7 g/dL (14.1-18.0); Immature Granulocytes % 14.0 %; Mean Corpuscular HGB Conc 33.5 g/dL (31.8-35.4); Mean Corpuscular Hemoglobin 35.4 pg (27.0-31.2); Mean Corpuscular Volume 105.6 fl (80-94); Nucleated Red Blood Cells % 0 %; Platelet Count 117 K/mm3 (142-424); Red Blood Count 3.02 M/mm3 (4.60-6.20); Red Cell Distribution Width-SD 64.4 fL; White Blood Count 4.1 K/mm3 (4.8-10.8)
[2025-05-15 11:48] LABS: Macrocytosis 2+; Total Cells Counted 100
== END 2025-05-15 23:59 | disposition home or self-care (01) ==
LOC: INF 11:03
PROVIDERS: PCP Nurse Practitioner Family; Visit Provider Internal Medicine Medical Oncology
DX: E78.2 Mixed hyperlipidemia (principal)
CPT/HCPCS: 36415; 85007; 85025

== ENCOUNTER 2025-06-12 09:10 | Outpatient (CLI) | payer MEDICARE, SELFPAY ==
--- OUTSIDE RECORDS SUMMARY | 2025-06-12 09:13 | XMS_ITS ---
Author Organization [facility] Address [address] [place] [address] Care Team Providers Care Brand Ambassador Name Role Phone Magui Benjamin APRN Primary Care Provider [phone] Active Problems Problem Noted Date Diagnosed Date [...]
--- OUTSIDE RECORDS SUMMARY | 2025-06-12 09:13 | XMS_ITS | Clinical Summary ---
Author Organization [facility] Address [address] [place] [address] Care Team Providers Care Hospital Admissions Officer Name Role Phone Magui Benjamin APRN Primary Care Provider [phone] Allergies No known active allergies Medications atorvastatin [...] Health Maintenance Due Date Last Done Comments [facility]-Medicare Annual Wellness (AWV) 1955 [facility]-/Child/Adol SDOH Screenings 1955 [facility]- SDOH Screenings 1974 [...] - Risk 60-74 years 1-dose series) 2016 [facility]-Abdominal Aortic Aneurys m (AAA) Screening 2021 [facility]-IEAIG-10 Vaccine ( season) 2025 05/24/2021, 11/30/2020 [facility]-Influenza [...] MD LAB BLOOD ORDERABLES Final Resul t [facility] [address] [place] [address] from Last 3 Months or Most Recently Relevant to Health Maintenance Insurance MEDICARE Care Teams Hospital Admissions Officer Relationship Specialty Start Date End Date Magui Benjamin, ROOF SLATER [address] [place] [address] PCP - General 06/23/24
--- OUTSIDE RECORDS SUMMARY | 2025-06-12 09:13 | XMS_ITS | Encounter Summary ---
Author Organization [facility] Address [address] [id number] Care Team Providers Care Independent Distributor Name Role Phone Magui Benjamin APRN Primary Care Provider [phone] Encounter Details Date Type Department Care Team (Late st Contact Info) Description 07/03/2024 Lab Requisition [facility] [address] [place] [address] Mayela Moore MD 800 [facility] [address] [place] [phone] Hodgkin lymphoma, unspecified, unspecified site (CMS/HCC) Social [...] -2 Score 0 07/06/2024 9:42 AM EST Tyler, Myriam documented as of this encounter Plan of Treatment Not on file documented as of this encounter Procedures Procedure Name Priority Date/Time Associated Diagnosis Comments BONE MARROW EXAM CONSULT Routine 07/03/2024 2:11 PM EST Hodgkin lymphoma, unspecified, unspecified site (CMS/HCC) documented in this encounter Results * Bone marrow exam consult (07/03/2024 2:11 PM EST) Case Report Bone Marrow Case: [id number] Authorizing Provider: Mayela Moore MD Collected: 07/03/20241410 Ordering Location: [facility] Lab Received: 07/03/2024 1411 Pathologist: Isra Aviles MD Specimen: Bone Marrow Aspirate, [id number] 07/10/2024 2:24 PM [facility] Final Diagnosis PERIPHERAL BLOOD AND BONE MARROW, PERIPHERAL SMEAR, ASPIRATE SMEAR, CLOT SECTION AND CORE BIOPSY (OUTSIDE ; COLLECTED ON 06/05/2024): - NORMOCELLULAR BONE MARROW WITH MATURING TRILINEAGE HEMATOPOIESIS, SEE COMMENT. - FLOW CYTOMETRY DETECTED 1% B-CELL POPULATION WITH ELEVATED KAPPA TO LAMBDA RATIO OF 8.2 REPORTEDLY. 07/10/2024 2:24 PM [facility] at 1424 EST Comment Patient's history of follicular lymphoma (2018) and subsequent diffuse large B-cell lymphoma (2022) is noted ([id number]). According to the report, the concurrent flow [...] correlation is essential. 07/10/2024 2:24 PM EST [facility] Clinical Information History of B-cell lymphoma 07/10/2024 2:24 PM [facility] CBC and Differential Review of the peripheral smear shows mild macrocytic anemia. White blood cells and platelets appear adequate and show normal morphology. 07/10/2024 2:24 PM [facility] Bone Marrow Differential BONE MARROW DIFFERENTIAL: 200 cells Normal Patient Neutrophils 15-50 33 Metamyelocytes 4-19 7 Myelocytes 1-18 12 Promyelocytes 1-8 0 Blasts 0-2 0 Monocytes 0-5 2 Erythroid 16-38 31 Lymphocytes 3-24 6 Eosinophils 0-6 7 Basophils 0-2 0 Plasma cells 0-4 2 Other 07/10/2024 2:24 PM [facility] Aspirate Smear Staining quality of the bone marrow aspirate smears is suboptimal for morphologic assessment. There is maturing trilineage hematopoiesis. Erythroid and myeloid precursors show full spectrum of maturation. Blasts are not increased. Overt dysplastic features are not identified. The myeloid to erythroid ratio is 1.9 (Normal:1.5-4). Megakaryocytes are present and demonstrate normal morphology. 07/10/2024 2:24 PM [facility] Core Biopsy CELLULARITY: Slightly hypocellular [...] trabeculae are normal. 07/10/2024 2:24 PM [facility] Clot Section Clot sections show predominantly blood with small fragments of a normocellular bone marrow with maturing trilineage hematopoiesis. The provided immunostains for CD20 and CD3 show no atypical lymphoid aggregates. 07/10/2024 2:24 PM [facility] Flow Cytometry Interpretation According to the report, the concurrent flow cytometry performed at the outside institution revealed a 1% B-cell population with an increased kappa:lambda ratio of 8.2 and granulocytes with partial, non-specific CD56 expression. 07/10/2024 2:24 PM [facility] CYTOGENETICS/MOLE CULAR INTERPRETATION Per accompanying pathology report, cytogenetics showed a normal male karyotype. 07/10/2024 2:24 PM EST [facility] Gross Description A. [id number] Received along with a corresponding pathology report from [facility] are 19 slides labeled outside case: [id number] collected on 06/05/2024. 07/10/2024 2:24 PM EST [facility] Note: A resident was involved in the service. I attest I examined the relevant preparations for the specimens and confirmed the diagnosis or interpretation. 07/10/2024 2:24 PM EST [facility] Bone Marrow Specimen from bone marrow obtained by aspiration / Unknown 07/03/2024 2:11 PM EST 07/03/2024 2:11 PM EST us Mayela Moore MD LAB PATHOLOGY ORDERABLES Final R esult [facility] [address] [place] [address] documented in this encounter Visit Diagnoses Diagnosis Hodgkin lymphoma, unspecified, unspecified site (CMS/HCC) documented in this encounter Additional Health Concerns Assessment Noted Time A fall risk assessment has been complete d for the patient 06/23/2024 12:28 PM EST documented as of this encounter Care Teams Independent Distributor Relationship Specialty Start Date End Date Magui Benjamin APRN [address] [place] [address] PCP - General 06/23/24 documented as of this encounter
--- OUTSIDE RECORDS SUMMARY | 2025-06-12 09:13 | XMS_ITS | Encounter Summary ---
Author Organization [facility] Address [address] [id number] Care Team Providers Care Stick Roller Name Role Phone Magui Benjamin APRN Primary Care Provider [phone] Encounter Details Date Type Department Care Team (Late st Contact Info) Description 07/03/2024 Lab Requisition [facility] [address] [place] [address] Mayela Moore MD 800 [facility] [address] [place] [phone] Malignant neoplasm of head, face and neck [...] EST) Case Report Sugical Pathology Consult Case: [id number] Authorizing Provider: Mayela Moore MD Collected: 07/03/2024 9086 Ordering Location: [facility] Lab Received: 07/03/2024 1420 Pathologist: Isra Aviles MD Specimens: A) - Neck, [id number] B) - Lymph Node, [id number] 07/05/2024 6:14 PM EST [facility] Final Diagnosis OUTSIDE ; COLLECTED 12/22/2018 A. LYMPH NODE, LEFT NECK, DEEP JUGULAR, BIOPSY: - CLASSIC FOLLICULAR LYMPHOMA, SEE COMMENT. OUTSIDE ; COLLECTED 08/05/2022 A. 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 07/05/2024 6:14 PM EST [facility] at 1813 EST Comment OUTSIDE ; COLLECTED [...] of previous follicular lymphoma. 07/05/2024 6:14 PM [facility] Clinical Information C76.0 - Malignant neoplasm of head, face and neck [ICD-10-CM] 07/05/2024 6:14 PM [facility] Gross Description A. [id number] Received along with a corresponding pathology report from [facility] are 24 slides labeled outside case: [id number] collected on 12/22/2018. B. [id number] Received along with a corresponding pathology report from [facility] are 19 slides labeled outside case: [id number] collected on 08/05/2022. 07/05/2024 6:14 PM [facility] Note: A resident was involved in the service. I attest I examined the relevant preparations for the specimens and confirmed the diagnosis or interpretation. 07/05/2024 6:14 PM [facility] Tissue Lymph node specimen / Unknown 07/03/2024 2:19 PM EST 07/03/2024 2:20 PM EST Tissue specimen (specimen) Lymph node specimen / Unknown 07/03/2024 2:19 PM EST 07/03/2024 2:20 PM EST us Mayela Moore MD LAB PATHOLOGY ORDERABLES Final R esult [facility] [address] [place] [address] documented in this encounter Visit Diagnoses Diagnosis Malignant neoplasm of head, face and neck (CMS/HCC) Malignant neoplasm of head, face, and neck documented in this encounter Additional Health Concerns Assessment Noted Time A fall risk assessment has been complete d for the patient 06/23/2024 12:28 PM EST documented as of this encounter Care Teams Stick Roller Relationship Specialty Start Date End Date Magui Benjamin, CURBSTONE SETTER [address] [place] [address] PCP - General 06/23/24 documented as of this encounter
--- OUTSIDE RECORDS SUMMARY | 2025-06-12 09:13 | XMS_ITS | Clinical Summary ---
Author Organization [facility] Address [address] [place] [address] Care Team Providers Care Internal Controls Consultant Name Role Phone Magui Benjamin APRN Primary Care Provider Allergies No known active allergies Medications allopurinol [...] 50+ (1 of 2 - PCV) 10/11/1975 TDAP/TD VACCINES (1 - Tdap) 09/14/1996 09/13/1996 COLOGUARD 2001 COLON CANCER SCREENING 5 YEA R SIGMOIDOSCOPY 2001 COLONOSCOPY [address] CANCER SCREENING 2001 CT COLONOGRAPHY 2001 FECAL OCCULT BLOOD TEST 2001 FIT Testing (1 year) 2001 ZOSTER VACCINE (1 of 2) 2006 ANNUAL WELLNESS VISIT 08/27/2022 INFLUENZA VACCINE 02/09/2025 COVID-19 Vaccine ( season) 2025, 11/30/2020 AAA SCREEN ONCE Completed 12/04/2022, 11/26/2022 HEPATITIS C SCREENING Completed 06/23/2024 Insurance [facility] MEDICARE ADVANTAGE Care Teams Internal Controls Consultant Relationship Specialty Start Date End Date Magui Benjamin APRN [address] [place] [address] [place] [address] PCP - General Nurse Practitioner 12/24/22
--- OUTSIDE RECORDS SUMMARY | 2025-06-12 09:13 | XMS_ITS | Clinical Summary ---
Author Organization [facility] Address [address] [place] [address] Phone Care Team Providers Care Biological Science Aide Name Role Phone Gricelda Cox MD Unavailable [phone] Allergies No known active allergies Medications [...] Active fluticasone propionate (FLONASE) 50 mcg/actuation Nasl [place], Suspension 2 Sprays by Nasal route daily. [...] patient's age to complete this topic Insurance [facility] [place] [employer] MEDICARE PPO [place] [employer] MEDICARE PPO [address] [place] [id number] [employer] [facility] [place] [address] MEDICARE PPO MR [facility] [address] Advance Directives For more information, please contact: [phone] * Full Code (Latest Code Status on File) Date Activated Date Inactivated Comments 12/02/2022 11:11 AM 12/04/2022 7:53 PM * Full Code Date Activated Date Inactivated Comments 11/24/2022 11:52 PM 12/01/2022 2:40 AM Care Teams Biological Science Aide Relationship Specialty Start Date End Date Gricelda Cox MD [address] [facility] [place] [address] Medical Oncologist Internal Medicine-Medical Oncology 11/26/22
--- OUTSIDE RECORDS SUMMARY | 2025-06-12 09:13 | XMS_ITS | Encounter Summary ---
Author Organization [facility] Address [address] [place] [address] Care Team Providers Care Geospatial Systems Integrator Name Role Phone Magui Benjamin APRN Primary Care Provider [phone] Encounter Details Date Type Department Care Team (Late st Contact Info) Description 06/01/2024 Orders Only External Location [address] [place] [address] Provider, External Social History Tobacco Use Types [...] on filedocumented in this encounter Care Teams Geospatial Systems Integrator Relationship Specialty Start Date End Date Magui Benjamin APRN [address] [id number] PCP - General 06/23/24 documented as of this encounter
--- OUTSIDE RECORDS SUMMARY | 2025-06-12 09:13 | XMS_ITS | Encounter Summary ---
Author Organization [facility] Address [address] [id number] Care Team Providers Care Material Requirements Worker Name Role Phone Magui Benjamin APRN Primary Care Provider [phone] Encounter Details Date Type Department Care Team (Late st Contact Info) Description 07/03/2024 Lab Requisition [facility] [address] [place] [address] Mayela Moore MD 800 [facility] [address] [place] [phone] Enlarged lymph nodes, unspecified Social History Tobacco [...] 2:04 PM EST) Case Report Cytology Case: [id number] Authorizing Provider: Mayela Moore MD Collected: 07/03/20241403 Ordering Location: [facility] Lab Received: 07/03/2024 140 Pathologist: Isra Aviles MD Specimen: Lymph Node, [id number] 07/05/2024 6:[address] [facility] Final Diagnosis A. LYMPH NODE, LEFT, FINE NEEDLE ASPIRATION (OUTSIDE ; COLLECTED ON 05/24/2024): - ATYPICAL LYMPHOID STROMA, SEE COMMENT. 07/05/2024 6:[address] 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 The cell block and smears show population [...] would be recommended. 07/05/2024 6:55 PM EST [facility] Clinical Information History of follicular lymphoma and diffuse large B-cell lymphoma 07/05/2024 6:55 PM EST [facility] Gross Description A. [id number] Received along with a corresponding pathology report from [facility] are 2 slides labeled outside case: [id number] collected on 05/24/2024. 07/05/2024 6:55 PM EST [facility] Fine Needle Aspirate Lymph node specimen / Unknown 07/03/2024 2:04 PM EST 07/03/2024 2:04 PM EST us Mayela Moore MD LAB PATHOLOGY ORDERABLES Final R esult [facility] [address] [place] [address] documented in this encounter Visit Diagnoses Diagnosis Enlarged lymph nodes, unspecified documented in this encounter Additional Health Concerns Assessment Noted Time A fall risk assessment has been complete d for the patient 06/23/2024 12:28 PM EST documented as of this encounter Care Teams Material Requirements Worker Relationship Specialty Start Date End Date Magui Benjamin, INTAKE COUNSELOR [address] [place] [address] PCP - General 06/23/24 documented as of this encounter
--- OUTSIDE RECORDS SUMMARY | 2025-06-12 09:13 | XMS_ITS | Encounter Summary ---
Author Organization [facility] Address [address] [place] [address] Care Team Providers Care Process Lead Name Role Phone Magui Benjamin APRN Primary Care Provider Reason for Visit * Reason Comments Med Refill Encounter Details Date Type Department Care Team (Late st Contact Info) Description 11/23/2023 Refill [facility] [address] [facility] [address] [place] [address] Marcy Agrawal APRN [address] [place], [place] [phone] Med Refill Social History Tobacco Use Types [...] on filedocumented in this encounter Care Teams Process Lead Relationship Specialty Start Date End Date Magui Benjamin APRN [address] [place] [address] PCP - General Nurse Practitioner 12/24/22 documented as of this encounter
[2025-06-12 09:27] LABS: Hematocrit 33.9 % (42.0-52.0); Hemoglobin 11.5 g/dL (14.1-18.0); Immature Granulocytes % 11.0 %; Mean Corpuscular HGB Conc 33.9 g/dL (31.8-35.4); Mean Corpuscular Hemoglobin 35.2 pg (27.0-31.2); Mean Corpuscular Volume 103.7 fl (80-94); Nucleated Red Blood Cells % 0 %; Platelet Count 114 K/mm3 (142-424); Red Blood Count 3.27 M/mm3 (4.60-6.20); Red Cell Distribution Width-SD 58.1 fL; White Blood Count 3.8 K/mm3 (4.8-10.8)
[2025-06-12 09:37] LABS: Alanine Aminotransferase 27 U/L (12-78); Albumin Level 4.4 g/dl (3.5-5.0); Albumin/Globulin Ratio 1.9 (1.1-1.8); Alkaline Phosphatase 71 U/L (38-126); Anion Gap 9.6 mEq/L (5-15); Aspartate Amino Transferase 27 U/L (17-59); Bilirubin,Total 0.8 mg/dl (0.2-1.3); Blood Urea Nitrogen 13 mg/dl (9-20); Calcium 9.5 mg/dl (8.4-10.2); Carbon Dioxide 27 mmol/L (22.0-30.0); Chloride 100 mmol/L (98-107); Creatinine,Serum 1.00 mg/dl (0.66-1.25); Estimated Glomerular Filt Rate 74 ml/min (>60); GFR (African American) 90 ML/MIN (>60); Globulin 2.3 g/dL (1.3-3.2); Glucose 110 mg/dl (74-100); Potassium 4.6 mmoL/L (3.5-5.1); Sodium 132 mmol/L (136-145); Total Protein,Serum 6.7 g/dl (6.3-8.2)
--- NOTE | 2025-06-12 10:00 | CT_ITS ---
FINAL REPORT TECHNIQUE: Thin section axial images are obtained through the abdomen and pelvis after intravenous contrast. Reconstruction images were obtained from the axial data. Exam was performed using dose reduction techniques. This study was performed with techniques to keep radiation doses as low as reasonably achievable (ALARA). Individualized dose reduction techniques using automated exposure control or adjustment of mA and/or kV according to the patient's size were employed. CLINICAL HISTORY: evaluation COMPARISON: 03/26/2025 FINDINGS: LIVER: Homogeneous. No focal lesion. GALLBLADDER/BILIARY SYSTEM: Gallbladder is present. No gallstones. No biliary dilatation. SPLEEN: The hypodense lesion in the spleen seen on the prior CT of 03/26/2025 has near completely resolved. PANCREAS: Unremarkable. ADRENALS: Unremarkable. KIDNEYS/URETERS/BLADDER: No hydronephrosis, renal mass, or renal stone. 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 There is mild wall thickening of the urinary bladder, stable. GI TRACT: No small bowel obstruction or dilatation. Normal appendix. No acute colon abnormality. PELVIC ORGANS: Unremarkable for age. LYMPH NODES/RETROPERITONEUM/MESENTERY: The soft tissue in the retroperitoneum, seen on the prior CT of 03/26/2025, remains stable, and some of the opacities may be vascular. No abdominal aortic aneurysm. ABDOMINAL WALL: The abdominal wall is intact. FREE FLUID: No ascites. BONES: No acute osseous abnormality. IMPRESSION: No evidence of recurrence or metastatic disease in this patient with known lymphoma. The lesion in the spleen seen on the prior CT has almost completely resolved. Reviewed, Interpreted and Dictated by Odalis Rizzo MD Transcribed by Marielos Canseco Authenticated and [facility]
--- NOTE | 2025-06-12 10:00 | CT_ITS ---
FINAL REPORT TECHNIQUE: Thin section axial images were obtained from the thoracic inlet through the upper abdomen after intravenous contrast injection. Reconstruction images were obtained from the axial data. Exam was performed using dose reduction technique. This study was performed with techniques to keep radiation doses as low as reasonably achievable (ALARA). Individualized dose reduction techniques using automated exposure control or adjustment of mA and/or kV according to the patient's size were employed. CLINICAL HISTORY: evaluation, 3-month followup since last scan and 6month since last chemo. lymphoma COMPARISON: 03/26/2025 FINDINGS: There is no mediastinal, hilar, or axillary lymphadenopathy. There is no pleural or pericardial effusion. The lungs are clear. There is evidence of prior granulomatous disease. Limited evaluation of the upper abdomen is without acute abnormality. No acute osseous abnormality. IMPRESSION: 1. No acute intrathoracic abnormality. 2. No evidence of metastatic or recurrent disease in the chest. Reviewed, Interpreted and Dictated by Odalis Rizzo MD Transcribed by Marielos Canseco Authenticated and [facility]
[2025-06-12 10:05] LABS: Macrocytosis 1+; Total Cells Counted 100
[2025-06-12] MEDS: IOPAMIDOL-370 (76%);100ML BOTTLE 75 ML IV (10:17)
[2025-06-12] MEDS: SODIUM CHLORIDE 0.9% 10ML SYR (RAD ONLY) 10 ML IV (10:18)
== END 2025-06-12 23:59 | disposition home or self-care (01) ==
LOC: RAD 09:10
PROVIDERS: PCP Nurse Practitioner Family; Visit Provider Internal Medicine Medical Oncology
DX: C83.30 Diffuse large B-cell lymphoma, unspecified site (principal); D73.89 Other diseases of spleen
CPT/HCPCS: 36415; 71260; 74177; 80053; 83615; 85007; 85025; Q9967